=== PATIENT | female | born 1960 | race Caucasian/White ===

== ENCOUNTER 2017-08-08 15:14 | Emergency (ER) | payer OTHER, SELFPAY ==
--- NOTE | 2017-08-08 16:21 | RAD ---
PORTABLE CHEST ONE VIEW: 08/08/17 at 3:40 p.m. HISTORY: Syncope. FINDINGS: Comparison is made with the exam of 02/10/17. The heart size is enlarged. There is mild elevation of the right hemidiaphragm. No confluent areas o f consolidation, pneumothorax, alcira pulmonary edema or pleural effusions are seen. IMPRESSION: No acute process. POS: [facility]
[2017-08-08 16:24] LABS: #Eosinphils 0.4 thou/uL (0.0-0.7); #Lymphocytes 2.8 thou/uL (1.20-3.40); #Monocytes 0.7 thou/uL (0.11-0.59); #Neutrophils 3.2 thou/uL (1.40-6.50); %Basophils 0.5 % (0.0-1.0); %Eosinophils 5.1 % (0.0-10.0); %Lymphocytes 40.2 % (21.0-51.0); %Monocytes 9.3 % (0.0-10.0); Hematocrit 38.5 % (36.0-47.0); Mean Platelet Volume 9.3 fL (7.4-10.4); Red Blood Cell (RBC) Count 4.32 mill/uL (4.20-5.40)
[2017-08-08 16:32] LABS: PTT 30.9 SEC (22.9-36.1); Prothrombin Time 12.9 SEC (12.0-14.7)
[2017-08-08 16:42] LABS: Bilirubin Negative (Negative); Blood, Urine Negative (Negative); Glucose, Urine (Dipstick) Negative (Negative); Ketone, Urine Negative (Negative); Nitrite Negative (Negative); Protein, Urine (Dipstick) Negative (Neg-Trace); Urobilinogen 0.2 mg/dL (0.2-1.0)
[2017-08-08 16:43] LABS: Squamous Epithelial 0-3 HPF (0-3)
[2017-08-08 16:46] LABS: ALT (SGPT) 15 U/L (8-55); AST (SGOT) 14 U/L (5-34); Alkaline Phosphatase 90 U/L (40-150); Anion Gap 17 mmol/L (10-20); BUN (Urea Nitrogen) 34 mg/dL (9.8-20.1); Bilirubin, Total 0.3 mg/dL (0.2-1.2); CK (CPK) 86 U/L (29-168); Calc. Creatinine Clearance 0 mL/min (70-130); Calcium 9.7 mg/dL (7.8-10.44); Carbon Dioxide 25 mmol/L (22-29); Chloride 103 mmol/L (98-107); Estimated GFR-MDRD 52; Globulin 3.7 g/dL (2.4-3.5); Protein, Total 7.8 g/dL (6.0-8.3)
[2017-08-08 16:50] LABS: Troponin I 0.011 ng/mL (< 0.028)
[2017-08-08] MEDS ORDERED: Ondansetron HCl/PF 4 MG/2 ML Vial ONE (16:51)
[2017-08-08 16:53] LABS: Bacteria/HPF Rare-Few HPF (None Seen)
[2017-08-08 16:54] LABS: Hyaline Casts/LPF 7-10 HYALINE CAST LPF (0-3 Hyaline); RBC/HPF 0-3 HPF (0-3)
--- NOTE | 2017-08-08 17:08 | CT ---
EXAM: NONCONTRAST HEAD CT 08/08/17 COMPARISON: 09/27/16 HISTORY: Syncope. TECHNIQUE: Noncontrast head CT is performed from skull base to skull vertex. FINDINGS: Limited evaluation due to motion degradation. No parenchymal hemorrhage. No extra-axial hematoma. No midline shift. Basilar cisterns are patent. Brain volume appears to be age appropriate. No evidence of hydrocephalus. Cortical weathers-white matter differentiation is preserved. Sulci are patent and sym metric. Calvarium is intact. Adequate aeration of the sinuses and mastoid air cells. Cavernous carotid ather osclerosis is noted. IMPRESSION: No acute intracranial process. POS: [facility]
--- NOTE | 2017-08-08 17:39 | RAD ---
LEFT KNEE FOUR VIEWS: 08/08/17 HISTORY: Injury, left knee pain. FINDINGS/IMPRESSION: Degenerative changes are present. No acute fracture or dislocation is identified. POS: [facility]
--- NOTE | 2017-08-08 17:42 | RAD ---
RIGHT KNEE FOUR VIEWS: 08/08/17 HISTORY: Injury, right knee pain. FINDINGS/IMPRESSION: Degenerative changes are present. No evidence of fracture or dislocation is identified. POS: [facility]
--- NOTE | 2017-08-08 17:42 | RAD ---
SACRUM AND COCCYX THREE VIEWS: 08/08/17 HISTORY: Injury. Pain in the lower spine. FINDINGS/IMPRESSION: No acute fracture or dislocation seen. POS: [facility]
[2017-08-08] MEDS ORDERED: HYDROcodone/Acetaminophen 5/325 mg Tablet ONE (18:41)
[2017-08-08] MEDS ORDERED: Meclizine HCl 25 MG TAB ONE ×2 (18:41→18:42)
== END 2017-08-08 19:54 | disposition home or self-care (01) ==
LOC: ERS 15:14
DX: M25.562 Pain in left knee (principal); M25.561 Pain in right knee; R42 Dizziness and giddiness; M53.3 Sacrococcygeal disorders, not elsewhere classified; E11.65 Type 2 diabetes mellitus with hyperglycemia; E78.5 Hyperlipidemia, unspecified; F32.9 Major depressive disorder, single episode, unspecified; F41.9 Anxiety disorder, unspecified; I10 Essential (primary) hypertension; Z86.73 Personal history of transient ischemic attack (TIA), and cerebral infarction without residual deficits; Z87.891 Personal history of nicotine dependence; Z79.84 Long term (current) use of oral hypoglycemic drugs; Z79.899 Other long term (current) drug therapy; W17.89XA Other fall from one level to another, initial encounter
CPT/HCPCS: 70450; 71010; 72220; 80053; 81003; 81015; 82550; 82553; 84146; 84484; 85025; 85610; 85730; 87086; 93005; 94760; 96361; 96374; 96375; J2270; J2405

== ENCOUNTER 2018-01-09 22:29 | Inpatient (IN) | payer SELFPAY ==
[2018-01-09 23:43] LABS: Bilirubin Negative (Negative); Blood, Urine Negative (Negative); Clarity CLEAR (Clear); Glucose, Urine (Dipstick) Negative (Negative); Leukocyte Negative (Negative); Nitrite Negative (Negative); Protein, Urine (Dipstick) Negative (Neg-Trace); Specific Gravity, Urine 1.021 (1.002-1.036); Urobilinogen 0.2 mg/dL (0.2-1.0)
[2018-01-09 23:48] LABS: #Basophils 0.1 thou/uL (0.0-0.2); #Eosinphils 0.3 thou/uL (0.0-0.7); #Lymphocytes 2.8 thou/uL (1.20-3.40); #Monocytes 0.7 thou/uL (0.11-0.59); #Neutrophils 6.1 thou/uL (1.40-6.50); %Basophils 0.7 % (0.0-1.0); %Eosinophils 2.8 % (0.0-10.0); %Lymphocytes 27.8 % (21.0-51.0); %Monocytes 7.2 % (0.0-10.0); %Neutrophils 61.5 % (42.0-75.0); Hemoglobin 12.4 g/dL (12.0-16.0); Mean Corpuscular HGB CONC 31.9 g/dL (32.0-36.0); Mean Corpuscular Hemoglobin 28.3 pg (27.0-31.0); Mean Corpuscular Volume 88.7 fl (81.0-99.0); Mean Platelet Volume 9.6 fL (7.4-10.4); Platelet Count 212 thou/uL (130-400); RBC Distribution Width 14.3 % (11.5-14.5); Red Blood Cell (RBC) Count 4.37 mill/uL (4.20-5.40); White Blood Cell (WBC) Count 9.9 thou/uL (4.8-10.8)
[2018-01-10 00:09] LABS: ALT (SGPT) 9 U/L (8-55); AST (SGOT) 14 U/L (5-34); Albumin 4.2 g/dL (3.5-5.0); Alkaline Phosphatase 72 U/L (40-150); Anion Gap 15 mmol/L (10-20); BUN (Urea Nitrogen) 19 mg/dL (9.8-20.1); Bilirubin, Total 0.6 mg/dL (0.2-1.2); Calc. Creatinine Clearance 0 mL/min (70-130); Calcium 9.9 mg/dL (7.8-10.44); Carbon Dioxide 26 mmol/L (22-29); Chloride 102 mmol/L (98-107); Estimated GFR-MDRD 54; Globulin 3.4 g/dL (2.4-3.5); Glucose 93 mg/dL (70-105); Lipase 16 U/L (8-78); Potassium 4.2 mmol/L (3.5-5.1); Protein, Total 7.6 g/dL (6.0-8.3); Sodium 139 mmol/L (136-145)
[2018-01-10] MEDS ORDERED: Nitroglycerin 2% Ointment 1 INCH/1 GM Packet ONE (00:22)
[2018-01-10 01:06] LABS: CKMB 1.2 ng/mL (0-6.6); Troponin I 0.012 ng/mL (< 0.028)
[2018-01-10] MEDS ORDERED: Piperacillin/Tazobactam 4.5 GM in Sodium Chloride 0.9% 100 ML IVPB SCH ×2 (03:30→12:00)
[2018-01-10] MEDS ORDERED: Labetalol HCl 100 MG/20 ML VIAL ONE (03:40)
[2018-01-10] MEDS ORDERED: Morphine 4 MG/ML VIAL ONE (05:05)
[2018-01-10 06:38] LABS: Troponin I 0.017 ng/mL (< 0.028)
[2018-01-10] MEDS ORDERED: Sodium Chloride 0.9% 1,000 ML IV SCH ×2 (06:46→08:15)
[2018-01-10] MEDS ORDERED: Acetaminophen 325 MG TAB PO PRN ×2 (06:46→08:03)
[2018-01-10] MEDS ORDERED: Ondansetron ODT 4 MG TAB SL PRN (06:46)
[2018-01-10] MEDS ORDERED: Ondansetron HCl/PF 4 MG/2 ML Vial IVP PRN ×2 (06:46→08:03)
[2018-01-10] MEDS ORDERED: Bisacodyl 10 MG SUPP PR PRN (08:03)
[2018-01-10] MEDS ORDERED: HYDROcodone/Acetaminophen 10/325 mg Tablet PO PRN (08:03)
[2018-01-10] MEDS ORDERED: Zolpidem Tartrate 5 MG TAB PO PRN (08:03)
[2018-01-10] MEDS ORDERED: Ondansetron ODT 4 MG TAB PO PRN (08:03)
[2018-01-10] MEDS ORDERED: Milk Of Magnesia 30 ML UDCUP PO PRN (08:03)
[2018-01-10] MEDS ORDERED: Mag-Al 1200 mg/1200 mg/30 ML UDCUP PO PRN (08:03)
[2018-01-10] MEDS ORDERED: Senokot 8.6 MG TAB PO PRN (08:03)
[2018-01-10] MEDS ORDERED: Loperamide HCl 2 MG CAP PO PRN (08:03)
[2018-01-10] MEDS ORDERED: HumaLOG 300 UNITS/3 ML VIAL SC PRN ×2 (08:05)
[2018-01-10] MEDS ORDERED: Artificial Tears 18 DROP/0.9 ML EA EYE PRN (08:05)
[2018-01-10] MEDS ORDERED: Dextrose 5% in Water 1,000 ML IV PRN (08:05)
[2018-01-10] MEDS ORDERED: Eucerin (Mineral Oil/Petrolatum,White) 30 gm Jar TOP PRN (08:05)
[2018-01-10] MEDS ORDERED: Loratadine 10 MG TAB PO PRN (08:05)
[2018-01-10] MEDS ORDERED: Chloraseptic Spray 180 ml Bottle PO PRN (08:05)
[2018-01-10] MEDS ORDERED: Labetalol HCl 100 MG/20 ML VIAL SLOW IVP PRN (08:05)
[2018-01-10] MEDS ORDERED: Dextrose 50% Abboject 50 ML SYRINGE SLOW IVP PRN (08:05)
[2018-01-10] MEDS ORDERED: Diabetic Tussin 200 MG/10 ML UDCUP PO PRN (08:05)
[2018-01-10] MEDS ORDERED: Sodium Chloride 0.65% Nasal 44 ML BOT EA NARE PRN (08:05)
[2018-01-10] MEDS ORDERED: VANCOMYCIN IVPB PRN (08:46)
[2018-01-10] MEDS ORDERED: Famotidine/PF 20 mg/2ml Vial SLOW IVP SCH (09:00)
[2018-01-10 09:01] VITALS: BMI 49.8
--- NOTE | 2018-01-10 09:14 | CON ---
DATE OF CONSULTATION: 01/10/2018 PRIMARY CARE PHYSICIAN: Dayday Kingston M.D. PRIMARY ATTENDING: Dr. Stephen Padilla. REASON FOR CONSULTATION: Medical comanagement and preoperative clearance. HISTORY OF PRESENT ILLNESS: A 57-year-old female who has multiple medical problems including diabete s mellitus type 2, hypertension, dyslipidemia, and morbid obesity who presented to emergency room yes terday with a complaint of upper abdominal pain as well as bloating for last 2 weeks. The patient re ports that she has epigastric and left-sided upper abdominal pain which gets worse after eating littl e amount of food. The patient feels that her stomach gets bloated and she cannot eat more. She feel s nausea, but no vomiting. She denies any diarrhea. She was also having lower abdominal discomfort. This is going on for last 2 weeks on and off symptoms. Patient also gained weight over the last co uple of weeks. Patient reports that on 12/31/2017, she had regular visit with primary care physician and patient's v itals checked. At that time she was found with sinus tachycardia. That is why EKG was done in the [facility] physician's office which was only showing tachycardia and subsequently PCP ordered routin e blood tests, CBC and BMP, which was pretty much unremarkable, but only found with hypothyroidism an d that is why low dose of Synthroid was started. Since then, patient has continuous symptoms. The p atient was complaining of only shortness of breath and little bit palpitation on exertion, but she de nies any real chest pain. She denies any fever or chills. She denies any UTI symptoms. She denies any constipation or diarrhea. Initially, she had constipation about a week ago, but her primary care physician prescribed MiraLax and since then she does not have any constipation problem. She denies any headaches. She denies any orthopnea, PND or leg swelling. She denies any focal motor or sensory symptoms. She denies any dizziness. In the emergency room, patient had routine blood test showed CBC unremarkable. BMP and LFT unremarka ble. Her cardiac enzyme had been unremarkable. TSH was normal and BNP was slightly elevated. Her u rinalysis was also normal. In the emergency room, they did a CT of the abdomen and pelvis which show ed findings suspicious for acute cholecystitis. Abdominal ultrasound showed thickened gallbladder wa ll about an 8 mm dilated common bile duct, one stone and 9.5 cm abscess in the deep subcutaneous tiss ue in the right lower quadrant with an anterior abdominal wall cellulitis. When I spoke with patient about this, she reports that she has chronic fluid collection in her lower abdomen that was found with a CT of the abdomen and pelvis in the past as well, but patient reports a t that time, physician told her that was not bothering her and that is why there was no intervention done in the past. ALLERGIES: IBUPROFEN and NAPROXEN. CURRENT HOME MEDICATIONS: The patient does not have any medication with her and that is why we are n ot able to verify her home medication, but based on the [place], patient was on following medication , but we need to verify aspirin 81 mg daily, atenolol 25 mg daily, Flexeril 10 mg daily, Glucotrol 5 mg b.i.d., Fischer 1 tablet q.6 hourly p.r.n., lisinopril 10 mg at bedtime, lovastatin 20 mg p.o. at be dtime, metformin 1000 mg p.o. b.i.d., Seroquel 100 mg p.o. at bedtime, Ambien 10 mg p.o. at bedtime. PAST MEDICAL HISTORY: Diabetes mellitus type 2 on oral hypoglycemics, hypertension, dyslipidemia, mo rbid obesity, chronic normocytic anemia, and fatty liver. PAST PSYCHIATRIC HISTORY: Anxiety, depression, and insomnia. PAST SURGICAL HISTORY: Appendicectomy, hernia repair, tonsillectomy, tubal ligation. SOCIAL HISTORY: The patient lives at home with family. No history of tobacco or illicit drug abuse. She drinks alcohol socially. FAMILY HISTORY: Positive for diabetes, hypertension, and coronary artery disease among several famil y members. REVIEW OF SYSTEMS: The following complete review of systems was negative, unless otherwise mentioned in the HPI or below: Constitutional: Weight loss or gain, ability to conduct usual activities. Skin: Rash, itching. Eyes: Double vision, pain. ENT/Mouth: Nose bleeding, neck stiffness, pain, tenderness. Cardiovascular: Palpitations, dyspnea on exertion, orthopnea. Respiratory: Shortness of breath, wheezing, cough, hemoptysis, fever or night sweats. Gastrointestinal: Poor appetite, abdominal pain, heartburn, nausea, vomiting, constipation, or diarr hea. Genitourinary: Urgency, frequency, dysuria, nocturia. Musculoskeletal: Pain, swelling. Neurologic/Psychiatric: Anxiety, depression. Allergy/Immunologic: Skin rash, bleeding tendency. Please see my HPI for pertinent positive and negative. All other review of systems reviewed and nega tive except as mentioned in the HPI. EMERGENCY ROOM COURSE: The patient is given morphine 4 mg, vancomycin 1 gram, Zosyn 4.5 gram, IV flu id 1 liter, labetalol 10 mg IV push, 2 liter IV fluid, and nitropatch. PHYSICAL EXAMINATION: VITAL SIGNS: On arrival to the emergency room, blood pressure 164/86, pulse 153, respiratory rate 18 , temperature 98.4, saturation 99% on room air, weight 104.7 kilograms. GENERAL: Patient is currently alert, oriented, hypertensive, tachycardic. No obvious acute distress . HEAD: Normocephalic, atraumatic. EYES: Pupils round, reactive to light. Extraocular muscle intact. ENT: Oropharynx within normal limits. Moist mucous membranes. No oral lesions, no pharyngeal eryth ritchie, no exudate. NECK: Supple, no JVD, no thyromegaly, no carotid bruit, no jugular venous distention. LUNGS: Clear to auscultation without any rhonchi or rales, air entry reduced at base. CARDIAC: S1, S2 regular, tachycardia, no murmur, no gallop, no rub. ABDOMEN: Patient does have epigastric tenderness on palpation as well as positive Yu sign and le ft upper quadrant discomfort as well as right lower quadrant discomfort. Bowel sounds present. No p eritoneal sign, no guarding, no rigidity, no rebound, no suprapubic tenderness. BACK: Examination unremarkable, no CVA tenderness. EXTREMITIES: Upper extremity passive movements of all joints are normal. Lower extremity, trace tj ma noted at ankle. Good distal pulsation. SKIN: No skin rash. HEMATOLOGICAL SYSTEM: No lymphadenopathy. PSYCHIATRIC: Normal affect. NEUROLOGIC: Nonfocal examination. The patient moves all 4 limbs. Plantar bilateral flexor. IMAGING DATA AND SIGNIFICANT LABORATORY DATA: 1. Monitor showing sinus tachycardia. 2. EKG showing sinus tachycardia, right bundle branch block pattern. 3. Repeat EKG showing sinus tachycardia, right bundle branch block pattern. 4. CT of the abdomen and pelvis with IV contrast showing small pericardial effusion, small right ple ural effusion, 9.5 cm abscess in the deep subcutaneous tissue in the right lower quadrant anterior pe lvic wall, distended gallbladder with pericholecystic edema and fluid, small volume ascites, extensiv e low anterior abdominal wall cellulitis. 5. Ultrasound abdomen showing cholelithiasis, distended gallbladder with diffuse gallbladder wall th ickening, positive Yu sign. Common bile duct is mildly prominent at 8 mm in caliber, right pleur al effusion. 6. CBC: WBC 9.9, hemoglobin 12.4, platelet 212. 7. BMP: Sodium 139, potassium 4.2, chloride 102, carbon dioxide 26, anion gap 15, BUN 19, creatinin e 1.04, glucose 93, calcium 9.9. 8. LFT: AST 14, ALT 9, alkaline phosphatase is 72, albumin 4.2, lipase 16, TSH 1.53, CK 40, CK-MB 1 .2, troponin I 0.012 and then 0.017. BNP 245.6. Urinalysis normal. 9. Echocardiography was done recently which showed normal EF. Stress test was done last year in Jan which was normal without any ischemia. ASSESSMENT AND PLAN/IMPRESSION: 1. Right upper quadrant epigastric and left upper quadrant abdominal pain. Patient does have thick gallbladder wall, CBD dilated cholelithiasis. Surprisingly, her LFT is normal. This patient does hebert ve palpable tenderness in epigastric and right upper quadrant region. Clinically, this patient does have acute cholecystitis and radiologically, patient also has acute cholecystitis. Patient has diste nded gallbladder and patient's clinical symptomatology of bloating after food and worse with food als o supports diagnosis. At this point, patient will need cholecystectomy laparoscopic preferable, but given her previous multiple abdominal surgeries, we will defer to surgeon whether laparoscopically is possible or not, but in case if patient goes for surgery, then the patient is medically cleared for surgery as well. 2. Antibiotic management. We will start vancomycin and Zosyn which we will continue while in hospit al and Florastor 250 mg p.o. daily as a probiotic therapy. 3. Pain control. We will continue with morphine 2 mg IV q.4 hourly p.r.n. for pain control and Norc o p.r.n. basis. 4. Symptomatic treatment. We will continue Pepcid 20 mg IV b.i.d. and Zofran on p.r.n. basis. 5. Diabetes type 2. We will hold on oral hypoglycemic agent. We will continue with insulin as per sliding scale per protocol. 6. Fluid and electrolyte management. We will continue NS at 150 mL per hour and we will replace taco ctrolytes accordingly. 7. Preoperative clearance. As mentioned above, patient does not have any angina. Her cardiac enzym es negative. EKG is unremarkable. Current sinus tachycardia is part of inflammatory process. She i s euvolemic and she had negative stress test last year. The patient is medically cleared for surgery . Her thyroid function test is also normal. 8. Sinus tachycardia. We are suspecting from underlying inflammatory process. The patient will nee d p.r.n. basis labetalol, but we will control her pain as well as patient will need underlying surgic al treatment for acute cholecystitis and fluid collection in the right lower quadrant. 9. Abscess in right lower quadrant. As per report, there is a 9.5 cm fluid collection in deep subcu taneous tissue and that is suspected for abscess. We will defer that management to primary team. Hrio leahy may need surgical drainage. 10. Serositis. Patient has small pericardial effusion, small pleural effusion and small ascites. E tiology uncertain, but very rarely Nodaway syndrome with ovarian tumor needs to be kept in mind. 11. Anterior abdominal wall cellulitis. Clinically, does not have any external cellulitis. Patient is already on antibiotic therapy. 12. Hypertension. We will continue atenolol 25 mg p.o. at bedtime. 13. Anxiety and depression. Once we verify her home medication and we will resume her home medicati on while in hospital. 14. Dyslipidemia. After verification of her home medication, we will start statin therapy. 15. Deep venous thrombosis prophylaxis. After surgery, patient will need Lovenox 40 mg subcu daily. 16. Gastrointestinal prophylaxis, Pepcid 20 mg IV b.i.d. 17. Code status: The patient is FULL CODE. Patient's daughter is surrogate decision maker in case the patient does not make decision. Disposition plan based on clinical course. We are expecting patient's stay in hospital more than 2 m idnights. Plan of care discussed with the patient and family member at bedside. Thank you for the consult. We will follow up with you on a daily basis while in hospital.
[2018-01-10] MEDS: Saccharomyces boulardii 250 MG CAP PO SCH (09:25)
[2018-01-10] MEDS: Famotidine 40 MG/4 ML VIAL SLOW IVP SCH ×2 (09:25→21:10)
[2018-01-10] MEDS: Enoxaparin Sodium 40 MG/0.4 ML SYRINGE SC SCH (09:25)
--- NOTE | 2018-01-10 09:25 | RAD ---
PORTABLE CHEST: Date: 01/10/18 PROVIDED CLINICAL HISTORY: Chest pain. FINDINGS: Comparison with 08/08/17. The cardiac silhouette appears enlarged. Vascular calcification involves the aortic arch. Evaluation of the left lung base is limited. No focal consolidation, pleural fluid, or pneumothorax apparent. IMPRESSION: Cardiomegaly without evidence for acute cardiopulmonary process. POS: [facility]
[2018-01-10 09:36] LABS: Troponin I 0.017 ng/mL (< 0.028)
--- NOTE | 2018-01-10 09:52 | CT ---
PRELIMINARY REPORT/[facility]/EMERGENCY AFTER HOURS PROCEDURE: EXAM: CT Abdomen and Pelvis With Intravenous Contrast EXAM DATE/TIME: Exam ordered 01/10/2018 12:54 AM CLINICAL HISTORY: 57 years old, female; Pain; Abdominal pain; Localized; Upper; Prior surgery; Patient HX: Er 12; Upper abd pain x 2 wks with bloating. Surgical history of appendectomy, hernia repair x5, surgical history of tubal ligation. TECHNIQUE: Axial computed tomography images of the abdomen and pelvis with intravenous contrast. Coronal reforma tted images were created and reviewed. CONTRAST: 95 mL of ISOVUE 370 administered intravenously. COMPARISON: No relevant prior studies available. FINDINGS: Lower thorax: Small pericardial effusion. Small right pleural effusion. Mild cardiomegaly. Fatcontain ing hiatal hernia. ABDOMEN: Liver: No pneumatosis or portal/mesenteric venous gas. Gallbladder and bile ducts: Gallbladder is distended. Pericholecystic edema/fluid. Findings are suspi cious for acute cholecystitis. No biliary ductal dilatation. Pancreas: Unremarkable. No mass. No ductal dilation. Spleen: Unremarkable. No splenomegaly. Adrenals: Unremarkable. No mass. Kidneys and ureters: Unremarkable. No solid mass. No hydronephrosis. Stomach and bowel: No bowel wall thickening or intestinal obstruction. Left lower quadrant abdominal wall hernia containing a loop of colon. No resultant obstruction or strangulation. Appendix: Appendix not visualized. No evidence of appendicitis. PELVIS: Bladder: Unremarkable. No mass. Reproductive: Unremarkable as visualized. ABDOMEN and PELVIS: Intraperitoneal space: Small volume ascites in the pelvis. No pneumoperitoneum or abscess. Bones/joints: No acute fracture. No dislocation. Soft tissues: 9.5 cm abscess in the deep subcutaneous tissue of the right lower quadrant/anterior pel anny wall which may actually be intraperitoneal and related to a fat containing anterior abdominal wall hernia. Extensive low anterior abdominal wall cellulitis. Extensive prior anterior abdominal wal l hernia repair. Vasculature: SMV and SMA are patent as far as can be traced. Lymph nodes: Unremarkable. No enlarged lymph nodes. IMPRESSION: 1. Small pericardial effusion. 2. Small right pleural effusion. 3. 9.5 cm abscess in the deep subcutaneous tissue of the right lower quadrant/anterior pelvic wall wh ich may actually be intraperitoneal and related to a fat containing anterior abdominal wall hernia. 4. Distended gallbladder with pericholecystic edema/fluid, suspicious for acute cholecystitis. 5. Small volume ascites in the pelvis. 6. Extensive low anterior abdominal wall cellulitis. Thank you for allowing us to participate in the care of your patient. Dictated and Authenticated by: Kris Jarrell MD 01/10/2018 1:11 AM Central Time ([place] & [place]) FINAL REPORT EMERGENCY AFTER HOURS CT ABDOMEN AND PELVIS: Date: 01/10/18 IMPRESSION: I agree with the preliminary interpretation given by [facility]. There is diffuse fat stranding involving t he anterior abdominal wall suggestive of cellulitis. There is a rim enhancing fluid collection involv ing the anterior abdominal wall inferiorly to the right of midline suspicious for abscess. The gallbl adder appears mildly distended with questioned pericholecystic fluid. If there is concern for acute c holecystitis, consider HIDA scan. POS: [facility]
--- NOTE | 2018-01-10 10:01 | ULT ---
PRELIMINARY REPORT/[facility]/EMERGENCY AFTER HOURS PROCEDURE: EXAM: US Abdomen Limited, Right Upper Quadrant EXAM DATE/TIME: Exam ordered 01/10/2018 1:44 AM CLINICAL HISTORY: 57 years old, female; Pain; Other: Upper abd pain x 3wks TECHNIQUE: Real-time ultrasound of the right upper quadrant with image documentation. COMPARISON: CT Abdomen Pelvis W Con 2018-01-10 00:54 FINDINGS: Liver: No perceptible intrahepatic biliary ductal dilatation. Gallbladder: Gallbladder is distended. Diffuse gallbladder wall thickening. Mild cholelithiasis. No p ericholecystic fluid. Sonographic Yu's sign reported positive. Common bile duct: Common bile duct is mildly prominent at 8 mm in caliber which can be normal or dila elizabeth in a patient this age. Pancreas: Unremarkable as visualized. Right kidney: Unremarkable. No stones. No solid mass. No hydronephrosis. Pleural space: Suggestion of right pleural effusion. IMPRESSION: 1. Cholelithiasis. Distended gallbladder with diffuse gallbladder wall thickening and positive sonogr aphic Yu sign, compatible with acute cholecystitis. 2. Common bile duct is mildly prominent at 8 mm in caliber which can be normal or dilated in a patien t this age. 3. Suggestion of right pleural effusion. Thank you for allowing us to participate in the care of your patient. Dictated and Authenticated by: Kris Jarrell MD 01/10/2018 3:36 AM Central Time ([place] & [place]) FINAL REPORT EMERGENCY AFTER HOURS RIGHT UPPER QUADRANT ULTRASOUND: Date: 01/10/18 IMPRESSION: I agree with the preliminary interpretation given by [facility] that there is evidence for a small gallston e, as well as gallbladder wall thickening. The emergency medical technician does report a positive sonographic Yu' s sign and acute cholecystitis cannot be excluded on the basis of this study. However, the CT examina tion performed earlier same date demonstrated diffuse soft tissue changes suggestive of anasarca, as well as right pleural effusion, and the gallbladder wall thickening could be on the basis of a system ic state. If there is concern for acute cholecystitis, consider further evaluation with HIDA scan. Th e common duct does not appear dilated on comparison CT examination. POS: [facility]
[2018-01-10 10:31] LABS: Bilirubin Negative (Negative); Blood, Urine Negative (Negative); Clarity CLEAR (Clear); Glucose, Urine (Dipstick) Negative (Negative); Leukocyte Negative (Negative); Nitrite Negative (Negative); Protein, Urine (Dipstick) Negative (Neg-Trace); Urobilinogen 0.2 mg/dL (0.2-1.0); pH, Urine 5.5 (5.0-9.0)
[2018-01-10 10:33] LABS: Bacteria/HPF Rare-Few HPF (None Seen); Hyaline Casts/LPF 0-3 HYALINE CAST LPF (0-3 Hyaline); Pathc Cast-AUWi Flag 0.27 (0-2.49); RBC/HPF 0-3 HPF (0-3); Squamous Epithelial 0-3 HPF (0-3); WBC/HPF 0-3 HPF (0-3)
[2018-01-10 10:46] LABS: Specific Gravity, Urine 1.054 (1.002-1.036)
[2018-01-10] MEDS: Lactated Ringer's 1,000 ML IV SCH ×3 (10:57→23:41)
[2018-01-10] MEDS: Piperacillin/Tazobactam 4.5 GM in Sodium Chloride 0.9% 100 ML IVPB SCH ×3 (10:58→21:25)
--- NOTE | 2018-01-10 12:46 | HP ---
HISTORY OF PRESENT ILLNESS: This is a 57-year-old female with acute cholecystitis, admitted from the emergency room. Patient, on CAT scan and ultrasound, noted to have distended gallbladder with peric holecystic edema fluid suspicious for acute cholecystitis. Ultrasound revealed sonographically posit nate Yu's sign with a bile duct 8 mm, upper limits of normal. Her liver function tests are normal . She was noted in the ER to have a heart rate of 140-150. She has been suffering upper abdominal d iscomfort for the past 2 weeks. She is followed by Dr. Kingston. She was hospitalized last year, , for atypical chest pain and cardiac stress test was normal with an ejection fraction of 82%. An e chocardiogram did not reveal any significant abnormalities. The patient has seen Dr. Vazquez in the [facility] and has had normal cardiac catheterizations years past. Patient on CAT scan was reported as having abdominal wall cellulitis, thickening, edema, but she is m orbidly obese, and in fact, has been gaining weight. She reports her hemoglobin A1c was up to 10 or 11, but recently has come down to 7. She has made efforts to lose weight. The patient is reporting on CAT scan as having a fluid collection in the abdominal wall. This is chronic. The patient has hebert d multiple incisional hernia repairs after suffering an incisional hernia from a tubal ligation and u ndergoing 2 operations in [place], [address] Flowers open, and laparoscopic mesh repair by me in the past. She has suffered recurrent incisional hernia. Past CAT scan revealed the fluid collec tion that she has now in the past; in fact, now it is smaller than the past. This is chronic and thi s is not an abscess. ALLERGIES: NAPROXEN, causes hives. She states that she can take Motrin and Aleve and Advil without allergic reactions. SOCIAL HISTORY: Tobacco cessation in the . Alcohol, none. MEDICATIONS: Metformin 1000 b.i.d., Glucotrol 5 mg b.i.d., Ambien 10 mg at bedtime, Seroquel 100 mg at bedtime, Mevacor 20 mg p.m. with meals, lisinopril 10 mg at bedtime, hydrocodone 10/325 p.r.n. jeremias n, Flexeril 10 p.o. at bedtime, atenolol 25 p.o. at bedtime, aspirin 81 mg a day. PAST SURGICAL HISTORY: Appendectomy at age 5. Right lower quadrant incision, bilateral tubal ligati on 26 years of age. She suffered an incisional hernia from her tubal ligation, and in 1994, she unde rwent mesh repair. This recurred and she underwent in 1995 reoperation, open repair. In 1997, Dr. Indu hill repaired this with mesh and then again she underwent mesh repair, open fashion in [address] Flowers. She had had her tubal ligation in 1983. I saw her in 2004. She weighed 231 pounds at that time, 4 feet 11 inches, and she underwent laparoscopic mesh repair using a 6 x 8 inch Composix mesh with tackers, findings of incarcerated small bowel into a large incisional hernia. She underwent ext ensive adhesiolysis. She reports normal colonoscopy 5-6 years ago. She lives in [place] with her [facility]. PAST MEDICAL HISTORY: Morbid obesity, metabolic syndrome, diabetes mellitus, hypertension, hypothyro idism. Echocardiogram done 01/2017 reveals 55%-60% ejection fraction, normal LV function. Left atri um, [id number] dilatation. Normal aortic valve. Mild tricuspid and pulmonic regurgitation. C ardiac stress test, nuclear medicine, 01/2017 was normal. She has [place]. [place] [facility] [place]. Vaz[place]. She has known history of hyperlipidemia and a past history of TIA with normal ca rotid ultrasounds. The patient is a former drug user. She has smoking cessation in 1993. No alcoho l use, no drug use now. FAMILY HISTORY: Coronary artery disease, last year. Patient has not seen Cardiology since her cardiac evaluation last year in the hospital. PHYSICAL EXAMINATION: VITAL SIGNS: 4 feet 10, 238 pounds, 49 BMI, 98.4, 149, 18, 119/56. GENERAL: Patient is alert and oriented and cooperative. She is not in distress. Sclerae nonicteric . SKIN: Nonjaundiced. LUNGS: Clear to auscultation. CARDIAC: Sinus tachycardia. ABDOMEN: Obese, soft. She has a large pannus. There is some resultant edema from her large pannus, but there is no cellulitis. She has a recurrent incisional hernia with a periumbilical incision and incisional hernias in her upper abdomen is soft. She has a dependent pannus down to her mid thighs when supine. She is tender with positive Yu sign in the right upper quadrant. EXTREMITIES: Without edema. LABORATORY DATA: White count 9, hemoglobin 12. Comprehensive metabolic profile unremarkable. Sodiu m 139, BUN 19, creatinine 1.04, TSH 1.5. ASSESSMENT AND PLAN: 1. Acute cholecystitis. We would recommend intravenous antibiotics and plan cholecystectomy tomorro w, laparoscopic. We should be able to work around her incisional hernia to accomplish this. Risk of infection, bleeding, visceral biliary injury, open procedure discussed. She consents. 2. Supraventricular tachycardia, probably secondary to above and related to her cholecystitis. IV f luids, IV antibiotics, IV hydration, and supportive care. 3. Morbid obesity, metabolic syndrome. 4. Diabetes mellitus, type 2. 5. Hypertension. 6. Dyslipidemia. 7. Recurrent incisional hernia. The fluid collection in the right lower quadrant abdominal wall duke cribed by our CAT scan as an abscess is not an abscess. This has been present on past CAT scans, in fact this fluid collection is smaller and related to her past incisional hernia repairs. She has a l arge incisional hernia there with a large opening. There is no evidence of obstruction or changes re lated to this. This incisional hernia could be repaired in the future, but I have talked to her abou t weight reduction. In fact, she would be a good candidate for bariatric weight loss surgery to decr ease her recurrence rate from her recurrent incisional hernia.
[2018-01-10] MEDS ORDERED: ISOVUE-370 76%-LOCM 1 ML ONE (13:59)
[2018-01-10] MEDS ORDERED: Vancomycin HCl 1 GM in Premix Bag 1 BAG IVPB SCH (15:00)
[2018-01-10] MEDS: Zolpidem Tartrate 5 MG TAB PO SCH (21:25)
[2018-01-10] MEDS: Atenolol 25 MG TAB PO SCH (21:25)
[2018-01-10] MEDS: Cyclobenzaprine 10 MG TAB PO SCH (21:25)
[2018-01-10] MEDS: Lisinopril 10 MG TAB PO SCH (21:26)
[2018-01-11 04:47] LABS: #Basophils 0.1 thou/uL (0.0-0.2); #Eosinphils 0.2 thou/uL (0.0-0.7); #Lymphocytes 1.8 thou/uL (1.20-3.40); #Monocytes 0.5 thou/uL (0.11-0.59); #Neutrophils 4.4 thou/uL (1.40-6.50); %Basophils 1.1 % (0.0-1.0); %Lymphocytes 25.4 % (21.0-51.0); %Monocytes 7.6 % (0.0-10.0); Hemoglobin 11.6 g/dL (12.0-16.0); Mean Corpuscular Hemoglobin 28.2 pg (27.0-31.0); Mean Corpuscular Volume 88.2 fl (81.0-99.0); Mean Platelet Volume 9.6 fL (7.4-10.4); Platelet Count 166 thou/uL (130-400); RBC Distribution Width 14.4 % (11.5-14.5); Red Blood Cell (RBC) Count 4.11 mill/uL (4.20-5.40); White Blood Cell (WBC) Count 6.9 thou/uL (4.8-10.8)
[2018-01-11] MEDS: Piperacillin/Tazobactam 4.5 GM in Sodium Chloride 0.9% 100 ML IVPB SCH ×3 (04:50→16:51)
[2018-01-11] MEDS ORDERED: Vancomycin HCl 1 GM in Premix Bag 1 BAG IVPB SCH (05:00)
[2018-01-11 05:06] LABS: ALT (SGPT) 9 U/L (8-55); AST (SGOT) 14 U/L (5-34); Albumin 3.8 g/dL (3.5-5.0); Alkaline Phosphatase 61 U/L (40-150); Anion Gap 12 mmol/L (10-20); BUN (Urea Nitrogen) 14 mg/dL (9.8-20.1); Bilirubin, Total 0.6 mg/dL (0.2-1.2); Calc. Creatinine Clearance 100 mL/min (70-130); Calcium 9.3 mg/dL (7.8-10.44); Carbon Dioxide 25 mmol/L (22-29); Chloride 107 mmol/L (98-107); Estimated GFR-MDRD 54; Globulin 2.8 g/dL (2.4-3.5); Glucose 108 mg/dL (70-105); Potassium 4.3 mmol/L (3.5-5.1); Protein, Total 6.6 g/dL (6.0-8.3); Sodium 140 mmol/L (136-145)
[2018-01-11 05:09] LABS: Hemoglobin A1c 6.9 % (4.0-6.0)
[2018-01-11] MEDS ORDERED: Non-Formulary Item 1 EACH (Lovastatin 20 MG) PO SCH (08:00)
[2018-01-11] MEDS ORDERED: Non-Formulary Item 1 EACH (Metformin Hcl [Metformin Hcl] 1,000 MG) PO SCH (08:00)
[2018-01-11] MEDS ORDERED: Digoxin 0.5 MG/2 ML AMP SLOW IVP SCH (08:45)
[2018-01-11] MEDS ORDERED: Non-Formulary Item 1 EACH (Pioglitazone Hcl [Pioglitazone Hcl] 30 MG) PO SCH (09:00)
[2018-01-11] MEDS ORDERED: Metoprolol Tartrate 5 MG/5 ML VIAL IVP ONE (09:31)
--- NOTE | 2018-01-11 09:32 | PDOC.PN ---
- Subjective Encounter Start Date: 01/11/18 Encounter Start Time: 07:10 -: old records requested/rev pt remained tachycardic, this morning she has nausea, bloating, no fever, no chest pain - Objective Resuscitation Status: Resuscitation Status FULL:Full Resuscitation MAR Reviewed: Yes Vital Signs & Weight: Vital Signs (12 hours) Temp Pulse Resp BP BP Pulse Ox 01/11/18 09:01 150 H 192/82 H 01/11/18 08:52 150 H 01/11/18 07:51 97.6 F 150 H 17 192/82 H 97 01/11/18 07:30 98.6 F 145 H 18 98 01/11/18 04:00 98.6 F 145 H 18 133/94 H 96 Weight Weight 238 lb 9.6 oz Result Diagrams: 01/11/18 04:33 01/11/18 04:33 Additional Labs: Accuchecks 01/10/18 01/10/18 15:59 10:37 POC Glucose 85 91 EKG Reviewed by me: Yes (atrial tachycardia) Phys Exam - Physical Examination Constitutional: NAD HEENT: PERRLA, moist MMs, sclera anicteric Neck: no JVD, supple Respiratory: no wheezing, no rales, no rhonchi Cardiovascular: RRR, no significant murmur, no rub tachycardia Gastrointestinal: soft, no distention, positive bowel sounds RUQ discomfort Musculoskeletal: no edema, pulses present Neurological: non-focal, normal sensation, moves all 4 limbs Psychiatric: normal affect, A&O x 3 Skin: no rash, normal turgor Dx/Plan (1) Acute cholecystitis Code(s): K81.0 - ACUTE CHOLECYSTITIS Status: Acute (2) Sinus tachycardia Code(s): R00.0 - TACHYCARDIA, UNSPECIFIED Status: Acute Comment: likely atrial tachycardia (3) Anxiety and depression Code(s): F41.8 - OTHER SPECIFIED ANXIETY DISORDERS Status: Chronic (4) Diabetes type 2, controlled Code(s): E11.9 - TYPE 2 DIABETES MELLITUS WITHOUT COMPLICATIONS Status: Chronic (5) Dyslipidemia Code(s): E78.5 - HYPERLIPIDEMIA, UNSPECIFIED Status: Chronic (6) HTN (hypertension) Code(s): I10 - ESSENTIAL (PRIMARY) HYPERTENSION Status: Chronic (7) Hypothyroidism Code(s): E03.9 - HYPOTHYROIDISM, UNSPECIFIED Status: Chronic (8) Morbid obesity with BMI of 45.0-49.9, adult Code(s): E66.01 - MORBID (SEVERE) OBESITY DUE TO EXCESS CALORIES; Z68.42 - BODY MASS INDEX (BMI) 45.0-49.9, ADULT Status: Chronic (9) Recurrent incisional hernia Code(s): K43.2 - INCISIONAL HERNIA WITHOUT OBSTRUCTION OR GANGRENE Status: Chronic - Plan cont current plan of care, plan discussed w/ family, continue antibiotics * give digoxin 0.25 mg iv one time * give metoprolol 5 mg iv one time * continue iv vancomycin and zosyn * plan for cholecystectomy * cardiology consult for tachycardia * EKG * discussed with daughter * medication reviewed as below * symptomatic treatment. * continue IVF Review of Systems - Review of Systems Constitutional: negative: fever, chills, sweats, weakness, malaise, other Eyes: negative: Pain, Vision Change, Conjunctivae Inflammation, Eyelid Inflammation, Redness, Other ENT: negative: Ear Pain, Ear Discharge, Nose Pain, Nose Discharge, Nose Congestion, Mouth Pain, Mouth Swelling, Throat Pain, Throat Swelling, Other Respiratory: negative: Cough, Dry, Shortness of Breath, Hemoptysis, SOB with Excertion, Pleuritic Pain, Sputum, Wheezing Cardiovascular: negative: chest pain, palpitations, orthopnea, paroxysmal nocturnal dyspnea, edema, light headedness, other Gastrointestinal: Nausea, Abdominal Pain. negative: Vomiting, Diarrhea, Constipation, Melena, Hematochezia, Other Genitourinary: negative: Dysuria, Frequency, Incontinence, Hematuria, Retention , Other Musculoskeletal: negative: Neck Pain, Shoulder Pain, Arm Pain, Back Pain, Hand Pain, Leg Pain, Foot Pain, Other Skin: negative: Rash, Lesions, Abdiel, Bruising, Other - Medications/Allergies Allergies/Adverse Reactions: Allergies Allergy/AdvReac Type Severity Reaction Status Date / Time naproxen Allergy Verified 02/11/17 00:55 Medications: Current Medications Acetaminophen (Tylenol) 650 mg PO Q4H PRN PRN Reason: Headache/Fever or Pain Last Admin: 01/10/18 11:08 Dose: 650 mg Al Hydroxide/Mg Hydroxide (Maalox) 30 ml PO Q6H PRN PRN Reason: Heartburn or Indigestion Albuterol/Ipratropium (Duoneb) 3 ml NEB [id number] PRN PRN Reason: SOB &/or Wheezing Artificial Tears (Tears Naturale) 0 drop EA EYE PRN PRN PRN Reason: Dry Eyes Aspirin (Aspirin Chewable) 81 mg PO DAILY [facility] Atenolol (Tenormin) 25 mg PO HS [facility] Last Admin: 01/10/18 21:25 Dose: 25 mg Bisacodyl (Dulcolax) 10 mg MD Q24H PRN PRN Reason: Constipation Cyclobenzaprine HCl (Flexeril) 10 mg PO HS [facility] Last Admin: 01/10/18 21:25 Dose: 10 mg Dextrose/Water (Dextrose 50%) 25 gm SLOW IVP PRN PRN PRN Reason: Hypoglycemia Digoxin (Lanoxin) 0.25 mg SLOW IVP NOW [facility] Stop: 01/11/18 10:00 Last Admin: 01/11/18 08:52 Dose: 0.25 mg Enoxaparin Sodium (Lovenox) 40 mg SC 0900 [facility] Last Admin: 01/10/18 09:25 Dose: 40 mg Famotidine (Pepcid) 20 mg SLOW IVP Q12HR [facility] Last Admin: 01/10/18 21:10 Dose: Not Given Glipizide (Glucotrol) 5 mg PO BID-[facility] Glucagon (Glucagon) 1 mg IM PRN PRN PRN Reason: Hypoglycemia Guaifenesin (Robitussin Sf) 200 mg PO Q4H PRN PRN Reason: Cough Dextrose/Water (D5w) 1,000 mls @ 0 mls/hr IV .Q0M PRN; As Directed PRN Reason: Hypoglycemia Piperacillin Sod/Tazobactam (Sod 4.5 gm/ Sodium Chloride) 100 mls @ 200 mls/hr IVPB 0400,1000,1600,2200 [facility] Last Admin: 01/11/18 04:50 Dose: 100 mls Vancomycin HCl 1 gm/ Device 200 mls @ 200 mls/hr IVPB 0500 [facility] Last Admin: 01/11/18 04:51 Dose: 200 mls Lactated Ringer's (Lactated Ringer's) 1,000 mls @ 150 mls/hr IV .Q6H40M [facility] Last Admin: 01/10/18 23:41 Dose: 1,000 mls Insulin Human Lispro (Humalog) 0 units SC .MODERATE SLIDING SC PRN PRN Reason: Moderate Correctional Scale Insulin Human Lispro (Humalog) 0 units SC .BEDTIME SLIDING SC PRN PRN Reason: Bedtime Correctional Scale Labetalol HCl (Normodyne) 20 mg SLOW IVP Q4H PRN PRN Reason: SBP Greater Than 170 Last Admin: 01/11/18 09:01 Dose: 4 ml Levothyroxine Sodium (Synthroid) 50 mcg PO DAILY [facility] Lisinopril (Zestril) 10 mg PO HS [facility] Last Admin: 01/10/18 21:26 Dose: 10 mg Loperamide HCl (Imodium) 2 mg PO PRN PRN PRN Reason: Diarrhea/Loose Stools Loratadine (Claritin) 10 mg PO DAILYPRN PRN PRN Reason: Sinus Symptoms Magnesium Hydroxide (Milk Of Magnesium) 30 ml PO DAILYPRN PRN PRN Reason: Constipation Metformin HCl (Glucophage) 1,000 mg PO BID-[facility] Metoprolol Tartrate (Lopressor) 5 mg IVP ONE ONE Stop: 01/11/18 09:32 Mineral Oil/White Petrolatum (Eucerin Cream) 0 gm TOP BIDPRN PRN PRN Reason: Dry Skin Miscellaneous Medication (Pharmacy To Dose) 1 each IVPB PRN PRN PRN Reason: Pharmacy to dose Ondansetron HCl (Zofran Odt) 4 mg PO Q6H PRN PRN Reason: Nausea/Vomiting Ondansetron HCl (Zofran) 4 mg IVP Q6H PRN PRN Reason: Nausea/Vomiting Phenol (Chloraseptic [place] 180 Ml Bot) 0 ml PO PRN PRN PRN Reason: Sore Throat Pioglitazone HCl (Actos) 30 mg PO DAILY [facility] Quetiapine Fumarate (Seroquel) 100 mg PO HS [facility] Saccharomyces Boulardii (Florastor) 250 mg PO DAILY [facility] Last Admin: 01/10/18 09:25 Dose: Not Given Senna (Senokot) 2 tab PO HSPRN PRN PRN Reason: Constipation Simvastatin (Zocor) 10 mg PO HS [facility] Sodium Chloride (Flush - Normal Saline) 10 ml IVF Q12HR [facility] Last Admin: 01/10/18 21:11 Dose: Not Given Sodium Chloride (Flush - Normal Saline) 10 ml IVF PRN PRN PRN Reason: Saline Flush Sodium Chloride ([place] Nasal [place] 0.65%) 0 ml EA NARE QIDPRN PRN PRN Reason: Nasal Congestion Zolpidem Tartrate (Ambien) 10 mg PO [facility] Last Admin: 01/10/18 21:25 Dose: 10 mg
[2018-01-11] MEDS: metFORMIN 500 MG TAB PO SCH ×2 (12:03→16:52)
[2018-01-11] MEDS: glipiZIDE 5 MG TAB PO SCH ×2 (12:03→16:52)
[2018-01-11] MEDS: Lactated Ringer's 1,000 ML IV SCH ×3 (12:05→22:15)
[2018-01-11] MEDS: Famotidine 40 MG/4 ML VIAL SLOW IVP SCH (12:05)
[2018-01-11] MEDS: Enoxaparin Sodium 40 MG/0.4 ML SYRINGE SC SCH (12:05)
[2018-01-11] MEDS: Pioglitazone HCl 15 MG TAB PO SCH (12:06)
[2018-01-11] MEDS: Saccharomyces boulardii 250 MG CAP PO SCH (12:06)
[2018-01-11] MEDS: Levothyroxine Sodium 50 MCG TAB PO SCH (12:06)
--- NOTE | 2018-01-11 12:53 | CON ---
DATE OF CONSULTATION: 01/11/2018 REASON FOR CONSULTATION: Tachycardia. Ramila Rowe is a 56-year-old patient of Dr. Barney Vazquez who has cholecystitis and also tachycardia. Ms. Rowe was brought to the hospital here on 01/10/2018 with cholecystitis. Ultrasound revealed dist ended gallbladder and pericholecystic edema. Heart rate, however, was 150. She has been having also abdominal pain. ALLERGIES: NAPROXEN. SOCIAL HISTORY: Tobacco cessation in . MEDICATIONS: 1. Metformin. 2. Glucotrol. 3. Ambien. 4. Seroquel. 5. Lisinopril. 6. Hydrocodone. PAST SURGICAL HISTORY: Bilateral tubal ligation at age 26. No previous cardiac history. She was seen and evaluated by Dr. Vazquez in 2017, at that time was found to have a normal cardiac exercise stress test. The patient also had a normal echocardiogram at that point. The patient remains very tachycardic. She has received beta blockers and digoxin with really no snow ge in heart rate which has stayed about 150. MEDICATIONS HERE: She has received digoxin and beta denise. No change. At home she is on atenolol 25 mg daily, lisinopril as well as lovastatin and Actos. SOCIAL HISTORY: Quit smoking many years ago as mentioned. No alcohol or tobacco abuse. FAMILY HISTORY: Negative for heart disease at a young age. PHYSICAL EXAMINATION: GENERAL: This is a pleasant elderly woman. VITAL SIGNS: Heart rate 150. She is 4 feet 10 inches tall, 238 pounds. HEENT: Eyes; sclerae nonicteric. Mouth; mucous branch moist. NECK: Supple, no lymphadenopathy. LUNGS: Clear, no wheezing, rales or rhonchi. CARDIAC: Normal S1, normal S2. There is no murmur, rub or gallop. ABDOMEN: Soft, nontender. EXTREMITIES: No clubbing or cyanosis. There is no edema. She is extremely overweight. Her BMI is 49. LABORATORY AND X-RAY FINDINGS: EKG reveals supraventricular tachycardia, right bundle branch block p attern. The patient is asymptomatic. ASSESSMENT: 1. Cholecystitis. 2. Tachycardia strongly suspect atrial flutter, especially in view of the heart rate stayed at 150 d espite beta blockers and digoxin. PLAN: Transesophageal echo to be done followed by cardioversion. The patient can proceed to surgica l therapy within the next few hours if she is doing well following that. Of note, the patient did hebert ve a cardiac catheterization done in 2006 with no significant coronary disease.
[2018-01-11] MEDS ORDERED: Diprivan 40 ML ONE (13:17)
[2018-01-11] MEDS ORDERED: Midazolam HCl 2 mg/2 ml Vial ONE (14:07)
[2018-01-11] MEDS ORDERED: Bupivacaine HCl 0.5%/Epinephrine 1:200,000/PF 30 ml Vial ONE (15:10)
--- NOTE | 2018-01-11 15:46 | OP ---
DATE OF PROCEDURE: 01/11/2018 DESCRIPTION OF PROCEDURE: Ms. Rowe was brought to the post-cath area. She was sedated by Anesthesia . Transesophageal echo showed no evidence of any thrombus. She was given 70 joules of synchronized direct current energy and converted to sinus rhythm with PACs. She had one brief episode of tachycar chito in the recovery phase and now is in sinus rhythm. ASSESSMENT: Successful cardioversion. INDICATION: Atrial flutter with uncontrolled ventricular response.
[2018-01-11] MEDS ORDERED: Ketorolac Tromethamine 30 MG/ML VIAL ONE (16:55)
[2018-01-11] MEDS ORDERED: Esmolol 100 MG/10 ML VIAL ONE (16:55)
[2018-01-11] MEDS ORDERED: Metoprolol Tartrate 5 MG/5 ML VIAL ONE (16:55)
[2018-01-11] MEDS ORDERED: Lidocaine 1% PF 5 ML VIAL ONE (16:55)
[2018-01-11] MEDS ORDERED: Ondansetron HCl/PF 4 MG/2 ML Vial ONE ×2 (16:55→19:43)
[2018-01-11] MEDS ORDERED: Dexamethasone 20 MG/5 ML VIAL ONE (16:55)
[2018-01-11] MEDS ORDERED: Glycopyrrolate 0.2 MG/ML 5 ML SYRINGE ONE (16:55)
[2018-01-11] MEDS ORDERED: Propofol 200 MG/20 ML VIAL ONE ×2 (16:55→16:56)
[2018-01-11] MEDS ORDERED: Fentanyl 250 MCG/5 ML VIAL ONE ×2 (17:03→19:31)
[2018-01-11] MEDS ORDERED: Ondansetron HCl/PF 4 MG/2 ML Vial IVP PRN (19:17)
[2018-01-11] MEDS ORDERED: Promethazine HCl 25 MG/ML VIAL SLOW IVP PRN (19:17)
[2018-01-11] MEDS ORDERED: Promethazine HCl 25 MG/ML VIAL IM PRN (19:17)
[2018-01-11] MEDS ORDERED: Ibuprofen 600 MG TAB PO PRN (19:24)
[2018-01-11] MEDS ORDERED: traMADol HCl 50 MG TAB PO PRN ×2 (19:24)
[2018-01-11] MEDS ORDERED: Acetaminophen 500 MG TAB PO PRN (19:24)
[2018-01-11] MEDS ORDERED: QUETIAPINE FUMARATE 100 MG PO SCH (21:00)
[2018-01-11] MEDS ORDERED: Simvastatin 5 MG TAB PO SCH (21:00)
[2018-01-11] MEDS: Atenolol 25 MG TAB PO SCH (22:19)
[2018-01-11] MEDS: Lisinopril 10 MG TAB PO SCH (22:19)
[2018-01-11] MEDS: HYDROcodone/Acetaminophen 10/325 mg Tablet PO PRN (22:20)
[2018-01-11] MEDS: Zolpidem Tartrate 5 MG TAB PO SCH (22:21)
[2018-01-11] MEDS: Cyclobenzaprine 10 MG TAB PO SCH (22:22)
--- NOTE | 2018-01-11 22:57 | OP ---
DATE OF PROCEDURE: 01/11/2018 PREOPERATIVE DIAGNOSES: Morbid obesity, multiple incisional hernia repairs with mesh, adhesions from prior surgery, diabetes, cholecystitis, cholelithiasis. POSTOPERATIVE DIAGNOSES: Morbid obesity, multiple incisional hernia repairs with mesh, adhesions fr om prior surgery, diabetes, cholecystitis, cholelithiasis. PROCEDURE PERFORMED: Laparoscopic video cholecystectomy, extensive adhesiolysis (note: Prior to thi s operation, she underwent cardioversion for atrial fibrillation/flutter). SURGEON: Randy Mitchell MD ESTIMATED BLOOD LOSS: 200 mL. BLOOD TRANSFUSED: None. FINDINGS: Fatty liver, adhesions from prior surgery, adhesions adherent to the Composix mesh. DESCRIPTION OF PROCEDURE: The patient was taken to the operating room, where after cardioversion, ab pereira was prepared with ChloraPrep and draped in routine fashion. Because of the previous mesh repai r of incisional hernias, right midclavicular subcostal incision was made. Pneumoperitoneum to 15 mmH g was attempted, but I had to resort to a left lateral subcostal incision made in a 5 port, and pneum operitoneum to 15 mmHg was obtained with the Veress needle, replacing it with a 5 port, and laparosco pe was inserted. There were adhesions from prior surgery. Under laparoscopic visualization, a left lateral mid abdominal incision was made and a 5 port placed. Laparoscopic adhesiolysis was carried o ut with cold scissors, freeing omentum and small bowel from the Composix mesh to enable visualization of the liver and gallbladder. Infraumbilical incision was made and a 5 port placed through the fasc ia and mesh into the abdominal cavity. Right lateral subcostal incision was made and a 5 port placed . Right subxiphoid incision was made and a 11 port placed. Liver was very fatty. Gallbladder was i dentified. Fundus was grasped and reflected cephalad. Infundibulum was dissected free. The gallbla dder was edematous and thickened wall, indicative of cholecystitis. Cystic artery and duct carefully dissected free. Critical view obtained with two-third dissection of cystic plate. Cystic artery an d duct doubly clipped proximally, divided, and gallbladder dissected free from liver bed obtaining go od hemostasis with the cautery and gallbladder and contents were removed. Good hemostasis was ensure d with the cautery. Irrigant and pneumoperitoneum evacuated. All instruments were removed. All ski n incisions were approximated with interrupted subdermal 4-0 Monocryl and DermaGlue applied.
[2018-01-12 04:28] LABS: #Lymphocytes 0.9 thou/uL (1.20-3.40); #Monocytes 0.2 thou/uL (0.11-0.59); #Neutrophils 5.7 thou/uL (1.40-6.50); %Basophils 0.2 % (0.0-1.0); %Lymphocytes 13.2 % (21.0-51.0); %Monocytes 3.3 % (0.0-10.0); %Neutrophils 83.3 % (42.0-75.0); Hemoglobin 9.5 g/dL (12.0-16.0); Mean Corpuscular HGB CONC 31.7 g/dL (32.0-36.0); Mean Corpuscular Hemoglobin 28.7 pg (27.0-31.0); Mean Corpuscular Volume 90.7 fl (81.0-99.0); Mean Platelet Volume 9.8 fL (7.4-10.4); Platelet Count 139 thou/uL (130-400); RBC Distribution Width 14.3 % (11.5-14.5); Red Blood Cell (RBC) Count 3.32 mill/uL (4.20-5.40); White Blood Cell (WBC) Count 6.8 thou/uL (4.8-10.8)
[2018-01-12 04:36] LABS: Vancomycin, Trough 8.6 ug/mL
[2018-01-12 04:39] LABS: ALT (SGPT) 19 U/L (8-55); AST (SGOT) 51 U/L (5-34); Albumin 3.4 g/dL (3.5-5.0); Alkaline Phosphatase 54 U/L (40-150); Anion Gap 15 mmol/L (10-20); BUN (Urea Nitrogen) 15 mg/dL (9.8-20.1); Bilirubin, Total 0.6 mg/dL (0.2-1.2); Calc. Creatinine Clearance 92 mL/min (70-130); Calcium 8.5 mg/dL (7.8-10.44); Carbon Dioxide 21 mmol/L (22-29); Chloride 107 mmol/L (98-107); Estimated GFR-MDRD 49; Globulin 2.5 g/dL (2.4-3.5); Glucose 160 mg/dL (70-105); Potassium 4.2 mmol/L (3.5-5.1); Protein, Total 5.9 g/dL (6.0-8.3); Sodium 139 mmol/L (136-145)
[2018-01-12] MEDS ORDERED: Vancomycin HCl 1.75 GM in Sodium Chloride 0.9% 500 ML IVPB SCH (05:00)
[2018-01-12] MEDS: Lactated Ringer's 1,000 ML IV SCH (05:17)
[2018-01-12 07:58] VITALS: TEMP 97.8
--- NOTE | 2018-01-12 08:59 | PDOC.PN ---
- Subjective Encounter Start Date: 01/12/18 Encounter Start Time: 07:10 Patient seen and examined. No new complaints. No overnight events pt is in sinus rhythem after cardioversion doing well - Objective Resuscitation Status: Resuscitation Status FULL:Full Resuscitation MAR Reviewed: Yes Vital Signs & Weight: Vital Signs (12 hours) Temp Pulse Resp BP BP Pulse Ox 01/12/18 07:57 97.8 F 77 14 136/85 97 01/12/18 03:40 98.4 F 62 16 135/85 90 L 01/11/18 23:42 97.8 F 81 16 116/69 91 L 01/11/18 22:19 102 H 142/82 H 01/11/18 21:12 97.8 F 81 16 138/71 94 L Weight Admit Weight 238 lb 9.6 oz Weight 238 lb 9.6 oz I&O: 01/11/18 01/12/18 01/13/18 06:59 06:59 06:59 Intake Total 1358 Balance 1358 Result Diagrams: 01/12/18 04:09 01/12/18 04:09 Additional Labs: Accuchecks 01/12/18 01/11/18 01/11/18 05:17 21:09 17:28 POC Glucose 158 H 176 H 105 EKG Reviewed by me: Yes (nsr) Phys Exam - Physical Examination Constitutional: NAD HEENT: PERRLA, moist MMs, sclera anicteric Neck: no JVD, supple Respiratory: no wheezing, no rales, no rhonchi Cardiovascular: RRR, no significant murmur, no rub Gastrointestinal: soft, non-tender, no distention, positive bowel sounds Musculoskeletal: no edema, pulses present Neurological: non-focal, normal sensation, moves all 4 limbs Psychiatric: normal affect, A&O x 3 Skin: no rash, normal turgor Dx/Plan (1) Acute cholecystitis Code(s): K81.0 - ACUTE CHOLECYSTITIS Status: Acute (2) Sinus tachycardia Code(s): R00.0 - TACHYCARDIA, UNSPECIFIED Status: Acute Comment: likely atrial tachycardia (3) Anxiety and depression Code(s): F41.8 - OTHER SPECIFIED ANXIETY DISORDERS Status: Chronic (4) Diabetes type 2, controlled Code(s): E11.9 - TYPE 2 DIABETES MELLITUS WITHOUT COMPLICATIONS Status: Chronic (5) Dyslipidemia Code(s): E78.5 - HYPERLIPIDEMIA, UNSPECIFIED Status: Chronic (6) HTN (hypertension) Code(s): I10 - ESSENTIAL (PRIMARY) HYPERTENSION Status: Chronic (7) Hypothyroidism Code(s): E03.9 - HYPOTHYROIDISM, UNSPECIFIED Status: Chronic (8) Morbid obesity with BMI of 45.0-49.9, adult Code(s): E66.01 - MORBID (SEVERE) OBESITY DUE TO EXCESS CALORIES; Z68.42 - BODY MASS INDEX (BMI) 45.0-49.9, ADULT Status: Chronic (9) Recurrent incisional hernia Code(s): K43.2 - INCISIONAL HERNIA WITHOUT OBSTRUCTION OR GANGRENE Status: Chronic - Plan cont current plan of care, plan discussed w/ family * medication reviewed as below * symptomatic treatment * doing well * stable * if cardiology and surgeon ok, medically stable for discharge. Review of Systems - Review of Systems Constitutional: negative: fever, chills, sweats, weakness, malaise, other Eyes: negative: Pain, Vision Change, Conjunctivae Inflammation, Eyelid Inflammation, Redness, Other ENT: negative: Ear Pain, Ear Discharge, Nose Pain, Nose Discharge, Nose Congestion, Mouth Pain, Mouth Swelling, Throat Pain, Throat Swelling, Other Respiratory: negative: Cough, Dry, Shortness of Breath, Hemoptysis, SOB with Excertion, Pleuritic Pain, Sputum, Wheezing Cardiovascular: negative: chest pain, palpitations, orthopnea, paroxysmal nocturnal dyspnea, edema, light headedness, other Gastrointestinal: negative: Nausea, Vomiting, Abdominal Pain, Diarrhea, Constipation, Melena, Hematochezia, Other Genitourinary: negative: Dysuria, Frequency, Incontinence, Hematuria, Retention , Other Musculoskeletal: negative: Neck Pain, Shoulder Pain, Arm Pain, Back Pain, Hand Pain, Leg Pain, Foot Pain, Other Skin: negative: Rash, Lesions, Abdiel, Bruising, Other - Medications/Allergies Allergies/Adverse Reactions: Allergies Allergy/AdvReac Type Severity Reaction Status Date / Time naproxen Allergy Verified 02/11/17 00:55 Medications: Current Medications Acetaminophen (Tylenol) 650 mg PO Q4H PRN PRN Reason: Headache/Fever or Pain Last Admin: 01/10/18 11:08 Dose: 650 mg Acetaminophen (Tylenol) 1,000 mg PO Q6H PRN PRN Reason: Moderate to Severe Pain (6-10) Hydrocodone Bitart/Acetaminophen ([place] 10/325) 1 tab PO Q4H PRN PRN Reason: Pain Last Admin: 01/11/18 22:20 Dose: 1 tab Al Hydroxide/Mg Hydroxide (Maalox) 30 ml PO Q6H PRN PRN Reason: Heartburn or Indigestion Albuterol/Ipratropium (Duoneb) 3 ml NEB P1DP-IA PRN PRN Reason: SOB &/or Wheezing Artificial Tears (Tears Naturale) 0 drop EA EYE PRN PRN PRN Reason: Dry Eyes Aspirin (Aspirin Chewable) 81 mg PO DAILY [facility] Last Admin: 01/11/18 12:05 Dose: Not Given Atenolol (Tenormin) 25 mg PO [facility] Last Admin: 01/11/18 22:19 Dose: 25 mg Cyclobenzaprine HCl (Flexeril) 10 mg PO [facility] Last Admin: 01/11/18 22:22 Dose: 10 mg Dextrose/Water (Dextrose 50%) 25 gm SLOW IVP PRN PRN PRN Reason: Hypoglycemia Enoxaparin Sodium (Lovenox) 40 mg SC 0900 [facility] Last Admin: 01/11/18 12:05 Dose: Not Given Glipizide (Glucotrol) 5 mg PO BID-[facility] Last Admin: 01/11/18 16:52 Dose: Not Given Glucagon (Glucagon) 1 mg IM PRN PRN PRN Reason: Hypoglycemia Guaifenesin (Robitussin Sf) 200 mg PO Q4H PRN PRN Reason: Cough Dextrose/Water (D5w) 1,000 mls @ 0 mls/hr IV .Q0M PRN; As Directed PRN Reason: Hypoglycemia Lactated Ringer's (Lactated Ringer's) 1,000 mls @ 100 mls/hr IV .Q10H [facility] Last Admin: 01/12/18 05:17 Dose: 1,000 mls Vancomycin HCl 1.75 gm/ Sodium (Chloride) 500 mls @ 250 mls/hr IVPB 0500 [facility] Last Admin: 01/12/18 05:17 Dose: 500 mls Ibuprofen (Motrin) 600 mg PO Q6H PRN PRN Reason: Pain Insulin Human Lispro (Humalog) 0 units SC .MODERATE SLIDING SC PRN PRN Reason: Moderate [place] Scale Insulin Human Lispro (Humalog) 0 units SC .BEDTIME SLIDING SC PRN PRN Reason: Bedtime [place] Scale Labetalol HCl (Normodyne) 20 mg SLOW IVP Q4H PRN PRN Reason: SBP Greater Than 170 Last Admin: 01/11/18 09:01 Dose: 4 ml Levothyroxine Sodium (Synthroid) 50 mcg PO DAILY [facility] Last Admin: 01/11/18 12:06 Dose: Not Given Lisinopril (Zestril) 10 mg PO [facility] Last Admin: 01/11/18 22:19 Dose: 10 mg Loperamide HCl (Imodium) 2 mg PO PRN PRN PRN Reason: Diarrhea/Loose Stools Loratadine (Claritin) 10 mg PO DAILYPRN PRN PRN Reason: Sinus Symptoms Magnesium Hydroxide (Milk Of Magnesium) 30 ml PO DAILYPRN PRN PRN Reason: Constipation Metformin HCl (Glucophage) 1,000 mg PO BID-[facility] Last Admin: 01/11/18 16:52 Dose: Not Given Mineral Oil/White Petrolatum (Eucerin Cream) 0 gm TOP BIDPRN PRN PRN Reason: Dry Skin Miscellaneous Medication (Pharmacy To Dose) 1 each IVPB PRN PRN PRN Reason: Pharmacy to dose Ondansetron HCl (Zofran Odt) 4 mg PO Q6H PRN PRN Reason: Nausea/Vomiting Ondansetron HCl (Zofran) 4 mg IVP Q6H PRN PRN Reason: Nausea/Vomiting Phenol (Chloraseptic [place] 180 Ml Bot) 0 ml PO PRN PRN PRN Reason: Sore Throat Pioglitazone HCl (Actos) 30 mg PO DAILY [facility] Last Admin: 01/11/18 12:06 Dose: Not Given Polyethylene Glycol (Miralax) 17 gm PO DAILY [facility] Quetiapine Fumarate (Seroquel) 100 mg PO [facility] Last Admin: 01/11/18 22:21 Dose: 100 mg Saccharomyces Boulardii (Florastor) 250 mg PO DAILY [facility] Last Admin: 01/11/18 12:06 Dose: Not Given Senna (Senokot) 2 tab PO HSPRN PRN PRN Reason: Constipation Simvastatin (Zocor) 10 mg PO [facility] Last Admin: 01/11/18 22:22 Dose: 10 mg Sodium Chloride (Flush - Normal Saline) 10 ml IVF Q12HR [facility] Last Admin: 01/11/18 22:22 Dose: Not Given Sodium Chloride (Flush - Normal Saline) 10 ml IVF PRN PRN PRN Reason: Saline Flush Sodium Chloride ([place] Nasal [place] 0.65%) 0 ml EA NARE QIDPRN PRN PRN Reason: Nasal Congestion Tramadol HCl (Ultram) 50 mg PO Q6H PRN PRN Reason: Mild-Moderate Pain (1-5) Tramadol HCl (Ultram) 100 mg PO Q6H PRN PRN Reason: Moderate to Severe Pain (6-10) Zolpidem Tartrate (Ambien) 10 mg PO HS [facility] Last Admin: 01/11/18 22:21 Dose: 10 mg
[2018-01-12] MEDS ORDERED: Polyethylene Glycol 3350 17 GM Packet PO SCH (09:00)
[2018-01-12] MEDS: metFORMIN 500 MG TAB PO SCH (09:26)
[2018-01-12] MEDS: Levothyroxine Sodium 50 MCG TAB PO SCH (09:26)
[2018-01-12] MEDS: Saccharomyces boulardii 250 MG CAP PO SCH (09:27)
[2018-01-12] MEDS: Pioglitazone HCl 15 MG TAB PO SCH (09:27)
[2018-01-12] MEDS: glipiZIDE 5 MG TAB PO SCH (09:27)
[2018-01-12] MEDS: HYDROcodone/Acetaminophen 10/325 mg Tablet PO PRN (09:27)
[2018-01-12] MEDS: Enoxaparin Sodium 40 MG/0.4 ML SYRINGE SC SCH (09:32)
--- NOTE | 2018-01-12 09:43 | PRG ---
DATE OF SERVICE: 01/12/2018 HISTORY: Ms. Rowe is doing better today. She was able to stay in sinus rhythm intra and postoperat ively and maintaining sinus rhythm now. She had successful removal of her gallbladder for cholecysti tis. PHYSICAL EXAMINATION: VITAL SIGNS: Blood pressure 136/85, pulse 77 and regular. LUNGS: Clear. CARDIAC: Normal S1 and S2. ABDOMEN: Soft, nontender. EXTREMITIES: No edema. ASSESSMENT: 1. Atrial flutter with successful transesophageal echo showing no thrombus and cardioversion. 2. Status post a cholecystectomy, laparoscopic. PLAN: 1. Okay to go home. 2. Maintain beta denise. 3. Stop aspirin. 4. Start apixaban 5 mg twice a day 01/14/2018, will wait a couple days postoperatively, do not wish to fully anticoagulate immediately postoperatively. 5. Recommend the patient pursue atrial flutter ablation as an outpatient, a very high chance this wi ll have recurrence. The patient has previously been seen and evaluated by Dr. Vazquez. I would recomme nd she be referred to Electrophysiology for this.
--- NOTE | 2018-01-12 10:48 | DIS ---
PRIMARY CARE PHYSICIAN: Dr. Dayday Kingston DATE OF ADMISSION: 01/10/2018 DATE OF DISCHARGE: 01/12/2018 DISCHARGE DISPOSITION: Home. PRIMARY DISCHARGE DIAGNOSES: 1. Atrial flutter with rapid ventricular response, status post successful cardioversion. 2. Status post transesophageal echocardiography. No thrombus. 3. Acute cholecystitis. 4. Status post laparoscopic cholecystectomy and adhesiolysis. SECONDARY DISCHARGE DIAGNOSES: Anxiety and depression, diabetes type 2, hypertension, dyslipidemia, hypothyroidism, morbid obesity with BMI of 49, recurrent incisional hernia. PRIMARY PROCEDURE/OPERATION: 1. Transesophageal echocardiography. 2. Cardioversion. 3. Laparoscopic cholecystectomy and adhesiolysis. TEST RESULTS PENDING ON DISCHARGE: Pathology report from gallbladder. RADIOLOGICAL INVESTIGATION: Abdominal ultrasound, chest x-ray, abdomen and pelvis CT scans, all cons istent with acute cholecystitis. There was radiology report of lower quadrant abscess deep in the nova bcutaneous tissue that was not a new finding. It is related with her chronic pelvic fluid and after hernia repair which did not appear to be infected as per Dr. Mitchell's recommendation. SIGNIFICANT LABORATORIES: WBC 6.8, hemoglobin 9.5, platelets 139. Sodium 139, creatinine 1.13, calc ium 8.5, AST 51. Hemoglobin A1c 6.9, albumin 3.4, lipase 16. Urinalysis normal. DISCHARGE MEDICATIONS: Eliquis 5 mg p.o. b.i.d., start on 01/14/2018. Atenolol 25 mg p.o. daily, [place] exeril 10 mg p.o. at bedtime, Glucotrol 5 mg p.o. b.i.d., [place] 1 tablet q.4h. p.r.n., Synthroid 50 m cg p.o. daily, lovastatin 20 mg p.o. daily, lisinopril 10 mg p.o. daily, Metformin 1000 mg p.o. b.i.d ., Actos 30 mg p.o. daily, Seroquel 100 mg p.o. at bedtime, Ambien 10 mg p.o. at bedtime. CONTRAINDICATIONS: None. CODE STATUS: FULL CODE. INPATIENT CONSULTANTS: Dr. Lay was consulted for atrial flutter. Dr. Mitchell was primary while in hospital and [employer] was consulted for medical comanagement. TEST RESULTS PENDING ON DISCHARGE: None. ALLERGIES: NAPROXEN. DISCHARGE PLAN: Post hospital the patient will follow up with Dr. Mitchell and Dr. Lay as instructe d. The patient is also advised to make appointment with primary care physician. HOSPITAL COURSE: This is a 57-year-old female who had regular followup visit with primary care physi laura. At that time she was found with tachycardia. She had routine blood test done which was unrema rkable. The patient was having recurrent abdominal bloating after food and she was having upper abdo vignesh pain and that is why she came to emergency room. In the emergency room, CT of the abdomen and pelvis showed findings suggestive of acute cholecystitis, though her LFT was completely normal and th ere was also a radiology report of abscess in the right lower quadrant deep in the subcutaneous tissu e. This patient was admitted under Dr. Mitchell and Dr. Mitchell consulted [employer]. I saw this patie nt. Please see my consult note for further detail. For acute cholecystitis we started on vancomycin and Zosyn. Dr. Mitchell was consulted. Dr. Mitchell was planning to do laparoscopic cholecystectomy wh ich was initially planned, but as this patient's atrial flutter and tachycardia did not improve with medication, that is why we consulted Cardiology and Dr. Lay saw this patient. The patient underwe nt transesophageal echocardiography and then successful cardioversion was performed. Dr. Lay carl mmended Eliquis therapy on 01/14/2018. Aspirin is discontinued. The patient will continue atenolol. The rest of medication will be continued as per previous. At this point, the patient is completely asymptomatic. She is ambulatory, tolerating p.o. well. Her heart rate is normal sinus rhythm. This patient will need outpatient followup with Cardiology for e lectrophysiologic referral. The patient is advised to follow up with Dr. Mitchell as instructed and [place] [facility] physician as instructed. The patient is seen and examined at bedside today. Plan of care and discharge plan discussed with dafne avila patient's daughter at bedside.
[2018-01-12 12:45] VITALS: BP 113/62
--- NOTE | 2018-01-12 13:10 | PRG ---
DATE OF SERVICE: 01/12/2018 SUBJECTIVE: Ramila Rowe is one day postop laparoscopic cholecystectomy difficulty because of previous incisional hernias repairs (5 in number) and composite mesh. She underwent laparoscopic adhesiolysi s. She is tolerating her diet. She is having postoperative pain and no apparent problems. PHYSICAL EXAMINATION: VITAL SIGNS: 97.8 degrees temperature, heart rate 83, respiratory rate 16, blood pressure 123/65. LUNGS: Clear to auscultation. CARDIAC: Regular rate and rhythm without murmur or gallop. ABDOMEN: Soft, nontender. Surgical trocar sites look good. No evidence of infection, no evidence o f wound problems. EXTREMITIES: Unremarkable. LABORATORY DATA: This morning, white count is 6.8, hemoglobin 9.5. Comprehensive metabolic profile was normal. Liver function tests are normal. ASSESSMENT AND PLAN: Doing well. Diet and activity as tolerated. Follow up in my office in 2-3 wee ks. Resume Eliquis in 2-3 days per medical. Diet: Resume diet and activity without restrictions. She can shower and bathe anytime. She will follow up with Dr. Barney Vazquez regarding her atrial fibrill ation. Also, patient has [place] at home and will take that for pain if needed.
--- NOTE | 2018-01-12 22:04 | ECHO ---
DATE OF SERVICE: 01/11/2018. PREPROCEDURE DIAGNOSIS: Atrial fibrillation, rapid ventricular response. PROCEDURES PERFORMED: Transesophageal echo. SUMMARY: Transesophageal echo was done to evaluate for blood clot in the setting of needing cardioversion for atrial fibrillation. She was sedated by the anesthesiology department. Please see notes for details . After adequate sedation was achieved, the transesophageal probe was inserted into the mouth and in to the esophagus and multiplanar views were obtained. Left ventricle appears to be normal size LV function seems to be reduced; however, this may be falsel y lower secondary to her being in rapid atrial fibrillation. Left atrium is moderately to severely dilated with spontaneous echo contrast. Left atrial appendage is very small with no evidence of mass or thrombus. Right atrium is moderately to severely dilated. No mass or thrombus. Right ventricle is normal size with normal systolic function. The aortic valve is structurally hallie l. Three cusps, no stenosis or regurgitation. Mitral valve is structurally normal. There is mild MR, no stenosis. Tricuspid valve is structurally normal. There is moderate TR. No effusions. CONCLUSIONS:. 1. Reduced LV systolic function. Correlate with a transthoracic echo. 2. Moderate to severe biatrial enlargement. 3. Left atrial appendage is small with spontaneous echo contrast, but no evidence of mass or thrombu s. 4. Mild MR, moderate TR.
== END 2018-01-12 14:39 | disposition home or self-care (01) | DRG 418 ==
LOC: ERS 22:29 → 2SE 01-10 06:34
PROVIDERS: ADMIT Specialist; ATTEND Specialist
PROC: 0FT44ZZ Resection of Gallbladder, Percutaneous Endoscopic Approach (ICD-10-PCS; principal; 2018-01-11)
PROC: 0DNU4ZZ Release Omentum, Percutaneous Endoscopic Approach (ICD-10-PCS; 2018-01-11)
PROC: 0DN84ZZ Release Small Intestine, Percutaneous Endoscopic Approach (ICD-10-PCS; 2018-01-11)
PROC: 5A2204Z Restoration of Cardiac Rhythm, Single (ICD-10-PCS; 2018-01-11)
PROC: B24BZZ4 Ultrasonography of Heart with Aorta, Transesophageal (ICD-10-PCS; 2018-01-11)
DX: K81.0 Acute cholecystitis (principal); I47.1 Supraventricular tachycardia; J90 Pleural effusion, not elsewhere classified; I31.3 Pericardial effusion (noninflammatory); E66.01 Morbid (severe) obesity due to excess calories; I48.91 Unspecified atrial fibrillation; R18.8 Other ascites; I48.92 Unspecified atrial flutter; L03.311 Cellulitis of abdominal wall; Z68.42 Body mass index [BMI] 45.0-49.9, adult; K81.1 Chronic cholecystitis; E11.9 Type 2 diabetes mellitus without complications; I10 Essential (primary) hypertension; E78.5 Hyperlipidemia, unspecified; K43.2 Incisional hernia without obstruction or gangrene; K66.0 Peritoneal adhesions (postprocedural) (postinfection); F41.9 Anxiety disorder, unspecified; F32.9 Major depressive disorder, single episode, unspecified; E03.9 Hypothyroidism, unspecified; Z79.84 Long term (current) use of oral hypoglycemic drugs; Z87.891 Personal history of nicotine dependence
CPT/HCPCS: 36415; 36416; 71045; 74177; 76705; 80053; 80202; 81001; 81003; 82550; 82553; 83036; 83690; 83880; 84443; 84484; 85025; 88304; 92960; 93005; 93010; 93312; 96361; 96365; 96367; 96375; A4216; G8978-GP-CK; G8979-GP-CI; J0670; J1100; J1160; J1650; J1885; J2001; J2250; J2270; J2405; J2543; J2704; J3010; J3370; J7050

== ENCOUNTER 2018-02-10 13:37 | Inpatient (IN) | payer SELFPAY ==
[2018-02-10 14:20] LABS: #Basophils 0.1 thou/uL (0.0-0.2); #Eosinphils 0.7 thou/uL (0.0-0.7); #Lymphocytes 2.1 thou/uL (1.20-3.40); #Monocytes 0.6 thou/uL (0.11-0.59); #Neutrophils 5.3 thou/uL (1.40-6.50); %Basophils 1.1 % (0.0-1.0); %Eosinophils 7.6 % (0.0-10.0); %Lymphocytes 23.7 % (21.0-51.0); %Monocytes 6.8 % (0.0-10.0); %Neutrophils 60.8 % (42.0-75.0); Hemoglobin 11.4 g/dL (12.0-16.0); Mean Corpuscular HGB CONC 30.7 g/dL (32.0-36.0); Mean Corpuscular Hemoglobin 26.6 pg (27.0-31.0); Mean Corpuscular Volume 86.8 fl (81.0-99.0); Mean Platelet Volume 9.7 fL (7.4-10.4); Platelet Count 271 thou/uL (130-400); RBC Distribution Width 16.6 % (11.5-14.5); Red Blood Cell (RBC) Count 4.28 mill/uL (4.20-5.40); White Blood Cell (WBC) Count 8.8 thou/uL (4.8-10.8)
--- NOTE | 2018-02-10 14:25 | RAD ---
SINGLE VIEW CHEST: Date: 02/10/18 COMPARISON: 01/10/18. HISTORY: Atrial fibrillation with rapid ventricular response and chest pain. FINDINGS: Single view of the chest shows an enlarged but stable cardiomediastinal silhouette with atherosclerot ic calcifications in the aorta. There is no evidence of consolidation, mass, or pleural effusion. Deg enerative changes are seen in the spine. IMPRESSION: Cardiomegaly without evidence of acute cardiopulmonary disease. POS: [facility]
[2018-02-10] MEDS ORDERED: Diltiazem 125 MG/25 ML ONE (14:27)
[2018-02-10 14:39] LABS: ALT (SGPT) Less than 7 U/L (8-55); AST (SGOT) 15 U/L (5-34); Alkaline Phosphatase 80 U/L (40-150); Anion Gap 20 mmol/L (10-20); BUN (Urea Nitrogen) 8 mg/dL (9.8-20.1); Bilirubin, Total 0.9 mg/dL (0.2-1.2); CK (CPK) 39 U/L (29-168); Calc. Creatinine Clearance 0 mL/min (70-130); Calcium 9.3 mg/dL (7.8-10.44); Carbon Dioxide 21 mmol/L (22-29); Chloride 105 mmol/L (98-107); Estimated GFR-MDRD 68; Globulin 3.6 g/dL (2.4-3.5); Glucose 88 mg/dL (70-105); Potassium 3.4 mmol/L (3.5-5.1); Protein, Total 7.6 g/dL (6.0-8.3); Sodium 143 mmol/L (136-145)
[2018-02-10 14:45] LABS: CKMB 1.6 ng/mL (0-6.6); Troponin I 0.059 ng/mL (< 0.028)
[2018-02-10] MEDS ORDERED: Morphine 4 MG/ML VIAL ONE (16:06)
[2018-02-10] MEDS ORDERED: Ondansetron HCl/PF 4 MG/2 ML Vial IVP PRN ×2 (17:38→18:22)
[2018-02-10] MEDS ORDERED: Sodium Chloride 0.9% 1,000 ML IV SCH (17:38)
[2018-02-10] MEDS ORDERED: HYDROcodone/Acetaminophen 5/325 mg Tablet PO PRN ×2 (17:38)
[2018-02-10] MEDS ORDERED: Acetaminophen 325 MG TAB PO PRN ×2 (17:38→18:22)
[2018-02-10] MEDS ORDERED: Ondansetron ODT 4 MG TAB SL PRN (17:38)
[2018-02-10 17:43] LABS: Troponin I 0.065 ng/mL (< 0.028)
[2018-02-10] MEDS ORDERED: Diltiazem HCl 125 MG, Admixture Fee 1 EACH in Sodium Chloride 0.9% 100 ML IVPB SCH (17:45)
[2018-02-10] MEDS ORDERED: Diltiazem 125 MG in Sodium Chloride 0.9% 100 ML IVPB SCH (18:00)
[2018-02-10] MEDS ORDERED: Metoprolol Tartrate 5 MG/5 ML VIAL IVP SCH (18:00)
[2018-02-10 18:01] VITALS: BMI 44.1
[2018-02-10] MEDS ORDERED: Dextrose 5% in Water 1,000 ML IV PRN (18:21)
[2018-02-10] MEDS ORDERED: Dextrose 50% Abboject 50 ML SYRINGE SLOW IVP PRN (18:21)
[2018-02-10] MEDS ORDERED: Nitroglycerin 0.4 MG TAB (25 Tab Bottle) PO PRN (18:21)
[2018-02-10] MEDS ORDERED: Insulin Regular 300 UNITS/3 ML VIAL SC PRN ×2 (18:21)
[2018-02-10] MEDS ORDERED: Calcium Carbonate 500 MG ChewTAB PO PRN (18:22)
[2018-02-10] MEDS ORDERED: Ondansetron ODT 4 MG TAB PO PRN (18:22)
[2018-02-10] MEDS ORDERED: Milk Of Magnesia 30 ML UDCUP PO PRN (18:22)
[2018-02-10] MEDS ORDERED: Cyclobenzaprine 10 MG TAB PO PRN (18:25)
[2018-02-10] MEDS ORDERED: Labetalol HCl 100 MG/20 ML VIAL SLOW IVP PRN (18:26)
[2018-02-10] MEDS ORDERED: cloNIDine 0.1 MG TAB PO PRN (18:27)
[2018-02-10] MEDS ORDERED: Potassium Chloride 20 MEQ TAB PO SCH (18:45)
--- NOTE | 2018-02-10 18:47 | HP ---
DATE OF ADMISSION: 02/10/2018 PRIMARY CARE PHYSICIAN: Dr. Kingston. PRIMARY [place] ASSESSMENT SPECIALIST: Dr. Vazquez. CHIEF COMPLAINT: Palpitations. HISTORY OF PRESENT ILLNESS: Patient is a 57-year-old female with recent cardioversion for atrial flu tter, presented to the emergency room with above complaints. The patient was admitted at this facility 1 month ago. She underwent cardioversion for atrial flutte r as well as laparoscopic cholecystectomy for acute cholecystitis. She was started on Eliquis. Post-discharge, patient felt at baseline. Last night, the patient started developing palpitations. This morning, she started having chest discomfort that was radiating to her back. She continued to h ave palpitations. She felt lightheaded, dizzy, and generally weak. The chest discomfort was moderat e in intensity, substernal, without any radiation. No aggravating or relieving factor reported. In the emergency room, initial vital signs showed temperature 98.5, respirations 10, pulse rate of 15 3 with a blood pressure of 167/102, O2 saturation 96% on 2 liters nasal cannula. Her EKG showed atri al fibrillation with rapid ventricular response. She received a total of 25 mg Cardizem with 4 mg of morphine in the emergency room. PAST MEDICAL HISTORY: 1. Diabetes mellitus type 2. 2. Recent hospitalization for atrial flutter with rapid ventricular response, status post cardiovers ion. 3. Recent acute cholecystitis, status post laparoscopic cholecystectomy. 4. Diabetes mellitus type 2. 5. Anxiety and depression. 6. Hypertension 7. Dyslipidemia. 8. Hypothyroidism. 9. Morbid obesity with a BMI 44.2. 10. Chronic anemia. 11. Insomnia. 12. History of TIA. PAST SURGICAL HISTORY: 1. Appendectomy. 2. Hernia repair. 3. Tonsillectomy. 4. Tubal ligation. ALLERGIES: Patient is allergic to IBUPROFEN. CURRENT HOME MEDICATIONS: The patient is unable to recall all of her home medications. She is able to name some of them that include Eliquis 5 mg twice a day, atenolol 25 mg at bedtime, levothyroxine 50 mcg daily, lisinopril that was recently increased by Dr. Vazquez to 20 mg b.i.d., metformin, and glip izide. SOCIAL HISTORY: Patient currently lives at home with her family. She makes her own decision with th e help of her family. No tobacco, alcohol or drug use. FAMILY HISTORY: Positive for diabetes, hypertension, and coronary artery disease. REVIEW OF SYSTEMS: The following complete review of systems was negative, unless otherwise mentioned in the HPI or below: Constitutional: Weight loss or gain, ability to conduct usual activities. Sk in: Rash, itching. Eyes: Double vision, pain. ENT/Mouth: Nose bleeding, neck stiffness, pain, te nderness. Cardiovascular: Palpitations, dyspnea on exertion, orthopnea. Respiratory: Shortness of breath, wheezing, cough, hemoptysis, fever or night sweats. Gastrointestinal: Poor appetite, abdom inal pain, heartburn, nausea, vomiting, constipation, or diarrhea. Genitourinary: Urgency, frequenc y, dysuria, nocturia. Musculoskeletal: Pain, swelling. Neurologic/Psychiatric: Anxiety, depressio n. Allergy/Immunologic: Skin rash, bleeding tendency. PHYSICAL EXAMINATION: VITAL SIGNS: As discussed above. GENERAL: A 57-year-old female, anxious appearing. HEENT: Head is atraumatic, normocephalic. Sclerae are anicteric. Moist mucous membranes. No oral lesion. NECK: Supple, no JVD appreciated. No carotid bruit. LUNGS: Clear to auscultation bilaterally. No wheezing, rales or rhonchi. HEART: S1, S2 present. Irregularly irregular. No murmur, rubs, or gallops appreciated. No heaves or pulsation. ABDOMEN: Soft, nontender, bowel sounds present. EXTREMITIES: No edema or calf tenderness. NEUROLOGIC: Grossly nonfocal, moves all four extremities. PSYCHIATRY: Alert, awake, oriented x3. SKIN: Warm and dry. LYMPH NODES: No palpable lymph nodes in the neck. PERIPHERAL VASCULAR: Radial pulses palpable bilaterally. MUSCULOSKELETAL: No joint swelling or tenderness. SKIN: Warm and dry. LYMPH NODES: No palpable lymph nodes in the neck. LABORATORY FINDINGS: CBC showed WBC 8.4 with hemoglobin 11.4, hematocrit 37.2, platelets of 271. Ch emistries showed sodium 143, potassium 3.4, chloride 105, bicarbonate 21, BUN of 8, creatinine 0.85, troponin 0.059 with normal CK-MB. EKG by my review as discussed above. Chest x-ray by my review was negative for infiltrate. It showed cardiomegaly. IMPRESSION: 1. Atrial fibrillation with rapid ventricular response. 2. Recent hospitalization for atrial flutter with rapid ventricular response, status post cardiovers ion. 3. Recent acute cholecystitis, status post laparoscopic cholecystectomy. 4. Diabetes mellitus type 2. 5. Hypertension. 6. Hyperlipidemia. 7. Morbid obesity with a BMI 44.2. 8. Anxiety and depression. 9. Elevated troponins, probably secondary to demand ischemia. 10. Hypokalemia. 11. Chronic kidney disease stage 2. PLAN: The patient will be monitored on the telemetry unit. She is currently on Cardizem drip at 5. Her heart rate is still in 140s to 150s. We will increase the Cardizem drip to 10 mg per hour. We will also give a 5 mg IV metoprolol push. We will replace potassium. If heart rate is persistently elevated, we will consider digoxin once potassium is replaced. Cardiology will be consulted. We lexi quintana keep the patient n.p.o. past midnight for possible intervention by Cardiology. Serial troponins wi ll be done. Plan of care was discussed with the patient and the family at the bedside. They stated understanding .
[2018-02-10] MEDS ORDERED: Nitroglycerin 2% Ointment 1 INCH/1 GM Packet ONE (20:06)
[2018-02-10] MEDS: Metoprolol Tartrate 5 MG/5 ML VIAL IVP PRN ×3 (20:07→20:47)
[2018-02-10] MEDS ORDERED: Digoxin 0.5 MG/2 ML AMP ONE (20:29)
[2018-02-10 20:31] LABS: Troponin I 0.069 ng/mL (< 0.028)
[2018-02-10] MEDS ORDERED: Digoxin 0.5 MG/2 ML AMP SLOW IVP SCH (20:45)
[2018-02-10] MEDS ORDERED: Atenolol 25 MG TAB PO SCH (21:00)
[2018-02-10] MEDS ORDERED: Sotalol HCl 80 MG TAB PO SCH (21:30)
[2018-02-10] MEDS: Apixaban 5 MG TAB PO SCH (21:42)
[2018-02-10] MEDS: Simvastatin 5 MG TAB PO SCH (22:22)
[2018-02-10] MEDS: Magnesium Chloride 64 MG TAB PO SCH (22:22)
[2018-02-10] MEDS: Diltiazem 125 MG in Sodium Chloride 0.9% 100 ML IVPB SCH (23:08)
--- NOTE | 2018-02-11 02:51 | CON ---
DATE OF CONSULTATION: 02/10/2018 INDICATION FOR CONSULTATION: A 57-year-old female with recurrent atrial fibrillation. HISTORY OF PRESENT ILLNESS: This very unfortunate 57-year-old female was recently seen in the hospit me and underwent cholecystectomy and had atrial flutter at that time and required cardioversion. She has been doing quite well on medical management, but then last night, started noticing around midnig ht that she was awoken from sleep with a rapid heart rate. She then presented to the emergency room later today and was found to be in atrial fibrillation with rapid ventricular response. She is on th e floor now and the nurses are having difficulty just in controlling the rate. She is on IV diltiaze m. She had been on Eliquis also recently after being found to be in the atrial fibrillation. Her ot her medicines included atenolol 25 mg, as well as lisinopril, levothyroxine, and also Eliquis. She h ad been doing quite well until this episode of the atrial fibrillation. She also complained of some chest tightness and had some nonspecific EKG changes with the tachycardia with heart rates up to 160s and 170s at the time that I am seeing. PAST MEDICAL HISTORY: Significant for the cholecystectomy, tubal ligation, tonsillectomy, hernia rep air, appendectomy, and atrial fibrillation or atrial flutter. ALLERGIES: She is allergic to IBUPROFEN. MEDICATIONS PRIOR TO ADMISSION: Eliquis 5 mg b.i.d., levothyroxine 50 mcg daily, atenolol 25 mg q.p. m., lisinopril 20 mg b.i.d., metformin, and glipizide. SOCIAL HISTORY: She lives at home with her family. She has no alcohol or tobacco abuse. FAMILY HISTORY: Positive for hypertension, coronary artery disease, as well as diabetes. REVIEW OF SYSTEMS: A 12-point review of systems is unremarkable except what was noted in the history of present illness. She did complain of palpitations, rapid heart rate, and some chest heaviness du ring the bouts with more rapid rates. PHYSICAL EXAMINATION: GENERAL: Reveals a middle-aged female who is significantly obese. VITAL SIGNS: Heart rates in the 160s and decreased down to 120s and 130s after being given IV diltia zem, IV Lopressor, and also IV digoxin. She remains on a Cardizem drip at 15 mg per hour. Physical examination otherwise shows the blood pressure to be 183/84, early was up to 200 systolically, respi ratory rate 18 to 20, O2 saturation 97%. She is afebrile. HEENT: Shows the head to be normocephalic and atraumatic. NECK: Carotid pulses are present. I did not hear any bruits. CHEST: Clear to auscultation. I did not hear any rales, rhonchi, or wheezing. CARDIOVASCULAR: Reveals an irregular rhythm, tachycardic. I did not hear any gross murmurs. ABDOMEN: Shows obesity. She has well-healed surgical incisions after her laparoscopic cholecystecto my. EXTREMITIES: No clubbing, cyanosis, or edema. Pedal pulses are somewhat decreased, but are present. NEUROLOGIC: The patient appears to be fully intact. SKIN: Warm and dry. LABORATORY DATA: Hemoglobin 11.4, WBC of 8.8, her platelet count is 271,000. Sodium is 143, potassi um 3.4. Troponin I was indeterminate with peak of 0.069, most likely associated with the tachycardia . IMPRESSION: 1. Recurrent atrial fibrillation with rapid ventricular response. She has not been responsive yet t o IV diltiazem, IV Lopressor, and IV digoxin. We will continue to increase the dose of diltiazem as possible. We will also start her on sotalol given 80 mg tonight and see whether or not she might con vert to sinus rhythm. If she remains tachycardic, she may need to undergo cardioversion by electrica l cardioversion. We will also ask Electrophysiology to see the patient in consultation to see if the y have any further advice. She may be a candidate to undergo an ablation due to the rapid heart rate associated with atrial fibrillation and difficulty in controlling the rate. 2. History of hypertension, which is uncontrollable at this time. Hopefully, once the heart rate be comes better controlled and with the other medications, this will begin to be decreased. She also hebert s been given half an inch of nitroglycerin paste to help with the blood pressure, and if necessary, c an always increase the dose. We will be more than happy to continue to follow the patient with you. We will watch her very carefully. 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
[2018-02-11] MEDS: Digoxin 0.5 MG/2 ML AMP SLOW IVP SCH ×2 (05:33→09:21)
[2018-02-11] MEDS: HYDROcodone/Acetaminophen 10/325 mg Tablet PO PRN ×3 (05:48→20:16)
[2018-02-11] MEDS: Diltiazem 125 MG in Sodium Chloride 0.9% 100 ML IVPB SCH (07:45)
[2018-02-11 07:54] LABS: Albumin 3.5 g/dL (3.5-5.0); Anion Gap 12 mmol/L (10-20); BUN (Urea Nitrogen) 7 mg/dL (9.8-20.1); BUN/Creatinine Ratio 9.33; Calc. Creatinine Clearance 122 mL/min (70-130); Calcium 8.9 mg/dL (7.8-10.44); Carbon Dioxide 30 mmol/L (22-29); Chloride 105 mmol/L (98-107); Estimated GFR-MDRD 79; Glucose 112 mg/dL (70-105); Magnesium 1.5 mg/dL (1.6-2.6); Phosphorus 3.2 mg/dL (2.3-4.7); Potassium 3.6 mmol/L (3.5-5.1); Sodium 143 mmol/L (136-145)
[2018-02-11] MEDS: Sotalol HCl 80 MG TAB PO SCH ×2 (07:54→21:48)
[2018-02-11] MEDS: Potassium Chloride 20 MEQ TAB PO SCH (07:54)
[2018-02-11 07:55] LABS: #Basophils 0.1 thou/uL (0.0-0.2); #Monocytes 0.7 thou/uL (0.11-0.59); %Basophils 0.7 % (0.0-1.0); %Eosinophils 13.1 % (0.0-10.0); %Lymphocytes 25.5 % (21.0-51.0); %Monocytes 9.3 % (0.0-10.0); %Neutrophils 51.5 % (42.0-75.0); Hemoglobin 10.1 g/dL (12.0-16.0); Mean Corpuscular HGB CONC 31.3 g/dL (32.0-36.0); Mean Corpuscular Hemoglobin 27.2 pg (27.0-31.0); Mean Platelet Volume 9.9 fL (7.4-10.4); Platelet Count 249 thou/uL (130-400); RBC Distribution Width 16.5 % (11.5-14.5); Red Blood Cell (RBC) Count 3.72 mill/uL (4.20-5.40); White Blood Cell (WBC) Count 7.8 thou/uL (4.8-10.8)
[2018-02-11] MEDS: Magnesium Chloride 64 MG TAB PO SCH ×2 (07:55→21:49)
[2018-02-11] MEDS: Apixaban 5 MG TAB PO SCH ×2 (07:55→21:48)
[2018-02-11] MEDS ORDERED: Loperamide HCl 2 MG CAP PO PRN (09:06)
[2018-02-11] MEDS ORDERED: Potassium Chloride 40 MEQ in Premix Bag 1 BAG IVPB SCH (09:15)
[2018-02-11] MEDS ORDERED: Magnesium Sulfate 2 GM in Sodium Chloride 0.9% 100 ML IVPB SCH (09:15)
--- NOTE | 2018-02-11 09:24 | PDOC.CTH ---
Cardiology Progress Note - Subjective Pt. seen and eval. She has been in atrial fibrillation all night with HR in the 140-160's. She denies SOB or chest pain at this time.We have tried multiple medications to slow the HR but have been unsuccessful. - Objective Vital Signs Temp Pulse Resp BP BP Pulse Ox 02/11/18 07:50 98.6 F 134 H 18 127/63 95 02/11/18 06:36 97 02/11/18 05:33 112 H 02/11/18 03:45 98.5 F 126 H 20 160/92 H 98 02/11/18 00:00 97.9 F 124 H 19 125/65 95 02/10/18 22:56 131 H 165/77 H 02/10/18 21:43 138 H 183/84 H 02/10/18 21:39 138 H Weight 211 lb 8 oz 02/10/18 02/11/18 02/12/18 06:59 06:59 06:59 Intake Total 664.8 Output Total 1000 Balance -335.2 - Physical Examination General/Neuro: alert & oriented x3 Neck: no JVD present Lungs: CTA Heart: other: (irreg/irreg. tachycardia.) Abdomen: soft - Labs Result Diagrams: 02/11/18 05:23 02/11/18 05:23 Troponin/CKMB CK-MB (CK-2) 1.6 ng/mL (0-6.6) 02/10/18 14:11 Troponin I 0.069 ng/mL (< 0.028) H 02/10/18 20:00 - Assessment/Plan 1. Atrial fibrillation with RVR. Nonresponsive to medical treatment. Plan for electrical cardioversion. I have discussed the procedure and risks with the pt. Plan for EP consult. for possible ablation of the atrial fib. or AVJ ablation and pacemaker. 2. DM II- controlled on present meds. 3. HTN 4.Obesity 5. Hypotyroidism. 6. Depression/anxiety. 7. Abn. CIE's : due to afib and RVR likely. Review of Systems - Review of Systems EENTM: reports: no symptoms reported Respiratory: reports: no symptoms reported Cardiac (ROS): reports: irregular heart rate ABD/GI: reports: no symptoms reported : reports: no symptoms reported Musculoskeletal: reports: no symptoms reported Neurological: reports: no symptoms reported
[2018-02-11] MEDS ORDERED: Potassium Chloride 20 MEQ TAB PO SCH (09:30)
[2018-02-11] MEDS ORDERED: Magnesium 2 GM/NS 0.9% 50 ML 2 GM in Premix Bag 1 BAG IVPB SCH (09:30)
[2018-02-11] MEDS ORDERED: Magnesium 2 GM/NS 0.9% 100 ML 2 GM in Premix Bag 1 BAG IVPB SCH (09:45)
[2018-02-11] MEDS ORDERED: PROPOFOL 20 ML ONE (10:01)
[2018-02-11] MEDS ORDERED: EPINEPHrine 1 MG/10 ML Abboject SYRINGE ONE (10:13)
[2018-02-11] MEDS ORDERED: Atropine Sulfate 1 mg/10 ml Syringe ONE (10:13)
--- NOTE | 2018-02-11 12:53 | RAD ---
KUB: COMPARISON: None. HISTORY: Abdominal pain. FINDINGS: Anterior views of the abdomen show a nonspecific, nonobstructed bowel gas pattern. Multiple laparosc opic zac are seen from prior ventricle hernia repair. Cholecystectomy clips are seen. Degenerat nate changes are seen in the spine. IMPRESSION: Nonobstructive bowel gas pattern. POS: [facility]
--- NOTE | 2018-02-11 13:48 | ULT ---
COMPLETE ABDOMINAL ULTRASOUND: Date: 02/11/18 HISTORY: Abdominal pain. Patient had a cholecystectomy on 01/11/18. TECHNIQUE: Multiplanar Robbins scale and color Doppler images were obtained in a complete abdominal ultrasound. FINDINGS: The liver is normal in echogenicity without focal lesions or intrahepatic ductal dilatation. The gall bladder has been removed. There is a small fluid collection in the gallbladder fossa. This measures a pproximately 4.4 cm in greatest dimension. The aorta and inferior vena cava are normal in caliber. The visualized portions of the pancreas are u nremarkable. The spleen is normal in echogenicity without focal lesions and measures 13.7 cm in lengt h. Both kidneys are normal in echogenicity without hydronephrosis or calculi and measure 11.2 and 11.4 c m in length on the right and left, respectively. IMPRESSION: 1. Status post cholecystectomy and a small fluid collection in the gallbladder fossa. 2. Mildly enlarged spleen. POS: [facility]
[2018-02-11] MEDS ORDERED: Zolpidem Tartrate 5 MG TAB PO PRN (15:01)
--- NOTE | 2018-02-11 15:05 | PDOC.PN ---
- Subjective Encounter Start Date: 02/11/18 Encounter Start Time: 14:30 Patient seen and examined. No new complaints. Overnight events noted. s/p CV. No CP. Had diarrhea with epig pain earlier. Abd pain improving. - Objective Resuscitation Status: Resuscitation Status FULL:Full Resuscitation MAR Reviewed: Yes Vital Signs & Weight: Vital Signs (12 hours) Temp Pulse Resp BP Pulse Ox 02/11/18 12:00 98.4 F 40 L 16 98 02/11/18 07:50 98.6 F 134 H 18 127/63 95 02/11/18 06:36 97 02/11/18 05:33 112 H 02/11/18 03:45 98.5 F 126 H 20 160/92 H 98 Weight Weight 211 lb 8 oz Most Recent Monitor Data Heart Rate from ECG 56 NIBP 157/55 NIBP BP-Mean 116 Respiration from ECG 19 SpO2 95 I&O: 02/10/18 02/11/18 02/12/18 06:59 06:59 06:59 Intake Total 664.8 200 Output Total 1000 400 Balance -335.2 -200 Result Diagrams: 02/11/18 05:23 02/11/18 05:23 Additional Labs: Accuchecks 02/11/18 02/11/18 02/10/18 12:33 06:26 20:49 POC Glucose 111 H 109 109 Radiology Reviewed by me: Yes (KUB - neg, RUQ USG - neg) EKG Reviewed by me: Yes (Tele - SR) Phys Exam - Physical Examination Constitutional: NAD Neck: no JVD Respiratory: no wheezing, no rales, no rhonchi, clear to auscultation bilateral Cardiovascular: RRR, no rub no heaves/pulsation Gastrointestinal: soft, non-tender, no distention, positive bowel sounds Musculoskeletal: no edema Neurological: non-focal, moves all 4 limbs Psychiatric: normal affect, A&O x 3 Dx/Plan - Plan DVT proph w/SCDs IMPRESSION: 1. Atrial fibrillation with rapid ventricular response. s/p CV (Rate control unsuccessful) 2. Recent hospitalization for atrial flutter with rapid ventricular response, status post cardioversion. 3. Abd pain/ Diarrhea with recent acute cholecystitis, status post laparoscopic cholecystectomy. 4. Diabetes mellitus type 2. on sliding scale 5. Hypertension. 6. Hyperlipidemia. 7. Morbid obesity with a BMI 44.2. 8. Anxiety and depression. 9. Elevated troponins, probably secondary to demand ischemia. 10. Hypokalemia/Hypomagnesemia 11. Chronic kidney disease stage 2. PLAN: * Cardio input appreciated * On Sotalol * Cont Eliquis * AM labs * Replace Potassium/Magnessium * CCU monitoring due to bradycardia post CV * Cont current meds as below * Await EP input Laboratory Tests 02/11/18 05:23 Magnesium 1.5 L Review of Systems - Review of Systems Respiratory: negative: Cough, Dry, Shortness of Breath, Hemoptysis, SOB with Excertion, Pleuritic Pain, Sputum, Wheezing Cardiovascular: negative: chest pain, palpitations, orthopnea, paroxysmal nocturnal dyspnea, edema, light headedness, other - Medications/Allergies Allergies/Adverse Reactions: Allergies Allergy/AdvReac Type Severity Reaction Status Date / Time naproxen Allergy Verified 02/11/17 00:55 Medications: Current Medications Acetaminophen (Tylenol) 650 mg PO Q4H PRN PRN Reason: Headache/Fever or Pain Hydrocodone Bitart/Acetaminophen ([place] 10/325) 1 tab PO Q4H PRN PRN Reason: Moderate Pain (4-6) Last Admin: 02/11/18 12:21 Dose: 1 tab Apixaban (Eliquis) 5 mg PO BID ESMER Last Admin: 02/11/18 07:55 Dose: 5 mg Calcium Carbonate (Tums) 1,000 mg PO Q4H PRN PRN Reason: Heartburn or Indigestion Clonidine (Catapres) 0.1 mg PO Q4H PRN PRN Reason: Systolic BP > 180 Last Admin: 02/10/18 19:05 Dose: 0.1 mg Cyclobenzaprine HCl (Flexeril) 10 mg PO HS PRN PRN Reason: Muscle Spasm Dextrose/Water (Dextrose 50%) 25 gm SLOW IVP PRN PRN PRN Reason: Hypoglycemia Glucagon (Glucagon) 1 mg IM PRN PRN PRN Reason: Hypoglycemia Dextrose/Water (D5w) 1,000 mls @ 0 mls/hr IV .Q0M PRN; As Directed PRN Reason: Hypoglycemia Insulin Human Regular (Humulin R) 0 units SC .MILD SLIDING SCALE PRN PRN Reason: Mild Correctional Scale Insulin Human Regular (Humulin R) 0 units SC .BEDTIME SLIDING SC PRN PRN Reason: Bedtime Correctional Scale Labetalol HCl (Normodyne) 10 mg SLOW IVP Q4H PRN PRN Reason: Systolic BP > 180 Loperamide HCl (Imodium) 2 mg PO PRN PRN PRN Reason: Diarrhea/Loose Stools Magnesium Chloride (Slow-Mag) 64 mg PO BID COUNT INCLUDES THE [facility] Last Admin: 02/11/18 07:55 Dose: 64 mg Magnesium Hydroxide (Milk Of Magnesium) 30 ml PO DAILYPRN PRN PRN Reason: Constipation Metoprolol Tartrate (Lopressor) 5 mg IVP Q6H PRN PRN Reason: HR >130 sustained Last Admin: 02/10/18 20:47 Dose: 5 mg Nitroglycerin (Nitrostat) 0.4 mg PO Q5MIN PRN PRN Reason: Chest Pain Last Admin: 02/10/18 19:53 Dose: 0.4 mg Ondansetron HCl (Zofran Odt) 4 mg PO Q6H PRN PRN Reason: Nausea/Vomiting Ondansetron HCl (Zofran) 4 mg IVP Q6H PRN PRN Reason: Nausea/Vomiting Potassium Chloride (K-Dur) 20 meq PO QAM-WM COUNT INCLUDES THE [facility] Last Admin: 02/11/18 07:54 Dose: 20 meq Quetiapine Fumarate (Seroquel) 100 mg PO [facility] Last Admin: 02/10/18 21:42 Dose: 100 mg Simvastatin (Zocor) 10 mg PO [facility] Last Admin: 02/10/18 22:22 Dose: 10 mg Sodium Chloride (Flush - Normal Saline) 10 ml IVF Q12HR COUNT INCLUDES THE [facility] Sodium Chloride (Flush - Normal Saline) 10 ml IVF PRN PRN PRN Reason: Saline Flush Sotalol HCl (Betapace) 80 mg PO BID COUNT INCLUDES THE [facility] Last Admin: 02/11/18 07:54 Dose: 80 mg Zolpidem Tartrate (Ambien) 5 mg PO HSPRN PRN PRN Reason: Insomnia
--- NOTE | 2018-02-11 15:44 | OP ---
DATE OF PROCEDURE: 02/11/2018 INDICATION FOR PROCEDURE: A 57-year-old female with atrial fibrillation with rapid ventricular response, unresponsive to medica tions. She was advised to undergo electrical cardioversion since her heart rate is mainly in the 140 -150 throughout the night. For almost 12 hours, she remains rapid heart rate. [facility] where she underwent short acting propofol. Using one attempt at 260 joules she was conv erted from atrial fibrillation to a slow junctional escape rhythm. Heart rates in the 40s. We were able to transthoracically pacer, but this did not improve the heart rate this and she now actually re mained stable with a junctional rhythm In the 40s. The diltiazem and beta blockers have been held. A lso, we will hold the digoxin. I will see if she remains stable, she will be another dose of the sot alol later this evening in order to help maintain sinus rhythm. She obviously does have significant conduction abnormalities and may eventually need to undergo pacemaker insertion, but at this time she tolerated the procedure well without difficulty or complications except for the junctional escape rh elena is in the procedure and she has remained heart rates in the 40s. We will place her in the [facility] for further close evaluation in case she does need to have external pacing. We were a ble to capture with the external pacemaker, but this was then discontinued since the patient has rem ained stable with a heart rate in the 40s. We will continue to ask for electrophysiological consulta tion.
[2018-02-11] MEDS ORDERED: Amlodipine 5 MG TAB PO SCH (16:15)
[2018-02-11] MEDS ORDERED: Atropine Sulfate 0.4 mg/1 ml Vial ONE (16:34)
[2018-02-11] MEDS ORDERED: PROPOFOL 200 MG/20 ML VIAL ONE (16:34)
[2018-02-11] MEDS: Simvastatin 5 MG TAB PO SCH (21:48)
[2018-02-12 05:33] LABS: #Lymphocytes 1.9 thou/uL (1.20-3.40); #Monocytes 0.6 thou/uL (0.11-0.59); #Neutrophils 4.4 thou/uL (1.40-6.50); %Basophils 0.4 % (0.0-1.0); %Eosinophils 12.9 % (0.0-10.0); %Lymphocytes 24.1 % (21.0-51.0); %Monocytes 7.2 % (0.0-10.0); %Neutrophils 55.3 % (42.0-75.0); Hemoglobin 9.6 g/dL (12.0-16.0); Mean Corpuscular HGB CONC 30.7 g/dL (32.0-36.0); Mean Corpuscular Hemoglobin 26.2 pg (27.0-31.0); Mean Corpuscular Volume 85.3 fl (81.0-99.0); Mean Platelet Volume 9.4 fL (7.4-10.4); Platelet Count 219 thou/uL (130-400); RBC Distribution Width 16.6 % (11.5-14.5); Red Blood Cell (RBC) Count 3.65 mill/uL (4.20-5.40)
[2018-02-12 05:56] LABS: ALT (SGPT) Less than 7 U/L (8-55); AST (SGOT) 10 U/L (5-34); Albumin 3.3 g/dL (3.5-5.0); Alkaline Phosphatase 65 U/L (40-150); Anion Gap 14 mmol/L (10-20); BUN (Urea Nitrogen) 11 mg/dL (9.8-20.1); Bilirubin, Total 0.8 mg/dL (0.2-1.2); Calc. Creatinine Clearance 113 mL/min (70-130); Calcium 8.9 mg/dL (7.8-10.44); Carbon Dioxide 25 mmol/L (22-29); Chloride 105 mmol/L (98-107); Estimated GFR-MDRD 72; Globulin 2.8 g/dL (2.4-3.5); Glucose 87 mg/dL (70-105); Magnesium 1.9 mg/dL (1.6-2.6); Potassium 3.8 mmol/L (3.5-5.1); Protein, Total 6.1 g/dL (6.0-8.3); Sodium 140 mmol/L (136-145)
--- NOTE | 2018-02-12 07:11 | EKG ---
Test Reason : Blood Pressure : / mmHG Vent. Rate : 148 BPM Atrial Rate : 277 BPM P-R Int : 000 ms QRS Dur : 110 ms QT Int : 354 ms P-R-T Axes : 000 026 244 degrees QTc Int : 555 ms Atrial fibrillation with rapid ventricular response Incomplete right bundle branch block Marked ST abnormality, possible inferolateral subendocardial injury Abnormal ECG When compared with ECG of 10-FEB-2018 16:12, (Unconfirmed) ST less depressed in Anterior leads Confirmed by ALEIDA GRIER ([id number]) on 02/12/2018 7:11:23 AM Referred By: Confirmed By:ALEIDA GRIER
[2018-02-12] MEDS: HYDROcodone/Acetaminophen 10/325 mg Tablet PO PRN ×3 (07:16→23:28)
--- NOTE | 2018-02-12 07:55 | CON ---
ELECTROPHYSIOLOGY CONSULTATION NOTE DATE OF CONSULTATION: 02/10/2018 REFERRING PHYSICIAN: Mamie Vazquez M.D. I am seeing Ms. 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 Her problems are: 1. History of recurrent atrial arrhythmias. A. Hospitalization in 12/2017 with laparoscopic cholecystectomy, she admitted with acute cholecystitis and occurrence of atrial flutter with rapid rates, requiring cardioversion. B. Readmission with new onset atrial fibrillation with rapid ventricular rates as well. 2. Right bundle-branch block. 3. CHADS-VASc score of 5 due to her gender and A. History of transient ischemic attack. B. Type 2 diabetes. C. Hypertension. 4. Morbid obesity. 5. History of chronic anemia. 6. History of anxiety and depression. ALLERGIES: NAPROXEN. MEDICATIONS AT HOME: Included Seroquel, Glucotrol, Flexeril, atenolol, metformin, Ambien, Mevacor, Pipestem, Zestril, pioglitazone, levothyroxine and apixaban. SUBJECTIVE: Ms. Rowe is here with recurrent palpitations. She developed these day before the admission. She also had some chest tightness sensation into the back. She felt lightheaded and dizzy at times and weak. She did not pass out. Her chest discomfort is substernal without any radiation, it has resolved. Dr. Vazquez has evaluated her and she underwent a cardioversion. Post- cardioversion, she developed bradycardia, but now her rhythm is back to normal range. The rest of the review of systems otherwise unremarkable with no acute gastrointestinal, musculoskeletal, ear, nose, throat, neuropsychiatric symptoms noted. She denies any stroke-like symptoms. PAST MEDICAL HISTORY: As above. She has been admitted in December with acute cholecystitis and underwent cholecystectomy. She underwent a cardioversion at that time by Dr. Vazquez. She has been on Eliquis ever since. PAST SURGICAL HISTORY: Significant for tubal ligation, cholecystectomy recently , tonsillectomy, hernia repair and appendectomy. OBJECTIVE DATA: VITAL SIGNS: Blood pressure currently 157/55, heart rate 60, respirations 12. The patient is afebrile. GENERAL: An alert and oriented woman BMI. NECK: Supple. Jugular veins not distended. CHEST: Coarse without crackles. HEART: No murmur or gallop. ABDOMEN: Benign. Bowel sounds positive. EXTREMITIES: Lower extremities without edema, clubbing or cyanosis. DATABASE: EKGs reviewed initially revealing atrial fibrillation with rapid rate , , incomplete right bundle branch alternating with complete right bundle- branch block. The review of the EKGs reveals more regular 2:1 flutter appearance. LABORATORY DATA: White blood cell count 7.8, hemoglobin 10.1 and platelet count is 229. Sodium 143, potassium 3.6, BUN is 9.3 and creatinine is 0.75. Troponin I is 0.069, 0.065 and 0.059. ASSESSMENT AND PLAN: Ms. Rowe is a 57-year-old woman with a history of hypertension, diabetes, chronic kidney disease with normal creatinine, who had recurrent atrial arrhythmias, atrial flutter in the past, but now it appears to be more atrial fibrillation, has intermittent right bundle-branch block as well. She had a reduced left ventricular ejection fraction in the last transesophageal echocardiography in December, but a followup echo in 02/10, her left ventricular ejection fraction normalized. She has been cardioverted and developed bradycardia, but now that is improving. I discussed the treatment options with her. Since this lady has been having recurrent atrial arrhythmias, whenever she is in atrial rhythm, her heart rates are rather fast and she is very symptomatic. She developed bradycardia post- cardioversion likely due to the excessive amount of AV sheridan blocking agents she received. We discussed the different treatment options, which could include antiarrhythmic agents, sotalol versus Multaq is a consideration once her heart rates start to improve. Also, we discussed option for ablation procedure. We will consider this as an outpatient. In the meantime, she needs to continue Eliquis or alternative anticoagulation. We will follow with you. For now, we will hold off pacing therapy unless bradycardia persists. [place]
[2018-02-12] MEDS: Amlodipine 5 MG TAB PO SCH (08:15)
[2018-02-12] MEDS: Potassium Chloride 20 MEQ TAB PO SCH (08:15)
[2018-02-12] MEDS: Apixaban 5 MG TAB PO SCH ×2 (08:16→20:47)
[2018-02-12] MEDS: Sotalol HCl 80 MG TAB PO SCH ×2 (09:10→20:48)
[2018-02-12] MEDS: Magnesium Chloride 64 MG TAB PO SCH ×2 (09:10→20:49)
--- NOTE | 2018-02-12 12:14 | PDOC.CTH ---
<Tammy Barillas - Last Filed: 02/12/18 12:14> Cardiology Progress Note - Subjective The pt seen and examined. No overnight events. No cardiac complaints. - Objective Vital Signs Temp Pulse Resp BP BP Pulse Ox 02/12/18 11:41 97.6 F 66 17 175/71 H 100 02/12/18 09:15 61 16 170/49 H 2 L 02/12/18 09:10 64 02/12/18 08:15 67 02/12/18 07:55 98.5 F 72 14 02/12/18 07:11 98.5 F 72 14 170/53 H 98 02/12/18 04:00 98.2 F 61 16 133/53 L 98 Weight 213 lb 1.6 oz 02/11/18 02/12/18 02/13/18 06:59 06:59 06:59 Intake Total 664.8 750 Output Total 1000 550 Balance -335.2 200 - Physical Examination General/Neuro: alert & oriented x3 Neck: no JVD present Lungs: CTA Heart: RRR Abdomen: soft Extremities: other: (No edema) - Telemetry Telemetry Rhythm: SR 60s - Labs Result Diagrams: 02/12/18 04:22 02/12/18 04:22 Troponin/CKMB CK-MB (CK-2) 1.6 ng/mL (0-6.6) 02/10/18 14:11 Troponin I 0.069 ng/mL (< 0.028) H 02/10/18 20:00 - Assessment/Plan 1. Atrial fibrillation with RVR. Nonresponsive to medical treatment - s/p Cardioversion on 02/11/18. Remains in SR with HR 60s. On Sotalol 80mg BID, Eliquis 5mg BID. 2. DM II- controlled on present meds. 3. HTN - Resume Lisinopril 20mg BID; cont. to monitor 4. hyperlipidemia - will resume 5. Hypotyroidism - Resume her Levothyroxine 50mcg daily; 6. Depression/anxiety - stable. 7. Obese 8. Hx of C diff MAR reviewed Review of Systems - Review of Systems Constitutional: reports: no symptoms reported EENTM: reports: no symptoms reported Respiratory: reports: no symptoms reported Cardiac (ROS): reports: no symptoms reported ABD/GI: reports: no symptoms reported : reports: no symptoms reported <Kris Vazquez - Last Filed: 02/12/18 16:47> Cardiology Progress Note - Objective Vital Signs Temp Pulse Resp BP BP Pulse Ox 02/12/18 11:41 97.6 F 66 17 175/71 H 100 02/12/18 09:15 61 16 170/49 H 2 L 02/12/18 09:10 64 02/12/18 08:15 67 02/12/18 07:55 98.5 F 72 14 02/12/18 07:11 98.5 F 72 14 170/53 H 98 Weight 213 lb 1.6 oz 02/11/18 02/12/18 02/13/18 06:59 06:59 06:59 Intake Total 664.8 750 Output Total 1000 550 Balance -335.2 200 - Labs Result Diagrams: 02/12/18 04:22 02/12/18 04:22 Troponin/CKMB CK-MB (CK-2) 1.6 ng/mL (0-6.6) 02/10/18 14:11 Troponin I 0.069 ng/mL (< 0.028) H 02/10/18 20:00 - Assessment/Plan Pt. seen and eval. by me. I agree with the A/P by the GIS DATABASE ADMINISTRATOR. She is maintaining NSR. Continue Sotolol. Home when the CDiff is under control.
[2018-02-12] MEDS: Vancomycin HCl 25 MG/ML Oral PO SCH ×3 (12:18→23:38)
[2018-02-12] MEDS ORDERED: Lisinopril 20 MG TAB PO SCH ×2 (12:30)
--- NOTE | 2018-02-12 15:08 | PDOC.CTH ---
<GeneabelardoaustinAngelina - Last Filed: 02/12/18 15:05> Cardiology Progress Note - Subjective EP progress note: Patient seen and evaluated. Doing well overnight. No new cardiac concerns. Tolerating sotalol well. - Objective Vital Signs Temp Pulse Resp BP BP Pulse Ox 02/12/18 11:41 97.6 F 66 17 175/71 H 100 02/12/18 09:15 61 16 170/49 H 2 L 02/12/18 09:10 64 02/12/18 08:15 67 02/12/18 07:55 98.5 F 72 14 02/12/18 07:11 98.5 F 72 14 170/53 H 98 02/12/18 04:00 98.2 F 61 16 133/53 L 98 Weight 213 lb 1.6 oz 02/11/18 02/12/18 02/13/18 06:59 06:59 06:59 Intake Total 664.8 750 Output Total 1000 550 Balance -335.2 200 - Physical Examination General/Neuro: alert & oriented x3, NAD Neck: carotid US brisk, no JVD present Lungs: CTA, unlabored respirations Heart: RRR Abdomen: NT/ND, soft - Telemetry Telemetry Rhythm: NSR with brief PAT runs - Labs Result Diagrams: 02/12/18 04:22 02/12/18 04:22 Troponin/CKMB CK-MB (CK-2) 1.6 ng/mL (0-6.6) 02/10/18 14:11 Troponin I 0.069 ng/mL (< 0.028) H 02/10/18 20:00 - Assessment/Plan 1. Recurrent atrial arrhythmia with RVR and post DCCV bradycardia with large amount of AV sheridan blocking agents on board. No rates stable. No indication for pacemaker. Now NSR on Sotalol 80mg BID. Continue medical management, will arrange for 2 week monitor upon discharge and will see back in clinic in 4-6 weeks to discuss PVAI as outpatient. 2. Elevated CHADS-VASC on Eliquis tolerating well, continue 5mg BID. Ok for discharge by EP. Request follow up in 4-6 weeks <Hebert Da Silva - Last Filed: 02/15/18 08:45> Cardiology Progress Note - Objective Weight 211 lb 6.773 oz 0402/15/18 02/16/18 06:59 06:59 06:59 Intake Total 720 Balance 720 - Labs Result Diagrams: 02/13/18 06:32 02/13/18 06:32 Troponin/CKMB CK-MB (CK-2) 1.6 ng/mL (0-6.6) 02/10/18 14:11 Troponin I 0.069 ng/mL (< 0.028) H 02/10/18 20:00 Attending Addendum - Attending Addendum Date/Time: 02/15/18 [id number] I personally evaluated the patient and discussed the management with MS Sepulveda. I agree with the History, Examination, Assessment and Plan documented above with any addition or exceptions noted below. 1. Recurrent atrial arrhythmia/ afib with RVR and post DCCV bradycardia with large amount of AV sheridan blocking agents on board. No rates stable. No indication for pacemaker. Now NSR on Sotalol 80mg BID. Continue medical management, will arrange for 2 week monitor upon discharge and will see back in clinic in 4-6 weeks to discuss PVAI as outpatient. 2. Elevated CHADS-VASC on Eliquis tolerating well, continue 5mg BID. Ok for discharge by EP. Request follow up in 4-6 weeks
--- NOTE | 2018-02-12 20:28 | PDOC.PN ---
- Subjective Encounter Start Date: 02/12/18 Encounter Start Time: 09:00 Patient seen and examined. No new complaints. No overnight events. Cdiff +, on isolation. - Objective Resuscitation Status: Resuscitation Status FULL:Full Resuscitation MAR Reviewed: Yes Vital Signs & Weight: Vital Signs (12 hours) Temp Pulse Resp BP BP Pulse Ox 02/12/18 17:38 97.8 F 73 18 200/76 H 92 L 02/12/18 11:41 97.6 F 66 17 175/71 H 100 02/12/18 09:15 61 16 170/49 H 2 L 02/12/18 09:10 64 Weight Weight 213 lb 1.6 oz Most Recent Monitor Data Heart Rate from ECG 63 NIBP 191/74 NIBP BP-Mean 121 Respiration from ECG 21 SpO2 97 I&O: 02/11/18 02/12/18 02/13/18 06:59 06:59 06:59 Intake Total 664.8 750 480 Output Total 1000 550 Balance -335.2 200 480 Result Diagrams: 02/13/18 06:32 02/13/18 06:32 Additional Labs: Accuchecks 02/12/18 02/12/18 02/12/18 17:02 10:17 07:14 POC Glucose 131 H 136 H 101 02/11/18 23:04 POC Glucose 117 H EKG Reviewed by me: Yes (Tele SR) Phys Exam - Physical Examination Constitutional: NAD Respiratory: no wheezing, no rhonchi Cardiovascular: RRR, no rub Gastrointestinal: soft, non-tender, positive bowel sounds Musculoskeletal: no edema Dx/Plan - Plan DVT proph w/SCDs IMPRESSION: 1. C diff colitis 2. Atrial fibrillation with rapid ventricular response. s/p CV (Rate control unsuccessful) 3. Recent hospitalization for atrial flutter with rapid ventricular response, status post cardioversion. 4. Diabetes mellitus type 2. on sliding scale 5. Hypertension. 6. Hyperlipidemia. 7. Morbid obesity with a BMI 44.2. 8. Anxiety and depression. 9. Elevated troponins, probably secondary to demand ischemia. 10. Hypokalemia/Hypomagnesemia 11. Chronic kidney disease stage 2. PLAN: * Start PO Vanc for Cdiff * Cardio/EP following * On Sotalol * Cont Eliquis * AM labs * Transfer to Tele * Cont current meds as below Review of Systems - Review of Systems Respiratory: negative: Cough, Dry, Shortness of Breath, Hemoptysis, SOB with Excertion, Pleuritic Pain, Sputum, Wheezing Cardiovascular: negative: chest pain, palpitations, orthopnea, paroxysmal nocturnal dyspnea, edema, light headedness, other - Medications/Allergies Allergies/Adverse Reactions: Allergies Allergy/AdvReac Type Severity Reaction Status Date / Time naproxen Allergy Verified 02/11/17 00:55 Medications: Current Medications Acetaminophen (Tylenol) 650 mg PO Q4H PRN PRN Reason: Headache/Fever or Pain Hydrocodone Bitart/Acetaminophen ([place] 10/325) 1 tab PO Q4H PRN PRN Reason: Moderate Pain (4-6) Last Admin: 02/12/18 14:34 Dose: 1 tab Amlodipine Besylate (Norvasc) 5 mg PO DAILY [facility] Last Admin: 02/12/18 08:15 Dose: 5 mg Apixaban (Eliquis) 5 mg PO BID [facility] Last Admin: 02/12/18 08:16 Dose: 5 mg Calcium Carbonate (Tums) 1,000 mg PO Q4H PRN PRN Reason: Heartburn or Indigestion Clonidine (Catapres) 0.1 mg PO Q4H PRN PRN Reason: Systolic BP > 180 Last Admin: 02/10/18 19:05 Dose: 0.1 mg Cyclobenzaprine HCl (Flexeril) 10 mg PO HS PRN PRN Reason: Muscle Spasm Dextrose/Water (Dextrose 50%) 25 gm SLOW IVP PRN PRN PRN Reason: Hypoglycemia Glucagon (Glucagon) 1 mg IM PRN PRN PRN Reason: Hypoglycemia Dextrose/Water (D5w) 1,000 mls @ 0 mls/hr IV .Q0M PRN; As Directed PRN Reason: Hypoglycemia Insulin Human Regular (Humulin R) 0 units SC .MILD SLIDING SCALE PRN PRN Reason: Mild Correctional Scale Insulin Human Regular (Humulin R) 0 units SC .BEDTIME SLIDING SC PRN PRN Reason: Bedtime Correctional Scale Labetalol HCl (Normodyne) 10 mg SLOW IVP Q4H PRN PRN Reason: Systolic BP > 180 Last Admin: 02/12/18 17:43 Dose: 10 mg Levothyroxine Sodium (Synthroid) 50 mcg PO 0600 [facility] Lisinopril (Zestril) 20 mg PO BID [facility] Magnesium Chloride (Slow-Mag) 64 mg PO BID [facility] Last Admin: 02/12/18 09:10 Dose: 64 mg Magnesium Hydroxide (Milk Of Magnesium) 30 ml PO DAILYPRN PRN PRN Reason: Constipation Metoprolol Tartrate (Lopressor) 5 mg IVP Q6H PRN PRN Reason: HR >130 sustained Last Admin: 02/10/18 20:47 Dose: 5 mg Nitroglycerin (Nitrostat) 0.4 mg PO Q5MIN PRN PRN Reason: Chest Pain Last Admin: 02/10/18 19:53 Dose: 0.4 mg Ondansetron HCl (Zofran Odt) 4 mg PO Q6H PRN PRN Reason: Nausea/Vomiting Ondansetron HCl (Zofran) 4 mg IVP Q6H PRN PRN Reason: Nausea/Vomiting Potassium Chloride (K-Dur) 20 meq PO QAM-WM [facility] Last Admin: 02/12/18 08:15 Dose: 20 meq Quetiapine Fumarate (Seroquel) 100 mg PO HS [facility] Last Admin: 02/11/18 21:48 Dose: 100 mg Simvastatin (Zocor) 10 mg PO HS [facility] Last Admin: 02/11/18 21:48 Dose: 10 mg Sodium Chloride (Flush - Normal Saline) 10 ml IVF Q12HR [facility] Last Admin: 02/12/18 08:16 Dose: 10 ml Sodium Chloride (Flush - Normal Saline) 10 ml IVF PRN PRN PRN Reason: Saline Flush Sotalol HCl (Betapace) 80 mg PO BID [facility] Last Admin: 02/12/18 09:10 Dose: 80 mg Vancomycin HCl (First Vancomycin) 250 mg PO Q6HR [facility] Last Admin: 02/12/18 17:39 Dose: 10 ml Zolpidem Tartrate (Ambien) 5 mg PO HSPRN PRN PRN Reason: Insomnia
[2018-02-12] MEDS: Simvastatin 5 MG TAB PO SCH (20:47)
[2018-02-12] MEDS: Lisinopril 20 MG TAB PO SCH (20:48)
[2018-02-13] MEDS: Levothyroxine Sodium 50 MCG TAB PO SCH (05:33)
[2018-02-13] MEDS: Vancomycin HCl 25 MG/ML Oral PO SCH ×4 (05:33→23:16)
[2018-02-13 06:59] LABS: Albumin 3.5 g/dL (3.5-5.0); Anion Gap 15 mmol/L (10-20); BUN (Urea Nitrogen) 11 mg/dL (9.8-20.1); BUN/Creatinine Ratio 12.79; Calc. Creatinine Clearance 109 mL/min (70-130); Calcium 9.1 mg/dL (7.8-10.44); Carbon Dioxide 24 mmol/L (22-29); Chloride 107 mmol/L (98-107); Estimated GFR-MDRD 68; Glucose 127 mg/dL (70-105); Magnesium 1.7 mg/dL (1.6-2.6); Phosphorus 3.1 mg/dL (2.3-4.7); Sodium 142 mmol/L (136-145)
[2018-02-13 08:19] LABS: #Eosinphils 1.1 thou/uL (0.0-0.7); #Lymphocytes 2.1 thou/uL (1.20-3.40); #Monocytes 0.6 thou/uL (0.11-0.59); #Neutrophils 4.9 thou/uL (1.40-6.50); %Basophils 0.2 % (0.0-1.0); %Eosinophils 12.6 % (0.0-10.0); %Lymphocytes 23.9 % (21.0-51.0); %Monocytes 6.9 % (0.0-10.0); %Neutrophils 56.5 % (42.0-75.0); Hemoglobin 10.6 g/dL (12.0-16.0); Mean Corpuscular HGB CONC 29.6 g/dL (32.0-36.0); Mean Corpuscular Hemoglobin 25.9 pg (27.0-31.0); Mean Corpuscular Volume 87.6 fl (81.0-99.0); Platelet Count 188 thou/uL (130-400); RBC Distribution Width 16.9 % (11.5-14.5); Red Blood Cell (RBC) Count 4.09 mill/uL (4.20-5.40); White Blood Cell (WBC) Count 8.8 thou/uL (4.8-10.8)
[2018-02-13 08:20] LABS: Hypochromia SLIGHT = 6-15 cells (100X) (0-5/hpf); MDiff Complete? YES; Polychromasia SLIGHT = 2-3 cells (100X) (0-2/hpf)
[2018-02-13] MEDS: Potassium Chloride 20 MEQ TAB PO SCH (08:23)
[2018-02-13] MEDS: Apixaban 5 MG TAB PO SCH ×2 (08:23→20:23)
[2018-02-13] MEDS: Lisinopril 20 MG TAB PO SCH ×2 (08:23→20:24)
[2018-02-13] MEDS: Amlodipine 5 MG TAB PO SCH (08:23)
[2018-02-13] MEDS: Magnesium Chloride 64 MG TAB PO SCH ×2 (08:24→20:22)
[2018-02-13] MEDS: Sotalol HCl 80 MG TAB PO SCH ×2 (08:24→20:23)
[2018-02-13] MEDS: HYDROcodone/Acetaminophen 10/325 mg Tablet PO PRN ×3 (10:29→20:23)
--- NOTE | 2018-02-13 15:33 | PDOC.CTH ---
Cardiology Progress Note - Subjective She remains in sinus rhythm. No new issues. - Objective Vital Signs Temp Pulse Resp BP BP BP BP 02/13/18 13:11 98.3 F 68 16 142/66 H 02/13/18 08:24 81 02/13/18 08:23 81 192/79 H 02/13/18 08:18 98.4 F 81 18 192/79 H 02/13/18 04:21 98.1 F 85 18 162/72 H Pulse Ox 02/13/18 13:11 96 02/13/18 08:24 02/13/18 08:23 02/13/18 08:18 95 02/13/18 04:21 92 L Weight 216 lb 0.848 oz 02/12/18 02/13/18 02/14/18 06:59 06:59 06:59 Intake Total 750 720 Output Total 550 Balance 200 720 - Labs Result Diagrams: 02/13/18 06:32 02/13/18 06:32 Troponin/CKMB CK-MB (CK-2) 1.6 ng/mL (0-6.6) 02/10/18 14:11 Troponin I 0.069 ng/mL (< 0.028) H 02/10/18 20:00 - Assessment/Plan 1. Atrial fibrillation with RVR. back in sinus rhytm. 2. DM II 3. HTN 4. Obesity 5. Hypotyroidism. 6. Depression/anxiety. 7. NSTEMI, demand ischemic from C-Diff most likely.
--- NOTE | 2018-02-13 19:04 | PDOC.PN ---
- Subjective Encounter Start Date: 02/13/18 Encounter Start Time: 10:00 Patient seen and examined. No new complaints. No overnight events - Objective Resuscitation Status: Resuscitation Status FULL:Full Resuscitation MAR Reviewed: Yes Vital Signs & Weight: Vital Signs (12 hours) Temp Pulse Resp BP BP BP Pulse Ox 02/13/18 15:32 98.1 F 61 16 146/64 H 95 02/13/18 13:11 98.3 F 68 16 142/66 H 96 02/13/18 08:24 81 02/13/18 08:23 81 192/79 H 02/13/18 08:18 98.4 F 81 18 192/79 H 95 Weight Weight 216 lb 0.848 oz Most Recent Monitor Data Heart Rate from ECG 63 NIBP 191/74 NIBP BP-Mean 121 Respiration from ECG 21 SpO2 97 I&O: 02/12/18 02/13/18 02/14/18 06:59 06:59 06:59 Intake Total 750 720 Output Total 550 Balance 200 720 Result Diagrams: 02/13/18 06:32 02/13/18 06:32 Additional Labs: Accuchecks 02/13/18 02/13/18 02/13/18 16:29 10:47 05:53 POC Glucose 177 H 160 H 134 H 02/12/18 20:40 POC Glucose 133 H EKG Reviewed by me: Yes (Tele SR) Phys Exam - Physical Examination Constitutional: NAD Respiratory: no wheezing, no rhonchi Cardiovascular: RRR, no rub Gastrointestinal: soft, non-tender, positive bowel sounds Musculoskeletal: no edema Neurological: moves all 4 limbs Dx/Plan - Plan IMPRESSION: 1. C diff colitis - on PO Vancomycin 2. Atrial fibrillation with rapid ventricular response. s/p CV (Rate control was unsuccessful) - on Sotalol/Anticoag 3. Recent hospitalization for atrial flutter with rapid ventricular response, status post cardioversion. 4. Diabetes mellitus type 2. on sliding scale 5. Hypertension. 6. Hyperlipidemia. 7. Morbid obesity with a BMI 44.2. 8. Anxiety and depression. 9. Elevated troponins, probably secondary to demand ischemia. 10. Hypokalemia/Hypomagnesemia 11. Chronic kidney disease stage 2. PLAN: * Cont PO Vanc for Cdiff * Cardio/EP following * On Sotalol/Eliquis * Cont current meds as below * DC when ok with Cardiology Review of Systems - Review of Systems Respiratory: negative: Cough, Dry, Shortness of Breath, Hemoptysis, SOB with Excertion, Pleuritic Pain, Sputum, Wheezing Cardiovascular: negative: chest pain, palpitations, orthopnea, paroxysmal nocturnal dyspnea, edema, light headedness, other - Medications/Allergies Allergies/Adverse Reactions: Allergies Allergy/AdvReac Type Severity Reaction Status Date / Time naproxen Allergy Verified 02/11/17 00:55 Medications: Current Medications Acetaminophen (Tylenol) 650 mg PO Q4H PRN PRN Reason: Headache/Fever or Pain Hydrocodone Bitart/Acetaminophen ([place] 10/325) 1 tab PO Q4H PRN PRN Reason: Moderate Pain (4-6) Last Admin: 02/13/18 15:34 Dose: 1 tab Amlodipine Besylate (Norvasc) 5 mg PO DAILY [facility] Last Admin: 02/13/18 08:23 Dose: 5 mg Apixaban (Eliquis) 5 mg PO BID [facility] Last Admin: 02/13/18 08:23 Dose: 5 mg Calcium Carbonate (Tums) 1,000 mg PO Q4H PRN PRN Reason: Heartburn or Indigestion Clonidine (Catapres) 0.1 mg PO Q4H PRN PRN Reason: Systolic BP > 180 Last Admin: 02/10/18 19:05 Dose: 0.1 mg Cyclobenzaprine HCl (Flexeril) 10 mg PO HS PRN PRN Reason: Muscle Spasm Dextrose/Water (Dextrose 50%) 25 gm SLOW IVP PRN PRN PRN Reason: Hypoglycemia Glucagon (Glucagon) 1 mg IM PRN PRN PRN Reason: Hypoglycemia Dextrose/Water (D5w) 1,000 mls @ 0 mls/hr IV .Q0M PRN; As Directed PRN Reason: Hypoglycemia Insulin Human Regular (Humulin R) 0 units SC .MILD SLIDING SCALE PRN PRN Reason: Mild Correctional Scale Insulin Human Regular (Humulin R) 0 units SC .BEDTIME SLIDING SC PRN PRN Reason: Bedtime Correctional Scale Labetalol HCl (Normodyne) 10 mg SLOW IVP Q4H PRN PRN Reason: Systolic BP > 180 Last Admin: 02/12/18 17:43 Dose: 10 mg Levothyroxine Sodium (Synthroid) 50 mcg PO 0600 [facility] Last Admin: 02/13/18 05:33 Dose: 50 mcg Lisinopril (Zestril) 20 mg PO BID [facility] Last Admin: 02/13/18 08:23 Dose: 20 mg Magnesium Chloride (Slow-Mag) 64 mg PO BID [facility] Last Admin: 02/13/18 08:24 Dose: 64 mg Magnesium Hydroxide (Milk Of Magnesium) 30 ml PO DAILYPRN PRN PRN Reason: Constipation Metoprolol Tartrate (Lopressor) 5 mg IVP Q6H PRN PRN Reason: HR >130 sustained Last Admin: 02/10/18 20:47 Dose: 5 mg Nitroglycerin (Nitrostat) 0.4 mg PO Q5MIN PRN PRN Reason: Chest Pain Last Admin: 02/10/18 19:53 Dose: 0.4 mg Ondansetron HCl (Zofran Odt) 4 mg PO Q6H PRN PRN Reason: Nausea/Vomiting Ondansetron HCl (Zofran) 4 mg IVP Q6H PRN PRN Reason: Nausea/Vomiting Potassium Chloride (K-Dur) 20 meq PO QAM-WM [facility] Last Admin: 02/13/18 08:23 Dose: 20 meq Quetiapine Fumarate (Seroquel) 100 mg PO HS [facility] Last Admin: 02/12/18 20:49 Dose: 100 mg Simvastatin (Zocor) 10 mg PO HS [facility] Last Admin: 02/12/18 20:47 Dose: 10 mg Sodium Chloride (Flush - Normal Saline) 10 ml IVF Q12HR [facility] Last Admin: 02/13/18 08:22 Dose: 10 ml Sodium Chloride (Flush - Normal Saline) 10 ml IVF PRN PRN PRN Reason: Saline Flush Sotalol HCl (Betapace) 80 mg PO BID [facility] Last Admin: 02/13/18 08:24 Dose: 80 mg Vancomycin HCl (First Vancomycin) 250 mg PO Q6HR [facility] Last Admin: 02/13/18 18:50 Dose: 10 ml Zolpidem Tartrate (Ambien) 5 mg PO HSPRN PRN PRN Reason: Insomnia
[2018-02-13] MEDS: Simvastatin 5 MG TAB PO SCH (20:22)
[2018-02-14] MEDS: Vancomycin HCl 25 MG/ML Oral PO SCH ×2 (05:20→11:53)
[2018-02-14] MEDS: Levothyroxine Sodium 50 MCG TAB PO SCH (05:20)
[2018-02-14] MEDS: Lisinopril 20 MG TAB PO SCH (08:46)
[2018-02-14] MEDS: Apixaban 5 MG TAB PO SCH (08:46)
[2018-02-14] MEDS: Sotalol HCl 80 MG TAB PO SCH (08:46)
[2018-02-14] MEDS: Potassium Chloride 20 MEQ TAB PO SCH (08:47)
[2018-02-14] MEDS: HYDROcodone/Acetaminophen 10/325 mg Tablet PO PRN (08:47)
[2018-02-14] MEDS: Amlodipine 5 MG TAB PO SCH (08:48)
[2018-02-14] MEDS: Magnesium Chloride 64 MG TAB PO SCH (08:49)
[2018-02-14] MEDS ORDERED: Amlodipine 5 MG TAB PO SCH (11:00)
[2018-02-14 11:30] VITALS: BP 145/67; TEMP 97.9
--- NOTE | 2018-02-14 13:38 | DIS ---
DATE OF DISCHARGE: 02/14/2018 DISCHARGE DISPOSITION: Home. FOLLOWUP: Follow up with primary care physician, Dr. Kingston in 1 week. Follow up with Dr. Vazquez, [facility]di[facility], after a week. ALLERGIES: The patient is allergic to NAPROXEN. DISCHARGE MEDICATIONS: 1. Amlodipine 5 mg daily. 2. Flagyl 500 mg three times daily for the next 10 days. 3. Sotalol 80 mg b.i.d. MEDICATION DISCONTINUED AT THIS ADMISSION: Atenolol 25 mg at bedtime. All other home medications were resumed. The patient was seen and examined on the day of discharge. Denies any new complaints. No chest pain , shortness of breath or palpitations. BRIEF HOSPITAL COURSE: The patient is a 57-year-old female with recent cardioversion for atrial flut ter, presented to the emergency room with palpitations. Her workup was consistent with atrial fibril lation with rapid ventricular response. Please refer to the history and physical dated 02/10/2018 fo r further details. The patient was admitted to the hospital with the above diagnosis and was started on Cardizem drip wi th intermittent doses of IV metoprolol. She eventually required cardioversion next morning due to di fficult to control heart rate despite increasing the dose of Cardizem, addition of digoxin and sotalo l. Post cardioversion, she was monitored in the Intensive Care Unit due to risk of severe bradycardi a from all the above medications. She was later transferred to the telemetry unit. Due to diarrhea, a stool for C. diff was checked which turned out to be positive for antigen and toxin. She was plac ed on oral vancomycin. Due to financial issues, the patient will be discharged home on Flagyl. The patient has been cleared by Cardiology for discharge. She will continue anticoagulation with Eliquis . FINAL DIAGNOSES: 1. Atrial fibrillation with rapid ventricular response. Please note, the patient failed rate contro lled and required cardioversion. 2. Clostridium difficile colitis, started on vancomycin. 3. Recent hospitalization for atrial flutter with rapid ventricular response, requiring cardioversio n. 4. Diabetes mellitus type 2. 5. Hypertension. 6. Hyperlipidemia. 7. Morbid obesity with a BMI of 44.2. 8. Anxiety and depression. 9. Elevated troponins, probably secondary to demand ischemia. 10. Hypokalemia. 11. Hypomagnesemia, replaced. 12. Chronic kidney disease stage 2. Plan of care was discussed with the patient and the family at the bedside in detail. They stated und erstanding.
== END 2018-02-14 12:55 | disposition home or self-care (01) | DRG 309 ==
LOC: ERS 13:37 → 2NO 16:51 → CCU 02-11 10:54 → IMCU/EMU 02-11 18:48 → 2NO 02-12 13:23
PROVIDERS: ADMIT Internal Medicine; ATTEND Internal Medicine
PROC: 5A2204Z Restoration of Cardiac Rhythm, Single (ICD-10-PCS; principal; 2018-02-11)
DX: I48.0 Paroxysmal atrial fibrillation (principal); A04.72 Enterocolitis due to Clostridium difficile, not specified as recurrent; E11.22 Type 2 diabetes mellitus with diabetic chronic kidney disease; I24.8 Other forms of acute ischemic heart disease; E66.01 Morbid (severe) obesity due to excess calories; E83.42 Hypomagnesemia; Z68.41 Body mass index [BMI] 40.0-44.9, adult; Z88.8 Allergy status to other drugs, medicaments and biological substances; I48.92 Unspecified atrial flutter; I12.9 Hypertensive chronic kidney disease with stage 1 through stage 4 chronic kidney disease, or unspecified chronic kidney disease; N18.2 Chronic kidney disease, stage 2 (mild); E78.5 Hyperlipidemia, unspecified; F41.8 Other specified anxiety disorders; E87.6 Hypokalemia; Z79.01 Long term (current) use of anticoagulants; G47.00 Insomnia, unspecified; E03.9 Hypothyroidism, unspecified; Z90.49 Acquired absence of other specified parts of digestive tract; Z86.73 Personal history of transient ischemic attack (TIA), and cerebral infarction without residual deficits; D64.89 Other specified anemias; I45.10 Unspecified right bundle-branch block; Z79.84 Long term (current) use of oral hypoglycemic drugs; R00.1 Bradycardia, unspecified; Z98.51 Tubal ligation status; Z88.6 Allergy status to analgesic agent
CPT/HCPCS: 36415; 36416; 71045; 74018; 76700; 80053; 80069; 82550; 82553; 83630; 83690; 83735; 84484; 85025; 87045; 87046; 87081; 87324; 87449; 87899; 92960; 93005; 93010; 94760; 96365; 96366; 96375; 96376; A4216; J0171; J0461; J1160; J1815; J2270; J2704; J3475; J7050

== ENCOUNTER 2018-03-22 17:55 | Observation (INO) | payer SELFPAY ==
[2018-03-22 21:08] LABS: #Basophils 0.1 thou/uL (0.0-0.2); #Eosinphils 0.4 thou/uL (0.0-0.7); #Lymphocytes 3.4 thou/uL (1.20-3.40); #Monocytes 0.6 thou/uL (0.11-0.59); #Neutrophils 4.8 thou/uL (1.40-6.50); %Basophils 1.1 % (0.0-1.0); %Eosinophils 4.1 % (0.0-10.0); %Lymphocytes 36.6 % (21.0-51.0); %Monocytes 6.4 % (0.0-10.0); %Neutrophils 51.9 % (42.0-75.0); Hemoglobin 12.9 g/dL (12.0-16.0); Mean Corpuscular HGB CONC 32.8 g/dL (32.0-36.0); Mean Corpuscular Hemoglobin 27.6 pg (27.0-31.0); Mean Corpuscular Volume 84.2 fl (81.0-99.0); Mean Platelet Volume 9.9 fL (7.4-10.4); Platelet Count 202 thou/uL (130-400); RBC Distribution Width 16.5 % (11.5-14.5); Red Blood Cell (RBC) Count 4.65 mill/uL (4.20-5.40); White Blood Cell (WBC) Count 9.3 thou/uL (4.8-10.8)
[2018-03-22 21:24] LABS: BHCG - Serum Negative (NEGATIVE); Pregs Control Background? CLEAR/WHITE (CLR/WHITE); Pregs Control Bar Appear? YES (CONTROL BAR)
--- NOTE | 2018-03-22 21:30 | RAD ---
PORTABLE CHEST: Date: 03/22/18 PROVIDED CLINICAL HISTORY: Fall. FINDINGS: Comparison with 02/10/18. Cardiac silhouette and mediastinal silhouette are unchanged in appearance. No focal consolidation, pl eural fluid, or pneumothorax apparent. IMPRESSION: Cardiomegaly without evidence for an acute cardiopulmonary process. POS: [facility]
[2018-03-22 21:34] LABS: ALT (SGPT) 8 U/L (8-55); AST (SGOT) 12 U/L (5-34); Albumin 4.1 g/dL (3.5-5.0); Alkaline Phosphatase 67 U/L (40-150); Anion Gap 14 mmol/L (10-20); BUN (Urea Nitrogen) 16 mg/dL (9.8-20.1); Bilirubin, Total 0.4 mg/dL (0.2-1.2); Calc. Creatinine Clearance 0 mL/min (70-130); Calcium 9.7 mg/dL (7.8-10.44); Carbon Dioxide 22 mmol/L (22-29); Chloride 107 mmol/L (98-107); Estimated GFR-MDRD 72; Globulin 3.3 g/dL (2.4-3.5); Glucose 90 mg/dL (70-105); Potassium 4.4 mmol/L (3.5-5.1); Protein, Total 7.4 g/dL (6.0-8.3); Sodium 139 mmol/L (136-145)
--- NOTE | 2018-03-22 21:37 | CT ---
CT CERVICAL SPINE: Date: 03/22/18 PROVIDED CLINICAL HISTORY: Pain status post fall. FINDINGS: There is no evidence for fracture or traumatic subluxation. Cervical degenerative changes are seen. N o prevertebral soft tissue swelling apparent. Visualized lung apices appear clear. IMPRESSION: No evidence for fracture or traumatic subluxation. POS: [facility]
--- NOTE | 2018-03-22 21:39 | CT ---
NONCONTRAST CT HEAD: Date: 03/22/18 CT HEAD, 10/21/14: HISTORY: Head pain and hip pain after a fall. COMPARISON: 08/08/17. FINDINGS: There is no evidence of a hemorrhage, acute infarction, mass effect, or midline shift. Punctate focus of decreased attenuation seen in the left lentiform nucleus, likely related to a very tiny lacunar i nfarction of indeterminate age. Ventricular system is normal in size, shape, and position. There is n o evidence of a calvarial fracture. Paranasal sinuses and mastoid air cells are clear. There has been no interval change from the prior exam. IMPRESSION: 1. No acute intracranial abnormalities demonstrated. 2. Punctate lacunar infarction left lentiform nucleus of indeterminate age. POS: [facility]
[2018-03-22 21:50] LABS: CKMB 0.6 ng/mL (0-6.6); Troponin I Less than 0.010 ng/mL (< 0.028)
[2018-03-22] MEDS ORDERED: HYDROcodone/Acetaminophen 5/325 mg Tablet ONE (22:41)
--- NOTE | 2018-03-22 23:04 | RAD ---
THORACIC SPINE RADIOGRAPHS 3 VIEWS: Date: 03/22/18 PROVIDED CLINICAL HISTORY: Back pain status post injury. FINDINGS: Thoracic alignment appears normal. Vertebral body heights appear preserved. Pedicles appear intact. M ultilevel thoracic degenerative changes are seen. IMPRESSION: No evidence for an acute osseous abnormality. POS: [facility]
[2018-03-22 23:52] LABS: Bilirubin Negative (Negative); Blood, Urine Small (Negative); Clarity CLEAR (Clear); Glucose, Urine (Dipstick) Negative (Negative); Leukocyte Small (Negative); Nitrite Positive (Negative); Protein, Urine (Dipstick) Negative (Neg-Trace); Specific Gravity, Urine 1.014 (1.002-1.036); Urobilinogen 0.2 mg/dL (0.2-1.0)
[2018-03-22] MEDS ORDERED: Ondansetron ODT 4 MG TAB SL PRN (23:53)
[2018-03-22] MEDS ORDERED: Acetaminophen 325 MG TAB PO PRN (23:53)
[2018-03-22] MEDS ORDERED: Ondansetron HCl/PF 4 MG/2 ML Vial IVP PRN (23:53)
[2018-03-22 23:55] LABS: Bacteria/HPF 1+ HPF (None Seen); Hyaline Casts/LPF 0-3 HYALINE CAST LPF (0-3 Hyaline); Pathc Cast-AUWi Flag 0.14 (0-2.49); RBC/HPF 0-3 HPF (0-3); Squamous Epithelial 0-3 HPF (0-3)
[2018-03-23 00:44] VITALS: BMI 38.5
[2018-03-23] MEDS ORDERED: Dextrose 50% Abboject 50 ML SYRINGE SLOW IVP PRN (01:23)
[2018-03-23] MEDS ORDERED: HumaLOG 300 UNITS/3 ML VIAL SC PRN ×2 (01:23)
[2018-03-23] MEDS ORDERED: Guaifenesin DM 100-10/5 ML UDCUP PO PRN (01:23)
[2018-03-23] MEDS ORDERED: Acetaminophen 325 MG TAB PO PRN (01:23)
[2018-03-23] MEDS ORDERED: Dextrose 5% in Water 1,000 ML IV PRN (01:23)
[2018-03-23] MEDS: HYDROcodone/Acetaminophen 10/325 mg Tablet PO PRN ×5 (03:26→18:44)
[2018-03-23] MEDS: Levothyroxine Sodium 50 MCG TAB PO SCH (05:15)
[2018-03-23] MEDS: Ciprofloxacin 500 MG TAB PO SCH ×2 (05:16→21:39)
[2018-03-23 05:39] LABS: Red Blood Cell (RBC) Count 4.31 mill/uL (4.20-5.40); White Blood Cell (WBC) Count 8.1 thou/uL (4.8-10.8)
[2018-03-23 05:40] LABS: #Eosinphils 0.4 thou/uL (0.0-0.7); #Lymphocytes 2.8 thou/uL (1.20-3.40); #Monocytes 0.5 thou/uL (0.11-0.59); #Neutrophils 4.4 thou/uL (1.40-6.50); %Basophils 0.6 % (0.0-1.0); %Eosinophils 4.5 % (0.0-10.0); %Lymphocytes 35.1 % (21.0-51.0); %Monocytes 5.7 % (0.0-10.0); %Neutrophils 54.1 % (42.0-75.0); Hemoglobin 11.7 g/dL (12.0-16.0); Mean Corpuscular HGB CONC 32.5 g/dL (32.0-36.0); Mean Corpuscular Hemoglobin 27.2 pg (27.0-31.0); Mean Corpuscular Volume 83.9 fl (81.0-99.0); Platelet Count 180 thou/uL (130-400); RBC Distribution Width 16.3 % (11.5-14.5)
[2018-03-23 05:54] LABS: Anion Gap 10 mmol/L (10-20); BUN (Urea Nitrogen) 16 mg/dL (9.8-20.1); Calc. Creatinine Clearance 96 mL/min (70-130); Calcium 9.2 mg/dL (7.8-10.44); Carbon Dioxide 25 mmol/L (22-29); Cardiac Risk 3.4 (Less than 4.5); Chloride 108 mmol/L (98-107); Cholesterol 137 mg/dl (< 200 Desired); Estimated GFR-MDRD 70; Glucose 141 mg/dL (70-105); HDL Cholesterol 40 mg/dL (>60 Neg Risk); LDL Cholesterol, Calculated 64 mg/dL; Potassium 3.9 mmol/L (3.5-5.1); Sodium 139 mmol/L (136-145); Triglycerides 167 mg/dL (Less than 150)
--- NOTE | 2018-03-23 05:57 | HP ---
REASON FOR ADMISSION: TIA, UTI, dizziness. HISTORY OF PRESENT ILLNESS: The patient gives history of being in the kitchen and felt dizzy. She fell backwards and hit her head. After she got up, she could not really ambulate or sit. She was drifting off per daughter who witnessed this. She was also confused, dazed and had slurred speech. She was also jerking or twitching to touch for nearly 20 minutes after the fall off and on. This was not like any seizure per daughter. No complaints of chest pain, palpitation, PND or orthopnea. No complaints of any specific weakness at present. In the room here, her 2 daughters say me that she is back to her normal self. Patient normally walks with a walker due to hip and knee arthritis. She uses walker only when she goes out. PAST MEDICAL/SURGICAL HISTORY: Prior history of TIA, diabetes mellitus type 2, AFib, hypertension, dyslipidemia, diabetes mellitus type 2, chronic back pain, osteoarthritis, cholecystectomy, appendectomy, abdominal hernia repair x5, tonsillectomy, tubal ligation. CURRENT MEDICATIONS: The patient is on lovastatin 20 mg p.o. daily, [place] p.r.n. for pain, lisinopril 20 mg twice daily, Norvasc 5 mg daily, sotalol 80 mg twice daily, Seroquel 100 mg p.o. at bedtime, glipizide 5 mg twice daily, Flexeril 10 mg at bedtime, metformin 1 g twice daily, Ambien 10 mg p.o. at bedtime, Eliquis 5 mg twice daily, Synthroid 50 mcg p.o. daily, Actos 30 mg daily. ALLERGIES: NAPROSYN and IBUPROFEN, which causes nausea on low doses and high doses cause itching and hives. PERSONAL HISTORY: Quit smoking in 1993, prior to which was smoking 2 packs a day for nearly 14 years. Does not abuse alcohol or drugs. FAMILY HISTORY: Mother at the age of 48 years. She has had history of CT and stroke. Father at the age of 67 years. She has had history of COPD. CODE STATUS: FULL. Power of estate attorney is her daughter, her name is Mark. REVIEW OF SYSTEMS: The following complete review of systems was negative, unless otherwise mentioned in the HPI or below: Constitutional: Weight loss or gain, ability to conduct usual activities. Skin: Rash, itching. Eyes: Double vision, pain. ENT/Mouth: Nose bleeding, neck stiffness, pain, tenderness. Cardiovascular: Palpitations, dyspnea on exertion, orthopnea. Respiratory: Shortness of breath, wheezing, cough, hemoptysis, fever or night sweats. Gastrointestinal: Poor appetite, abdominal pain, heartburn, nausea, vomiting, constipation, or diarrhea. Genitourinary: Urgency, frequency, dysuria, nocturia. Musculoskeletal: Pain, swelling. Neurologic/Psychiatric: Anxiety, depression. Allergy/Immunologic: Skin rash, bleeding tendency. Respiratory: Shortness of in the following complete review of systems. PHYSICAL EXAMINATION: GENERAL: The patient is a 57-year-old female who is currently not in any acute distress. VITAL SIGNS: Blood pressure 134/70, pulse 84 per minute, respiratory rate 20 per minute, temperature 97.7 degrees Fahrenheit, saturating 96% on room air. NECK: Supple, no elevated JVD. HEENT: Extraocular muscles are intact. Pupils reacting to light. Oral cavity , mucous membranes are moist. No exudates or congestion. CARDIOVASCULAR: S1, S2 heard. Regular rhythm. RESPIRATORY: Air entry 1+ bilaterally. No rales or rhonchi. ABDOMEN: Soft, bowel sounds heard. No tenderness, rigidity or guarding. EXTREMITIES: No peripheral edema or calf tenderness. VASCULAR SYSTEM: Peripheral pulses 1+ bilateral, no ischemic ulcerations or gangrene. CENTRAL NERVOUS SYSTEM: Cranial nerves are grossly intact. Patient is alert, awake, oriented x3. Motor system, strength is 5/5 in all four extremities. Patient is right handed. Reflexes are 2+ bilateral. Babinski is downgoing. Cerebellar signs are grossly intact. Gait was not tested. PSYCHIATRIC: The patient's mood is euthymic. No hallucinations or delusions. LABORATORY AND X-RAY FINDINGS: White count of 9, H&H 12 and 39, platelet count is 202, 51% neutrophils. Electrolytes are stable. BUN 16, creatinine 0.8, glucose 90. Liver enzymes within normal limits. First set of cardiac enzymes are negative. Albumin is 4.1. UA shows signs of UTI. Thoracic spine 3-view x- ray done shows no acute osseous abnormality. CT cervical spine done shows no fracture or traumatic subluxation. CT brain shows no acute intracranial abnormalities. There is punctate lacunar infarct seen in the left lentiform nucleus of indeterminate age. Chest x-ray done shows cardiomegaly with no acute infiltrate. CLINICAL IMPRESSION AND PLAN: The patient will be under observation on the stroke unit for possible transient ischemic attack with dizziness, urinary tract infection. The patient also does mention that she has had recent history of Clostridium difficile and has completed taking Flagyl the full course, but still has been having mucoid stools nearly 3-4 on a daily basis. She has not had a chance to see her primary care physician due to insurance issues. We will continue her Eliquis, aspirin, Norvasc, Synthroid, lisinopril, lovastatin, Seroquel, sotalol and Ambien as before. MRI without contrast will be obtained to see for any definitive cerebrovascular accident. She has had lacunar infarct seen in the left lentiform nucleus. Stool for C. diff and culture will be obtained. If MRI did not reveal any acute infarct and she is able to ambulate well with physical therapy, the patient may be discharged home. Please note I have seen and examined the patient on 03/22/2018. CAMRON
[2018-03-23] MEDS ORDERED: Lovastatin 20 MG TAB PO SCH (08:00)
[2018-03-23] MEDS: Lisinopril 20 MG TAB PO SCH ×2 (09:27→21:38)
[2018-03-23] MEDS: Famotidine 20 MG TAB PO SCH ×2 (09:27→21:39)
[2018-03-23] MEDS: Apixaban 5 MG TAB PO SCH ×2 (09:28→21:38)
[2018-03-23] MEDS: Amlodipine 5 MG TAB PO SCH (09:28)
[2018-03-23] MEDS: Aspirin 81 mg Enteric Coated Tablet PO SCH ×2 (09:29→09:34)
[2018-03-23] MEDS: Sotalol HCl 80 MG TAB PO SCH ×2 (09:29→21:37)
--- NOTE | 2018-03-23 13:11 | MRI ---
BRAIN MRI WITHOUT CONTRAST: DATE: 03/23/18. COMPARISON: 01/09/15. HISTORY: Head pain and hip pain after a fall. TECHNIQUE: Multiplanar, multisequence MRI imaging of the brain obtained without contrast. FINDINGS: Regional bone marrow signal intensity appears normal on the sagittal T1 weighted imaging. Imaged paranasal sinuses/mastoid air cells appear grossly unremarkable. Arterial flow voids at axial level of the skull base appear grossly unremarkable on the T2 weighted i maging. There is no midline shift, mass effect, or ventricular enlargement. The axial gradient echo imaging demonstrates no evidence for intracranial hemorrhage. No evidence fo r acute infarction on the diffusion weighted imaging. IMPRESSION: Unremarkable noncontrast-enhanced brain MRI. POS: [facility]
--- NOTE | 2018-03-23 14:44 | PDOC.PN ---
- Subjective Encounter Start Date: 03/23/18 Encounter Start Time: 14:42 Pt seen for followup re: clostridium difficile colitis. Reports diarrhea. Denies chest pain, shortness of breath, fevers or chills. - Objective Resuscitation Status: Resuscitation Status FULL:Full Resuscitation MAR Reviewed: Yes Vital Signs & Weight: Vital Signs (12 hours) Temp Pulse Pulse Pulse Resp BP BP 03/23/18 09:29 82 03/23/18 09:28 82 03/23/18 08:55 83 83 140/72 152/72 H 03/23/18 08:00 98 F 82 16 03/23/18 07:49 98 F 82 16 03/23/18 07:29 80 88 130/61 158/70 H 03/23/18 04:00 98.5 F 89 18 BP Pulse Ox 03/23/18 09:29 03/23/18 09:28 03/23/18 08:55 03/23/18 08:00 03/23/18 07:49 130/61 98 03/23/18 07:29 03/23/18 04:00 141/61 H 95 Weight Admit Weight 184 lb 1.6 oz Weight 184 lb 1.6 oz Result Diagrams: 03/23/18 04:58 03/23/18 04:58 Additional Labs: Accuchecks 03/23/18 03/23/18 03/23/18 11:14 05:20 01:45 POC Glucose 138 H 134 H 96 EKG Reviewed by me: Yes (Tele: NSR) Phys Exam - Physical Examination Obese HEENT: moist MMs, sclera anicteric, oral pharynx no lesions, 2+ tonsils Neck: no nodes, no JVD, supple, full ROM Respiratory: no wheezing, no rales, no rhonchi, clear to auscultation bilateral Cardiovascular: RRR, no rub S1, S2 Gastrointestinal: soft, non-tender, no distention, positive bowel sounds Neurological: moves all 4 limbs Psychiatric: normal affect, A&O x 3 Dx/Plan (1) Clostridium difficile colitis Status: Acute Comment: recurrent C. diff infection, start enteral vancomycin (2) Diabetes type 2, controlled Code(s): E11.9 - TYPE 2 DIABETES MELLITUS WITHOUT COMPLICATIONS Status: Chronic Comment: continue accuchecks, insulin sliding scale (3) Dyslipidemia Code(s): E78.5 - HYPERLIPIDEMIA, UNSPECIFIED Status: Chronic Comment: continue statin (4) HTN (hypertension) Code(s): I10 - ESSENTIAL (PRIMARY) HYPERTENSION Status: Chronic Comment: Monitor vital signs, titrate antihypertensives as needed (5) Hypothyroidism Code(s): E03.9 - HYPOTHYROIDISM, UNSPECIFIED Status: Chronic Comment: stable , continue levothyroxine (6) Anxiety and depression Code(s): F41.8 - OTHER SPECIFIED ANXIETY DISORDERS Status: Chronic Comment: stable (7) Acute encephalopathy Code(s): G93.40 - ENCEPHALOPATHY, UNSPECIFIED Status: Resolved Comment: MRI brain unremarkable - Plan * . Review of Systems - Review of Systems Constitutional: negative: fever, chills, sweats, weakness, malaise Respiratory: negative: Cough, Shortness of Breath, SOB with Excertion, Pleuritic Pain, Wheezing Cardiovascular: negative: chest pain, palpitations, orthopnea, paroxysmal nocturnal dyspnea, edema, light headedness Gastrointestinal: Diarrhea. negative: Nausea, Vomiting, Abdominal Pain, Constipation, Melena, Hematochezia Neurological: negative: Weakness, Numbness, Incoordination, Change in Speech, Confusion, Seizures - Medications/Allergies Allergies/Adverse Reactions: Allergies Allergy/AdvReac Type Severity Reaction Status Date / Time naproxen Allergy Verified 02/11/17 00:55 Medications: Current Medications Acetaminophen (Tylenol) 650 mg PO Q4H PRN PRN Reason: Headache/Fever or Pain Hydrocodone Bitart/Acetaminophen ([place] 10/325) 1 tab PO Q4H PRN PRN Reason: Pain Last Admin: 03/23/18 14:32 Dose: 1 tab Amlodipine Besylate (Norvasc) 5 mg PO DAILY [facility] Last Admin: 03/23/18 09:28 Dose: 5 mg Apixaban (Eliquis) 5 mg PO BID [facility] Last Admin: 03/23/18 09:28 Dose: 5 mg Aspirin (Ecotrin) 81 mg PO DAILY [facility] Last Admin: 03/23/18 09:34 Dose: Not Given Ciprofloxacin (Cipro) 500 mg PO 0600,1999 [facility] Last Admin: 03/23/18 05:16 Dose: 500 mg Cyclobenzaprine HCl (Flexeril) 10 mg PO HS [facility] Dextrose/Water (Dextrose 50%) 25 gm SLOW IVP PRN PRN PRN Reason: Hypoglycemia Famotidine (Pepcid) 20 mg PO BID [facility] Last Admin: 03/23/18 09:27 Dose: 20 mg Glucagon (Glucagon) 1 mg IM PRN PRN PRN Reason: Hypoglycemia Guaifenesin/Dextromethorphan (Robitussin Dm) 15 ml PO Q4H PRN PRN Reason: Cough Dextrose/Water (D5w) 1,000 mls @ 0 mls/hr IV .Q0M PRN; As Directed PRN Reason: Hypoglycemia Insulin Human Lispro (Humalog) 0 units SC .MODERATE SLIDING SC PRN PRN Reason: Moderate Correctional Scale Insulin Human Lispro (Humalog) 0 units SC .BEDTIME SLIDING SC PRN PRN Reason: Bedtime Correctional Scale Levothyroxine Sodium (Synthroid) 50 mcg PO 0600 [facility] Last Admin: 03/23/18 05:15 Dose: 50 mcg Lisinopril (Zestril) 20 mg PO BID [facility] Last Admin: 03/23/18 09:27 Dose: 20 mg Lovastatin (Mevacor) 20 mg PO HS [facility] Quetiapine Fumarate (Seroquel) 100 mg PO HS [facility] Sotalol HCl (Betapace) 80 mg PO BID [facility] Last Admin: 03/23/18 09:29 Dose: 80 mg Vancomycin HCl (First Vancomycin) 125 mg PO Q6H [facility] Zolpidem Tartrate (Ambien) 10 mg PO HS [facility]
[2018-03-23] MEDS: Vancomycin HCl 25 MG/ML Oral PO SCH ×2 (16:12→21:40)
--- NOTE | 2018-03-23 19:14 | CON ---
DATE OF CONSULTATION: 03/23/2018 CONSULTING PHYSICIAN: Hospitalist Service. IMPRESSION: Acute dizziness and mild confusional state, following a fall with a head injury. Her MR I of the brain is negative for any significant neurologic process. She may have had a mild concussio n from the fall. Given her recent history of intermittent atrial fibrillation, cardiac arrhythmia ma y have precipitated the fall. PLAN: Follow up with Dr. Vazquez. HISTORY OF PRESENT ILLNESS: Ms. Rowe is a 57-year-old white female who has had a recent history of a trial fibrillation. She has gone through cardioversion 2 times earlier this year. She was standing in the kitchen getting something out of the refrigerator when she suddenly felt herself falling after hitting the floor and her head striking the floor. She did not lose awareness. She did feel a bit disoriented, but did not complain of any significant headache. She continued to feel a bit confused for several minutes following the event. She was brought in via ambulance and admitted. She reports her symptoms seemed to clear up sometime during the night. She has no complaints of any focal neuro logic symptoms today. She had an MRI of the brain done and nothing remarkable was found. EKG shows sinus rhythm. She is otherwise feeling well. PAST MEDICAL HISTORY: Atrial fibrillation. FAMILY HISTORY: Noncontributory. ALLERGIES: IBUPROFEN, NAPROXEN. SOCIAL HISTORY: Unremarkable. MEDICATION LIST: Reviewed. REVIEW OF SYSTEMS: Otherwise, negative. PHYSICAL EXAMINATION: VITAL SIGNS: Pulse 75, respirations 16. She is afebrile. HEENT: Pupils equal and reactive. Conjunctivae are clear. Oropharynx clear. NEUROLOGIC: She is alert and appropriate. Her speech is fluent and clear. Cranial nerves are intac t. Her exam is otherwise nonfocal. She is walking independently. MRI images were reviewed. SUMMARY: This is a middle-aged woman who had a dizzy spell causing her to fall and strike her head. She had some prolonged feeling of confusion, which may have been related to the head injury. She se ems to be back to her baseline. I do not see any acute neurologic process otherwise.
[2018-03-23] MEDS: Lovastatin 20 MG TAB PO SCH (21:37)
[2018-03-23] MEDS: Cyclobenzaprine 10 MG TAB PO SCH (21:38)
[2018-03-23] MEDS: Zolpidem Tartrate 5 MG TAB PO SCH (21:40)
[2018-03-24] MEDS: Vancomycin HCl 25 MG/ML Oral PO SCH ×4 (03:42→21:46)
[2018-03-24] MEDS: Levothyroxine Sodium 50 MCG TAB PO SCH (06:03)
[2018-03-24] MEDS: Ciprofloxacin 500 MG TAB PO SCH ×2 (06:03→21:48)
[2018-03-24] MEDS: HYDROcodone/Acetaminophen 10/325 mg Tablet PO PRN ×3 (06:06→22:21)
[2018-03-24] MEDS: Sotalol HCl 80 MG TAB PO SCH ×2 (09:36→21:49)
[2018-03-24] MEDS: Famotidine 20 MG TAB PO SCH ×2 (09:36→21:48)
[2018-03-24] MEDS: Apixaban 5 MG TAB PO SCH ×2 (09:36→21:48)
[2018-03-24] MEDS: Aspirin 81 mg Enteric Coated Tablet PO SCH (09:37)
[2018-03-24] MEDS: Lisinopril 20 MG TAB PO SCH (09:39)
[2018-03-24] MEDS: Amlodipine 5 MG TAB PO SCH (09:39)
[2018-03-24] MEDS ORDERED: Lisinopril 5 MG TAB PO SCH (11:45)
--- NOTE | 2018-03-24 12:57 | PDOC.PN ---
- Subjective Encounter Start Date: 03/24/18 Encounter Start Time: 07:20 Pt seen for followup re: UTI. Denies chest pain or shortness of breath. Diarrhea is better. No nausea or vomiting. - Objective Resuscitation Status: Resuscitation Status FULL:Full Resuscitation MAR Reviewed: Yes Vital Signs & Weight: Vital Signs (12 hours) Temp Pulse Resp BP BP Pulse Ox 03/24/18 12:43 98/47 L 03/24/18 12:00 97.3 F L 51 L 16 98/47 L 98 03/24/18 09:39 104/53 L 03/24/18 09:36 64 03/24/18 08:10 97.3 F L 64 16 104/53 L 03/24/18 04:00 97.7 F 61 18 91/42 L 95 Weight Admit Weight 184 lb 1.6 oz Weight 184 lb I&O: 03/23/18 03/24/18 03/25/18 06:59 06:59 06:59 Intake Total 240 Balance 240 Result Diagrams: 03/23/18 04:58 03/23/18 04:58 Additional Labs: Accuchecks 03/24/18 03/24/18 03/23/18 11:52 05:22 22:01 POC Glucose 168 H 148 H 110 03/23/18 17:33 POC Glucose 144 H EKG Reviewed by me: Yes (Tele: NSR) Phys Exam - Physical Examination Obese HEENT: moist MMs, sclera anicteric, oral pharynx no lesions, 2+ tonsils Neck: no nodes, no JVD, supple, full ROM Respiratory: no wheezing, no rales, no rhonchi, clear to auscultation bilateral Cardiovascular: RRR, no rub S1, S2 Gastrointestinal: soft, non-tender, no distention, positive bowel sounds Musculoskeletal: no edema Neurological: moves all 4 limbs Psychiatric: normal affect, A&O x 3 Dx/Plan (1) UTI (urinary tract infection) Status: Acute Comment: with E. coli, present on admission. Await sensitivities. (2) Clostridium difficile colitis Status: Acute Comment: recurrent C. diff infection, pt needs oral vancomycin taper on discharge (3) Diabetes type 2, controlled Code(s): E11.9 - TYPE 2 DIABETES MELLITUS WITHOUT COMPLICATIONS Status: Chronic Comment: on accuchecks, insulin sliding scale (4) Dyslipidemia Code(s): E78.5 - HYPERLIPIDEMIA, UNSPECIFIED Status: Chronic Comment: on statin (5) HTN (hypertension) Code(s): I10 - ESSENTIAL (PRIMARY) HYPERTENSION Status: Chronic Comment: Blood pressures low. Discontinue amlodipine, decrease lisinopril dose. (6) Hypothyroidism Code(s): E03.9 - HYPOTHYROIDISM, UNSPECIFIED Status: Chronic Comment: stable (7) Anxiety and depression Code(s): F41.8 - OTHER SPECIFIED ANXIETY DISORDERS Status: Chronic Comment: stable (8) Acute encephalopathy Code(s): G93.40 - ENCEPHALOPATHY, UNSPECIFIED Status: Resolved - Plan * . Review of Systems - Review of Systems Constitutional: negative: fever, chills, sweats, weakness, malaise Respiratory: negative: Cough, Shortness of Breath, SOB with Excertion, Pleuritic Pain, Wheezing Cardiovascular: negative: chest pain, palpitations, orthopnea, paroxysmal nocturnal dyspnea, edema, light headedness Gastrointestinal: Diarrhea. negative: Nausea, Vomiting, Abdominal Pain, Constipation, Melena, Hematochezia Genitourinary: negative: Dysuria, Frequency, Incontinence, Hematuria, Retention - Medications/Allergies Allergies/Adverse Reactions: Allergies Allergy/AdvReac Type Severity Reaction Status Date / Time naproxen Allergy Verified 02/11/17 00:55 Medications: Current Medications Acetaminophen (Tylenol) 650 mg PO Q4H PRN PRN Reason: Headache/Fever or Pain Hydrocodone Bitart/Acetaminophen ([place] 10/325) 1 tab PO Q4H PRN PRN Reason: Pain Last Admin: 03/24/18 06:06 Dose: 1 tab Amlodipine Besylate (Norvasc) 5 mg PO DAILY [facility] Last Admin: 03/24/18 09:39 Dose: Not Given Apixaban (Eliquis) 5 mg PO BID [facility] Last Admin: 03/24/18 09:36 Dose: 5 mg Aspirin (Ecotrin) 81 mg PO DAILY [facility] Last Admin: 03/24/18 09:37 Dose: Not Given Ciprofloxacin (Cipro) 500 mg PO 0600,1999 [facility] Last Admin: 03/24/18 06:03 Dose: 500 mg Cyclobenzaprine HCl (Flexeril) 10 mg PO HS [facility] Last Admin: 03/23/18 21:38 Dose: 10 mg Dextrose/Water (Dextrose 50%) 25 gm SLOW IVP PRN PRN PRN Reason: Hypoglycemia Famotidine (Pepcid) 20 mg PO BID [facility] Last Admin: 03/24/18 09:36 Dose: 20 mg Glucagon (Glucagon) 1 mg IM PRN PRN PRN Reason: Hypoglycemia Guaifenesin/Dextromethorphan (Robitussin Dm) 15 ml PO Q4H PRN PRN Reason: Cough Dextrose/Water (D5w) 1,000 mls @ 0 mls/hr IV .Q0M PRN; As Directed PRN Reason: Hypoglycemia Insulin Human Lispro (Humalog) 0 units SC .MODERATE SLIDING SC PRN PRN Reason: Moderate Correctional Scale Insulin Human Lispro (Humalog) 0 units SC .BEDTIME SLIDING SC PRN PRN Reason: Bedtime Correctional Scale Levothyroxine Sodium (Synthroid) 50 mcg PO 0600 [facility] Last Admin: 03/24/18 06:03 Dose: 50 mcg Lisinopril (Zestril) 5 mg PO BID [facility] Lisinopril (Zestril) 5 mg PO 1145 [facility] Stop: 03/24/18 13:00 Last Admin: 03/24/18 12:43 Dose: Not Given Lovastatin (Mevacor) 20 mg PO [facility] Last Admin: 03/23/18 21:37 Dose: 20 mg Quetiapine Fumarate (Seroquel) 100 mg PO [facility] Last Admin: 03/23/18 21:38 Dose: 100 mg Sotalol HCl (Betapace) 80 mg PO BID [facility] Last Admin: 03/24/18 09:36 Dose: 80 mg Vancomycin HCl (First Vancomycin) 125 mg PO 0300,0900,1500,2100 [facility] Last Admin: 03/24/18 09:38 Dose: 125 mg Zolpidem Tartrate (Ambien) 10 mg PO [facility] Last Admin: 03/23/18 21:40 Dose: 10 mg
[2018-03-24] MEDS: Lovastatin 20 MG TAB PO SCH (21:47)
[2018-03-24] MEDS: Cyclobenzaprine 10 MG TAB PO SCH (21:48)
[2018-03-24] MEDS: Zolpidem Tartrate 5 MG TAB PO SCH (21:49)
[2018-03-24] MEDS: Lisinopril 5 MG TAB PO SCH (21:50)
[2018-03-25] MEDS: Vancomycin HCl 25 MG/ML Oral PO SCH ×2 (03:35→08:54)
[2018-03-25] MEDS: Levothyroxine Sodium 50 MCG TAB PO SCH (05:41)
[2018-03-25] MEDS: Ciprofloxacin 500 MG TAB PO SCH (05:41)
[2018-03-25 07:54] VITALS: TEMP 98.2
[2018-03-25] MEDS: Sotalol HCl 80 MG TAB PO SCH (08:23)
[2018-03-25] MEDS: Aspirin 81 mg Enteric Coated Tablet PO SCH (08:23)
[2018-03-25] MEDS: Apixaban 5 MG TAB PO SCH (08:23)
[2018-03-25] MEDS: Famotidine 20 MG TAB PO SCH (08:23)
[2018-03-25] MEDS: Lisinopril 5 MG TAB PO SCH (08:23)
[2018-03-25] MEDS: HYDROcodone/Acetaminophen 10/325 mg Tablet PO PRN (08:32)
[2018-03-25] MEDS ORDERED: Sulfameth/Trimethoprim DS 800-160mg TAB PO SCH ×2 (10:45→21:00)
--- NOTE | 2018-03-25 11:14 | PDOC.EVN ---
Event Note - Event Note Event Note: Ms. 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 During her previous episode she was treated with oral vancomycin and metronidazole. For first recurrence, recommended treatment is oral vancomycin administered in a pulse- tapered fashion, or oral rifaximin. Patient to be discharged home on oral vancomycin.
--- NOTE | 2018-03-25 11:36 | DIS ---
DATE OF ADMISSION: 03/22/2018 DATE OF DISCHARGE: 03/25/2018 PRIMARY CARE PROVIDER: Dayday Kingston M.D. DISCHARGE DIAGNOSES: 1. Urinary tract infection. 2. Clostridium difficile diarrhea. 3. Dizziness. CONDITION OF PATIENT ON THE DAY OF DISCHARGE: Stable. I assessed Ms. Rowe on the day of discharge. She denies any chest pain or shortness of breath. Vital signs are stable. S1 and S2 are heard, reg ular. Lungs are clear to auscultation bilaterally. DISCHARGE MEDICATIONS: In addition to the preadmission home medications as dictated on history and p hysical note by Dr. Ambriz on 03/23/2018, she is being discharged home on Bactrim-DS 1 tablet 2 times a day for 3 days as well as oral vancomycin taper. HOSPITAL COURSE: Ms. Rowe is a pleasant 57-year-old lady who was admitted to [facility] on 03/22/2018, following an episode of dizziness which led her to fall and hit her head. Please refer to history and physical note by Dr. Ambriz for further details. She improved clini chantel. She was seen by Neurology Service. Noncontrast enhanced brain MRI was unremarkable. She also had diarrhea. Clostridium difficile test was antigen positive for toxin. Toxigenic Clostri dium difficile was detected by PCR. Because this is her first recurrence, she has been started on va ncomycin taper. During her previous hospitalization, she received vancomycin and metronidazole. Urine cultures grew Escherichia coli that was of intermediate sensitivity to nitrofurantoin, but sens itive to other antibiotics. She is being discharged home on . Ms. Rowe had episodes of low blood pressure during this hospitalization. Therefore, her lisinopril d ose was decreased to 5 mg 2 times a day. Amlodipine was discontinued. She is advised to follow up w ith her primary care provider and her chief of pediatric urology for further management. Many thanks for allowing me to participate in your patient's care. Please feel free to contact me wi th any questions or concerns. DISCHARGE DESTINATION: Home.
[2018-03-25 11:53] VITALS: BP 108/54
--- NOTE | 2018-03-27 22:15 | EKG ---
Test Reason : Blood Pressure : / mmHG Vent. Rate : 077 BPM Atrial Rate : 077 BPM P-R Int : 146 ms QRS Dur : 108 ms QT Int : 426 ms P-R-T Axes : 030 028 -21 degrees QTc Int : 482 ms Normal sinus rhythm Incomplete right bundle branch block T wave abnormality, consider inferior ischemia Prolonged QT Abnormal ECG Confirmed by VIKTOR LAL D.O. ([id number]), business editor LEVI IBANEZ ([id number]) on 03/27/2018 10:14:24 PM Referred By: Confirmed By:VIKTOR LAL D.O.
== END 2018-03-25 11:54 | disposition home or self-care (01) ==
LOC: ERS 17:55 → 2SE 23:53
PROVIDERS: ADMIT Internal Medicine; ATTEND Internal Medicine
DX: R42 Dizziness and giddiness (principal); A04.71 Enterocolitis due to Clostridium difficile, recurrent; N39.0 Urinary tract infection, site not specified; B96.20 Unspecified Escherichia coli [E. coli] as the cause of diseases classified elsewhere; E11.9 Type 2 diabetes mellitus without complications; I48.91 Unspecified atrial fibrillation; I10 Essential (primary) hypertension; G89.29 Other chronic pain; M54.9 Dorsalgia, unspecified; M19.90 Unspecified osteoarthritis, unspecified site; E78.5 Hyperlipidemia, unspecified; E03.9 Hypothyroidism, unspecified; F41.8 Other specified anxiety disorders; G93.40 Encephalopathy, unspecified; Z86.73 Personal history of transient ischemic attack (TIA), and cerebral infarction without residual deficits; Z87.891 Personal history of nicotine dependence; Z79.84 Long term (current) use of oral hypoglycemic drugs; Z79.01 Long term (current) use of anticoagulants; Z79.899 Other long term (current) drug therapy; Z88.6 Allergy status to analgesic agent; W17.89XA Other fall from one level to another, initial encounter
CPT/HCPCS: 36415; 36416; 70450; 70551; 71045; 72070; 72125; 80048; 80053; 80061; 81003; 81015; 82553; 84484; 84703; 85025; 87045; 87046; 87077; 87081; 87086; 87186; 87324; 87449; 87493; 87899; 93005; G0378; G8978-GP-CJ; G8979-GP-CJ; G8980-GP-CJ; G8987-GO-CJ; G8988-GO-CJ; G8989-GO-CJ; G8996-GN-CH; G8997-GN-CH

== ENCOUNTER 2018-04-07 12:06 | Emergency (ER) | payer OTHER, SELFPAY ==
--- NOTE | 2018-04-07 13:30 | CT ---
BRAIN CT WITHOUT IV CONTRAST: Date: 04/07/18 HISTORY: 57-year-old female with history of trauma, fall. Patient is on Eliquis. COMPARISON: 03/22/18. FINDINGS: No focal mass or midline shift. No intra or extra-axial hemorrhage. Sinuses and mastoids are clear. IMPRESSION: No acute intracranial process. No mass or bleed. POS: [facility]
== END 2018-04-07 13:52 | disposition home or self-care (01) ==
LOC: ERS 12:06
DX: S00.83XA Contusion of other part of head, initial encounter (principal); I48.91 Unspecified atrial fibrillation; E11.9 Type 2 diabetes mellitus without complications; M19.90 Unspecified osteoarthritis, unspecified site; E78.5 Hyperlipidemia, unspecified; F41.9 Anxiety disorder, unspecified; F32.9 Major depressive disorder, single episode, unspecified; Z87.891 Personal history of nicotine dependence; Z86.73 Personal history of transient ischemic attack (TIA), and cerebral infarction without residual deficits; Z79.891 Long term (current) use of opiate analgesic; Z79.899 Other long term (current) drug therapy; W19.XXXA Unspecified fall, initial encounter
CPT/HCPCS: 70450; 93005

== ENCOUNTER 2018-06-18 07:49 | Outpatient (CLI) | payer OTHER ==
[2018-06-18] MEDS ORDERED: Iopamidol 370 76% 100 ML VIAL ONE (08:24)
--- NOTE | 2018-06-18 10:02 | CT ---
CT ANGIOGRAM OF NECK: Date: 06/18/18 COMPARISON: None. HISTORY: Recurrent syncope, frequent falls, dizziness, lip numbness, and left-sided weakness. History of trans ient ischemic attack. TECHNIQUE: Serial axial CT imaging at 1.25 mm intervals from lung apices through skull base with IV contrast usi ng a CT angiogram protocol. Coronal and sagittal 3D reformatted imaging obtained. FINDINGS: The imaged lung apices appear unremarkable. The retroantral fat and parapharyngeal fat is clear bilaterally. Submandibular and parotid glands are unremarkable bilaterally. Tonsillar pillars, epiglottis, and preepiglottic fat, hyoid bone, thyroid cartilage, cricoid cartilag e, thyroid gland, and level of glottis appear grossly unremarkable. A soft tissue structure is noted to the right of the trachea at the thoracic inlet posterior and medi al to the left common carotid artery measuring 1.0 cm short axis dimension. This may represent a para thyroid lesion or a mildly enlarged lymph node. Otherwise, no lymphadenopathy appreciated within the neck. There is a bovine arch noted. There is mild atherosclerotic calcification at the origin of the left s ubclavian artery without associated stenosis. There is atherosclerotic calcification at the origin of the right subclavian artery without stenosis. Origin of bilateral common carotid arteries is unremar kable. The origin of bilateral vertebral arteries is unremarkable. Bilateral vertebral arteries are normal i n course and caliber. There is no hemodynamically significantly stenosis on the basis of NASCET criteria involving the comm on carotid artery on either side. There is a medialized retropharyngeal location of the distal CCA, as well as the proximal ICA bilater ally. Mild atherosclerotic plaque is noted at the origin of the internal carotid artery bilaterally. On the basis of NASCET criteria, there is stenosis at the proximal right internal carotid artery, bes t seen on coronal image 52, which is in the 20% range, mild. No hemodynamically significant stenosis on the basis of NASCET criteria is seen involving the internal common carotid artery on either side. There is atherosclerotic calcification involving the cavernous carotid arteries. There is a mild degr ee of stenosis involving the left ICA at the proximal portion of the cavernous segment. Review of osseous structures demonstrates degenerative change at the atlantoaxial interspace, as well as at the C5-6 and C6-7 levels. IMPRESSION: No hemodynamically significant stenosis on the basis of NASCET criteria involving the carotid or vert ebral system. Additional incidental findings as described above. POS: [facility]
== END 2018-06-18 07:50 | disposition home or self-care (01) ==
LOC: CT 07:49
PROVIDERS: ATTEND Psychiatry & Neurology Neurology
DX: R55 Syncope and collapse (principal); R29.6 Repeated falls
CPT/HCPCS: 70498; 82565; 95822

== ENCOUNTER 2018-07-11 18:00 | Emergency (ER) | payer OTHER ==
--- NOTE | 2018-07-11 18:46 | RAD ---
LEFT SHOULDER THREE VIEWS: History: Left shoulder injury. FINDINGS: Acromioclavicular and glenohumeral alignment are maintained. Mild osteophytosis. No acute fracture, d islocation, or aggressive osseous erosions. IMPRESSION: No acute osseous abnormalities are demonstrated. POS: [facility]
== END 2018-07-11 19:17 | disposition home or self-care (01) ==
LOC: ERS 18:00
DX: M25.512 Pain in left shoulder (principal); I48.91 Unspecified atrial fibrillation; E11.9 Type 2 diabetes mellitus without complications; I10 Essential (primary) hypertension; E78.5 Hyperlipidemia, unspecified; F17.210 Nicotine dependence, cigarettes, uncomplicated; Z79.84 Long term (current) use of oral hypoglycemic drugs; Z79.899 Other long term (current) drug therapy; Z86.73 Personal history of transient ischemic attack (TIA), and cerebral infarction without residual deficits; W18.30XA Fall on same level, unspecified, initial encounter

== ENCOUNTER 2018-07-20 18:17 | Inpatient (IN) | payer OTHER ==
[2018-07-20 19:37] LABS: #Eosinphils 0.5 thou/uL (0.0-0.7); #Lymphocytes 1.7 thou/uL (1.20-3.40); #Monocytes 0.6 thou/uL (0.11-0.59); #Neutrophils 4.3 thou/uL (1.40-6.50); %Basophils 0.7 % (0.0-1.0); %Eosinophils 6.3 % (0.0-10.0); %Lymphocytes 24.2 % (21.0-51.0); %Monocytes 8.6 % (0.0-10.0); %Neutrophils 60.2 % (42.0-75.0); Hemoglobin 10.2 g/dL (12.0-16.0); Mean Corpuscular HGB CONC 31.3 g/dL (32.0-36.0); Mean Corpuscular Hemoglobin 29.7 pg (27.0-31.0); Mean Corpuscular Volume 95.1 fL (78.0-98.0); Mean Platelet Volume 8.9 fL (7.4-10.4); Platelet Count 244 thou/uL (130-400); RBC Distribution Width 13.3 % (11.5-14.5); Red Blood Cell (RBC) Count 3.43 mill/uL (4.20-5.40); White Blood Cell (WBC) Count 7.2 thou/uL (4.8-10.8)
[2018-07-20 19:48] LABS: ALT (SGPT) 9 U/L (8-55); AST (SGOT) 10 U/L (5-34); Albumin 4.2 g/dL (3.5-5.0); Alkaline Phosphatase 63 U/L (40-150); Anion Gap 15 mmol/L (10-20); BUN (Urea Nitrogen) 42 mg/dL (9.8-20.1); Bilirubin, Total 0.3 mg/dL (0.2-1.2); Calc. Creatinine Clearance 0 mL/min (70-130); Calcium 9.5 mg/dL (7.8-10.44); Carbon Dioxide 19 mmol/L (22-29); Chloride 112 mmol/L (98-107); Estimated GFR-MDRD 28; Globulin 3.4 g/dL (2.4-3.5); Potassium 5.6 mmol/L (3.5-5.1); Protein, Total 7.6 g/dL (6.0-8.3); Sodium 140 mmol/L (136-145); Troponin I Less than 0.010 ng/mL (< 0.028)
[2018-07-20 19:50] LABS: Glucose 47 mg/dL (70-105)
[2018-07-20] MEDS ORDERED: Dextrose 50% Abboject 50 ML SYRINGE ONE (19:52)
[2018-07-20] MEDS ORDERED: Albuterol Sulfate 2.5 mg/3 ml Neb ONE (20:21)
[2018-07-20 20:24] LABS: Bilirubin Negative (Negative); Blood, Urine Negative (Negative); Clarity CLOUDY (Clear); Glucose, Urine (Dipstick) 100 mg/dL (Negative); Leukocyte Moderate (Negative); Nitrite Negative (Negative); Protein, Urine (Dipstick) Trace mg/dL (Neg-Trace); Specific Gravity, Urine 1.019 (1.002-1.036); Urobilinogen 0.2 mg/dL (0.2-1.0)
[2018-07-20 20:26] LABS: Bacteria/HPF None Seen HPF (None Seen); Hyaline Casts/LPF 7-10 HYALINE CAST LPF (0-3 Hyaline); Pathc Cast-AUWi Flag 1.16 (0-2.49); RBC/HPF 0-3 HPF (0-3); Squamous Epithelial 0-3 HPF (0-3); WBC/HPF 21-50 HPF (0-3)
[2018-07-20] MEDS ORDERED: Calcium Chloride 1 GM/10 ML Abboject SYRINGE ONE (20:28)
--- NOTE | 2018-07-20 20:40 | RAD ---
AP VIEW CHEST: 07/20/18 HISTORY: Nausea, weakness, diarrhea for two days. AP view chest is obtained. Comparison made to previous exam from 03/22/18. AP view chest demonstrates mild cardiomegaly. Ectasia and calcifications of the aorta is seen. The daya ngs demonstrate no significant evidence of parenchymal abnormalities. Moderate degree of pulmonary va scular congestion is seen. IMPRESSION: Cardiomegaly and pulmonary vascular congestion. No evidence of acute intrathoracic abnormality seen. POS: [facility]
[2018-07-20] MEDS ORDERED: HYDROcodone/Acetaminophen 10/325 mg Tablet ONE (21:43)
[2018-07-20] MEDS ORDERED: Dextrose 50% Abboject 50 ML SYRINGE SLOW IVP PRN (22:20)
[2018-07-20] MEDS: Dextrose 5 %-0.45 % NaCl 1,000 ML IV SCH (22:32)
[2018-07-20 23:42] VITALS: BMI 42.3
[2018-07-21] MEDS: Dextrose 5 %-0.45 % NaCl 1,000 ML IV SCH (08:25)
[2018-07-21] MEDS: Sodium Chloride 0.9% 1,000 ML IV SCH (10:14)
--- NOTE | 2018-07-21 11:17 | CON ---
DATE OF CONSULTATION: 07/21/2018 SERVICE: Renal Medicine. HISTORY OF PRESENT ILLNESS: Ms. Rowe is a 58-year-old white female who was admitted for generalized weakness. During the initial evaluation, she was found to be severely hypoglycemic. We are now joaquín francis consulted for her acute kidney injury - finding of elevated creatinine. Please note that the patie nt has been having some nausea and vomiting at home. REVIEW OF SYSTEMS: Positive for ? fever, positive for myalgia and nausea and vomiting. No chest jeremias n or shortness of breath. Positive for diarrhea. No syncopal episode, no productive cough. Appetit e decreased, energy level is decreased. Occasional joint pains. No new skin rash, no headache, no d iplopia, no sore throat. Positive for cough. No syncopal episode. PAST MEDICAL HISTORY: Includes type 2 diabetes mellitus, chronic atrial fibrillation, hypertension, hyperlipidemia, hypothyroidism, status post TIA. PAST SURGICAL HISTORY: 1. Status post laparoscopic cholecystectomy. 2. Status post appendectomy. 3. Status post abdominal hernia repair x5. 4. Status post tonsillectomy. 5. Status post bilateral tubal ligation. 6. Status post ablation therapy ?. SOCIAL HISTORY: The patient is , lives in [place], 2 children. Smoked for 30 years, 1 pack a day. Alcohol none. 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 Education, high school graduate . No IV drug abuse. ALLERGIES: NSAID. IMMUNIZATIONS: Not up to date. HOSPITALIZATIONS: Please see past medical history. TRAUMA: None. FAMILY HISTORY: No family history of ESRD. HOME MEDICATIONS: Included Flexeril 10 mg tab once a day, levothyroxine 25 mcg daily, lisinopril 5 m g 2 times a day, lovastatin 20 mg tablet once a day, metformin 1000 mg b.i.d., quetiapine 100 mg once a day, zolpidem 5 mg at bedtime, sotalol 80 mg b.i.d., glipizide 10 mg b.i.d., pioglitazone 50 mg on ce a day, tizanidine 2 mg b.i.d. PHYSICAL EXAMINATION: VITAL SIGNS: Blood pressure is 104/51, heart rate 60, respiratory rate 18, temperature 98.5, pulse o x 96%. GENERAL: Noted to be awake, alert, supine, comfortable, not in overt distress. SKIN: Adequate turgor. HEENT: Has pinkish conjunctivae, anicteric sclerae. NECK: No neck mass, no carotid bruits, no JVD. CHEST: No deformities. LUNGS: Clear breath sounds. HEART: Normal sinus rhythm. No murmur, no gallops or rubs. ABDOMEN: Globular, soft, nontender, no masses. EXTREMITIES: No edema. No deformities. NEUROLOGIC: Awake, oriented to 3 spheres. Moving all extremities. No tremors, no asterixis. LABORATORY DATA: Of 07/20/2018, urinalysis shows protein of 100, RBC 0-3, WBC 21-50. On 07/20/2018, sodium 140, potassium 5.6, chloride 102, carbon dioxide 19, BUN 42, creatinine 1.86, calcium 9.5. L FTs normal. White count 7.2, hemoglobin 10.2. Further review of her serum creatinine shows the following, 03/23/2018, creatinine 0.83. ASSESSMENT AND PLAN: Acute kidney injury - consider hemodynamically mediated renal dysfunction. For the moment, we will continue to hold off her lisinopril. I feel that this may be contributing to th e renal dysfunction. In addition, I think the patient may be volume depleted from her decreased p.o. intake and from her diarrhea. Continue current IV hydration with this patient for the moment. We w ill continue normal saline at 100 mL per hour. Do a renal ultrasound. No indication for any dialyti c intervention. Overall, agree with current management.
[2018-07-21] MEDS ORDERED: Melatonin 3 MG TAB PO PRN (13:11)
[2018-07-21] MEDS: HYDROcodone/Acetaminophen 10/325 mg Tablet PO PRN ×2 (15:06→20:57)
--- NOTE | 2018-07-21 15:44 | ULT ---
BILATERAL RENAL ULTRASOUND: Date: 07/21/18 HISTORY: Renal failure. FINDINGS: Real-time imaging of the right and left kidneys performed. Exam somewhat limited due to body habitus. The right kidney measures 10.4 cm in length and the left kidney measures 9.2 cm in size. Slightly lob ulated contour to the lower pole of the right kidney, but no discrete abnormality. Bladder region is unremarkable. IMPRESSION: Unremarkable renal ultrasound. POS: [facility]
[2018-07-21] MEDS: Zolpidem Tartrate 5 MG TAB PO SCH (20:56)
[2018-07-21] MEDS: Lisinopril 5 MG TAB PO SCH (20:56)
[2018-07-21] MEDS: Sotalol HCl 80 MG TAB PO SCH (20:56)
[2018-07-21] MEDS: Cyclobenzaprine 10 MG TAB PO SCH (20:57)
[2018-07-21] MEDS ORDERED: tiZANidine HCl 4 MG TAB PO SCH (21:00)
--- NOTE | 2018-07-22 00:10 | HP ---
DATE OF ADMISSION: 07/20/2018 HISTORY OF PRESENT ILLNESS: Ms. Rowe is a 58-year-old female with past medical history of diabetes mellitus, hypertension, hyperlipidemia, hypothyroidism, came because of not feeling well, we akness and feeling dizzy and her blood sugar was dropping to 60s and 30s. She states she has been ea ting well, but took all of the medications also. Did have nausea, vomiting, and vomited once. She f elt feverish and had some muscle spasms as well, but the patient has been having black diarrhea with loose stools for 2 days and cough for days, but no fever. Because of her weakness and dizziness, not feeling well. The patient came to the emergency room where she was found to be hypoglycemic with bl ood sugar of 47. The patient received dextrose D50, after her blood sugar improved to 100, was also found to have hyperkalemia with acute kidney injury, received calcium chloride. The patient is intub ated, did not have any EKG changes. The patient also received a dose of Kayexalate. The patient is admitted for further evaluation and management. PAST MEDICAL HISTORY: 1. Diabetes. 2. Insulin. 3. Hypertension. 4. Hyperlipidemia. 5. Hypothyroidism. 6. Chronic pain. 7. Recent admission in March for the dizziness and the UTI. PAST SURGICAL HISTORY: 1. Status post cholecystectomy and status appendectomy. 2. Status post abdominal hernia repair. 3. Status post tonsillectomy and tubal ligation. CURRENT MEDICATIONS: Patient is on aspirin 81 mg daily, Flexeril 10 mg at bedtime, glipizide 5 mg b. i.d., [place] p.r.n., levothyroxine 50 mcg, lisinopril 5 mg b.i.d., lovastatin 20 mg daily, metformin 1 000 b.i.d., Actos 30 mg daily, Seroquel 100 mg at bedtime, sotalol 80 mg b.i.d., Ambien 10 mg at bedt chetan p.r.n. ALLERGIES: NAPROSYN and IBUPROFEN cause nausea. FAMILY HISTORY: Nothing of interest. SOCIAL HISTORY: Patient lives with family. Quit smoking in 1993. Used to smoke 2 packs a day for 1 4 years. History of alcohol intake. REVIEW OF SYSTEMS: Cardiovascular: No chest pain or shortness of breath. There is no fever or coug h. GASTROINTESTINAL: Has nausea and vomiting. No abdominal pain. Genitourinary: No dysuria or he maturia. Central Nervous System: Has headache and dizziness. PHYSICAL EXAMINATION: GENERAL: The patient is alert, awake, oriented x3. VITAL SIGNS: Temperature 98, pulse 60, respiration 20, blood pressure 100/60. HEENT: Head is normocephalic, atraumatic. Pupils equal and reactive to light. Pharynx is pale and dry. Hard and soft palate, no lesions seen. SKIN: Skin turgor decreased. NECK: Supple. No JVD. LUNGS: Bilateral air entry No rales or rhonchi. CARDIAC: S1, S2 regular. ABDOMEN: Soft, no distention, no tenderness. Normal bowel sounds. EXTREMITIES: No edema. NEUROLOGIC: The patient is alert, oriented x3. Motor system power 4/5 in all extremities. Deep ten don reflexes 2+ bilaterally. Plantar downgoing. Sensory intact. LABORATORY AND X-RAY FINDINGS: CBC shows WBC 7.8, hemoglobin 10, hematocrit 32, platelets 244. [place] bolic panel: Sodium 140, potassium 4.6, chloride 105, CO2 19, BUN 40, creatinine 1.8, glucose 147. Urinalysis negative. CHEST X-RAY: Cardiomegaly, no evidence of acute intrathoracic abnormalities seen. EKG shows normal sinus rhythm, no acute ST-T wave changes seen. ASSESSMENT: 1. Severe hypoglycemia, symptomatic. 2. Acute kidney injury. 3. Hyperkalemia. 4. Hypertension. 5. Hyperlipidemia. 6. Hypothyroidism. PLAN: 1. Vital signs q.4 hours. 2. Activity: As tolerated. 3. Allergies: NAPROSYN, NAPROXEN. 4. Current Diet: ADA. 5. IV fluid normal saline 100 mL per hour. 6. Continue home medication except glipizide, metformin, and Actos. 7. Accu-Cheks q.2h. 8. BMP.
[2018-07-22] MEDS: Sodium Chloride 0.9% 1,000 ML IV SCH ×3 (00:37→23:56)
--- NOTE | 2018-07-22 05:15 | CON ---
DATE OF CONSULTATION: 07/21/2018 REFERRING PHYSICIAN: Dr. Wayne Allison. REASON FOR CONSULTATION: Syncopal spells. Follow up on EEG. HISTORY OF PRESENT ILLNESS: Ms. Rowe is a pleasant 58-year-old female who has been consult ed for recurrent syncopal spells and follow up on her EEG results. She had presented with generalize d weakness. She was found to have hyperglycemia, for which she is being treated. She was also noted to have acute kidney injury with elevated creatinine level for which she is being treated. She actu ally came in the clinic recently for recurrent syncopal spells. At that time had obtained sleep depr ived EEG and I am being asked to evaluate this patient and provide recommendations from neurological perspective as well as EEG report. PAST MEDICAL HISTORY, PAST SURGICAL HISTORY, SOCIAL HISTORY, FAMILY HISTORY, CURRENT MEDICATIONS, ALL ERGIES: Reviewed. They are as dictated in the consultation done by Dr. Wayne Allison. REVIEW OF SYSTEMS: As mentioned above in the HPI, otherwise negative. PHYSICAL EXAMINATION: VITAL SIGNS: Blood pressure of 130/61, pulse of 64, temperature of 97.8, respirations of 16, O2 sats of 98% on room air. GENERAL: Well-developed, well-nourished female in no apparent distress. RESPIRATORY: Clear to auscultation bilaterally. CARDIOVASCULAR: Regular rate and rhythm. NEUROLOGIC: Mental status: Patient is awake, alert, and oriented x3. Speech and language: Fluent speech. Cranial nerves: Pupils are 3 mm and reactive. Visual raya are intact. Extraocular muscl e movements are intact. No nystagmus noted. Face is symmetric. Tongue and uvula are midline. Robb r exam showed normal tone and bulk with 5/5 strength in both upper and lower extremities. Sensory: Sensation is intact and symmetric. Deep tendon reflexes 1+ reflexes in both upper and lower extremit ies. Babinski: Plantar responses flexion bilaterally. LABORATORY DATA: Reviewed, which included CBC, urinalysis, which is significant for hemoglobin 10.2, hematocrit 32.7. Urinalysis showing more 21-50 WBC with moderate leukocyte esterase. I have review ed her EEG that was done recently. This was a sleep deprived EEG, it is a normal EEG. IMPRESSION: 1. Generalized weakness. 2. Hypoglycemia. 3. Acute kidney injury with urinary tract infection. ASSESSMENT AND PLAN: Ms. Rowe is a pleasant 58-year-old female, who presented with general ized weakness. This is secondary to underlying hypoglycemia and acute kidney injury with urinary tra ct infection. I have reviewed her EEG that was done recently which was normal. Her spells of passin g out are likely cardiogenic in origin. I have advised her that she needs to follow up with Dr. Vazquez her recurrent passing out spells. Thank you for your consultation.
[2018-07-22 05:24] LABS: Anion Gap 13 mmol/L (10-20); BUN (Urea Nitrogen) 25 mg/dL (9.8-20.1); Calc. Creatinine Clearance 77 mL/min (70-130); Calcium 9.5 mg/dL (7.8-10.44); Carbon Dioxide 20 mmol/L (22-29); Chloride 112 mmol/L (98-107); Estimated GFR-MDRD 49; Glucose 99 mg/dL (70-105); Sodium 140 mmol/L (136-145)
[2018-07-22 05:43] LABS: Free T4 (Free Thyroxine) 1.07 ng/dL (0.70-1.48); Thyroid Stimulating Hormone 0.6609 uIU/mL (0.35-4.94)
[2018-07-22] MEDS: Levothyroxine Sodium 50 MCG TAB PO SCH (06:05)
[2018-07-22] MEDS: HYDROcodone/Acetaminophen 10/325 mg Tablet PO PRN ×3 (06:06→20:32)
--- NOTE | 2018-07-22 09:31 | PRG ---
DATE OF SERVICE: 07/22/2018 RENAL MEDICINE SUBJECTIVE: Ms. Rowe is a 58-year-old white female who was seen for her acute kidney injury. We fel t that this was a hemodynamically mediated renal dysfunction. She was empirically given volume reple tion. In addition, she was at that time noted to be taking lisinopril. Our plan is to continue to h old off the lisinopril. Renal function has already improved. She was also seen by Neurology for fol lowup of her syncopal episodes. Her EEG was recently done and it was reported as to be within normal . She does not have any neurological problem. No new complaints today. She is feeling better. PHYSICAL EXAMINATION: VITAL SIGNS: Blood pressure is 139/62, heart rate 68, respiratory rate 16, temperature 98.2, pulse o x 94% on room air. GENERAL: Awake, alert, comfortable, not in distress SKIN: Adequate turgor. HEENT: She has slightly pale conjunctivae, anicteric sclerae. NECK: No neck mass, no carotid bruits, no JVD. CHEST: No deformities. LUNGS: Clear breath sounds. HEART: Normal sinus rhythm. No murmurs, no gallops, no rubs. ABDOMEN: Globular, soft, nontender, no masses. EXTREMITIES: No edema, no deformities. LABORATORY DATA: Urinalysis showed specific gravity 1.019, protein is trace, WBC 21-50, RBCs 0-3. IMAGING DATA: Renal ultrasound of 07/21/2018 was unremarkable. ASSESSMENT AND PLAN: 1. Acute kidney injury - consider hemodynamically mediated renal dysfunction. This is most likely s econdary to volume depletion. My bias is to hold off her lisinopril. I will be discontinuing this. 2. 'Hypertension, good control. 3. Status post syncopal episode - EEG was reported as normal. She will follow up with Dr. Vazquez. Pl ease note I have also discontinued the lisinopril. Overall, agree with current management. recheck base met and CBC in a.m.
[2018-07-22] MEDS: Aspirin 81 mg Enteric Coated Tablet PO SCH (09:35)
[2018-07-22] MEDS: Sotalol HCl 80 MG TAB PO SCH ×2 (09:39→20:32)
[2018-07-22] MEDS: Simvastatin 5 MG TAB PO SCH (09:39)
[2018-07-22] MEDS: Lisinopril 5 MG TAB PO SCH (11:24)
[2018-07-22 13:51] LABS: Hemoglobin A1c 4.3 % (4.0-6.0)
[2018-07-22] MEDS: Cyclobenzaprine 10 MG TAB PO SCH (20:32)
[2018-07-22] MEDS: Zolpidem Tartrate 5 MG TAB PO SCH (20:32)
[2018-07-23] MEDS: Levothyroxine Sodium 50 MCG TAB PO SCH (05:18)
[2018-07-23 06:10] LABS: Anion Gap 14 mmol/L (10-20); BUN (Urea Nitrogen) 19 mg/dL (9.8-20.1); Calc. Creatinine Clearance 86 mL/min (70-130); Calcium 9.4 mg/dL (7.8-10.44); Carbon Dioxide 19 mmol/L (22-29); Chloride 113 mmol/L (98-107); Estimated GFR-MDRD 55; Glucose 103 mg/dL (70-105); Potassium 4.6 mmol/L (3.5-5.1); Sodium 141 mmol/L (136-145)
[2018-07-23 06:14] LABS: #Eosinphils 0.2 thou/uL (0.0-0.7); #Lymphocytes 1.8 thou/uL (1.20-3.40); #Monocytes 0.4 thou/uL (0.11-0.59); #Neutrophils 1.9 thou/uL (1.40-6.50); %Eosinophils 5.2 % (0.0-10.0); %Lymphocytes 41.4 % (21.0-51.0); %Monocytes 9.1 % (0.0-10.0); %Neutrophils 43.2 % (42.0-75.0); Hemoglobin 8.9 g/dL (12.0-16.0); Mean Corpuscular HGB CONC 31.7 g/dL (32.0-36.0); Mean Corpuscular Hemoglobin 30.3 pg (27.0-31.0); Mean Corpuscular Volume 95.4 fL (78.0-98.0); Platelet Count 187 thou/uL (130-400); RBC Distribution Width 13.1 % (11.5-14.5); Red Blood Cell (RBC) Count 2.96 mill/uL (4.20-5.40); White Blood Cell (WBC) Count 4.3 thou/uL (4.8-10.8)
[2018-07-23 08:19] VITALS: TEMP 98.2
[2018-07-23] MEDS: Sotalol HCl 80 MG TAB PO SCH (09:20)
[2018-07-23] MEDS: Simvastatin 5 MG TAB PO SCH (09:21)
[2018-07-23] MEDS: Aspirin 81 mg Enteric Coated Tablet PO SCH (09:21)
[2018-07-23] MEDS: Sodium Chloride 0.9% 1,000 ML IV SCH (10:26)
[2018-07-23 12:05] VITALS: BP 135/63
[2018-07-23] MEDS: HYDROcodone/Acetaminophen 10/325 mg Tablet PO PRN (14:36)
--- NOTE | 2018-07-24 17:56 | EKG ---
Test Reason : Blood Pressure : / mmHG Vent. Rate : 067 BPM Atrial Rate : 067 BPM P-R Int : 148 ms QRS Dur : 106 ms QT Int : 426 ms P-R-T Axes : 068 022 -29 degrees QTc Int : 450 ms Normal sinus rhythm Low voltage QRS Incomplete right bundle branch block Nonspecific ST and T wave abnormality Abnormal ECG Confirmed by ALEJANDRO MARINELLI DO ([id number]), script editor LISY FORTE ([id number]) on 07/24/2018 5:56:10 PM Referred By: Confirmed By:ALEJANDRO MARINELLI DO
== END 2018-07-23 16:05 | disposition home or self-care (01) | DRG 683 ==
LOC: ERS 18:17 → 2NO 20:26
PROVIDERS: ADMIT Internal Medicine; ATTEND Internal Medicine
DX: N17.9 Acute kidney failure, unspecified (principal); E87.1 Hypo-osmolality and hyponatremia; N39.0 Urinary tract infection, site not specified; R53.1 Weakness; I48.2 Chronic atrial fibrillation; I10 Essential (primary) hypertension; E78.5 Hyperlipidemia, unspecified; E03.9 Hypothyroidism, unspecified; Z86.73 Personal history of transient ischemic attack (TIA), and cerebral infarction without residual deficits; Z87.891 Personal history of nicotine dependence; Z88.6 Allergy status to analgesic agent; Z79.899 Other long term (current) drug therapy; Z79.84 Long term (current) use of oral hypoglycemic drugs; E11.649 Type 2 diabetes mellitus with hypoglycemia without coma; E87.5 Hyperkalemia; G89.29 Other chronic pain; Z79.891 Long term (current) use of opiate analgesic; Z88.8 Allergy status to other drugs, medicaments and biological substances; R55 Syncope and collapse
CPT/HCPCS: 36415; 36416; 71045; 76770; 80048; 80053; 81003; 81015; 82553; 83036; 84439; 84443; 84484; 85025; 93005; 94640; 96365; 96375; A4216; J7611

== ENCOUNTER 2018-08-07 14:48 | Inpatient (IN) | payer OTHER ==
[~2018-08-07 14:48] MED LIST: ISOVUE-370 76%-LOCM 1 ML ONE
[2018-08-07] MEDS ORDERED: Lorazepam 2 MG/ML VIAL ONE ×3 (15:29→17:16)
[2018-08-07 15:33] LABS: #Eosinphils 0.2 thou/uL (0.0-0.7); #Lymphocytes 1.6 thou/uL (1.20-3.40); #Monocytes 0.5 thou/uL (0.11-0.59); %Basophils 0.4 % (0.0-1.0); %Eosinophils 2.9 % (0.0-10.0); %Monocytes 6.5 % (0.0-10.0); %Neutrophils 68.3 % (42.0-75.0); Hemoglobin 10.3 g/dL (12.0-16.0); Mean Corpuscular HGB CONC 32.3 g/dL (32.0-36.0); Mean Corpuscular Hemoglobin 29.5 pg (27.0-31.0); Mean Corpuscular Volume 91.5 fL (78.0-98.0); Mean Platelet Volume 9.3 fL (7.4-10.4); Platelet Count 210 thou/uL (130-400); RBC Distribution Width 13.7 % (11.5-14.5); Red Blood Cell (RBC) Count 3.49 mill/uL (4.20-5.40); White Blood Cell (WBC) Count 7.3 thou/uL (4.8-10.8)
--- NOTE | 2018-08-07 15:35 | RAD ---
CHEST 1 VIEW: HISTORY: Dyspnea. COMPARISON: 07/10/18. FINDINGS: Cardiac silhouette is magnified and enlarged. Pulmonary vasculature are unremarkable. Mediastinum i s midline with aortic calcification. No lobar consolidation or evidence of pneumothorax. Cardiac mo nitor leads overlie the chest. IMPRESSION: 1. Cardiomegaly. 2. Atherosclerosis. POS: [facility]
[2018-08-07 15:56] LABS: ALT (SGPT) 7 U/L (8-55); AST (SGOT) 11 U/L (5-34); Albumin 4.4 g/dL (3.5-5.0); Alkaline Phosphatase 63 U/L (40-150); Anion Gap 16 mmol/L (10-20); BUN (Urea Nitrogen) 19 mg/dL (9.8-20.1); Bilirubin, Total 0.9 mg/dL (0.2-1.2); CK (CPK) 36 U/L (29-168); Calc. Creatinine Clearance 0 mL/min (70-130); Calcium 9.8 mg/dL (7.8-10.44); Carbon Dioxide 21 mmol/L (22-29); Chloride 107 mmol/L (98-107); Estimated GFR-MDRD 58; Glucose 118 mg/dL (70-105); Potassium 4.2 mmol/L (3.5-5.1); Protein, Total 7.4 g/dL (6.0-8.3); Sodium 140 mmol/L (136-145)
[2018-08-07 16:02] LABS: CKMB 0.8 ng/mL (0-6.6); Troponin I Less than 0.010 ng/mL (< 0.028)
--- NOTE | 2018-08-07 19:32 | CT ---
CT ANGIOGRAM CHEST 08/07/18 COMPARISON: None. HISTORY: Hypertension, tachypnea, dyspnea, abnormal D-dimer, assess for pulmonary embolism. TECHNIQUE: Serial axial CT imaging at 2.5 mm intervals from thoracic inlet through upper abdomen with IV contras t using a CT angiogram protocol. Coronal and oblique sagittal 3D reformatted imaging obtained. FINDINGS: The heart appears enlarged. No axillary, mediastinal, or hilar lymphadenopathy noted. Reflux of contr ast media seen within the intrahepatic IVC and the hepatic veins suggesting suboptimal cardiac output . Small right pleural effusion present. No discrete pulmonary arterial filling defect seen to suggest the presence of acute pulmonary embolis m. Within both lower lobes, right greater than left, there is mild increased linear interstitial density . In addition, there are subtle hazy areas of ground glass opacity within the posterior right upper l obe as well as the posterior/lateral right lower lobe. No acute osseous abnormality is seen. IMPRESSION: 1. No evidence for pulmonary embolism. 2. Enlarged heart with reflux of contrast media into the IVC and hepatic vein suggesting poor ca rdiac output. Small right pleural effusion and ground glass opacity within the right lung with bibasi lar mild interstitial prominence suggests pulmonary edema. Inflammatory/infectious pneumonitis cannot be fully excluded. POS: [facility]
[2018-08-07] MEDS ORDERED: Furosemide 40 MG/4 ML VIAL ONE (20:00)
[2018-08-07] MEDS ORDERED: Nitroglycerin 2% Ointment 1 INCH/1 GM Packet ONE (20:00)
[2018-08-07 20:25] LABS: Troponin I 0.027 ng/mL (< 0.028)
[2018-08-07] MEDS ORDERED: hydrALAZINE 20 MG/ML VIAL ONE (21:09)
[2018-08-07] MEDS ORDERED: HYDROcodone/Acetaminophen 5/325 mg Tablet ONE (21:09)
[2018-08-07 21:53] LABS: Troponin I 0.054 ng/mL (< 0.028)
[2018-08-07] MEDS ORDERED: HYDROcodone/Acetaminophen 5/325 mg Tablet PO PRN ×2 (22:25)
[2018-08-07 23:16] VITALS: BMI 40.6
[2018-08-08] MEDS ORDERED: Melatonin 3 MG TAB PO PRN (00:25)
[2018-08-08] MEDS ORDERED: hydrALAZINE 20 MG/ML VIAL SLOW IVP PRN (00:44)
[2018-08-08] MEDS: Zolpidem Tartrate 5 MG TAB PO PRN ×2 (01:09→20:43)
[2018-08-08] MEDS: tiZANidine HCl 4 MG TAB PO PRN ×3 (01:09→20:43)
[2018-08-08] MEDS: Levothyroxine Sodium 50 MCG TAB PO SCH (05:30)
[2018-08-08] MEDS: hydrALAZINE 25 MG TAB PO SCH ×2 (07:51→20:41)
[2018-08-08] MEDS: Lovastatin 20 MG TAB PO SCH (07:53)
[2018-08-08] MEDS ORDERED: metFORMIN 500 MG TAB PO SCH (08:00)
[2018-08-08] MEDS ORDERED: Pioglitazone HCl 15 MG TAB PO SCH (09:00)
[2018-08-08] MEDS ORDERED: Lisinopril 5 MG TAB PO SCH (09:00)
[2018-08-08] MEDS ORDERED: Sotalol HCl 80 MG TAB PO SCH (09:00)
[2018-08-08] MEDS ORDERED: Furosemide 20 MG/2 ML VIAL SLOW IVP SCH (10:30)
[2018-08-08] MEDS ORDERED: Dextrose 50% Abboject 50 ML SYRINGE IVP PRN (11:39)
[2018-08-08] MEDS ORDERED: Insulin Regular 300 UNITS/3 ML VIAL SC PRN (11:39)
[2018-08-08] MEDS ORDERED: Dextrose 5% in Water 1,000 ML IV PRN (11:39)
[2018-08-08] MEDS: HYDROcodone/Acetaminophen 10/325 mg Tablet PO PRN (16:42)
[2018-08-08] MEDS ORDERED: Lisinopril 10 MG TAB PO SCH (18:15)
[2018-08-08] MEDS: hydrALAZINE 20 MG/ML VIAL SLOW IVP PRN (18:24)
[2018-08-09 05:41] LABS: #Basophils 0.1 thou/uL (0.0-0.2); #Eosinphils 0.3 thou/uL (0.0-0.7); #Lymphocytes 2.3 thou/uL (1.20-3.40); #Monocytes 0.7 thou/uL (0.11-0.59); #Neutrophils 3.3 thou/uL (1.40-6.50); %Basophils 1.2 % (0.0-1.0); %Eosinophils 3.8 % (0.0-10.0); %Lymphocytes 34.3 % (21.0-51.0); %Monocytes 10.4 % (0.0-10.0); %Neutrophils 50.3 % (42.0-75.0); Hemoglobin 10.2 g/dL (12.0-16.0); Mean Corpuscular HGB CONC 31.9 g/dL (32.0-36.0); Mean Corpuscular Hemoglobin 29.7 pg (27.0-31.0); Mean Corpuscular Volume 93.1 fL (78.0-98.0); Mean Platelet Volume 9.1 fL (7.4-10.4); Platelet Count 198 thou/uL (130-400); RBC Distribution Width 13.9 % (11.5-14.5); Red Blood Cell (RBC) Count 3.44 mill/uL (4.20-5.40); White Blood Cell (WBC) Count 6.6 thou/uL (4.8-10.8)
[2018-08-09] MEDS: Levothyroxine Sodium 50 MCG TAB PO SCH (05:52)
[2018-08-09 05:55] LABS: Anion Gap 15 mmol/L (10-20); BUN (Urea Nitrogen) 22 mg/dL (9.8-20.1); Calc. Creatinine Clearance 74 mL/min (70-130); Calcium 9.2 mg/dL (7.8-10.44); Carbon Dioxide 25 mmol/L (22-29); Chloride 104 mmol/L (98-107); Estimated GFR-MDRD 49; Glucose 103 mg/dL (70-105); Potassium 3.4 mmol/L (3.5-5.1); Sodium 141 mmol/L (136-145)
[2018-08-09] MEDS: Lisinopril 10 MG TAB PO SCH ×2 (08:03→21:02)
[2018-08-09] MEDS: Lovastatin 20 MG TAB PO SCH (08:03)
[2018-08-09] MEDS: hydrALAZINE 25 MG TAB PO SCH ×2 (08:04→21:02)
--- NOTE | 2018-08-09 08:21 | HP ---
DATE OF ADMISSION: 08/08/2018 REASON FOR ADMISSION AND CHIEF COMPLAINT: Shortness of breath. HISTORY OF PRESENT ILLNESS: Ms. Rowe is a 58-year-old female with past medical history of hypertension, hyperlipidemia, hypothyroidism, chronic pain, who came because of shortness of breath a nd elevated blood pressure. The patient states her blood pressure has been elevated over the last fe w days. She was seen in the office. She was started on new medication, hydralazine, but she did not start the medication until the day before. Blood pressure seems to be going up more after that. Sh e states blood pressure was around 214/102, feeling short of breath and dizzy, so the patient decided to come to the hospital. In the ER, the patient was found to be in acute CHF, new onset with marked ly elevated blood pressure. The patient had blood pressure of 206/81 in the ER. The patient receive d hydralazine IV as well as Lasix 40 IV push and put on nitro paste, and admitted for further evaluat ion and management. The patient's shortness of breath is improved since she got Lasix. PAST MEDICAL HISTORY: 1. Hypertension. 2. Hypothyroidism. 3. Hyperlipidemia. 4. Chronic pain. 5. History of dizziness. 6. History of acute kidney injury. PAST SURGICAL HISTORY: 1. Status post cholecystectomy. 2. Status post appendectomy. 3. Status post abdominal hernia repair. 4. Status post tonsillectomy 5. Status post tubal ligation. CURRENT MEDICATIONS: The patient is on lisinopril 5 mg b.i.d., hydralazine 25 mg b.i.d., aspirin 81 mg daily, [place] 10/325 q.i.d. p.r.n., levothyroxine 50 mcg daily, lovastatin 20 mg daily, melatonin 9 mg at bedtime, metformin 1000 mg b.i.d., Actos 15 mg daily, Seroquel 100 mg at bedtime, sotalol 80 m g b.i.d., tizanidine 4 mg at bedtime, Ambien 10 mg at bedtime p.r.n. ALLERGIES: NAPROSYN and IBUPROFEN cause nausea. FAMILY HISTORY: Nothing of interest. SOCIAL HISTORY: The patient lives with family. Quit smoking in 1993. No history of alcohol intake. REVIEW OF SYSTEMS: Cardiovascular: Has shortness of breath and chest pain. Respiratory: No fever or cough. Gastrointestinal: No nausea or vomiting. No abdominal pain. Genitourinary: No dysuria or hematuria. PHYSICAL EXAMINATION: GENERAL: The patient is alert, awake, oriented x3. VITAL SIGNS: Temperature 98, pulse 70, respirations 20, and blood pressure 192/88. HEENT: Head is normocephalic, atraumatic. Pupils are equal and reactive to light. Nasopharynx is p roxanna and dry. Hard and soft palate, no lesions seen. SKIN: Skin turgor decreased. NECK: Supple. No JVD. LUNGS: Breath sounds diminished, present, basilar rales present. CARDIAC: S1, S2 regular. ABDOMEN: Soft, no distention, no tenderness. Normal bowel sounds. RECTAL: Deferred. CENTRAL NERVOUS SYSTEM: No focal deficit.. LABORATORY AND X-RAY FINDINGS: CBC shows WBC 7.3, hemoglobin 10, hematocrit 31, platelets 210. [place] bolic panel: Sodium 140, potassium 4.2, chloride 107, CO2 of 21, urea nitrogen 19, creatinine 0.9, g lucose 118, CK-MB 0.8, troponin I less than 0.010. BNP was 852, D-dimer 1.5. Chest x-ray shows poss ible CHF. CT angio chest done revealed no pulmonary edema. EKG showed normal sinus rhythm, no acute ST-T wave changes seen. ASSESSMENT: 1. Congestive heart failure, acute, new onset, possibly diastolic dysfunction. 2. Hypertension, uncontrolled. 3. Diabetes mellitus. 4. Hyperlipidemia. 5. Hypothyroidism. 6. Chronic pain. PLAN: 1. Vital signs q.4 hours. 2. Activity as tolerated. 3. Allergies: NAPROSYN and IBUPROFEN. 4. Diet: ADA and cardiac 5. Troponin I q.8 hours x2. 6. Lasix 20 mg IVP daily. 7. Continue her home medications. 8. Accu-Chek a.c. and bedtime. 9. Sliding scale mild with regular insulin. 10. Cardiology consult. 11. Echocardiogram.
[2018-08-09] MEDS: HYDROcodone/Acetaminophen 10/325 mg Tablet PO PRN (08:27)
[2018-08-09] MEDS ORDERED: Regadenoson 0.4 MG/5 ML SYRINGE ONE (09:36)
[2018-08-09] MEDS: Furosemide 20 MG/2 ML VIAL SLOW IVP SCH (11:53)
--- NOTE | 2018-08-09 13:45 | NM ---
NUCLEAR MEDICINE MYOCARDIAL PERFUSION EVALUATION: CLINICAL HISTORY: Chest pain, CHF. Reference made to a 02/12/17 exam. RADIOPHARMACEUTICAL: 29.9 mCi technetium-99m sestamibi IV. FINDINGS: Stress imaging after administration of radiotracer reveals no evidence of perfusion defect of the lat eral left ventricular stallings. Gated imaging reveals appropriate wall motion and contractility with a c alculated LVEF of 80%. IMPRESSION: 1. No evidence of perfusion defect of the left ventricular stallings by stress imaging to indicate signi ficant region of ischemia or scar. 2. Normal LVEF, calculated at 80%. POS: [facility]
[2018-08-09] MEDS: hydrALAZINE 20 MG/ML VIAL SLOW IVP PRN (16:10)
--- NOTE | 2018-08-09 16:15 | CON ---
DATE OF CONSULTATION: 08/09/2018 HISTORY OF PRESENT ILLNESS: The patient is an unfortunate 58-year-old woman with a history of atrial fibrillation who presented with increasing dyspnea. The patient has a previous history of atrial fibrillation. She has undergone previous electrical cardioversion. She has been maintained on Betapace. The patient was seen in 2017, underwent a Cardiolite stress test that revealed no evidence of ischemia. The patient also has a history of a TIA. The patient reports that she noticed having difficulty with her blood pressure. She was started recently on hydralazine. She became markedly dyspneic and noted that her systolic blood pressure was extremely elevated. The patient reported also having difficulty breathing with midsternal chest discomfort. The patient came to the emergency room and was noted to have a markedly elevated blood pressure. The patient denies having any present chest discomfort. PAST MEDICAL HISTORY: 1. Hypertension. 2. Diabetes mellitus. 3. Atrial fibrillation. 4. Transient ischemic attack. 5. Seizure disorder. PAST SURGICAL HISTORY: Tonsillectomy, appendectomy, cholecystectomy and tubal ligation. SOCIAL HISTORY: Nonsmoker. FAMILY HISTORY: No strong family history of heart disease. ALLERGIES: No known drug allergies. MEDICATIONS: Hydralazine 25 b.i.d., lovastatin 20 daily, Synthroid 50 mcg daily , aspirin 81 daily, melatonin 10 daily, lisinopril 5 b.i.d., Actos 15 daily, Betapace 80 b.i.d., metformin 1000 b.i.d. REVIEW OF SYSTEMS: Ten-point system otherwise unremarkable. No history of easy bruising or bleeding or bright red blood per rectum. PHYSICAL EXAMINATION: GENERAL: Obese woman, in no acute distress. VITAL SIGNS: Blood pressure 117/52. NECK: No jugular venous distention. LUNGS: Clear to auscultation. HEART: Regular rate and rhythm. Normal S1, S2. No murmurs. ABDOMEN: Distended. EXTREMITIES: Showed trace edema. SKIN: Warm. NEUROLOGIC: Nonfocal. VASCULAR: Radial pulses are 2+. LABORATORY RESULTS: Sodium was 140, potassium 4.2, chloride 107, bicarbonate 21 , BUN 19, creatinine 0.98, troponin was 0.054. BNP was 852. White blood cell count 7.3, hemoglobin 10.3, hematocrit 31.9, platelets are 210,000. Her EKG revealed atrial fibrillation with a slow ventricular response. IMPRESSION: 1. Hypertensive crisis. 2. History of atrial fibrillation/flutter. 3. Congestive heart failure, probably secondary to diastolic dysfunction. 4. Diabetes mellitus. 5. Hypertension. 6. Obesity. This patient presented with mild congestive heart failure. She has been diuresed with IV Lasix. From a cardiac standpoint, we will check the patient's echocardiogram. The patient cannot be anticoagulated secondary to her seizure disorder. The patient should be considered for Watchman device. Would discontinue the patient's Betapace with her prolonged pauses. We will plan on repeating the patient's stress test during this hospitalization to make sure there is no evidence of significant ischemia. We will follow this patient with you through her hospitalization. CAMRON
[2018-08-09] MEDS ORDERED: cloNIDine 0.1 MG TAB PO PRN (17:46)
--- NOTE | 2018-08-09 17:57 | PDOC.CTH ---
<Tammy Barillas - Last Filed: 08/09/18 17:55> Cardiology Progress Note - Subjective The pt seen and examined. No overnight events. No cardiac complaints. She feels pressure to her head with elevated BP. Instructed to call for assist when she gets up with Clonidin. - Objective Vital Signs Temp Pulse Resp BP BP BP Pulse Ox 08/09/18 17:37 75 207/97 H 08/09/18 16:10 96 195/74 H 08/09/18 15:39 195/74 H 08/09/18 15:34 98.1 F 96 16 96 08/09/18 11:50 98.1 F 87 16 171/85 H 96 08/09/18 09:36 188/78 H 08/09/18 08:04 68 187/78 H 08/09/18 08:03 187/78 H 08/09/18 07:31 97.9 F 68 16 187/78 H 96 Weight 190 lb 14.4 oz 08/08/18 08/09/18 08/10/18 06:59 06:59 06:59 Intake Total 150 1209 Output Total 1200 2520 Balance -1050 -1311 - Physical Examination General/Neuro: alert & oriented x3 Neck: no JVD present Lungs: CTA Heart: RRR Abdomen: soft Extremities: other: (No edema) - Telemetry Telemetry Rhythm: SR PACs - Labs Result Diagrams: 08/09/18 05:14 08/09/18 05:14 Troponin/CKMB CK-MB (CK-2) 0.8 ng/mL (0-6.6) 08/07/18 15:23 Troponin I 0.054 ng/mL (< 0.028) H 08/07/18 21:20 - Assessment/Plan 1. HTN urgency - Start Norvasc 5mg qd and Clonidin 0.1mg PO q8hrs PRN; cont. to monitor 2. hx of Afib with s/p DCCV - remains in SR with PACs; Not on BBlocker or any anti-arrhythmia med; on ASA 81mg qd only at this moment due to hx of frequent falls. May start bblocker or anti-arrhythmia med 3. DM type 2 - managed by PCP 4. Seizure - stable; 5. Hyperlipidemia - on Statin 6. Hypothyroidism - managed by PCP 7. Hx of TIA - stable MAR reviewed * Echo on 08/08/18 showed EF 55-60%, mildly Rt side enlargement, mild-mod MR, mod-severe TR, and severely elevated PAP * Stress test on 08/09/18 showed normal <Kris Vazquez - Last Filed: 08/09/18 18:59> Cardiology Progress Note - Objective Vital Signs Temp Pulse Resp BP BP BP Pulse Ox 08/09/18 18:27 207/97 H 08/09/18 17:37 75 207/97 H 08/09/18 16:10 96 195/74 H 08/09/18 15:39 195/74 H 08/09/18 15:34 98.1 F 96 16 96 08/09/18 11:50 98.1 F 87 16 171/85 H 96 08/09/18 09:36 188/78 H 08/09/18 08:04 68 187/78 H 08/09/18 08:03 187/78 H 08/09/18 07:31 97.9 F 68 16 187/78 H 96 Weight 190 lb 14.4 oz 08/08/18 08/09/18 08/10/18 06:59 06:59 06:59 Intake Total 150 1209 960 Output Total 1200 2520 1700 Balance -1050 -1311 -740 - Labs Result Diagrams: 08/09/18 05:14 08/09/18 05:14 Troponin/CKMB CK-MB (CK-2) 0.8 ng/mL (0-6.6) 08/07/18 15:23 Troponin I 0.054 ng/mL (< 0.028) H 08/07/18 21:20 - Assessment/Plan Pt. seen and eval. by me. i agree with the A/P by the FOOD PREPARATION WORKER. there was a mention of pauses on the consult from yesterday but i do not see any documentation of this. The Sotolol was d/c'd but to avoid atrial arrhythmias i will restart this medication but at a lower dose and see if this controls the arrhythmias.If not, she may eventually need an ablation.
[2018-08-09] MEDS ORDERED: Potassium Chloride 20 MEQ TAB PO SCH (18:30)
[2018-08-09] MEDS ORDERED: Amlodipine 5 MG TAB PO SCH (21:00)
[2018-08-09] MEDS: Sotalol HCl 80 MG TAB PO SCH (21:03)
[2018-08-09] MEDS: tiZANidine HCl 4 MG TAB PO PRN (21:07)
[2018-08-09] MEDS: Zolpidem Tartrate 5 MG TAB PO PRN (21:07)
[2018-08-10] MEDS: Levothyroxine Sodium 50 MCG TAB PO SCH (05:32)
[2018-08-10 06:13] LABS: Anion Gap 14 mmol/L (10-20); BUN (Urea Nitrogen) 21 mg/dL (9.8-20.1); Calc. Creatinine Clearance 65 mL/min (70-130); Calcium 9.2 mg/dL (7.8-10.44); Carbon Dioxide 28 mmol/L (22-29); Chloride 104 mmol/L (98-107); Estimated GFR-MDRD 43; Glucose 118 mg/dL (70-105); Potassium 3.6 mmol/L (3.5-5.1); Sodium 142 mmol/L (136-145)
[2018-08-10] MEDS ORDERED: Potassium Chloride 20 MEQ TAB PO SCH (09:00)
[2018-08-10] MEDS: Lovastatin 20 MG TAB PO SCH (09:45)
[2018-08-10] MEDS: hydrALAZINE 25 MG TAB PO SCH ×2 (09:45→20:11)
[2018-08-10] MEDS: Sotalol HCl 80 MG TAB PO SCH ×2 (09:46→20:12)
[2018-08-10] MEDS: Lisinopril 10 MG TAB PO SCH ×2 (09:47→20:11)
[2018-08-10] MEDS: Furosemide 20 MG/2 ML VIAL SLOW IVP SCH (09:48)
--- NOTE | 2018-08-10 14:26 | PDOC.CTH ---
<Tammy Barillas - Last Filed: 08/10/18 14:32> Cardiology Progress Note - Subjective The pt seen and examined. No overnight events. No cardiac complaints. She had 1 episode of fluttering for a few sec last night. Tele record showed SR with PACs. - Objective Vital Signs Temp Pulse Resp BP BP BP Pulse Ox 08/10/18 12:04 98.5 F 61 17 117/52 L 95 08/10/18 09:47 170/85 H 08/10/18 09:46 63 08/10/18 09:45 63 08/10/18 09:35 97.7 F 63 17 147/65 H 95 08/10/18 04:00 98.3 F 69 20 128/61 94 L Weight 190 lb 14.4 oz 08/09/18 08/10/18 08/11/18 06:59 06:59 06:59 Intake Total 1209 960 Output Total 2520 1700 Balance -1311 -740 - Physical Examination General/Neuro: alert & oriented x3 Neck: no JVD present Lungs: CTA Heart: RRR Abdomen: soft Extremities: other: (No edema) - Telemetry Telemetry Rhythm: SR PACs - Labs Result Diagrams: 08/09/18 05:14 08/10/18 05:32 Troponin/CKMB CK-MB (CK-2) 0.8 ng/mL (0-6.6) 08/07/18 15:23 Troponin I 0.054 ng/mL (< 0.028) H 08/07/18 21:20 - Assessment/Plan 1. HTN urgency - Increase Hydralazine 25mg TID; cont. to monitor 2. Hx of Afib with s/p DCCV - remains in SR with PACs; on Saolol 40mg BID and ASA 81mg qd only at this moment due to hx of frequent falls. 3. DM type 2 - managed by PCP 4. Seizure - stable; 5. Hyperlipidemia - on Statin 6. Hypothyroidism - managed by PCP 7. Hx of TIA - stable 8. Hx of multiple falls - Per the pt, Her neurologist told the pt that she needs heart monitor. MAR reviewed * Echo on 08/08/18 showed EF 55-60%, mildly Rt side enlargement, mild-mod MR, mod-severe TR, and severely elevated PAP * Stress test on 08/09/18 showed normal <Vazquez,G Bareny - Last Filed: 08/11/18 17:18> Cardiology Progress Note - Objective Vital Signs Temp Pulse Resp BP BP Pulse Ox 08/11/18 15:48 97.8 F 68 16 147/69 H 98 08/11/18 11:45 97.8 F 57 L 18 136/59 L 93 L 08/11/18 08:15 95 08/11/18 08:02 97.9 F 62 18 115/54 L 95 Weight 191 lb 08/10/18 08/11/18 08/12/18 06:59 06:59 06:59 Intake Total 960 1980 Output Total 1700 3350 Balance -740 -1370 - Labs Result Diagrams: 08/09/18 05:14 08/10/18 05:32 Troponin/CKMB CK-MB (CK-2) 0.8 ng/mL (0-6.6) 08/07/18 15:23 Troponin I 0.054 ng/mL (< 0.028) H 08/07/18 21:20 - Assessment/Plan Pt. seen and eval. by me.I agree with the A/P by the THRESHING OPERATOR. No syncopal or pre- syncopal episodes noted here in the hosp.No significant arrythmias. I do not feel that she meets the criteria for an implantable loop recorded. We could try an event monitor for a month.
[2018-08-10] MEDS ORDERED: hydrALAZINE 25 MG TAB PO SCH (15:00)
[2018-08-10] MEDS: HYDROcodone/Acetaminophen 10/325 mg Tablet PO PRN (15:55)
[2018-08-10] MEDS: tiZANidine HCl 4 MG TAB PO PRN (20:10)
[2018-08-10] MEDS: Zolpidem Tartrate 5 MG TAB PO PRN (20:11)
[2018-08-11] MEDS: HYDROcodone/Acetaminophen 10/325 mg Tablet PO PRN ×2 (04:18→15:54)
[2018-08-11] MEDS: Levothyroxine Sodium 50 MCG TAB PO SCH (06:13)
[2018-08-11] MEDS: Lovastatin 20 MG TAB PO SCH (08:50)
[2018-08-11] MEDS: hydrALAZINE 25 MG TAB PO SCH ×3 (08:51→18:54)
[2018-08-11] MEDS: Lisinopril 10 MG TAB PO SCH (08:52)
[2018-08-11] MEDS: Sotalol HCl 80 MG TAB PO SCH (08:52)
[2018-08-11] MEDS ORDERED: Potassium Chloride 10 MEQ TAB PO SCH (09:00)
[2018-08-11] MEDS ORDERED: Furosemide 20 MG TAB PO SCH (09:00)
--- NOTE | 2018-08-11 10:36 | PDOC.CTH ---
<Tammy Barillas - Last Filed: 08/11/18 10:32> Cardiology Progress Note - Subjective The pt seen and examined. No overnight events. No cardiac complaints. She does to have any dizziness spell since 07/2018. - Objective Vital Signs Temp Pulse Resp BP BP Pulse Ox 08/11/18 08:02 97.9 F 62 18 115/54 L 95 08/11/18 04:00 98.3 F 68 18 141/67 H 93 L 08/11/18 00:00 98.0 F 61 18 105/56 L 95 Weight 191 lb 08/10/18 08/11/18 08/12/18 06:59 06:59 06:59 Intake Total 960 1980 Output Total 1700 3350 Balance -740 -1370 - Physical Examination General/Neuro: alert & oriented x3 Neck: no JVD present Lungs: CTA Heart: RRR Abdomen: soft Extremities: other: (No edema) - Telemetry Telemetry Rhythm: SR 70s - Labs Result Diagrams: 08/09/18 05:14 08/10/18 05:32 Troponin/CKMB CK-MB (CK-2) 0.8 ng/mL (0-6.6) 08/07/18 15:23 Troponin I 0.054 ng/mL (< 0.028) H 08/07/18 21:20 - Assessment/Plan 1. HTN urgency - stable with current medication; cont. to monitor 2. Hx of Afib with s/p DCCV - remains in SR with PACs; on Saolol 40mg BID and ASA 81mg qd only at this moment due to hx of frequent falls. [id number]-[id number] score of 5 (Female, HTN, DM, hx of TIA) 3. DM type 2 - managed by PCP 4. Seizure - stable; 5. Hyperlipidemia - on Statin 6. Hypothyroidism - managed by PCP 7. Hx of TIA - stable 8. Hx of multiple falls - Per the pt, Her neurologist told the pt that she needs heart monitor. MAR reviewed * Echo on 08/08/18 showed EF 55-60%, mildly Rt side enlargement, mild-mod MR, mod-severe TR, and severely elevated PAP * Stress test on 08/09/18 showed normal * From Cardiac standpoint, the pt is stable to d/c home with EVR for 30 days ( EVR will be sent to her address.) F/u with Dr Vazquez within 1-2 wks. Review of Systems - Review of Systems Constitutional: reports: no symptoms reported EENTM: reports: no symptoms reported Respiratory: reports: no symptoms reported Cardiac (ROS): reports: no symptoms reported ABD/GI: reports: no symptoms reported : reports: no symptoms reported Musculoskeletal: reports: no symptoms reported <Kris Vazquez - Last Filed: 08/11/18 17:21> Cardiology Progress Note - Objective Vital Signs Temp Pulse Resp BP BP Pulse Ox 08/11/18 15:48 97.8 F 68 16 147/69 H 98 08/11/18 11:45 97.8 F 57 L 18 136/59 L 93 L 08/11/18 08:15 95 08/11/18 08:02 97.9 F 62 18 115/54 L 95 Weight 191 lb 08/10/18 08/11/18 08/12/18 06:59 06:59 06:59 Intake Total 960 1980 Output Total 1700 3350 Balance -740 -1370 - Labs Result Diagrams: 08/09/18 05:14 08/10/18 05:32 Troponin/CKMB CK-MB (CK-2) 0.8 ng/mL (0-6.6) 08/07/18 15:23 Troponin I 0.054 ng/mL (< 0.028) H 08/07/18 21:20 - Assessment/Plan Pt. seen and eval. by me. I agree with the A/P by the ROUTE CDL DRIVER. Chest clear. RRR. No edema. No arrythmias. Agree pt. can be d/c'd to home with an event monitor. i will follow her in the office. I will sign off.
[2018-08-11 18:49] VITALS: TEMP 98.4
[2018-08-11 19:39] VITALS: BP 166/64
== END 2018-08-11 19:39 | disposition home or self-care (01) | DRG 292 ==
LOC: ERS 14:48 → 2NO 22:27
PROVIDERS: ADMIT Internal Medicine; ATTEND Internal Medicine
DX: I11.0 Hypertensive heart disease with heart failure (principal); I48.92 Unspecified atrial flutter; I16.0 Hypertensive urgency; I50.33 Acute on chronic diastolic (congestive) heart failure; I48.91 Unspecified atrial fibrillation; E11.9 Type 2 diabetes mellitus without complications; G40.909 Epilepsy, unspecified, not intractable, without status epilepticus; E78.5 Hyperlipidemia, unspecified; E03.9 Hypothyroidism, unspecified; Z86.73 Personal history of transient ischemic attack (TIA), and cerebral infarction without residual deficits; Z91.81 History of falling; I08.1 Rheumatic disorders of both mitral and tricuspid valves; M54.9 Dorsalgia, unspecified; G89.29 Other chronic pain; M19.90 Unspecified osteoarthritis, unspecified site; F41.9 Anxiety disorder, unspecified; F32.9 Major depressive disorder, single episode, unspecified; Z87.891 Personal history of nicotine dependence; E66.9 Obesity, unspecified; E87.6 Hypokalemia; Z68.39 Body mass index [BMI] 39.0-39.9, adult
CPT/HCPCS: 36415; 36416; 71045; 71275; 78452; 80048; 80053; 82553; 83880; 84484; 85025; 85379; 93005; 93017; 93306; 93798; 96374; 96375; A4216; A9500; J0360; J1940; J2060; J2785

== ENCOUNTER 2018-08-25 13:30 | Inpatient (IN) | payer OTHER ==
[2018-08-25 14:36] LABS: #Basophils 0.1 thou/uL (0.0-0.2); #Eosinphils 0.4 thou/uL (0.0-0.7); #Lymphocytes 2.3 thou/uL (1.20-3.40); #Monocytes 0.6 thou/uL (0.11-0.59); #Neutrophils 5.8 thou/uL (1.40-6.50); %Basophils 0.8 % (0.0-1.0); %Eosinophils 4.3 % (0.0-10.0); %Lymphocytes 25.2 % (21.0-51.0); %Monocytes 6.3 % (0.0-10.0); %Neutrophils 63.3 % (42.0-75.0); Mean Corpuscular HGB CONC 31.9 g/dL (32.0-36.0); Mean Corpuscular Hemoglobin 28.5 pg (27.0-31.0); Mean Corpuscular Volume 89.2 fL (78.0-98.0); Mean Platelet Volume 10.7 fL (7.4-10.4); Platelet Count 192 thou/uL (130-400); RBC Distribution Width 13.2 % (11.5-14.5); Red Blood Cell (RBC) Count 4.57 mill/uL (4.20-5.40); White Blood Cell (WBC) Count 9.1 thou/uL (4.8-10.8)
--- NOTE | 2018-08-25 14:40 | RAD ---
UPRIGHT PORTABLE CHEST ONE VIEW: History: 58-year-old female with history of chest pain. Comparison: 08-07-18 FINDINGS: Monitor leads overlie the chest. Heart size is upper range of normal. No confluent pneumonia, overt e que, or pleural effusion. IMPRESSION: No significant acute intrathoracic disease. Stable from prior study. POS: CAROL
[2018-08-25 14:50] LABS: ALT (SGPT) 10 U/L (8-55); AST (SGOT) 15 U/L (5-34); Albumin 4.7 g/dL (3.5-5.0); Alkaline Phosphatase 61 U/L (40-150); Anion Gap 20 mmol/L (10-20); BUN (Urea Nitrogen) 91 mg/dL (9.8-20.1); Bilirubin, Total 0.3 mg/dL (0.2-1.2); Calc. Creatinine Clearance 0 mL/min (70-130); Calcium 10.5 mg/dL (7.8-10.44); Carbon Dioxide 19 mmol/L (22-29); Chloride 107 mmol/L (98-107); Estimated GFR-MDRD 9; Globulin 3.4 g/dL (2.4-3.5); Glucose 130 mg/dL (70-105); Protein, Total 8.1 g/dL (6.0-8.3); Sodium 138 mmol/L (136-145)
[2018-08-25 14:56] LABS: CKMB 0.9 ng/mL (0-6.6); Troponin I Less than 0.010 ng/mL (< 0.028)
[2018-08-25 15:34] LABS: Potassium 7.7 mmol/L (3.5-5.1)
[2018-08-25] MEDS ORDERED: Dextrose 50% Abboject 50 ML SYRINGE ONE (15:38)
[2018-08-25] MEDS ORDERED: Calcium Chloride 1 GM/10 ML Abboject SYRINGE ONE (15:38)
[2018-08-25] MEDS ORDERED: Insulin Regular 300 UNITS/3 ML VIAL ONE (15:38)
[2018-08-25] MEDS ORDERED: Sodium Bicarb 50 MEQ/50 ML Abboject 8.4% SYRINGE ONE (15:38)
[2018-08-25 15:41] LABS: Bilirubin Negative (Negative); Blood, Urine Negative (Negative); Clarity CLEAR (Clear); Glucose, Urine (Dipstick) Negative (Negative); Leukocyte Small (Negative); Nitrite Negative (Negative); Protein, Urine (Dipstick) Negative (Neg-Trace); Specific Gravity, Urine 1.015 (1.002-1.036); Urobilinogen 0.2 mg/dL (0.2-1.0)
[2018-08-25 15:43] LABS: Bacteria/HPF None Seen HPF (None Seen); Hyaline Casts/LPF 7-10 HYALINE CAST LPF (0-3 Hyaline); Pathc Cast-AUWi Flag 2.03 (0-2.49); Squamous Epithelial 0-3 HPF (0-3)
[2018-08-25 16:31] LABS: Potassium 6.4 mmol/L (3.5-5.1)
--- NOTE | 2018-08-25 17:39 | CT ---
ABDOMEN AND PELVIC CT SCAN WITHOUT IV CONTRAST 08/25/18 HISTORY: 58-year-old female with history of chest and abdominal pain. The lung bases are clear. There is evidence for cardiomegaly with some mitral valve annulus calcifica tion. Status post cholecystectomy. Liver, pancreas, spleen, and adrenal glands are unremarkable. No renal calculus or evidence for acute obstruction. Postoperative changes are noted involving the an terior abdominal wall with a fairly large stable subcutaneous fluid collection in the inferior abdomi nal wall measuring 4 x 8 cm but showing no significant change from 01/10/18 study. In addition, there is a large left anterior abdominal wall hernia containing mesenteric fat and transverse colon. No ibeth dence for large or small bowel obstruction. No abnormal fluid collection within the abdomen or pelvis . Uterus and adnexal regions are unremarkable. IMPRESSION: No significant acute process on the abdomen or pelvis. Stable right lower quadrant anterior subcutane ous fluid collection and large left lower abdominal wall hernia containing fat and transverse colon. No renal calculus or obstruction. No significant new process. POS: SAL
[2018-08-25 17:58] LABS: Anion Gap 17 mmol/L (10-20); BUN (Urea Nitrogen) 86 mg/dL (9.8-20.1); Calc. Creatinine Clearance 0 mL/min (70-130); Calcium 11.5 mg/dL (7.8-10.44); Carbon Dioxide 20 mmol/L (22-29); Chloride 108 mmol/L (98-107); Estimated GFR-MDRD 10; Glucose 112 mg/dL (70-105); Potassium 6.2 mmol/L (3.5-5.1); Sodium 139 mmol/L (136-145)
[2018-08-25] MEDS ORDERED: Dextrose 5% in Water 1,000 ML IV PRN (19:38)
[2018-08-25] MEDS ORDERED: Dextrose 50% Abboject 50 ML SYRINGE IVP PRN (19:38)
[2018-08-25] MEDS ORDERED: Insulin Regular 300 UNITS/3 ML VIAL SC PRN (19:38)
[2018-08-25] MEDS: Sodium Chloride 0.9% 1,000 ML IV SCH (20:13)
--- NOTE | 2018-08-25 20:20 | ULT ---
RENAL SONOGRAM 08/25/18 HISTORY: Renal failure. FINDINGS: The kidneys demonstrate a normal sonographic appearance bilaterally without evidence of a renal mass, renal calculus or hydronephrosis. There is no renal cortical thinning present. The right kidney measures 8.9 cm x 4.4 cm with the left kidney measuring 10.2 cm x 4.2 cm. The urinar y bladder is partially seen and has a normal sonographic appearance. Renal sonogram is unchanged when compared to study on 07/21/18. IMPRESSION: Normal appearing bilateral kidneys without evidence of hydronephrosis. POS: CAROL
[2018-08-25] MEDS ORDERED: Sotalol HCl 80 MG TAB PO SCH (21:15)
[2018-08-25] MEDS ORDERED: hydrALAZINE 25 MG TAB PO SCH (21:30)
[2018-08-25] MEDS ORDERED: Simvastatin 5 MG TAB PO SCH (21:30)
[2018-08-26] MEDS: HYDROcodone/Acetaminophen 10/325 mg Tablet PO PRN ×4 (01:46→21:46)
[2018-08-26] MEDS: Levothyroxine Sodium 50 MCG TAB PO SCH (05:41)
[2018-08-26] MEDS: Sodium Chloride 0.9% 1,000 ML IV SCH ×2 (05:41→16:31)
[2018-08-26 07:33] LABS: Anion Gap 14 mmol/L (10-20); BUN (Urea Nitrogen) 70 mg/dL (9.8-20.1); Calc. Creatinine Clearance 24 mL/min (70-130); Calcium 10.3 mg/dL (7.8-10.44); Carbon Dioxide 20 mmol/L (22-29); Chloride 114 mmol/L (98-107); Estimated GFR-MDRD 15; Glucose 119 mg/dL (70-105); Potassium 5.2 mmol/L (3.5-5.1); Sodium 143 mmol/L (136-145)
--- NOTE | 2018-08-26 07:43 | PRG ---
DATE OF SERVICE: 08/26/2018 SUBJECTIVE: Ms. Roew is a 58-year-old white female seen by the Renal Service for hyperkalemia and ac elieser kidney injury. We felt that she was volume depleted at that time. IV volume repletion has been done. In addition, she was hyperkalemic and a repeat potassium showed a value of 6.2 from a peak va lue of 7.7. She is complaining of diarrhea at the present time. Please note she came in with a hist ory of diarrhea. We will check stools for fecal leukocytes. If needed check for C. diff colitis. N o chest pain or shortness of breath. PHYSICAL EXAMINATION: VITAL SIGNS: Blood pressure is 141/58, heart rate 58, respiratory rate 16, temperature 97.7, pulse o x 93%. GENERAL: Awake, alert, sitting, not in distress. SKIN: Adequate turgor. HEENT: She has pinkish conjunctivae, anicteric sclerae. NECK: No neck mass, no carotid bruits, no JVD. CHEST: No deformities. LUNGS: Clear breath sounds. HEART: Normal sinus rhythm. No murmur, no gallops, no rubs. ABDOMEN: Globular, soft, nontender, no masses. EXTREMITIES: No edema, no deformities. MEDICATIONS: 08/26/2018 - Reviewed. LABORATORY: 08/25/2018 - Sodium 139, potassium 6.2, chloride 108, carbon dioxide 20, BUN 86, creatin ine 4.63, glucose 112, calcium 11.5, GFR 10 mL per minute. 08/26/2018 - Base met pending. ASSESSMENT AND PLAN: 1. Acute kidney injury - hemodynamically mediated renal dysfunction secondary to diuretics and use o f NORTH inhibitors/ARB. Continue to hold those medications. Continue IV hydration, normal saline at 1 00 mL per hour. 2. Hyperkalemia, much improved. We will recheck base met again this morning. 3. Continue to hold any NORTH inhibitors. No indication for any dialytic intervention. 4. Diarrhea. Check stools for fecal leukocytes. p.r.nGali Humphreys. I agree with current management. We will recheck base met in a.m.
[2018-08-26] MEDS: Sotalol HCl 80 MG TAB PO SCH ×2 (09:11→21:46)
[2018-08-26] MEDS: Aspirin 81 mg Enteric Coated Tablet PO SCH (09:11)
[2018-08-26] MEDS: hydrALAZINE 25 MG TAB PO SCH ×3 (09:12→21:45)
[2018-08-26] MEDS: Diphenoxylate HCl/Atropine Tablet PO PRN ×3 (09:12→22:19)
--- NOTE | 2018-08-26 10:44 | HP ---
REASON FOR ADMISSION/CHIEF COMPLAINT: Weakness, nausea, diarrhea and abdominal pain. HISTORY OF PRESENT ILLNESS: Ms. Rowe is a 58-year-old female with past medical history of diabetes mellitus, recently diagnosed with CHF, hypertension, and has been having these symptoms for the last 4-5 days. She has some abdominal pain, some nausea and diarrhea, watery stool. No fever. She had not been eating well for the last 4-5 days, not taking enough fluids as well. She has like a cramping pain in the abdomen. She says she has nausea, but no vomiting, so she is feeling weak and dizzy as well as having diarrhea. The patient came to the hospital. She also had some chest pain, b ut it was sharp in nature, like more of a burning and the chest pain resolved on its own. In the ER, the patient was evaluated and found to have acute kidney injury with hyperkalemia. The patient rece ived calcium chloride IV as well as sodium bicarbonate and dextrose 50% and insulin. She was started on IV fluids. She was given IV fluid bolus of normal saline 400 mL and continued on IV fluids at 12 5 mL per hour. She also received a dose of Kayexalate and being admitted for further evaluation and management. PAST MEDICAL HISTORY: 1. Diabetes mellitus. 2. Hypertension. 3. Hyperlipidemia. 4. Chronic pain. 5. History of acute kidney injury. 6. Recently diagnosed congestive heart failure due to diastolic dysfunction. PAST SURGICAL HISTORY: 1. Status post cholecystectomy. 2. Appendectomy. 3. Status post abdominal hernia repair. 4. Status post tonsillectomy. 5. Tubal ligation. CURRENT MEDICATIONS: Patient is on aspirin 81 mg daily, [place] 10/325 q.i.d. p.r.n., Lasix 20 mg helen y, levothyroxine 50 mcg daily, lisinopril 10 mg b.i.d., melatonin 10 mg daily, lovastatin 20 mg at be dtime, KCl 10 mEq daily, Seroquel 100 mg at bedtime, Ambien 10 mg at bedtime, sotalol 40 mg b.i.d., t izanidine 4 mg at bedtime, metformin 1000 b.i.d., hydralazine 50 t.i.d. ALLERGIES: NAPROSYN and IBUPROFEN causes nausea. FAMILY HISTORY: Nothing of interest. SOCIAL HISTORY: She lives with family. No history of smoking currently. REVIEW OF SYSTEMS: CARDIOVASCULAR: No shortness of breath, had a burning pain. RESPIRATORY: No fever or cough. GASTROINTESTINAL: Has nausea and diarrhea. No vomiting. CENTRAL NERVOUS SYSTEM: Feels dizzy and weak. PHYSICAL EXAMINATION: GENERAL: The patient is alert, awake, oriented x3. VITAL SIGNS: Temperature 98, pulse 60, respiration 20, blood pressure 160/60. HEENT: Head is normocephalic, atraumatic. Pupils equal and reactive to light. Nasopharynx pale and dry. Hard and soft palate, no lesions. SKIN: Skin turgor decreased. NECK: Supple. No JVD. LUNGS: Breath sounds diminished bilaterally. Percussion not dull bilaterally. No rales, no rhonchi . CARDIAC: S1, S2 regular. ABDOMEN: Soft, diffusely tender. No guarding, normoactive bowel sounds. RECTAL: Deferred. DOOR TO DOOR FUNDRAISING COLLECTOR: No focal neurologic deficit. EXTREMITIES: No edema. LABORATORY AND X-RAY FINDINGS: CBC with WBC 9, hemoglobin 13, hematocrit 40, platelets 192. Metabol ic panel: Sodium 138, potassium 7.7, chloride 107, CO2 of 19, BUN 90, creatinine 4.96, glucose 130. CK-MB 0.9, troponin I less than 0.08. Urinalysis negative. CT scan of the abdomen, no acute process. Renal ultrasound; normal appearing kidneys without any hyd ronephrosis. EKG shows sinus bradycardia with heart rate of 52, no acute ST-T wave changes seen. ASSESSMENT: 1. Severe hyperkalemia. 2. Acute kidney injury. 3. Severe diarrhea. 4. Severe dehydration. 5. Hypertension, uncontrolled. 6. Diabetes mellitus. 7. Diastolic dysfunction. 8. Chronic pain. PLAN: 1. Vital signs q.4 hours. 2. Activity: As tolerated. 3. Allergies: Naprosyn. 4. IV fluids normal saline at 100 mL per hour. 5. Continue home medication. Will discontinue lisinopril and discontinue Lasix and KCl for now. 6. Intake and output. 7. Nephrology consult. 8. Repeat base met in the morning. 9. Kayexalate. 10. Stool studies.
[2018-08-26] MEDS ORDERED: Ondansetron PF 4 MG/2 ML Vial IVP PRN (11:52)
[2018-08-26] MEDS ORDERED: Nortriptyline HCl 25 MG CAP ONE (21:00)
[2018-08-26] MEDS: Simvastatin 5 MG TAB PO SCH (21:45)
[2018-08-26] MEDS: Melatonin 3 MG TAB PO PRN (22:04)
[2018-08-27] MEDS: Sodium Chloride 0.9% 1,000 ML IV SCH ×2 (02:34→12:53)
[2018-08-27] MEDS: Levothyroxine Sodium 50 MCG TAB PO SCH (06:01)
[2018-08-27 07:17] LABS: Anion Gap 12 mmol/L (10-20); BUN (Urea Nitrogen) 39 mg/dL (9.8-20.1); Calc. Creatinine Clearance 46 mL/min (70-130); Calcium 9.2 mg/dL (7.8-10.44); Carbon Dioxide 19 mmol/L (22-29); Chloride 115 mmol/L (98-107); Estimated GFR-MDRD 33; Glucose 85 mg/dL (70-105); Potassium 4.4 mmol/L (3.5-5.1); Sodium 142 mmol/L (136-145)
[2018-08-27] MEDS: hydrALAZINE 25 MG TAB PO SCH ×3 (08:52→21:56)
[2018-08-27] MEDS: Aspirin 81 mg Enteric Coated Tablet PO SCH (08:56)
[2018-08-27] MEDS: Sotalol HCl 80 MG TAB PO SCH ×2 (08:56→21:56)
--- NOTE | 2018-08-27 09:50 | PRG ---
DATE OF SERVICE: 08/27/2018 SUBJECTIVE: Ms. Rowe is a 58-year-old white female who was seen for acute kidney injury, hyperkalemi a. Hyperkalemia has now resolved with adjustment of the medication. In addition, renal function muc h better with IV volume repletion. She is still complaining of some abdominal discomfort. The patient denies any chest pain, shortness of breath. OBJECTIVE: VITAL SIGNS: Blood pressure is 162/58, heart rate 61, respiratory rate 17, temperature 97.6, pulse o x 98%. GENERAL: Awake, alert, comfortable, not in distress. SKIN: Adequate turgor. HEENT: Pinkish conjunctivae. Anicteric sclerae. NECK: No neck mass. No carotid bruits. No JVD. MEDICATIONS: 08/27/2018 - Reviewed. LABORATORY DATA: 08/27/2018 - Sodium 142, potassium 4.4, chloride 105, carbon dioxide 19, BUN 39, c reatinine 1.58, GFR 33 mL per minute, calcium 9.2, glucose 85. ASSESSMENT AND PLAN: 1. Chronic renal failure secondary to a hemodynamically mediated renal dysfunction. Much improved w ith IV hydration. Continue IV fluid until the patient's p.o. is much improved. 2. Acute gastroenteritis - clinically slowly improving. Continue supportive care. There is no indication of any dialytic intervention with this patient.
[2018-08-27] MEDS: HYDROcodone/Acetaminophen 10/325 mg Tablet PO PRN (12:52)
[2018-08-27 14:29] VITALS: BMI 35.5
[2018-08-27] MEDS: Simvastatin 5 MG TAB PO SCH (21:56)
[2018-08-27] MEDS: Melatonin 3 MG TAB PO PRN (21:56)
[2018-08-27] MEDS: tiZANidine HCl 4 MG TAB PO PRN (21:57)
[2018-08-28 05:43] LABS: #Basophils 0.1 thou/uL (0.0-0.2); #Eosinphils 0.3 thou/uL (0.0-0.7); #Lymphocytes 2.6 thou/uL (1.20-3.40); #Monocytes 0.5 thou/uL (0.11-0.59); #Neutrophils 3.4 thou/uL (1.40-6.50); %Basophils 1.2 % (0.0-1.0); %Eosinophils 4.2 % (0.0-10.0); %Lymphocytes 38.3 % (21.0-51.0); %Monocytes 6.5 % (0.0-10.0); %Neutrophils 49.8 % (42.0-75.0); Mean Corpuscular HGB CONC 32.5 g/dL (32.0-36.0); Mean Corpuscular Hemoglobin 29.2 pg (27.0-31.0); Mean Corpuscular Volume 89.9 fL (78.0-98.0); Mean Platelet Volume 10.3 fL (7.4-10.4); Platelet Count 172 thou/uL (130-400); Red Blood Cell (RBC) Count 3.78 mill/uL (4.20-5.40); White Blood Cell (WBC) Count 6.9 thou/uL (4.8-10.8)
[2018-08-28 06:04] LABS: Anion Gap 11 mmol/L (10-20); BUN (Urea Nitrogen) 25 mg/dL (9.8-20.1); Calc. Creatinine Clearance 58 mL/min (70-130); Calcium 9.2 mg/dL (7.8-10.44); Carbon Dioxide 21 mmol/L (22-29); Chloride 114 mmol/L (98-107); Estimated GFR-MDRD 43; Glucose 96 mg/dL (70-105); Sodium 142 mmol/L (136-145)
[2018-08-28] MEDS: Levothyroxine Sodium 50 MCG TAB PO SCH (06:04)
--- NOTE | 2018-08-28 08:18 | PRG ---
DATE OF SERVICE: 08/28/2018 RENAL MEDICINE SUBJECTIVE: Ms. Rowe is a 58-year-old white female who was seen for her acute kidney injury and hype rkalemia. Kidney injury and hyperkalemia has much improved with volume repletion and adjustment of h er meds. No new complaints today. Diarrhea is also improved. She had C. diff checked and it was po sitive for antigen and PCR testing. The patient denies any chest pain or shortness of breath. OBJECTIVE: VITAL SIGNS: Blood pressure is 196/78, heart rate 64, respiratory rate 17, temperature 97.8, pulse o x 97%. GENERAL: Awake, alert, comfortable, not in distress. SKIN: Adequate turgor. HEENT: She has pinkish conjunctivae, anicteric sclerae. NECK: No neck mass, no carotid bruits, no JVD. CHEST: No deformities. LUNGS: Clear breath sounds, no wheezing, no crackles. HEART: Normal sinus rhythm. No murmurs, no gallops, no rubs. ABDOMEN: Globular, soft, nontender. No masses. EXTREMITIES: No edema, no deformities. MEDICATIONS: Medications of 08/28/2018 was reviewed. LABORATORY DATA: Laboratories of 08/28/2018; white count 6.9, hemoglobin 11, sodium 142, potassium 4 , chloride 114, carbon dioxide 21, BUN 25, creatinine 1.26, glucose 96, calcium 9.2. ASSESSMENT AND PLAN: 1. Labile hypertension. Consider increasing her hydralazine to 100 mg p.o. t.i.d. 2. Acute kidney injury, hemodynamically mediated renal dysfunction much improved. 3. Hyperkalemia, improved with adjustment of her medications. 4. Recheck base met and CBC in a.m.
[2018-08-28] MEDS: Aspirin 81 mg Enteric Coated Tablet PO SCH (08:34)
[2018-08-28] MEDS: Sotalol HCl 80 MG TAB PO SCH ×2 (08:34→20:46)
[2018-08-28] MEDS: HYDROcodone/Acetaminophen 10/325 mg Tablet PO PRN (08:35)
[2018-08-28] MEDS ORDERED: hydrALAZINE 25 MG TAB PO SCH (09:00)
[2018-08-28] MEDS: hydrALAZINE 25 MG TAB PO SCH ×2 (15:49→20:46)
[2018-08-28] MEDS: Simvastatin 5 MG TAB PO SCH (20:46)
[2018-08-28] MEDS: Melatonin 3 MG TAB PO PRN (20:47)
[2018-08-28] MEDS: tiZANidine HCl 4 MG TAB PO PRN (20:47)
[2018-08-29 04:52] LABS: #Basophils 0.1 thou/uL (0.0-0.2); #Eosinphils 0.3 thou/uL (0.0-0.7); #Lymphocytes 2.2 thou/uL (1.20-3.40); #Monocytes 0.4 thou/uL (0.11-0.59); #Neutrophils 2.9 thou/uL (1.40-6.50); %Eosinophils 5.1 % (0.0-10.0); %Lymphocytes 37.9 % (21.0-51.0); %Monocytes 7.5 % (0.0-10.0); %Neutrophils 48.6 % (42.0-75.0); Hemoglobin 10.7 g/dL (12.0-16.0); Mean Corpuscular HGB CONC 32.1 g/dL (32.0-36.0); Mean Corpuscular Volume 90.2 fL (78.0-98.0); Mean Platelet Volume 10.8 fL (7.4-10.4); Platelet Count 154 thou/uL (130-400); Red Blood Cell (RBC) Count 3.68 mill/uL (4.20-5.40); White Blood Cell (WBC) Count 5.9 thou/uL (4.8-10.8)
[2018-08-29 05:07] LABS: Anion Gap 11 mmol/L (10-20); BUN (Urea Nitrogen) 17 mg/dL (9.8-20.1); Calc. Creatinine Clearance 69 mL/min (70-130); Calcium 9.1 mg/dL (7.8-10.44); Carbon Dioxide 23 mmol/L (22-29); Chloride 112 mmol/L (98-107); Estimated GFR-MDRD 50; Glucose 95 mg/dL (70-105); Potassium 3.7 mmol/L (3.5-5.1); Sodium 142 mmol/L (136-145)
[2018-08-29] MEDS: Levothyroxine Sodium 50 MCG TAB PO SCH (06:06)
[2018-08-29] MEDS: Sotalol HCl 80 MG TAB PO SCH ×2 (08:06→21:38)
[2018-08-29] MEDS: HYDROcodone/Acetaminophen 10/325 mg Tablet PO PRN ×3 (08:06→21:38)
[2018-08-29] MEDS: hydrALAZINE 25 MG TAB PO SCH ×3 (08:06→21:37)
[2018-08-29] MEDS: Aspirin 81 mg Enteric Coated Tablet PO SCH (08:07)
--- NOTE | 2018-08-29 11:08 | PRG ---
DATE OF SERVICE: 08/29/2018 SERVICE: Renal Medicine. SUBJECTIVE: Ms. Rowe is a 58-year-old white female, seen for her hyperkalemia and volume depletion w ith acute renal failure. Much improved with volume depletion. She was also found to have C. diffici le colitis. No new complaints. Diarrhea is improving. No complaints of chest pain or shortness of breath. OBJECTIVE: VITAL SIGNS: Blood pressure is 154/67, heart rate 56, respiratory rate 18, temperature 97.5, pulse o x 93%. GENERAL EXAM: Noted to be awake, alert, comfortable, not in distress SKIN: Adequate turgor. HEENT: Pinkish conjunctivae, anicteric sclerae. NECK: No neck mass, no carotid bruits, no JVD. CHEST: No deformities. LUNGS: Clear breath sounds, no wheezing, no crackles. HEART: Normal sinus rhythm. No murmur, no gallops, no rubs. ABDOMEN: Globular, soft, nontender, no masses. EXTREMITIES: No edema, no deformities. Medications of 08/28/2018 were reviewed. LABORATORY DATA: Laboratories of 08/29/2018, white count 5.9, hemoglobin 10.7. Sodium 142, potassiu m 3.7, chloride 112, carbon dioxide 23, BUN 17, creatinine 1.11, glucose 95, calcium 9.1. 08/26/2018 , C. difficile assay antigen positive and detected by PCR. ASSESSMENT AND PLAN: 1. Acute kidney injury/hyperkalemia, much improved with volume repletion. Medication has been adjus elizabeth. She is off lisinopril. Continue current management. 2. Clostridium difficile colitis. Flagyl 500 mg p.o. t.i.d. has been started with this patient.
[2018-08-29] MEDS: metroNIDAZOLE 500 MG TAB PO SCH ×2 (16:00→21:37)
[2018-08-29] MEDS: tiZANidine HCl 4 MG TAB PO PRN (21:38)
[2018-08-29] MEDS: Simvastatin 5 MG TAB PO SCH (21:38)
[2018-08-29] MEDS: Melatonin 3 MG TAB PO PRN (21:38)
[2018-08-30] MEDS: HYDROcodone/Acetaminophen 10/325 mg Tablet PO PRN ×3 (03:35→15:32)
[2018-08-30] MEDS: Levothyroxine Sodium 50 MCG TAB PO SCH (03:36)
[2018-08-30 06:23] LABS: Anion Gap 13 mmol/L (10-20); BUN (Urea Nitrogen) 19 mg/dL (9.8-20.1); Calc. Creatinine Clearance 60 mL/min (70-130); Calcium 8.8 mg/dL (7.8-10.44); Carbon Dioxide 21 mmol/L (22-29); Chloride 112 mmol/L (98-107); Estimated GFR-MDRD 43; Glucose 116 mg/dL (70-105); Potassium 3.7 mmol/L (3.5-5.1); Sodium 142 mmol/L (136-145)
[2018-08-30 07:05] LABS: #Eosinphils 0.3 thou/uL (0.0-0.7); #Lymphocytes 2.1 thou/uL (1.20-3.40); #Monocytes 0.5 thou/uL (0.11-0.59); #Neutrophils 3.5 thou/uL (1.40-6.50); %Basophils 0.5 % (0.0-1.0); %Eosinophils 4.5 % (0.0-10.0); %Lymphocytes 32.6 % (21.0-51.0); %Monocytes 7.6 % (0.0-10.0); %Neutrophils 54.9 % (42.0-75.0); Hemoglobin 10.4 g/dL (12.0-16.0); Mean Corpuscular HGB CONC 32.8 g/dL (32.0-36.0); Mean Corpuscular Volume 88.5 fL (78.0-98.0); Mean Platelet Volume 11.4 fL (7.4-10.4); Platelet Count 112 thou/uL (130-400); RBC Distribution Width 13.2 % (11.5-14.5); Red Blood Cell (RBC) Count 3.58 mill/uL (4.20-5.40); White Blood Cell (WBC) Count 6.5 thou/uL (4.8-10.8)
[2018-08-30] MEDS: Aspirin 81 mg Enteric Coated Tablet PO SCH (09:27)
[2018-08-30] MEDS: hydrALAZINE 25 MG TAB PO SCH ×2 (09:27→15:32)
[2018-08-30] MEDS: Sotalol HCl 80 MG TAB PO SCH (09:28)
[2018-08-30] MEDS: metroNIDAZOLE 500 MG TAB PO SCH ×2 (09:28→15:32)
[2018-08-30 16:07] VITALS: BP 152/70; TEMP 98.6
[2018-08-30] MEDS ORDERED: Sotalol HCl 80 MG TAB PO SCH (21:00)
--- NOTE | 2018-09-01 01:26 | DIS ---
DATE OF ADMISSION: 08/25/2018 DATE OF DISCHARGE: 08/30/2018 ADMITTING DIAGNOSES: 1. Severe hyperkalemia, acute kidney injury. 2. Severe diarrhea. 3. Severe dehydration. 4. Hypertension, uncontrolled. 5. Diabetes mellitus. 6. Diastolic dysfunction. 7. Chronic pain. FINAL DIAGNOSES: 1. Acute kidney injury, improved. 2. Severe dehydration, corrected. 3. Hyperkalemia, corrected. 4. Clostridium difficile colitis with diarrhea, improved. 5. Hypertension, uncontrolled, improved. 6. Diabetes mellitus. 7. Diastolic dysfunction. 8. Chronic pain. BRIEF SUMMARY OF HOSPITAL COURSE: Ms. Rowe is a 58-year-old female admitted because of diarrhea, weakness. The patient was found to have severe acute kidney injury with hyperkalemia and dehydration. The patient had diarrhea prior to admission. Her renal function showed a creatinine of 4.96. The patient was started on IV fluids and consultation with Nephrology, patient was seen by Dr. Allison. he felt renal function could be hemodynamically mediated and they asked to discontinue lisinopril and hold Lasix. Continue on fluids, her creatinine improved from 4.96-1.1 and her BUN came down from 91-19. The patient's diarrhea also resolved. Stool sent for C. diff and came out positive. She was started on Flagyl. Does not have any diarrhea anymore. She is tolerating diet very well. Her blood pressure was initially uncontrolled. Her medication hydralazine dose was increased after which her blood pressure has much improved. The patient is able to ambulate without any problem. In view of improvement, patient is being discharged home. At the time of discharge , she was stable. Her vital signs were stable. Lungs were clear. Heart sounds regular. Abdomen is soft. DISCHARGE MEDICATIONS: Include Seroquel 100 mg at bedtime, metformin is discontinued, Ambien 10 mg at bedtime p.r.n., lovastatin 20 mg daily, [place] 10/ 325 q.i.d. p.r.n., levothyroxine 50 mcg daily, aspirin 81 mg daily, tizanidine 4 mg at bedtime p.r.n., her lisinopril is discontinued and potassium chloride also has discontinued, hydralazine 75 mg t.i.d., melatonin 9 mg at bedtime p.r.n., sotalol 40 mg b.i.d., and Lasix 20 mg every other day and metronidazole 500 mg t.i.d. for 10 days. DISCHARGE INSTRUCTIONS: The patient will continue with ADA diet and come for followup in 2 weeks. [facility]
== END 2018-08-30 19:29 | disposition home or self-care (01) | DRG 683 ==
LOC: ERS 13:30 → ERHOLD 16:25 → 2NO 18:04
PROVIDERS: ADMIT Internal Medicine; ATTEND Internal Medicine
DX: N17.9 Acute kidney failure, unspecified (principal); I50.32 Chronic diastolic (congestive) heart failure; A04.72 Enterocolitis due to Clostridium difficile, not specified as recurrent; E86.0 Dehydration; E11.9 Type 2 diabetes mellitus without complications; I11.0 Hypertensive heart disease with heart failure; E87.5 Hyperkalemia; E78.5 Hyperlipidemia, unspecified; G89.29 Other chronic pain; Z79.82 Long term (current) use of aspirin; Z79.84 Long term (current) use of oral hypoglycemic drugs
CPT/HCPCS: 36415; 36416; 71045; 74176; 76770; 80048; 80053; 81003; 81015; 82553; 83630; 84484; 85025; 87045; 87046; 87324; 87449; 87493; 87899; 93005; 96365; 96366; 96375; J1815; J2405

== ENCOUNTER 2018-11-10 08:20 | Outpatient (CLI) | payer OTHER ==
--- NOTE | 2018-11-10 11:37 | CT ---
CT ANGIOGRAM NECK: 11/10/2018 HISTORY: Carotid stenosis. Abnormal carotid Doppler ultrasound. COMPARISON: 06/18/2018 TECHNIQUE: CT imaging obtained at 1.25 mm intervals, from the lung apices through the skull base, with IV contra st, using a CT angiogram protocol. Coronal and sagittal 3D reformatted imaging obtained. FINDINGS: The imaged lung apices demonstrate no acute findings. The imaged paranasal sinuses/mastoid air cells appear grossly unremarkable. The retroantral fat and the parapharyngeal fat appear clear bilaterally. The parotid and submandibular glands appear unremarkable. The region of the thyroid gland, the cricoid cartilage, the thyroid cartilage, the hyoid bone, the ep iglottis, the preepiglottic fat, and the tonsillar pillars appear grossly unremarkable. There is a mildly enlarged pretracheal node, measuring 1 cm in short-axis dimension. Coronary arteri al calcification is noted. Nonspecific, mildly enlarged, right paratracheal node noted on axial image 85, measuring approximatel y 1.1 cm, slightly more prominent than on the prior examination, at which time it measured approximat kevin 1 cm. Bilateral vertebral arteries are patent. A bovine arch is noted. There is no stenosis at the origin of either subclavian artery, the common c arotid artery, or at the level of the innominate artery origin. On the basis of NASCET criteria, the re is no hemodynamically significant stenosis involving the common carotid artery on either side. There is a medialized retropharyngeal course involving the internal carotid artery, proximally, bilat erally. On the basis of calcified and noncalcified plaque, there is a focal area of stenosis involving the pr oximal aspect of the right internal carotid artery, approximately 1 cm from its origin. On the basis of NASCET criteria, this stenosis measures in the 35%-50% range. On the basis of NASCET criteria, t here is no hemodynamically significant stenosis involving the internal carotid artery on either side. There is atherosclerotic calcification of the common carotid arteries bilaterally, left greater than right, incompletely assessed. There is probable significant stenosis involving the internal carotid artery on the left, at the junction of the petrous segment and the cavernous segment. Review of the osseous structures demonstrates cervical spine degenerative change, most significant at the atlantoaxial interspace, in the C5-C6/C6-C7 levels. No worrisome lytic or blastic bone lesion. IMPRESSION: 1. Nonspecific mild lymphadenopathy in the mediastinum. CT examination of the chest advised for ful l assessment. 2. Atherosclerotic disease, as detailed above. Focal area of stenosis involving the proximal right internal carotid artery, estimated in the 35%-40% range. POS: [facility]
[2018-11-10] MEDS ORDERED: Iopamidol 370 76% 100 ML VIAL ONE (13:13)
== END 2018-11-10 08:21 | disposition home or self-care (01) ==
LOC: CT 08:20
PROVIDERS: ATTEND Internal Medicine Cardiovascular Disease
DX: I65.23 Occlusion and stenosis of bilateral carotid arteries (principal); R59.0 Localized enlarged lymph nodes
CPT/HCPCS: 70498; 82565

== ENCOUNTER 2018-12-30 06:39 | Day surgery (SDC) | payer OTHER ==
[2018-12-29 15:06] VITALS: BMI 35.3
--- NOTE | 2018-12-30 11:05 | OP ---
DATE OF PROCEDURE: 12/30/2018 PREPROCEDURE DIAGNOSIS: Screening colonoscopy, previous colonoscopy over 10 years ago. POSTPROCEDURE DIAGNOSES: 1. Abdominal wall hernia with colon involved related to previous hernia repairs and mass surgery. No obstruction. 2. Otherwise, normal colonoscopy. RECOMMENDATIONS: Consider repeat colonoscopy for screening purposes in 10 years depending on the patient's overall health at that time. ANESTHESIA: TIVA. PROCEDURE IN DETAIL: The patient was informed of the risks, benefits, and possible complications of endoscopy including perforation, reaction to medication and aspiration, and informed consent was obtained. The patient was brought to the endoscopy suite, where she was sedated in gradual fashion. Once she was comfortable, a rectal exam was performed, which was normal. The endoscope was advanced through the anal canal through the colon. Gentle pressure was used over the hernia site to advance the scope in the abdominal cavity. Once we got to the sigmoid colon, the exam was much easier. The remainder of the colon was normal with no hernia loops. The scope was then slowly removed once the ileocecal valve and appendiceal orifice were visualized and photographed. The prep was very good. No polyps, masses, or lesions were seen. Retroflexed views in the rectum were normal. The scope was removed. The patient tolerated the procedure well. There were no complications. Job ID: [id number]
[2018-12-30] MEDS ORDERED: cloNIDine 0.1 MG TAB ONE (11:08)
[2018-12-30] MEDS ORDERED: ePHEDrine 50 MG/ML VIAL ONE (14:23)
[2018-12-30] MEDS ORDERED: PROPOFOL 200 MG/20 ML VIAL ONE (14:23)
== END 2018-12-30 11:40 | disposition home or self-care (01) ==
LOC: SDC 06:39
PROVIDERS: ATTEND Internal Medicine Gastroenterology
PROC: 0DJD8ZZ Inspection of Lower Intestinal Tract, Via Natural or Artificial Opening Endoscopic (ICD-10-PCS; principal; 2018-12-30)
DX: Z12.11 Encounter for screening for malignant neoplasm of colon (principal); T88.8XXA Other specified complications of surgical and medical care, not elsewhere classified, initial encounter; K43.9 Ventral hernia without obstruction or gangrene; E07.9 Disorder of thyroid, unspecified; E11.9 Type 2 diabetes mellitus without complications; I48.91 Unspecified atrial fibrillation; I11.0 Hypertensive heart disease with heart failure; I50.9 Heart failure, unspecified; Z87.891 Personal history of nicotine dependence; Z79.82 Long term (current) use of aspirin; Z79.84 Long term (current) use of oral hypoglycemic drugs; Z79.899 Other long term (current) drug therapy; Z88.6 Allergy status to analgesic agent; Z88.8 Allergy status to other drugs, medicaments and biological substances; Z98.890 Other specified postprocedural states
CPT/HCPCS: J2704; J3490

== ENCOUNTER 2019-01-05 13:56 | Outpatient (CLI) | payer OTHER ==
--- NOTE | 2019-01-06 08:59 | MMO ---
Bilateral Mammogram Screening Bilateral W CAD. CLINICAL HISTORY: Patient is 58 years old and is seen for screening. The patient has no family history of breast cancer. The patient has no personal history of cancer. . VIEWS: The views performed were: bilateral craniocaudal and bilateral mediolateral oblique. This study has been interpreted with the assistance of computer-aided detection. MAMMOGRAM FINDINGS: There are scattered fibroglandular densities. Benign calcifications are noted bilaterally. There are no suspicious masses, calcifications or areas of architectural distortion. IMPRESSION: FINDINGS IN BOTH BREASTS ARE BENIGN. A ROUTINE FOLLOW-UP MAMMOGRAM IN 1 YEAR IS RECOMMENDED. ACR BI-RADS Category 2 - Benign finding MAMMOGRAPHY NOTE: 1. A negative mammogram report should not delay a biopsy if a dominant of clinically suspicious mass is present. 2. Approximately 10% to 15% of breast cancers are not detected by mammography. 3. Adenosis and dense breasts may obscure an underlying neoplasm.
== END 2019-01-05 13:57 | disposition home or self-care (01) ==
LOC: BICMAMMO 13:56
PROVIDERS: ATTEND Internal Medicine
DX: Z12.31 Encounter for screening mammogram for malignant neoplasm of breast (principal)
CPT/HCPCS: 77067

== ENCOUNTER 2019-04-02 13:39 | Inpatient (IN) | payer OTHER, SELFPAY ==
[2019-04-02 14:06] LABS: #Basophils 0.1 thou/uL (0.0-0.2); #Eosinphils 0.3 thou/uL (0.0-0.7); #Monocytes 0.6 thou/uL (0.11-0.59); #Neutrophils 5.4 thou/uL (1.40-6.50); %Basophils 0.7 % (0.0-1.0); %Eosinophils 3.1 % (0.0-10.0); %Lymphocytes 24.4 % (21.0-51.0); %Monocytes 7.5 % (0.0-10.0); %Neutrophils 64.3 % (42.0-75.0); Hemoglobin 13.8 g/dL (12.0-16.0); Mean Corpuscular HGB CONC 33.2 g/dL (32.0-36.0); Mean Corpuscular Hemoglobin 29.1 pg (27.0-31.0); Mean Corpuscular Volume 87.7 fL (78.0-98.0); Mean Platelet Volume 8.7 fL (7.4-10.4); Platelet Count 205 thou/uL (130-400); RBC Distribution Width 13.4 % (11.5-14.5); Red Blood Cell (RBC) Count 4.73 mill/uL (4.20-5.40); White Blood Cell (WBC) Count 8.4 thou/uL (4.8-10.8)
--- NOTE | 2019-04-02 14:24 | RAD ---
Exam: Chest one view HISTORY:Chest pain Comparison: 08/25/2018 FINDINGS: Cardiac silhouette:Upper normal heart size. Atherosclerosis of the aorta. Pulmonary vessels: Normal Costophrenic angles: Clear LUNGS: No masses or consolidation. Pulmonary devon: There is fullness in both pulmonary devon which may be due to technique. Consider repe at PA chest radiograph. Pneumothorax: None Osseous abnormalities: None IMPRESSION: 1. Fullness in the left and right hilum which may be due to technique. Consider repeat PA and lateral chest radiograph.
[2019-04-02 14:25] LABS: ALT (SGPT) 9 U/L (8-55); AST (SGOT) 13 U/L (5-34); Albumin 4.9 g/dL (3.5-5.0); Alkaline Phosphatase 86 U/L (40-150); Anion Gap 17 mmol/L (10-20); BUN (Urea Nitrogen) 17 mg/dL (9.8-20.1); Bilirubin, Total 0.7 mg/dL (0.2-1.2); Calc. Creatinine Clearance 0 mL/min (70-130); Calcium 10.7 mg/dL (7.8-10.44); Carbon Dioxide 27 mmol/L (22-29); Chloride 100 mmol/L (98-107); Estimated GFR-MDRD 40; Globulin 3.5 g/dL (2.4-3.5); Glucose 79 mg/dL (70-105); Potassium 3.5 mmol/L (3.5-5.1); Protein, Total 8.4 g/dL (6.0-8.3); Sodium 140 mmol/L (136-145)
[2019-04-02 14:32] LABS: Bilirubin Negative (Negative); Blood, Urine Negative (Negative); Clarity CLOUDY (Clear); Glucose, Urine (Dipstick) Negative (Negative); Leukocyte Small (Negative); Nitrite Negative (Negative); Protein, Urine (Dipstick) Negative (Neg-Trace); Specific Gravity, Urine 1.012 (1.002-1.036); Urobilinogen 0.2 mg/dL (0.2-1.0)
[2019-04-02 14:33] LABS: Bacteria/HPF None Seen HPF (None Seen); Hyaline Casts/LPF 4-6 HYALINE CAST LPF (0-3 Hyaline); Pathc Cast-AUWi Flag 1.08 (0-2.49); Squamous Epithelial 0-3 HPF (0-3)
[2019-04-02] MEDS ORDERED: Morphine 4 MG/ML VIAL ONE (14:54)
[2019-04-02] MEDS ORDERED: Ondansetron PF 4 MG/2 ML Vial ONE (14:54)
[2019-04-02 14:57] LABS: CKMB 0.9 ng/mL (0-6.6)
[2019-04-02] MEDS ORDERED: diphenhydrAMINE 25 MG CAP ONE (16:25)
[2019-04-02] MEDS ORDERED: Clopidogrel Bisulfate 75 MG TAB ONE (16:50)
[2019-04-02] MEDS ORDERED: Nitroglycerin 2% Ointment 1 INCH/1 GM Packet ONE (16:50)
[2019-04-02 17:38] LABS: Troponin I 0.019 ng/mL (< 0.028)
[2019-04-02] MEDS ORDERED: Ondansetron ODT 4 MG TAB SL PRN (18:38)
[2019-04-02] MEDS ORDERED: Ondansetron PF 4 MG/2 ML Vial IVP PRN (18:38)
[2019-04-02] MEDS ORDERED: Sodium Chloride 0.9% 1,000 ML IV SCH (18:38)
[2019-04-02] MEDS ORDERED: hydrALAZINE 20 MG/ML VIAL SLOW IVP PRN (18:41)
[2019-04-02 20:21] LABS: Troponin I 0.029 ng/mL (< 0.028)
[2019-04-02] MEDS: Sotalol HCl 80 MG TAB PO SCH (21:54)
[2019-04-02] MEDS: hydrALAZINE 25 MG TAB PO SCH (21:55)
[2019-04-02] MEDS: Zolpidem Tartrate 5 MG TAB PO PRN (21:55)
[2019-04-02] MEDS: tiZANidine HCl 4 MG TAB PO SCH (21:55)
[2019-04-02] MEDS: Simvastatin 5 MG TAB PO SCH (21:55)
[2019-04-02] MEDS: HYDROcodone/Acetaminophen 10/325 mg Tablet PO PRN (21:58)
[2019-04-02 22:40] VITALS: BMI 37.0
[2019-04-03] MEDS: Levothyroxine Sodium 50 MCG TAB PO SCH (06:17)
[2019-04-03] MEDS: glipiZIDE 5 MG TAB PO SCH (07:30)
[2019-04-03] MEDS ORDERED: ADENOSINE 60 MG/20 ML VIAL ONE (10:30)
--- NOTE | 2019-04-03 11:57 | NM ---
MYOCARDIAL PERFUSION EVALUATION: CLINICAL HISTORY: Chest pain, history of hypertension and dyslipidemia. Diabetes mellitus. RADIOPHARMACEUTICAL: 27 mCi technetium 99m sestamibi IV at stress; 10.3 mCi technetium 99m sestamibi IV at rest. FINDINGS: There is mild diminished activity, relatively fixed, involving the anterior distal wall/apex which ma y relate to physiologic thinning, as there is wall motion in this region. Otherwise no significant reversibility to indicate ischemia. Gated imaging does reveal wall motion and contractility, with LVE F calculated at 79%. IMPRESSION: Probably normal myocardial perfusion evaluation. 1. Findings favoring physiologic apical thinning. 2. Normal left ventricular systolic function. Transcribed Date/Time: 04/03/2019 12:02 PM
[2019-04-03] MEDS: Sotalol HCl 80 MG TAB PO SCH ×2 (12:00→20:58)
[2019-04-03] MEDS: Aspirin 325 MG TAB PO SCH (12:00)
[2019-04-03] MEDS: hydrALAZINE 25 MG TAB PO SCH ×3 (12:01→20:59)
[2019-04-03] MEDS ORDERED: NIFEdipine XL 30 MG TAB PO SCH (15:30)
[2019-04-03] MEDS: HYDROcodone/Acetaminophen 10/325 mg Tablet PO PRN (20:56)
[2019-04-03] MEDS: Simvastatin 5 MG TAB PO SCH (20:58)
[2019-04-03] MEDS: Zolpidem Tartrate 5 MG TAB PO PRN (20:58)
[2019-04-03] MEDS: tiZANidine HCl 4 MG TAB PO SCH (20:58)
[2019-04-04] MEDS: Levothyroxine Sodium 50 MCG TAB PO SCH (06:00)
--- NOTE | 2019-04-04 08:24 | RAD ---
CHEST 1 VIEW: INDICATION: History of CHF. COMPARISON: Prior exam dated 04/02/2019. FINDINGS: There is stable cardiomegaly. There is mild pulmonary vascular congestion. No confluent airspace op acity, pleural effusion, or pneumothorax is evident. IMPRESSION: Cardiomegaly with mild pulmonary vascular congestion. POS: [facility]
[2019-04-04] MEDS: Aspirin 325 MG TAB PO SCH (08:33)
[2019-04-04] MEDS: hydrALAZINE 25 MG TAB PO SCH ×2 (08:33→15:57)
[2019-04-04] MEDS: glipiZIDE 5 MG TAB PO SCH (08:36)
[2019-04-04] MEDS: Sotalol HCl 80 MG TAB PO SCH (08:37)
[2019-04-04] MEDS ORDERED: NIFEdipine XL 30 MG TAB PO SCH (09:00)
--- NOTE | 2019-04-04 09:23 | HP ---
CHIEF COMPLAINT: Chest pain, back pain, shortness of breath, and abdominal pain. HISTORY OF PRESENT ILLNESS: Ms. Rowe is a 58-year-old female with past medical history of hypertension; diabetes; back pain, chronic; came because of not feeling well for the last few days. She has back pain, some nausea, vomiting, developed chest pain for 2 days, nonradiating, associated with some shortness of breath and nausea. This pain does not radiate. Because of the heaviness in the chest, she decided to come to the hospital. The patient was seen by Dr. Allison recently and her blood pressure was elevated. He ordered nifedipine, but she did not start the medication yet. In the ER, the patient was evaluated, found to have elevated blood pressure and chest pressure.The patient was given nitroglycerin, morphine, and Zofran. She was admitted for further evaluation and management. PAST MEDICAL HISTORY: 1. Diabetes mellitus. 2. Hypertension. 3. Hyperlipidemia. 4. Chronic back pain. 5. History of diastolic dysfunction with heart failure. PAST SURGICAL HISTORY: 1. Status post cholecystectomy. 2. Status post appendectomy. 3. Status post abdominal hernia repair. 4. Status post tonsillectomy. 5. Status post tubal ligation. CURRENT MEDICATIONS: The patient is on; 1. Aspirin 81 mg daily. 2. Lovastatin 20 mg daily. 3. Levothyroxine 50 mcg daily. 4. [place] p.r.n. 5. Sotalol 80 mg b.i.d. 6. Seroquel 100 mg at bedtime. 7. Ambien 10 mg at bedtime p.r.n. 8. Hydralazine 100 mg t.i.d. 9. Glipizide 5 mg daily. 10. Tizanidine 8 mg at bedtime. ALLERGIES: NAPROSYN AND IBUPROFEN. FAMILY HISTORY: . REVIEW OF SYSTEMS: Unremarkable except for chest pain and back pain. PHYSICAL EXAMINATION: GENERAL: The patient is alert, awake, and oriented x3. VITAL SIGNS: Temperature 98, pulse 80, respirations 20, and blood pressure initially 180/90. HEENT: Head is normocephalic and atraumatic. Pupils are equal and reactive. Nasopharynx is pale and dry. Hard and soft palate, no lesions. SKIN: Turgor decreased. NECK: Supple. No JVD. LUNGS: Breath sounds diminished bilaterally. Percussion dull bilaterally. No rales. No rhonchi. HEART: S1 and S2. Regular. ABDOMEN: Soft. No distention. No tenderness. Normal bowel sounds present. RECTAL: Deferred. CENTRAL NERVOUS SYSTEM: Nonfocal. LABORATORY AND DIAGNOSTIC DATA: CBC: WBC 8, hemoglobin 13, hematocrit 41, platelets 205. Metabolic panel: Sodium 140, potassium 3.5, chloride 100, Urinalysis negative. Chest x-ray reported as fullness in the left and right hilum. Suggested a repeat x-ray. EKG showed normal sinus rhythm with some T-wave inversions in leads II, III, aVF. ASSESSMENT: 1. Chest tightness and pressure, rule out myocardial infarction. 2. Hypertension, uncontrolled. 3. Diabetes mellitus. 4. Hyperlipidemia. 5. Hypothyroidism. 6. History of diastolic dysfunction. 7. Chronic back pain. PLAN: 1. Vital signs q.4 hours. 2. Activity as tolerated. 3. Allergies, ibuprofen and naproxen. 4. Hep-Lock. 5. Diet; ADA, cardiac. 6. Troponin-I q.6 hours x2. 7. We will obtain adenosine stress test. 8. We will continue her home medications. Job ID: [id number] [facility]
[2019-04-04 12:01] VITALS: BP 143/67; TEMP 98.7
--- NOTE | 2019-04-04 17:35 | EKG ---
Test Reason : Blood Pressure : / mmHG Vent. Rate : 062 BPM Atrial Rate : 062 BPM P-R Int : 154 ms QRS Dur : 124 ms QT Int : 466 ms P-R-T Axes : 079 037 265 degrees QTc Int : 472 ms Normal sinus rhythm Right bundle branch block T wave abnormality, consider inferolateral ischemia Abnormal ECG When compared with ECG of 02-APR-2019 14:15, (Unconfirmed) T wave inversion now evident in Lateral leads Confirmed by CHRISTIANNE CHAPMAN, DR. Mcclure ([id number]) on 04/04/2019 5:35:12 PM Referred By: MI Confirmed By:DR. Ren FAUST MD
== END 2019-04-04 17:51 | disposition home or self-care (01) | DRG 313 ==
LOC: ERS 13:39 → 2NO 18:37
PROVIDERS: ADMIT Internal Medicine; ATTEND Internal Medicine
DX: R07.9 Chest pain, unspecified (principal); I50.32 Chronic diastolic (congestive) heart failure; I11.0 Hypertensive heart disease with heart failure; E11.9 Type 2 diabetes mellitus without complications; E78.5 Hyperlipidemia, unspecified; E03.9 Hypothyroidism, unspecified; M54.9 Dorsalgia, unspecified; G89.29 Other chronic pain; I48.91 Unspecified atrial fibrillation
CPT/HCPCS: 36415; 36416; 71045; 78452; 80053; 81003; 81015; 82553; 83880; 84484; 85025; 85379; 93005; 93010; 93017; 96374; 96375; A9500; J0153; J2270; J2405; Q0163

== ENCOUNTER 2019-04-26 12:34 | Inpatient (IN) | payer SELFPAY ==
[2019-04-26 13:13] LABS: #Basophils 0.1 thou/uL (0.0-0.2); #Eosinphils 0.3 thou/uL (0.0-0.7); #Lymphocytes 1.6 thou/uL (1.20-3.40); #Monocytes 0.7 thou/uL (0.11-0.59); #Neutrophils 8.5 thou/uL (1.40-6.50); %Basophils 0.6 % (0.0-1.0); %Eosinophils 2.5 % (0.0-10.0); %Lymphocytes 14.2 % (21.0-51.0); %Monocytes 6.2 % (0.0-10.0); %Neutrophils 76.5 % (42.0-75.0); Hemoglobin 10.8 g/dL (12.0-16.0); Mean Corpuscular Hemoglobin 29.4 pg (27.0-31.0); Mean Corpuscular Volume 89.1 fL (78.0-98.0); Mean Platelet Volume 9.8 fL (7.4-10.4); Platelet Count 144 thou/uL (130-400); RBC Distribution Width 14.1 % (11.5-14.5); Red Blood Cell (RBC) Count 3.66 mill/uL (4.20-5.40); White Blood Cell (WBC) Count 11.1 thou/uL (4.8-10.8)
[2019-04-26 13:39] LABS: ALT (SGPT) 8 U/L (8-55); AST (SGOT) 11 U/L (5-34); Albumin 3.7 g/dL (3.5-5.0); Alkaline Phosphatase 78 U/L (40-150); Anion Gap 14 mmol/L (10-20); BUN (Urea Nitrogen) 69 mg/dL (9.8-20.1); Bilirubin, Total 0.6 mg/dL (0.2-1.2); Calc. Creatinine Clearance 0 mL/min (70-130); Calcium 9.3 mg/dL (7.8-10.44); Carbon Dioxide 23 mmol/L (22-29); Chloride 106 mmol/L (98-107); Estimated GFR-MDRD 21; Globulin 3.1 g/dL (2.4-3.5); Glucose 89 mg/dL (70-105); Lipase 17 U/L (8-78); Potassium 4.5 mmol/L (3.5-5.1); Protein, Total 6.8 g/dL (6.0-8.3); Sodium 138 mmol/L (136-145)
[2019-04-26 13:42] LABS: Bilirubin Small (Negative); Blood, Urine Negative (Negative); Clarity Clear (Clear); Glucose, Urine (Dipstick) Negative (Negative); Leukocyte Negative (Negative); Nitrite Negative (Negative); Protein, Urine (Dipstick) 100 mg/dL (Neg-Trace); Urobilinogen 0.2 mg/dL (0.2-1.0)
[2019-04-26 13:57] LABS: Bacteria/HPF None Seen HPF (None Seen); Hyaline Casts/LPF NONE SEEN LPF (0-3 Hyaline); RBC/HPF None Seen HPF (0-3); Squamous Epithelial 0-3 HPF (0-3); WBC/HPF None Seen HPF (0-3)
--- NOTE | 2019-04-26 14:42 | CT ---
CT ABDOMEN AND PELVIS WITHOUT CONTRAST: Date: 04/26/19 HISTORY: Abdominal pain. COMPARISON: 08/25/18. DISCLAIMER: Absence of oral and IV contrast reduces the sensitivity of exam, particularly for evalua tion of solid organs and bowel. FINDINGS: The lung bases are unremarkable. The patient is post cholecystectomy and abdominal wall repair. No ca lculi seen in the kidneys, ureters, or the urinary bladder. No hydroureteronephrosis seen on either s jemal. Uterus is present. There are vascular calcifications without evidence of aneurysmal dilatation o f the abdominal aorta. There are degenerative changes in the spine. The 8.0 x 4.0 cm subcutaneous fluid collection in the inferior aspect of the right anterior abdomen i s again seen. There is a descending colon containing left-sided lower anterior abdominal wall hernia. The sigmoid colon distal to the efferent loop of this hernia demonstrates pericolonic inflammatory c hanges. The small bowel loops are not abnormally dilated. IMPRESSION: 1. Sigmoid colitis. 2. Left lower anterior abdominal wall hernia with loop of colon. The possibility of early/developing strangulation cannot be excluded. Surgical consultation is recommended. POS: [facility]
[2019-04-26] MEDS ORDERED: Sodium Chloride 0.9% 100 ML ONE (15:32)
[2019-04-26] MEDS ORDERED: Piperacillin/Tazobactam 4.5 GM VIAL ONE (15:32)
[2019-04-26 16:42] LABS: PTT 39.1 SEC (22.9-36.1); Prothrombin Time 13.3 SEC (12.0-14.7)
[2019-04-26] MEDS ORDERED: Ondansetron ODT 4 MG TAB PO PRN (16:45)
[2019-04-26] MEDS ORDERED: hydrALAZINE 20 MG/ML VIAL SLOW IVP PRN (16:45)
[2019-04-26] MEDS ORDERED: Lorazepam 2 MG/ML VIAL SLOW IVP PRN (16:45)
[2019-04-26] MEDS ORDERED: Dextrose 50% Abboject 50 ML SYRINGE SLOW IVP PRN (16:45)
[2019-04-26] MEDS ORDERED: Morphine 4 MG/ML VIAL SLOW IVP PRN (16:45)
[2019-04-26] MEDS ORDERED: Dextrose 5% in Water 1,000 ML IV PRN (16:45)
[2019-04-26] MEDS ORDERED: Acetaminophen 1,000 MG in Premix Bag 1 BAG IVPB PRN (16:49)
--- NOTE | 2019-04-26 18:30 | HP ---
HISTORY OF PRESENT ILLNESS: This is a 58-year-old female, morbidly obese, has intentionally lost weight over the years. I saw her last year in December, performed a laparoscopic cholecystectomy for cholecystitis. At that time, she was noted to have a periumbilical hernia that we worked around. She underwent adhesiolysis, taking down adhesions from the Composix mesh previously placed. The patient has had multiple hernia repairs with recurrence. Dr. Watters saw her on December 30, 2018, for a colonoscopy and was able to negotiate the hernia, and viewed her entire colon. He saw her for iron-deficiency anemia and followup colonoscopy. He recommended colonoscopy in [address] Watters to accomplish the colonoscopy, gentle pressure was placed over the hernia to reduce it and viewing the entire colon, she had a good prep. The patient states she has had some lower abdominal pain, discomfort. She underwent a repeat CAT scan of the abdomen and pelvis today, revealing again the hernia defect, which has been present since 2016 without change, but she has sigmoid colitis. Plan is to admit her for intravenous antibiotics. We would not plan to address her recurrent incisional hernia at this time. ALLERGIES: AMLODIPINE, IBUPROFEN, NSAIDS. SOCIAL HISTORY: Tobacco, none. Alcohol, none. MEDICATIONS: At home; 1. Tizanidine 8 mg at bedtime. 2. Hydralazine 100 mg t.i.d. 3. Glipizide 5 mg daily. 4. Ambien 10 mg at bedtime. 5. Sotalol (Betapace) 40 mg b.i.d., recently decreased by Dr. Cisneros due to bradycardia. 6. Seroquel 100 mg at bedtime. 7. Nifedipine 30 mg daily. 8. Lovastatin 20 mg in a.m. 9. Levothyroxine 50 mcg daily. 10. Hydrocodone p.r.n. pain. PAST MEDICAL HISTORY: Chronic kidney disease, followed by Dr. Allison; chronic incisional hernia that is partially reducible; morbid obesity; metabolic syndrome; diabetes mellitus, noninsulin dependent; hypertension; hypothyroidism, treated medically. Echocardiogram, normal ejection fraction. Previous cardioversions for atrial fibrillation. Cardiac stress test in 01/2017, normal, followed by Dr. Vazquez. History of former drug use. Smoking cessation in the . Alcohol, none. PAST SURGICAL HISTORY: Appendectomy at age 5, right lower quadrant incision. Bilateral tubal ligation at 26 years of age, suffered an incisional hernia from her tubal ligation in 1994, she underwent mesh repair, this recurred in 1995, open repair in 1997 by. Kristie who repaired this recurrent hernia with mesh. She had had 3 hernia repairs prior to that. She underwent mesh repair in an open fashion in [address] Flowers. She had a tubal ligation in 1983. I saw her in 2004, she weighed 231 pounds at that time, 4 foot and 11 inches. She underwent laparoscopic mesh repair using a 6 x 8 inch Composix mesh with tackers. Findings of incarcerated small bowel to a large incisional hernia noted. She underwent extensive adhesiolysis. The patient had a laparoscopic cholecystectomy last year that I had negotiated around this hernia. Cardiac stress test on 04/03/2019, normal LV function at 79%. No ischemia noted. Echocardiogram on 08/08/2018, 55% to 60% ejection fraction, moderately dilated left atrium, normal LV function, moderate to severe bicuspid regurgitation, severely elevated pulmonary artery pressures. There has been no evidence of ischemia. PHYSICAL EXAMINATION: HEAD, EARS, EYES, NOSE, AND THROAT: Unremarkable. GENERAL: She is in no distress. LUNGS: Clear to auscultation. CARDIAC: Regular rate and rhythm without murmur or gallop. ABDOMEN: Soft, obese. She has a reducible incisional hernia. She has a dependent pannus. She has some inflammatory changes in her lower pannus, especially in the right lower quadrant. She states it has been stable for 10 years. She has mild tenderness in her left lower abdomen but no rebound. EXTREMITIES: Unremarkable. LABORATORY DATA: White count 11, hemoglobin 10.8. Sodium 138, BUN 69, creatinine 2.32, GFR 21. ASSESSMENT AND PLAN: CAT scan suggests colitis. It does not suggest any complication from her incisional hernia. I do not think we need to address this incisional hernia surgically. We would plan to admit her, hydrate her, give her intravenous antibiotics, keep her on liquids and observe her. I will ask Dr. Allison to see her since he follows her for her chronic kidney disease. She had a colonoscopy earlier this year by Dr. Watters. She does report a mild amount of rectal bleeding, but her hemoglobin is stable. This is probably due to hemorrhoids or some other etiology. Job ID: [id number]
[2019-04-26 21:33] VITALS: BMI 37.8
[2019-04-26] MEDS: Sodium Chloride 0.9% 1,000 ML IV SCH ×2 (21:41→21:43)
[2019-04-26] MEDS: tiZANidine HCl 4 MG TAB PO SCH (21:41)
[2019-04-26] MEDS: Sotalol HCl 80 MG TAB PO SCH (21:41)
[2019-04-26] MEDS: Enoxaparin Sodium 30 MG/0.3 ML SYRINGE SC SCH (21:42)
[2019-04-26] MEDS: Piperacillin/Tazobactam 3.375 GM in Sodium Chloride 0.9% 100 ML IVPB SCH (21:43)
[2019-04-26] MEDS: Zolpidem Tartrate 5 MG TAB PO PRN (22:04)
[2019-04-26] MEDS: Morphine 2 MG/ML SYRINGE SLOW IVP PRN (22:05)
[2019-04-27] MEDS: Sodium Chloride 0.9% 1,000 ML IV SCH ×3 (05:33→19:51)
[2019-04-27] MEDS: Piperacillin/Tazobactam 3.375 GM in Sodium Chloride 0.9% 100 ML IVPB SCH ×4 (05:33→20:51)
[2019-04-27] MEDS: Levothyroxine Sodium 50 MCG TAB PO SCH (05:34)
[2019-04-27] MEDS: Morphine 2 MG/ML SYRINGE SLOW IVP PRN (05:40)
[2019-04-27 06:03] LABS: Anion Gap 13 mmol/L (10-20); BUN (Urea Nitrogen) 62 mg/dL (9.8-20.1); Calc. Creatinine Clearance 37 mL/min (70-130); Calcium 8.6 mg/dL (7.8-10.44); Carbon Dioxide 21 mmol/L (22-29); Chloride 109 mmol/L (98-107); Estimated GFR-MDRD 24; Glucose 70 mg/dL (70-105); Potassium 4.4 mmol/L (3.5-5.1); Sodium 139 mmol/L (136-145)
[2019-04-27 06:29] LABS: #Eosinphils 0.2 thou/uL (0.0-0.7); #Lymphocytes 1.6 thou/uL (1.20-3.40); #Monocytes 0.6 thou/uL (0.11-0.59); %Basophils 0.3 % (0.0-1.0); %Eosinophils 3.5 % (0.0-10.0); %Lymphocytes 24.8 % (21.0-51.0); %Monocytes 9.2 % (0.0-10.0); %Neutrophils 62.2 % (42.0-75.0); Hemoglobin 9.6 g/dL (12.0-16.0); Mean Corpuscular HGB CONC 33.2 g/dL (32.0-36.0); Mean Corpuscular Hemoglobin 29.6 pg (27.0-31.0); Mean Corpuscular Volume 89.2 fL (78.0-98.0); Mean Platelet Volume 10.3 fL (7.4-10.4); Platelet Count 109 thou/uL (130-400); Platelet Morphology Comment Appears Decreased; RBC Distribution Width 13.7 % (11.5-14.5); Red Blood Cell (RBC) Count 3.24 mill/uL (4.20-5.40); White Blood Cell (WBC) Count 6.3 thou/uL (4.8-10.8)
[2019-04-27] MEDS: NIFEdipine XL 30 MG TAB PO SCH (09:30)
[2019-04-27] MEDS: Sotalol HCl 80 MG TAB PO SCH ×2 (09:31→19:52)
[2019-04-27] MEDS: Pantoprazole 40 MG VIAL IVP SCH (09:31)
--- NOTE | 2019-04-27 10:01 | CON ---
DATE OF CONSULTATION: SERVICE: Renal Medicine. HISTORY OF PRESENT ILLNESS: Ms. Rowe is a 58-year-old white female, who was admitted for abdominal pain. She was found to have sigmoid diverticulitis. Surgery has evaluated the patient. There is no indication for any operative procedure. She is being treated with IV antibiotics. We are being consulted for acute kidney injury on top of her chronic renal failure. We feel that this patient may have hemodynamically-mediated renal dysfunction. Empiric volume repletion is being given. This is a slight improvement with the creatinine this morning. No new complaints today. Please notice if her abdominal pain is decreased. REVIEW OF SYSTEMS: No chest pain. No shortness of breath. Positive for abdominal pain. No nausea. No vomiting. Decreased appetite. Decreased energy level. No diarrhea. No fever or chills. No headache. Occasional joint pains. No new skin rash. No diplopia. No sore throat. No gross hematuria. No dysuria. No urinary frequency. MEDICATIONS: Currently, the patient is on; 1. Lovenox 30 mg subcu daily. 2. DuoNeb q.4 p.r.n. 3. Lorazepam 2 mg IV p.r.n. 4. Normal saline 150 mL/hours. 5. Zosyn currently at 3.375 g IV q.8. 6. Sotalol 40 mg p.o. b.i.d. 7. Zanaflex 8 mg at bedtime. 8. Ambien 10 mg at bedtime p.r.n. PAST MEDICAL HISTORY: Status post acute kidney injury, labile hypertension, status post CHF, chronic AFib, hypothyroidism, status post TIA, hyperlipidemia, and type 2 diabetes mellitus. PAST SURGICAL HISTORY: Status post bilateral tubal ligation, status post upper GI endoscopy, status post colonoscopy, status post laparoscopic cholecystectomy, status post abdominal hernia repair x5, status post tonsillectomy, status post cardiac ablation, and status post bilateral tubal ligation. SOCIAL HISTORY: The patient is . Lives in [place]. Two children. Smoked for 30 years, 1 pack a day. Alcohol, none. 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 Education, high school. No IV drug abuse. Active lifestyle. ALLERGIES: NSAIDS. TRAUMA: None. IMMUNIZATIONS: Up-to-date. HOSPITALIZATIONS: Please see past medical history. FAMILY HISTORY: No family history of ESRD. PHYSICAL EXAMINATION: VITAL SIGNS: Blood pressure is 152/73, heart rate 73, respiratory rate 20, temperature 98, and pulse ox 93%. GENERAL: Awake, alert, comfortable, not in distress. SKIN: Adequate turgor. HEENT: The patient has slightly pale conjunctivae. Anicteric sclerae. NECK: No neck mass. No carotid bruits. No JVD. CHEST: No deformities. LUNGS: Clear breath sounds. No wheezing. No crackles. HEART: Normal sinus rhythm. No murmurs. No gallops. No rubs. ABDOMEN: Globular, soft, and nontender. No masses. EXTREMITIES: No edema. No deformities. LABORATORY DATA: Laboratories of April 27, 2019; white count 6.2, hemoglobin 9.6. Sodium 139, potassium 4.4, chloride 109, carbon dioxide 21, BUN 62, creatinine 2.09, glucose 70, GFR 24 mL/minute, and calcium 8.6. On April 26, 2019; BUN 69, creatinine 2.32. On April 02, 2019; BUN 17, creatinine 1.35. IMAGING DATA: CT scan of the abdomen and pelvis - April 26, 2019, shows sigmoid colitis, lower anterior abdominal wall hernia with loop of colon. ASSESSMENT AND PLAN: 1. Acute diverticulitis - on empiric IV antibiotics. Continue supportive care. 2. Acute kidney injury on top of her chronic renal failure. I do anticipate improvement of the renal function with the current IV hydration. There is already a slight improvement in the creatinine. Continue normal saline. There is no indication for any dialytic intervention with this patient. We will check another CBC and basic metabolic panel in a.m. Job ID: [id number]
--- NOTE | 2019-04-27 11:45 | PRG ---
DATE OF SERVICE: SUBJECTIVE: Ms. Rowe is doing well today. She is feeling somewhat better. She is having minimal pain. She has not had any nausea or vomiting. The pain in her lower abdomen has improved. OBJECTIVE: VITAL SIGNS: Temperature 98 degrees, pulse 73, and blood pressure 152/73. LUNGS: Clear to auscultation. CARDIAC: Regular rate and rhythm without murmur or gallop. ABDOMEN: Soft. An incisional hernia is noted. Minimal tenderness. Good bowel sounds. LABORATORY DATA: This morning, her white count is 6 and hemoglobin 9.6. Her BUN is 62 and creatinine 2.09, slightly improved from yesterday. Dr. Allison has seen her for acute kidney injury. He agrees with current management including volume repletion and noted as stated above improvement in her renal function. ASSESSMENT/PLAN: 1. Diverticulitis. Continue intravenous antibiotics 2.25 g Zosyn IV q.6 hours. Adjust it for renal status. 2. Chronic kidney disease with acute kidney injury. Continue hydration. 3. Obesity. 4. Chronic iron-deficiency anemia. She has had numerous endoscopic evaluations for this without any remarkable findings, in fact had a colonoscopy earlier this year, that was normal. They were able to traverse the colon in the incisional hernia with gentle pressure over the area to visualize the cecum. There is no indication at this point for GI consultation. Continue iron therapy and treatment for RICK. 5. Incisional hernia. This is chronic. She has had multiple operations and multiple recurrences, and at this point, I would not intervene unless this was an emergency. She has tried to lose weight, has accomplished this somewhat, but significant weight loss will improve her results if hernia repair is every undertaken again. This could be done with the robot in the future if indicated. Job ID: [id number]
[2019-04-27] MEDS: tiZANidine HCl 4 MG TAB PO SCH (19:52)
[2019-04-27] MEDS: Enoxaparin Sodium 30 MG/0.3 ML SYRINGE SC SCH (19:52)
[2019-04-27] MEDS: Zolpidem Tartrate 5 MG TAB PO PRN (20:54)
[2019-04-28] MEDS: Sodium Chloride 0.9% 1,000 ML IV SCH ×4 (04:39→20:21)
[2019-04-28] MEDS: Levothyroxine Sodium 50 MCG TAB PO SCH (04:39)
[2019-04-28] MEDS: Piperacillin/Tazobactam 3.375 GM in Sodium Chloride 0.9% 100 ML IVPB SCH ×4 (04:39→20:22)
[2019-04-28 06:04] LABS: Anion Gap 12 mmol/L (10-20); BUN (Urea Nitrogen) 43 mg/dL (9.8-20.1); Calc. Creatinine Clearance 46 mL/min (70-130); Calcium 8.4 mg/dL (7.8-10.44); Carbon Dioxide 20 mmol/L (22-29); Chloride 114 mmol/L (98-107); Estimated GFR-MDRD 31; Glucose 83 mg/dL (70-105); Potassium 4.2 mmol/L (3.5-5.1); Sodium 142 mmol/L (136-145)
--- NOTE | 2019-04-28 09:21 | PRG ---
DATE OF SERVICE: 04/28/2019 SUBJECTIVE: Ms. Rowe is a 58-year-old white female, who was admitted for abdominal pain. She was found to have acute diverticulitis. IV antibiotics has been started. We were consulted for her acute kidney injury on top of her chronic renal failure. The patient denies any new complaints today. She denies any chest pain or shortness of breath. OBJECTIVE: VITAL SIGNS: Blood pressure 142/77, heart rate 70, respiratory rate 16, temperature 98.2, and pulse ox 95%. GENERAL: Noted to be awake, alert, supine, comfortable, not in overt distress. Obese. SKIN: Adequate turgor. HEENT: Pinkish conjunctivae. Anicteric sclerae. NECK: No neck mass. No carotid bruits. No JVD. CHEST: No deformities. LUNGS: Clear breath sounds. HEART: Normal sinus rhythm. No murmur. No gallops. No rubs. ABDOMEN: Globular, soft, and nontender. No masses. EXTREMITIES: No edema. No deformities. MEDICATIONS: Medications of April 28, 2019, was reviewed. LABORATORY DATA: Laboratories of April 28, 2019, shows sodium 142, potassium 4.2, chloride 104, carbon dioxide 20, BUN 43, creatinine 1.69, GFR 31 mL/minute, and calcium 8.4. ASSESSMENT AND PLAN: 1. Acute diverticulitis - currently on IV antibiotics. Antibiotics were adjusted for renal dosing by Dr. Mitchell. 2. Acute kidney injury on top of her chronic renal failure - superimposed prerenal azotemia. Agree with current management. Continue normal saline at 150 mL per hour. We will recheck another basic metabolic in a.m. Overall agree with current management. Job ID: [id number]
[2019-04-28] MEDS: NIFEdipine XL 30 MG TAB PO SCH (09:36)
[2019-04-28] MEDS: Sotalol HCl 80 MG TAB PO SCH ×2 (09:36→20:22)
[2019-04-28] MEDS: Pantoprazole 40 MG VIAL IVP SCH (09:37)
[2019-04-28] MEDS: Ondansetron PF 4 MG/2 ML Vial IVP PRN (11:37)
[2019-04-28] MEDS: HumaLOG 300 UNITS/3 ML VIAL SC PRN (12:54)
--- NOTE | 2019-04-28 13:49 | PRG ---
DATE OF SERVICE: 04/28/2019 SUBJECTIVE: Ramila Rowe is having some nausea. She takes liquids. She has passed flatus and had a small bowel movement. OBJECTIVE: VITAL SIGNS: Temperature 97.8 degrees, pulse 68, blood pressure 158/78. LUNGS: Clear to auscultation. CARDIAC: Regular rate and rhythm. No murmur or gallop. ABDOMEN: Soft, obese, incarcerated hernia that is partially reducible. Mild tenderness in left abdomen without peritoneal signs. ASSESSMENT AND PLAN: Chronic incisional hernia that is partially reducible. Dr. Watters, Gastroenterology was able to reduce this with manual pressure this year to complete a complete colonoscopy. She has had more than 6 operations for this incisional hernia with her BMI of 37, 4 feet 10 inches, 180-pound status. She is at risk for recurrent hernia for further operations. We are trying to avoid repeat operation. We will review her CAT scan with the radiologist with her occasional nausea. We will review her CAT scan with the radiologist. Repeat abdominal x-rays three view abdomen today. Continue Zosyn for suspected diverticulitis. Job ID: [id number]
--- NOTE | 2019-04-28 14:12 | RAD ---
Exam: Single view of the chest and 2 views of the abdomen HISTORY: Abdominal pain COMPARISON: CT abdomen/pelvis 04/26/2019 and 08/25/2018 FINDINGS: 2 views of the abdomen and a single view the chest shows a nonspecific, nonobstructive cesilia l gas pattern. Air is seen to the level of the rectum. No free air or air-fluid levels are seen and upright examination. Multiple surgical clips overlie the abdomen. The cardiomediastinal silhouette is enlarged in size. Atherosclerotic calcifications are seen in the aorta. There is no evidence of consolidation, mass, or pleural effusion. IMPRESSION: Nonobstructive bowel gas pattern
[2019-04-28] MEDS: Morphine 2 MG/ML SYRINGE SLOW IVP PRN (15:38)
[2019-04-28] MEDS: Enoxaparin Sodium 30 MG/0.3 ML SYRINGE SC SCH (20:22)
[2019-04-28] MEDS: tiZANidine HCl 4 MG TAB PO SCH (20:23)
[2019-04-28] MEDS: Zolpidem Tartrate 5 MG TAB PO PRN (22:06)
[2019-04-29] MEDS: Levothyroxine Sodium 50 MCG TAB PO SCH (04:58)
[2019-04-29] MEDS: Piperacillin/Tazobactam 3.375 GM in Sodium Chloride 0.9% 100 ML IVPB SCH ×2 (04:58→10:00)
[2019-04-29] MEDS: Sodium Chloride 0.9% 1,000 ML IV SCH ×3 (04:59→19:16)
[2019-04-29 05:35] LABS: #Eosinphils 0.3 thou/uL (0.0-0.7); #Lymphocytes 1.5 thou/uL (1.20-3.40); #Monocytes 0.5 thou/uL (0.11-0.59); #Neutrophils 3.1 thou/uL (1.40-6.50); %Basophils 0.3 % (0.0-1.0); %Eosinophils 4.7 % (0.0-10.0); %Lymphocytes 27.4 % (21.0-51.0); %Monocytes 9.7 % (0.0-10.0); Mean Corpuscular HGB CONC 32.5 g/dL (32.0-36.0); Mean Corpuscular Hemoglobin 29.4 pg (27.0-31.0); Mean Corpuscular Volume 90.5 fL (78.0-98.0); Mean Platelet Volume 10.1 fL (7.4-10.4); Platelet Count 98 thou/uL (130-400); Red Blood Cell (RBC) Count 3.06 mill/uL (4.20-5.40); White Blood Cell (WBC) Count 5.4 thou/uL (4.8-10.8)
[2019-04-29 05:48] LABS: Anion Gap 12 mmol/L (10-20); BUN (Urea Nitrogen) 28 mg/dL (9.8-20.1); Calc. Creatinine Clearance 54 mL/min (70-130); Calcium 8.6 mg/dL (7.8-10.44); Carbon Dioxide 20 mmol/L (22-29); Chloride 116 mmol/L (98-107); Estimated GFR-MDRD 37; Glucose 72 mg/dL (70-105); Sodium 144 mmol/L (136-145)
--- NOTE | 2019-04-29 08:10 | CON ---
DATE OF CONSULTATION: 04/27/2019 ADMITTING PHYSICIAN: Randy Mitchell MD. CONSULTING PHYSICIAN: Salvatore Cisneros MD. REASON FOR CONSULTATION: To manage medical problem. HISTORY OF PRESENT ILLNESS: Ms. Ramila Rowe is a 58-year-old female with past medical history of diabetes, hypertension, and chronic kidney disease, who came because of abdominal pain and initially thought it was coming from the hernia, but the CT scan showed sigmoid colitis. The patient has diabetes and hypertension. The patient states that she has been taking her medications regularly No chest pain or shortness of breath. No nausea or vomiting. No headache. The patient's diet is only clear liquids. PAST MEDICAL HISTORY: 1. Hypertension. 2. Diabetes mellitus. 3. Morbid obesity. 4. Chronic abdominal pain. 5. Incisional hernia . 6. Chronic anemia. 7. Chronic kidney disease stage 3. 8. History of diastolic dysfunction with heart failure. PAST SURGICAL HISTORY: Status post appendectomy, status post cholecystectomy, status post abdominal hernia repair, status post tonsillectomy, status post tubal ligation. CURRENT MEDICATIONS: Duonebs q.i.d., lorazepam 2 mg IVP q6.h. p.r.n., Procardia XL 30 mg daily, levothyroxine 50 mcg daily, hydralazine 100 mg t.i.d., Seroquel 100 mg at bedtime, Ambien 10 mg at bedtime, lovastatin 20 mg daily, [place] p.r.n., . ALLERGIES: IBUPROFEN AND NSAIDS. FAMILY HISTORY: Nothing contributory. SOCIAL HISTORY: She does not smoke. No drugs, no alcohol. REVIEW OF SYSTEMS: unremarkable except abdominal pain SKIN: Turgor decreased. NECK: Supple. No JVD. LUNGS: Bilateral air entry present. No rales. No rhonchi. HEART: S1 and S2, regular. ABDOMEN: Soft. It is diffusely tender mainly in the lower abdomen. No guarding noted. Three bowel sounds present. RECTAL: Deferred. CENTRAL NERVOUS SYSTEM: No focal deficit. LABORATORY DATA: CBC shows WBC 6.3 improved, hemoglobin 9.6, hematocrit 28.9. Metabolic panel; sodium 139, potassium 4.4, chloride 109, carbon dioxide 21, BUN 62, creatinine 2.09, glucose 70. ASSESSMENT: 1. Sigmoid colitis. 2. Abdominal pressure secondary to #1. 3. Hypertension. 4. Diabetes mellitus. 5. Chronic kidney disease stage 3. 6. Chronic back pain. 7. Anemia. PLAN: 1. Continue her current medications. She may need oral hydralazine. 2. Accu-Cheks before meals at bedtime. 3. Sliding scale mild with regular insulin. Thank you very much for the consult, we will follow. Job ID: [id number] [place]
[2019-04-29] MEDS: Sotalol HCl 80 MG TAB PO SCH ×2 (09:58→20:23)
[2019-04-29] MEDS: NIFEdipine XL 30 MG TAB PO SCH (09:59)
[2019-04-29] MEDS: Ondansetron PF 4 MG/2 ML Vial IVP PRN (10:00)
[2019-04-29] MEDS: Morphine 2 MG/ML SYRINGE SLOW IVP PRN (10:00)
[2019-04-29] MEDS: Pantoprazole 40 MG VIAL IVP SCH (10:00)
[2019-04-29] MEDS ORDERED: GoLYTELY 4,000 ml Bottle PO SCH (11:54)
--- NOTE | 2019-04-29 13:22 | CON ---
DATE OF CONSULTATION: 04/29/2019 CHIEF COMPLAINT: Abdominal pain. HISTORY OF PRESENT ILLNESS: Ms. Rowe is a 58-year-old woman, who was doing fine until a week ago. She had normal bowel movements last , a week ago. On Thursday, she developed some aching, left-sided abdominal pain, and nausea. She did not feel well and stayed in bed the next day, but then she started having intermittent red bloody liquidy stools over small volume. Thursday, she had worsening severity of the left lower quadrant to left upper quadrant abdominal pain. The small volume bloody diarrhea went on several times per day on Thursday and Thursday and ultimately she came on to the emergency room for further care. She had a CT scan performed in the emergency room that showed thickening of the sigmoid colon with inflammatory change suggestive of colitis. She has chronic left lower anterior abdominal wall hernia containing descending colon. The efferent loop of the hernia reportedly showed the inflammatory change. She has had no vomiting, but has had some nausea. She was feeling better two days ago and she started trying increase her diet yesterday, but then the pain again markedly worsened and today, she continues to have the abdominal pain and she required pain medicine for that. She has had multiple surgeries for this abdominal wall hernia with recurrence. She had a colonoscopy by Dr. Watters a couple of months ago, which was normal. Her weight has been stable. She has had no fever. On initial presentation to the emergency room, her white count was elevated at 11.1 and this returned back to a 5.4. She is anemic with a hemoglobin of 9.0. PAST MEDICAL HISTORY: Hypertension, diabetes mellitus, morbid obesity, chronic kidney disease, and diastolic heart dysfunction. PAST SURGICAL HISTORY: Appendectomy, cholecystectomy, multiple ventral abdominal wall hernia repairs, tubal ligation, tonsillectomy. FAMILY HISTORY: Negative for GI malignancies. SOCIAL HISTORY: No alcohol, tobacco, or drugs. ALLERGIES: IBUPROFEN. NSAIDS. MEDICATIONS: Enoxaparin 30 mg daily at 9:00 p.m., levothyroxine, nifedipine, pantoprazole, Zosyn, quetiapine, sotalol, tizanidine. REVIEW OF SYSTEMS: Negative x10 systems reviewed except as stated in the history of present illness. PHYSICAL EXAMINATION: VITAL SIGNS: Temperature 98.4, pulse 91, and blood pressure 157/80. GENERAL: She is in no acute distress. She is alert and oriented x3. HEENT: Eyes have no scleral icterus. Oropharynx is clear without lesions. No cervical or supraclavicular lymphadenopathy. LUNGS: Clear to auscultation bilaterally. HEART: Regular rate and rhythm without murmur. ABDOMEN: Soft. She is tender in the left abdomen. She has a hernia in the left lower abdomen just left of the midline. This was not exquisitely tender to palpation while worked on reducing it. EXTREMITIES: No lower extremity edema. NEUROLOGIC: Cranial nerves are grossly intact. LABORATORY DATA: Creatinine was 2.31 on presentation, down to 1.44 today. Bilirubin 0.6, AST 11, ALT 8, alkaline phosphatase 78, albumin 3.7, lipase 17. White blood cell count 5.4, hemoglobin 9.0, and platelets are 98,000. IMPRESSION: 1. Sigmoid inflammatory changes based on CT scan. With her left lower abdominal pain and the small volume red bloody stools, this is most consistent with ischemic colitis. She has not had a significant amount of diarrhea, but stool studies have been requested to rule out infectious process. She has had C diff in the past and again this will need to be ruled out. 2. Abdominal wall hernia. CT scan suggests that descending colon is contained in the hernia with the efferent portion of the colon from the hernia with the inflammatory change. If this is contributing to ischemic changes, then surgical repair could be considered. Obviously, she has had 4 to 6 surgeries on this hernia already and would be high risk for recurrence and this will be a more complicated risk procedure. I will review this CT with Radiology and discuss with Dr. Mitchell again as well. RECOMMENDATIONS: 1. Stool studies. 2. We will plan a flex sig to confirm if she has ischemic colitis. 3. Further treatment will depend on these findings. In the meantime, she should be covered with antibiotics and is currently on Zosyn. Job ID: [id number]
--- NOTE | 2019-04-29 13:28 | PRG ---
DATE OF SERVICE: 04/29/2019 SUBJECTIVE: Ramila Rowe is doing well today. She is still having pain in her left lower abdomen and lower abdomen. She is unable to tolerate liquids, but cannot tolerate anymore diet than that. I have reviewed her CAT scans and looked at her abdominal x-ray she had yesterday. She has sigmoid/left colon colitis that may be ischemic or infectious. She is not having diarrhea. She has had some bloody mucus stools occasionally. She has not smoked since 1993. I have asked Dr. Michele Campbell to see her. The patient had a colonoscopy earlier this year, but with this new occurrence, she may benefit from a flexible sigmoidoscopy to look at her left colon. The patient will continue on clear liquids and advance to full liquids as tolerated and flexible sigmoidoscopy per Dr. Campbell. We will see her next week. Further treatment plan per clinical course. OBJECTIVE: VITAL SIGNS: Temperature 98.4 degrees, pulse rate 91, and blood pressure 157/80. This morning, white count is 5 and hemoglobin is 9. ABDOMEN: Soft, mild tenderness in lower abdomen, left lower incisional hernia with incarcerated colon. ASSESSMENT/PLAN: 1. Chronic incisional hernia for more than 8 years. Multiple CAT scans. Dr. Watters was able to traverse the colon to see the cecum earlier this year with pressure on the incisional hernia. There is no indication for repair of her incisional hernia at this time. The colitis of the left colon is unrelated to this. There is no indication of obstruction based on plain films yesterday. She is passing flatus. 2. Chronic iron deficiency anemia for which she has had multiple upper and lower endoscopies. She is chronically anemic and there is no indication of active bleeding. 3. Ischemic colitis, most likely await flexible sigmoidoscopy per Dr. Campbell. Job ID: [id number]
--- NOTE | 2019-04-29 14:47 | CON ---
DATE OF CONSULTATION: Stool studies came back showing positive Shiga toxin 2 or enterohemorrhagic E. coli. Not convinced that the true positive; however, we will await the culture results at this point before proceeding with flexible sigmoidoscopy. With the positive Shiga toxin 2, then if this is a true enterohemorrhagic E. coli infection producing Shiga toxin 2, then this can be a higher risk for hemolytic uremic syndrome. We will continue IV fluids and discontinue antibiotics at this time. We will await culture as well. Job ID: [id number]
[2019-04-29] MEDS: Enoxaparin Sodium 30 MG/0.3 ML SYRINGE SC SCH (20:23)
[2019-04-29] MEDS: tiZANidine HCl 4 MG TAB PO SCH (20:26)
[2019-04-29] MEDS: Zolpidem Tartrate 5 MG TAB PO PRN (21:12)
[2019-04-30] MEDS: Levothyroxine Sodium 50 MCG TAB PO SCH (06:00)
[2019-04-30] MEDS: Sodium Chloride 0.9% 1,000 ML IV SCH ×3 (06:32→09:21)
[2019-04-30 07:18] LABS: #Eosinphils 0.3 thou/uL (0.0-0.7); #Lymphocytes 1.7 thou/uL (1.20-3.40); #Monocytes 0.6 thou/uL (0.11-0.59); #Neutrophils 4.6 thou/uL (1.40-6.50); %Basophils 0.4 % (0.0-1.0); %Eosinophils 4.1 % (0.0-10.0); %Lymphocytes 23.7 % (21.0-51.0); %Monocytes 7.8 % (0.0-10.0); %Neutrophils 63.9 % (42.0-75.0); Hemoglobin 9.6 g/dL (12.0-16.0); Mean Corpuscular HGB CONC 33.4 g/dL (32.0-36.0); Mean Corpuscular Hemoglobin 30.1 pg (27.0-31.0); Mean Corpuscular Volume 90.3 fL (78.0-98.0); Mean Platelet Volume 9.8 fL (7.4-10.4); Platelet Count 122 thou/uL (130-400); RBC Distribution Width 14.1 % (11.5-14.5); Red Blood Cell (RBC) Count 3.18 mill/uL (4.20-5.40); White Blood Cell (WBC) Count 7.1 thou/uL (4.8-10.8)
[2019-04-30 07:38] LABS: Anion Gap 14 mmol/L (10-20); BUN (Urea Nitrogen) 20 mg/dL (9.8-20.1); Calc. Creatinine Clearance 55 mL/min (70-130); Calcium 9.1 mg/dL (7.8-10.44); Carbon Dioxide 18 mmol/L (22-29); Chloride 115 mmol/L (98-107); Estimated GFR-MDRD 38; Glucose 94 mg/dL (70-105); Potassium 3.9 mmol/L (3.5-5.1); Sodium 143 mmol/L (136-145)
[2019-04-30] MEDS: Sotalol HCl 80 MG TAB PO SCH ×2 (08:09→20:39)
[2019-04-30] MEDS: NIFEdipine XL 30 MG TAB PO SCH (08:09)
[2019-04-30] MEDS: Pantoprazole 40 MG VIAL IVP SCH (08:09)
--- NOTE | 2019-04-30 16:13 | PRG ---
DATE OF SERVICE: 04/30/2019 SUBJECTIVE: Ms. Rowe has pain when she takes in fluids, so she has had very little oral intake. However, her pain has improved overall. She is no longer passing blood with the stools. OBJECTIVE: VITAL SIGNS: Temperature 98.0, pulse 71, blood pressure 134/73. GENERAL: She is in no acute distress. Alert and oriented x3. HEENT: Eyes have no scleral icterus. LUNGS: Clear to auscultation bilaterally. HEART: Regular rate and rhythm without murmur. ABDOMEN: Soft. She has significantly less tenderness in the left lower quadrant and around the hernia site. Her bowel sounds are present. EXTREMITIES: No lower extremity edema. LABORATORY DATA: White blood cell count 7.1, hemoglobin 9.6, platelets 122. INR 1.0. Creatinine 1.4. IMPRESSION: 1. Colitis. The stool sample was positive for shiga toxin. 2. This would indicate a high risk for enterohemorrhagic Escherichia coli with risk for hemolytic uremic syndrome. The culture is pending, however, she was receiving antibiotics and the culture so far shows only rare gram-negative ricky and multiple gram-positive ricky. We will await culture for Escherichia coli. Clinically, I suspect that she has ischemic colitis. It is unclear that this is related to her abdominal wall hernia. The hernia is a chronic issue. Either way clinically, she is improving. Her creatinine is improving. Her white count is normal. She has no further blood with the stool. Her abdominal tenderness is better. Certainly, there are no signs of hemolytic uremic syndrome. RECOMMENDATIONS: 1. Continue to await final stool culture. 2. Antibiotics have been discontinued due to the risk for HUS with shiga toxin. 3. Producing E coli. Again, I am not 100% convinced that this is a true positive test. 4. Primary treatment is IV fluids and time. We will see how she is able to advance her diet over the next 2 or 3 days. Job ID: [id number]
[2019-04-30] MEDS: tiZANidine HCl 4 MG TAB PO SCH (20:40)
[2019-04-30] MEDS: Enoxaparin Sodium 30 MG/0.3 ML SYRINGE SC SCH ×2 (21:13→21:15)
[2019-04-30] MEDS: Zolpidem Tartrate 5 MG TAB PO PRN (22:45)
--- NOTE | 2019-05-01 00:43 | PRG ---
DATE OF SERVICE: 05/01/2019 SUBJECTIVE: The patient is currently on the surgical floor. She is undergoing medical management of colitis. We are following along in consultation for initially what was suspected to be bowel obstruction. The patient has been having bowel movements and passing gas. Her pain is controlled. She has no nausea and is currently tolerating a diet. OBJECTIVE: VITAL SIGNS: Temperature is 98.0, heart rate 71, blood pressure 134/73, respirations 20, oxygen saturation is 92% on room air. GENERAL: The patient is resting comfortably in bed. She is awake, alert, and oriented. HEENT: Unremarkable. LUNGS: Clear to auscultation with good inspiratory and expiratory effort. HEART: Regular rate and rhythm. ABDOMEN: Soft. Slight tenderness to the left lower quadrant. Otherwise, benign exam. Bowel sounds are present. EXTREMITIES: Neurovascularly intact x4. LABORATORY FINDINGS: White blood cell count 7.1, hemoglobin 9.6, hematocrit 28.7, and platelets 122. Sodium 143, potassium 3.9, chloride 115, CO2 of 18, BUN 20, creatinine 1.40, glucose 94. There are no radiographs reviewed this morning. ASSESSMENT: 1. Colitis. 2. Abdominal pain, resolving. PLAN: Plan will be to continue medical management per the Primary Team. We will continue to follow along and shows the patient's bowel function has been completely returned and tolerating a diet. But currently at this time, there does not appear to be any surgical indications. Job ID: [id number]
[2019-05-01] MEDS: Sodium Chloride 0.9% 1,000 ML IV SCH ×4 (05:36→08:01)
[2019-05-01] MEDS: Levothyroxine Sodium 50 MCG TAB PO SCH (06:44)
[2019-05-01] MEDS: Sotalol HCl 80 MG TAB PO SCH ×2 (07:53→20:50)
[2019-05-01] MEDS: NIFEdipine XL 30 MG TAB PO SCH (07:53)
[2019-05-01] MEDS: Pantoprazole 40 MG VIAL IVP SCH (07:57)
[2019-05-01 08:48] LABS: #Eosinphils 0.3 thou/uL (0.0-0.7); #Lymphocytes 1.3 thou/uL (1.20-3.40); #Monocytes 0.5 thou/uL (0.11-0.59); #Neutrophils 5.1 thou/uL (1.40-6.50); %Basophils 0.2 % (0.0-1.0); %Eosinophils 4.2 % (0.0-10.0); %Lymphocytes 18.6 % (21.0-51.0); %Monocytes 6.4 % (0.0-10.0); %Neutrophils 70.6 % (42.0-75.0); Hemoglobin 8.6 g/dL (12.0-16.0); Mean Corpuscular HGB CONC 33.2 g/dL (32.0-36.0); Mean Corpuscular Hemoglobin 29.9 pg (27.0-31.0); Mean Corpuscular Volume 89.9 fL (78.0-98.0); Mean Platelet Volume 9.7 fL (7.4-10.4); Platelet Count 110 thou/uL (130-400); RBC Distribution Width 14.5 % (11.5-14.5); Red Blood Cell (RBC) Count 2.87 mill/uL (4.20-5.40); White Blood Cell (WBC) Count 7.2 thou/uL (4.8-10.8)
[2019-05-01 09:04] LABS: Anion Gap 13 mmol/L (10-20); BUN (Urea Nitrogen) 15 mg/dL (9.8-20.1); Calc. Creatinine Clearance 64 mL/min (70-130); Calcium 8.5 mg/dL (7.8-10.44); Carbon Dioxide 18 mmol/L (22-29); Chloride 114 mmol/L (98-107); Estimated GFR-MDRD 45; Glucose 86 mg/dL (70-105); Potassium 3.6 mmol/L (3.5-5.1); Sodium 141 mmol/L (136-145)
--- NOTE | 2019-05-01 12:45 | PRG ---
DATE OF SERVICE: 05/01/2019 SUBJECTIVE: Ms. Rowe tolerated Jell-O and clear liquids well without abdominal pain last night and this morning. She has had no nausea or vomiting. No ongoing diarrhea today. OBJECTIVE: VITAL SIGNS: Temperature 98.0, pulse 75, blood pressure 162/73. GENERAL: She is in no acute distress. Alert and oriented x3. LUNGS: Clear to auscultation bilaterally. HEART: Regular rate and rhythm without murmur. ABDOMEN: Soft, nontender, nondistended. Bowel sounds are present. EXTREMITIES: No lower extremity edema. LABORATORY DATA: White blood cell count 7.2, hemoglobin 8.6, platelets 110. Creatinine 1.2. IMPRESSION: 1. Infectious colitis with stool sample positive for shiga toxin. Preliminary culture is negative. We are awaiting the final culture to evaluate for enterohemorrhagic Escherichia coli. She is clinically improving and ready to advance her diet today. 2. Clinically still question if she had ischemic colitis. She is symptomatically improved and this does not appear to be obviously secondary to her colon containing hernia. We will continue to monitor for recurrence in the future. If she does have recurrent similar presentation, then it may be helpful to perform a flexible sigmoidoscopy to confirm. Also, we need to continue to consider the possibility this could be related to her hernia. 3. Acute renal failure, improved with IV fluids. RECOMMENDATIONS: 1. Await final stool culture. 2. Advance diet. If she continues to do well, then I would anticipate discharge home tomorrow. Job ID: [id number]
--- NOTE | 2019-05-01 18:44 | PRG ---
DATE OF SERVICE: 05/01/2019 SUBJECTIVE: The patient remains on the surgical floor. We are see her in consultation for suspected bowel obstruction. Appears to continue to be infectious colitis. The patient is undergoing medical management and continues to progress favorably. Overnight, she had no issues. This morning, she has been tolerating a clear liquid diet. Denies nausea or vomiting and there is no reported history of fevers. Her bowel function has returned. OBJECTIVE: VITAL SIGNS: Temperature is 98.0, heart rate 75, blood pressure 162/73, respirations 16, oxygen saturation 92% on room air. GENERAL: The patient is resting comfortably in bed. She is awake, alert, and oriented. HEENT: Unremarkable. LUNGS: Clear to auscultation with good inspiratory and expiratory effort. HEART: Regular rate and rhythm. ABDOMEN: Soft, nontender with active bowel sounds. EXTREMITIES: Neurovascularly intact x4. LABORATORY FINDINGS: White blood cell count 7.2, hemoglobin 8.6, hematocrit 25.9, platelets 110. Sodium 141, potassium 3.6, chloride 114, CO2 18, BUN 15, creatinine 1.21, glucose 86. There are no radiographs reviewed this morning. ASSESSMENT: 1. Colitis. 2. Abdominal pain. PLAN: Plan will be to continue medical management per the Primary Team. There continues to be no signs of surgical indications at this time. The patient was examined this morning with Dr. Garza. Job ID: [id number]
[2019-05-01] MEDS: tiZANidine HCl 4 MG TAB PO SCH (20:52)
[2019-05-01] MEDS: Enoxaparin Sodium 30 MG/0.3 ML SYRINGE SC SCH (20:55)
[2019-05-01] MEDS: Zolpidem Tartrate 5 MG TAB PO PRN (22:41)
[2019-05-02] MEDS: Levothyroxine Sodium 50 MCG TAB PO SCH (06:54)
[2019-05-02] MEDS: Sotalol HCl 80 MG TAB PO SCH (08:17)
[2019-05-02] MEDS: NIFEdipine XL 30 MG TAB PO SCH (08:41)
[2019-05-02] MEDS: Pantoprazole 40 MG VIAL IVP SCH (08:43)
[2019-05-02] MEDS ORDERED: Saccharomyces boulardii 250 MG CAP PO SCH (09:00)
[2019-05-02 12:03] VITALS: BP 164/74; TEMP 98.6
[2019-05-02] MEDS: HumaLOG 300 UNITS/3 ML VIAL SC PRN (12:59)
--- NOTE | 2019-05-02 14:12 | PRG ---
DATE OF SERVICE: 05/02/2019 SUBJECTIVE: Ms. Rowe is eating without pain. She ate a turkey sandwich last night and had some breakfast this morning. OBJECTIVE: VITAL SIGNS: She has been afebrile since admission. Temperature 98.6 today. Pulse 75, blood pressure 164/74. ABDOMEN: Soft and nontender. She has a hernia in left lower quadrant. LABORATORY DATA: No labs today except for glucose of 169. Microbiology, the patient had Shiga toxin positive for Shiga type 2. E coli on admission. Stool culture did not isolate any E coli 0157. ASSESSMENT: 1. Colitis. It is unclear if this was an infectious etiology related to adherent-invasive Escherichia coli or there was a component of ischemia. She has a chronic hernia in the left abdomen with colon stuck in it. At this time, she is much better. 2. Negative stool culture for adherent-invasive Escherichia coli, although she was already on antibiotics that was begun. 3. Stable renal function, improved. Creatinine 1.21 yesterday, down from 2.32 on admission. RECOMMENDATIONS: I would approach this if she had adherent-invasive E coli. She is improving. She does not need antibiotics in fact they are contraindicating, were stopped earlier in the admission by Dr. Campbell. If she has recurrent bouts of pain and bloody diarrhea and signs of colitis in the sigmoid colon, I think that would suggest that the issue more is the hernia and ischemia. At this time, we will follow from a distance. If I can be of any further assistance in her care, please do not hesitate to contact me. Job ID: [id number]
--- NOTE | 2019-05-02 17:23 | DIS ---
DATE OF ADMISSION: 04/26/2019 DATE OF DISCHARGE: 05/02/2019 DISCHARGE DIAGNOSES: Colitis negative for Salmonella, Shigella, Escherichia coli, negative for Campylobacter, positive for Escherichia coli Shiga toxin 2. Note, the patient had a CAT scan of the abdomen and pelvis on admission demonstrating sigmoid colitis. She had incisional hernia, chronic in nature, present on previous CAT scans for the last 8 or 9 years. Report CAT scan suggested possible early strangulation, and thus, I was called from the ER for admission. The patient is morbidly obese, 4 feet 10 inches, 180 pounds, 37 BMI. She has had 6 or 7 operative interventions for incisional hernia repair with recurrence. She performed a laparoscopic incisional hernia repair with mesh many years ago. She had a recurrence. Last year, I performed laparoscopic cholecystectomy working around the incisional hernia to accomplish laparoscopic cholecystectomy. She presented on this occasion with lower abdominal pain, vague. Her white count on admission was 11, by the next day, 11.3, hemoglobin stable. She has a chronic history of iron deficiency anemia and hemoglobin on discharge was 9.6 to 8.6. The patient had mucus bloody stools on occasion. On discharge, she is having some diarrhea. Earlier this year, Dr. Watters performed a colonoscopy and able by compression of her incisional hernia reducing it and enabling visualization of her cecum. There was no evidence of malignancy. I was able on this admission to reduce her incisional hernia, and it promptly recurred. It was felt that her colitis was due to infectious and not strangulation, and operative intervention was not indicated. The patient did not want this. I have consulted Dr. Michele Campbell, Gastroenterology, who agreed and the Zon that she is on discontinued, filling the Escherichia coli would run its course, and there is no treatment necessary. The patient came to tolerate diet and is doing well and is discharged to home to resume her home medications without any additional medication. She will follow up with Gastroenterology. She resumed her home medications, see list, history and physical. Job ID: [id number]
== END 2019-05-02 14:50 | disposition home or self-care (01) | DRG 372 ==
LOC: ERS 12:34 → SURG B 18:47
PROVIDERS: ADMIT Specialist; ATTEND Specialist
DX: A04.4 Other intestinal Escherichia coli infections (principal); K55.9 Vascular disorder of intestine, unspecified; N17.9 Acute kidney failure, unspecified; I50.30 Unspecified diastolic (congestive) heart failure; I13.0 Hypertensive heart and chronic kidney disease with heart failure and stage 1 through stage 4 chronic kidney disease, or unspecified chronic kidney disease; E66.01 Morbid (severe) obesity due to excess calories; D50.9 Iron deficiency anemia, unspecified; E11.22 Type 2 diabetes mellitus with diabetic chronic kidney disease; N18.3 Chronic kidney disease, stage 3 (moderate); G89.29 Other chronic pain; E03.9 Hypothyroidism, unspecified; I48.91 Unspecified atrial fibrillation; K43.2 Incisional hernia without obstruction or gangrene; F41.9 Anxiety disorder, unspecified; F32.9 Major depressive disorder, single episode, unspecified; D63.1 Anemia in chronic kidney disease; E78.5 Hyperlipidemia, unspecified; M19.90 Unspecified osteoarthritis, unspecified site; Z79.01 Long term (current) use of anticoagulants; Z87.891 Personal history of nicotine dependence; Z86.73 Personal history of transient ischemic attack (TIA), and cerebral infarction without residual deficits; Z88.8 Allergy status to other drugs, medicaments and biological substances; Z98.51 Tubal ligation status; Z90.49 Acquired absence of other specified parts of digestive tract; Z68.37 Body mass index [BMI] 37.0-37.9, adult
CPT/HCPCS: 36415; 36416; 74022; 74176; 80048; 80053; 81003; 81015; 82274; 83690; 84484; 85025; 85610; 85730; 86850; 86870; 86900; 86901; 87045; 87046; 87324; 87449; 87899; 93005; 96365; C9113; J1650; J2270; J2405; J2543; J3490

== ENCOUNTER 2019-12-15 16:52 | Observation (INO) | payer OTHER, SELFPAY ==
--- NOTE | 2019-12-15 17:37 | RAD ---
RADIOGRAPH CHEST 2 VIEW: DATE: 12/15/2019 HISTORY: Chest pain FINDINGS: There is cardiomegaly. There is no evidence of airspace density, pulmonary edema, pleural effusion, o r pneumothorax. IMPRESSION: 1) No acute pulmonary findings. 2) cardiomegaly without congestive heart failure.
[2019-12-15 17:53] LABS: #Basophils 0.1 thou/uL (0.0-0.2); #Eosinphils 0.1 thou/uL (0.0-0.7); #Monocytes 0.3 thou/uL (0.11-0.59); #Neutrophils 3.8 thou/uL (1.40-6.50); %Basophils 0.9 % (0.0-1.0); %Eosinophils 2.7 % (0.0-10.0); %Lymphocytes 19.1 % (21.0-51.0); %Monocytes 6.4 % (0.0-10.0); %Neutrophils 70.9 % (42.0-75.0); Hemoglobin 9.1 g/dL (12.0-16.0); Mean Corpuscular HGB CONC 33.1 g/dL (32.0-36.0); Mean Corpuscular Hemoglobin 30.2 pg (27.0-31.0); Mean Corpuscular Volume 91.1 fL (78.0-98.0); Mean Platelet Volume 8.6 fL (7.4-10.4); Platelet Count 205 thou/uL (130-400); RBC Distribution Width 14.1 % (11.5-14.5); Red Blood Cell (RBC) Count 3.01 mill/uL (4.20-5.40); White Blood Cell (WBC) Count 5.4 thou/uL (4.8-10.8)
[2019-12-15] MEDS ORDERED: Aspirin Chewable 81 MG TAB ONE (17:58)
[2019-12-15] MEDS ORDERED: Nitroglycerin 2% Ointment 1 INCH/1 GM Packet ONE (17:58)
[2019-12-15 18:09] LABS: ALT (SGPT) 10 U/L (8-55); AST (SGOT) 17 U/L (5-34); Alkaline Phosphatase 92 U/L (40-110); Anion Gap 15 mmol/L (10-20); BUN (Urea Nitrogen) 39 mg/dL (9.8-20.1); Bilirubin, Total 0.7 mg/dL (0.2-1.2); Calc. Creatinine Clearance 0 mL/min (70-130); Calcium 9.3 mg/dL (7.8-10.44); Carbon Dioxide 21 mmol/L (23-31); Chloride 109 mmol/L (98-107); Estimated GFR-MDRD 26; Globulin 3.5 g/dL (2.4-3.5); Glucose 163 mg/dL (80-115); Potassium 4.6 mmol/L (3.5-5.1); Protein, Total 7.5 g/dL (6.0-8.3); Sodium 140 mmol/L (136-145)
[2019-12-15] MEDS ORDERED: Nitroglycerin 0.4 MG TAB (25 Tab Bottle) PO PRN (19:16)
--- NOTE | 2019-12-15 20:17 | HP ---
PRIMARY CARE PROVIDER: Dr. Cisneros. CHIEF COMPLAINT: Chest pain. HISTORY OF PRESENT ILLNESS: Ms. Rowe is a pleasant 59-year-old lady, who was seen at [facility] on December 15, 2019. Her primary care provider is Dr. Cisneros, she reports that he is moving out of the area, so she was referred to hospitalist as a [place] [facility]. Her cardiovascular surgeon is Dr. Gomez and her county historian is Dr. Vazquez. In the past, she was diagnosed with atrial fibrillation and was on apixaban, but anticoagulation was discontinued after she had seizure-like episodes. She also reports having carotid artery disease. Over the last 4 days, she has had chest pain, left-sided, pressure-like, 6/10 at its worst, worse with activity, improved with rest, and improved after she takes [place] for her back pain. She reports nausea, shortness of breath, and lightheadedness. She denies any diaphoresis. REVIEW OF SYSTEMS: All systems were reviewed and found to be negative except for the pertinent positives mentioned above. PAST MEDICAL HISTORY: Atrial fibrillation, hypertension, TIA, diabetes mellitus type 2, dyslipidemia, chronic back pain, arthritis, bursitis, hypothyroidism, seizures, abdominal hernia, congestive heart failure, and chronic kidney disease , stage 3, followed by Dr. Allison. PAST SURGICAL HISTORY: Cholecystectomy, appendectomy, hernia repair x5, tonsillectomy, tubal ligation, and cardiac ablation x2. PAST PSYCHIATRIC HISTORY: Anxiety and depression. SOCIAL HISTORY: The patient is an ex-smoker. She denies any alcohol use or recreational drug use. FAMILY HISTORY: Both parents and sibling around age 50 from myocardial infarction. ALLERGIES: AMLODIPINE, IBUPROFEN, NAPROXEN, AND NONSTEROIDAL ANTI-INFLAMMATORY DRUGS. CURRENT MEDICATIONS: Include, 1. Hydralazine 100 mg 3 times a day. 2. Levothyroxine 50 mcg daily. 3. Lovastatin 20 mg daily. 4. Quetiapine 100 mg daily. 5. Zolpidem 10 mg as needed. 6. [place] p.r.n. 7. Sotalol 40 mg 2 times a day. 8. Tizanidine 2 mg 2 times a day. 9. Aspirin 81 mg daily. 10. Glipizide 5 mg daily. 11. Nifedipine 30 mg daily. PHYSICAL EXAMINATION: GENERAL: On examination, Ms. Rowe is awake and alert, not in acute distress. VITAL SIGNS: Blood pressure is 166/68, pulse 62, respiratory rate 18, and oxygen saturation 98% on 2 L of oxygen. EYES: No scleral icterus, no conjunctival pallor. ENT: Moist mucosal membranes. No oropharyngeal erythema or exudates. NECK: Supple, nontender, trachea is midline. RESPIRATORY: Accessory muscles of breathing are not active. Chest wall movements are symmetric bilaterally. LUNGS: Clear to auscultation without wheeze, rhonchi, or crepitations. CARDIOVASCULAR: S1 and S2 are heard, regular. Peripheral pulses palpable. No pericardial rub. ABDOMEN: Soft, nontender, bowel sounds heard. NEUROLOGIC: Cranial nerves 2 through 12 are intact. MUSCULOSKELETAL: Power is 5/5 in all 4 extremities. SKIN: No rashes or subcutaneous nodules. LYMPHATIC: No cervical lymphadenopathy. PSYCHIATRIC: Normal mood, normal affect, patient is oriented to person, place, and time. LABORATORY DATA: Ms. Rowe's labs and investigations were reviewed. I reviewed her electrocardiogram, which shows normal sinus rhythm, no ST-changes to suggest an acute coronary syndrome. I also reviewed her chest x-ray, which does not show any pulmonary infiltrates. She has normal sodium, normal potassium, elevated blood urea nitrogen of 39, elevated creatinine of 1.94, last known creatinine was 1.21 on May 01, 2019, indeterminate troponin-I of 0.030, unremarkable LFTs, and elevated BNP of 466. White count and platelet count are normal. She has normocytic anemia with hemoglobin 9.1. Last known hemoglobin was 8.6 on May 01, 2019. ASSESSMENT AND PLAN: Ms. Rowe is a pleasant 59-year-old lady, who was seen at [facility] on December 15, 2019. Her problem list includes: 1. Chest pain: Ms. Rowe is presenting with chest pain. Given her significant cardiac risk factors, she will be admitted to the hospital for telemetry monitoring. I will obtain stress test to rule out acute coronary syndrome as the etiology for her presentation. We will recheck her troponins. 2. Acute on chronic stage 3 renal failure: She does not appear to be in volume overload or congestive heart failure exacerbation. At this point in time, I will provide gentle hydration and recheck her creatinine. 3. Diabetes mellitus type 2: We will start Accu-Cheks and insulin sliding scale. 4. Hypothyroidism: Continue Synthroid. 5. Dyslipidemia: Continue statin. 6. History of atrial fibrillation: Continue sotalol and nifedipine. Many thanks for allowing me to participate in your patient's care. Please feel free to contact me with any questions or concerns. LEVEL OF RISK: High. LEVEL OF COMPLEXITY: High. Job ID: [id number] MTDD
[2019-12-15 20:54] LABS: Troponin I 0.024 ng/mL (< 0.028)
[2019-12-15 21:09] VITALS: BMI 38.9
[2019-12-15] MEDS: Sodium Chloride 0.9% 1,000 ML IV SCH (22:05)
[2019-12-15] MEDS ORDERED: Zolpidem Tartrate 5 MG TAB PO SCH (22:15)
[2019-12-15] MEDS ORDERED: hydrALAZINE 25 MG TAB PO SCH (22:15)
[2019-12-15 23:14] LABS: Troponin I 0.026 ng/mL (< 0.028)
[2019-12-16] MEDS: Levothyroxine Sodium 50 MCG TAB PO SCH (03:21)
[2019-12-16 05:06] LABS: #Eosinphils 0.2 thou/uL (0.0-0.7); #Monocytes 0.3 thou/uL (0.11-0.59); #Neutrophils 2.3 thou/uL (1.40-6.50); %Basophils 0.6 % (0.0-1.0); %Monocytes 8.1 % (0.0-10.0); %Neutrophils 60.2 % (42.0-75.0); Hemoglobin 8.4 g/dL (12.0-16.0); Mean Corpuscular HGB CONC 33.5 g/dL (32.0-36.0); Mean Corpuscular Hemoglobin 30.8 pg (27.0-31.0); Mean Platelet Volume 8.8 fL (7.4-10.4); Platelet Count 166 thou/uL (130-400); RBC Distribution Width 13.8 % (11.5-14.5); Red Blood Cell (RBC) Count 2.72 mill/uL (4.20-5.40); White Blood Cell (WBC) Count 3.8 thou/uL (4.8-10.8)
[2019-12-16 05:27] LABS: Anion Gap 13 mmol/L (10-20); BUN (Urea Nitrogen) 34 mg/dL (9.8-20.1); Calc. Creatinine Clearance 47 mL/min (70-130); Calcium 8.8 mg/dL (7.8-10.44); Carbon Dioxide 21 mmol/L (23-31); Chloride 112 mmol/L (98-107); Estimated GFR-MDRD 31; Glucose 85 mg/dL (80-115); Potassium 4.3 mmol/L (3.5-5.1); Sodium 142 mmol/L (136-145)
[2019-12-16] MEDS: NIFEdipine XL 30 MG TAB PO SCH (08:21)
[2019-12-16] MEDS: hydrALAZINE 25 MG TAB PO SCH ×3 (08:21→20:54)
[2019-12-16] MEDS ORDERED: Morphine 4 MG/ML VIAL SLOW IVP SCH (09:45)
[2019-12-16] MEDS ORDERED: ADENOSINE 60 MG/20 ML VIAL ONE (15:55)
--- NOTE | 2019-12-16 17:39 | PDOC.HOSPP ---
- Subjective Encounter Date: 12/16/19 Encounter Time: 07:00 Subjective: Pt seen for followup re; chest pain. Feels better today. - Objective Vital Signs & Weight: Vital Signs (12 hours) Temp Pulse Resp BP Pulse Ox 12/16/19 15:41 98.3 F 71 18 135/62 92 L 12/16/19 14:46 75 12/16/19 10:47 97.5 F L 75 16 184/78 H 94 L 12/16/19 09:40 181/70 H 12/16/19 08:21 62 12/16/19 07:27 97.7 F 62 21 H 191/74 H 94 L Weight Weight 185 lb 14.4 oz I&O: 12/15/19 12/16/19 12/17/19 06:59 06:59 06:59 Intake Total 616 Output Total 400 Balance 216 Result Diagrams: 12/16/19 04:38 12/16/19 04:38 Additional Labs: Accuchecks 12/16/19 12/16/19 12/15/19 16:23 10:50 21:32 POC Glucose 135 H 114 H 94 Labs and MARs reviewed by me EKG Reviewed by me: Yes (Tele; NSR) Hospitalist ROS - Review of Systems Constitutional: denies: fever, chills, sweats, weakness, malaise Cardiovascular: reports: chest pain. denies: palpitations, orthopnea, paroxysmal noc. dyspnea, edema, light headedness Gastrointestinal: denies: nausea, vomiting, abdominal pain, diarrhea, constipation, melena, hematochezia Genitourinary: denies: dysuria, frequency, incontinence, hematuria, retention Skin: denies: rash, lesions, bats[place]va, bruising - Medication Medications: Active Medications Generic Name Dose Route Start Last Admin Trade Name Freq PRN Reason Stop Dose Admin Hydralazine HCl 100 mg 12/16/19 09:00 12/16/19 14:46 Apresoline PO 100 mg TID ESMER Administration Sodium Chloride 1,000 mls @ 50 mls/hr 12/15/19 19:30 12/15/19 22:05 Normal Saline 0.9% IV 1,000 mls .Q20H ESMER Administration Levothyroxine Sodium 50 mcg 12/16/19 06:00 12/16/19 03:21 Synthroid PO 50 mcg 0600 ESMER Administration Nifedipine 30 mg 12/16/19 09:00 12/16/19 08:21 Procardia Xl PO 30 mg DAILY ESMER Administration - Exam General - other findings: Obese Eye: anicteric sclera ENT: moist mucosa Neck: supple, symmetric, no thyromegaly, no lymphadenopathy Heart: RRR, no gallops, no rubs, normal peripheral pulses Respiratory: CTAB, no wheezes, no rales, no ronchi Gastrointestinal: soft, non-tender, non-distended, normal bowel sounds Psychiatric: normal affect, normal behavior, A&O x 3 Hosp A/P (1) Chest pain Code(s): R07.9 - CHEST PAIN, UNSPECIFIED Status: Acute (2) Dyslipidemia Code(s): E78.5 - HYPERLIPIDEMIA, UNSPECIFIED Status: Chronic (3) HTN (hypertension) Code(s): I10 - ESSENTIAL (PRIMARY) HYPERTENSION Status: Chronic (4) Hypothyroidism Code(s): E03.9 - HYPOTHYROIDISM, UNSPECIFIED Status: Chronic (5) Anxiety and depression Code(s): F41.8 - OTHER SPECIFIED ANXIETY DISORDERS Status: Chronic (6) Chronic kidney disease, stage 3 Code(s): N18.3 - CHRONIC KIDNEY DISEASE, STAGE 3 (MODERATE) Status: Chronic - Plan plan discussed w/ family Await stress test. Continue Lovastatin. Continue synthroid. Monitor vital signs, titrate antihypertensives as needed. Reasonable control of blood sugars.
--- NOTE | 2019-12-16 20:24 | CON ---
DATE OF CONSULTATION: 12/16/2019 INDICATION FOR CONSULTATION: This is a 59-year-old female with history of chest pain. HISTORY OF PRESENT ILLNESS: This is a very unfortunate 59-year-old female, who has had multiple hospital admissions. I have seen her on couple of occasions already. She has complained of chest pain. She has hypertension. She has also had episodes of atrial fibrillation in the past, has been maintained on antiarrhythmic medication. She was on anticoagulation at some point of time that this was stopped after she had some seizure-like episodes. Fortunately, she maintains her sinus rhythm. At this time, she has been complaining of chest discomfort. When I saw her, she was complaining of some right-sided chest pain which she said was sharp and then it became dull and heavy, and did improve after she took some [place], but she also has chronic back pain and this may have been radiation of the pain into her chest area. She denied any radiation of the pain up into the neck area or to the arms areas. She did have some shortness of breath, which is an ongoing problem. She had no diaphoresis. She also complains of some mild nausea. Her EKG did not show any significant changes that account for ischemia. She does have a sinus rhythm. Cardiac enzymes were indeterminate. There were slightly elevated, but then the next set has now come down and does not appear that she has had any significant increase in her cardiac enzymes. Her original troponin I was the highest, it was 0.03 and since that time has been within normal limits. BNP was 466. She does have chronic kidney disease and her creatinine is 1.94. BUN is 39. Her last stress test I believe was last year when she was in the hospital back in April of 2019, which showed no evidence of ischemia. At that time, her ejection fraction also was within normal limits. Ejection fraction was estimated by nuclear study at 79%. At this time, she has had no further chest discomfort. She does complain of some back pain. PAST MEDICAL HISTORY: Significant for chest discomfort, chronic back pain. She has had a history of atrial fibrillation. She has had history of diabetes. She has had TIA in the past. She has had history of seizures. She has dyslipidemia. She has arthritis. She has hypothyroidism, bursitis, chronic back pain. She has had abdominal hernia, which was repaired. She has also had congestive heart failure in the past, which was diagnosed but appears to be stable. She has chronic kidney disease as noted above. She had appendectomy, cholecystectomy. She has had several hernia repair. She has had tubal ligation and tonsillectomy. She had ablation of her atrial fibrillation on two different occasions. She does have a history of anxiety and depression. SOCIAL HISTORY: She smoked in the past. She no longer smokes. She has no alcohol use. She denied any illicit drug use. FAMILY HISTORY: Parents both in their 50s, I believe for coronary artery disease. ALLERGIES: SHE IS ALLERGIC TO NAPROSYN, IBUPROFEN, AMLODIPINE, AND ANY OTHER NONSTEROIDALS. MEDICATIONS: Include: 1. Hydralazine 100 mg 3 times a day. 2. Lovastatin 20 mg a day. 3. Levothyroxine 50 mcg daily. 4. Zolpidem 10 mg as needed. 5. Quetiapine 100 mg a day. 6. [place] p.r.n. 7. Sotalol 40 mg b.i.d. 8. Tizanidine 2 mg b.i.d. 9. Aspirin 81 mg a day. 10. Glipizide 5 mg a day. 11. Nifedipine 30 mg a day. REVIEW OF SYSTEMS: Mainly, the 12-point review of systems is unremarkable except as noted in the history of present illness. PHYSICAL EXAMINATION: GENERAL: Reveals a well-developed, well-nourished female. She is in no acute distress at this time. VITAL SIGNS: Remained stable. Her blood pressure is elevated however at 191/74 early this morning. She is afebrile. Heart rate is in the 60s and shows a sinus rhythm, respiratory rate is 21, O2 saturation is 94%. HEENT: Shows the head to be normocephalic and atraumatic. She has very soft bilateral carotid bruits noted. CHEST: Clear to auscultation. There were no rales, rhonchi, or wheezing noted. CARDIOVASCULAR: Reveals a regular rate and rhythm. She has normal S1 and S2. She has a very soft systolic murmur at the upper sternal border. She also has a very soft systolic murmur at the lower sternal border, most likely compatible with some mild aortic valve sclerosis and possibly tricuspid valve regurgitation. ABDOMEN: Shows well-healed surgical incisions and she has positive bowel sounds and did not elicit any significant masses. Femoral pulses are present. Pedal pulses are difficult to palpate, but were present. There is no significant lower extremity edema. NEUROLOGIC: The patient appears to be fully intact. There were no gross focal motor deficits noted. SKIN: Warm and dry. Her mood at this time, she is somewhat anxious, but otherwise appears to be normal. LABORATORY DATA: Noted. The enzymes have now trended downward. There is no indication that she has suffered any significant myocardial infarction, could be due just to blood pressure elevation that she has had a small troponin I leak. Her hemoglobin is 9.1. Her creatinine is 1.94, previous was 1.21 about 6 months ago. ASSESSMENT AND PLAN: 1. Elderly female, who has some risk factors for coronary artery disease, who complained again of chest discomfort. EKG was unremarkable. Due to her history of chronic kidney disease, I am somewhat hesitant to proceed with cardiac catheterization, without more definitive evidence that she may have underlying coronary artery disease such as further elevation of cardiac enzymes are more definitive type of chest discomfort as well as EKG changes, but I would suggest that she undergo a repeat nuclear stress test to rule out evidence of ischemia. If she has significant amount of ischemia noted, then we could consider proceeding with cardiac catheterization but would certainly be need to be aware of her renal insufficiency. She will need to be hydrated prior to the procedure. 2. History of chronic kidney disease. She has been followed by Dr. Allison in the past and I would suggest that he see her also while she is here and that she is to follow up with him. Since six months ago, the creatinine was 1.2 and now is 1.94. Also noted that there has been a CT angiogram scheduled for the patient. Again, I would be very hesitant to proceed with this unless I have strong suspicion that she may have a pulmonary embolus due to the risk of further damaging her kidneys. This certainly would if she did and if she has a nuclear study that is positive we would certainly have to wait until the kidneys were improved prior to proceeding with cardiac catheterization. 3. History of diabetes. This will be dealt with by the primary care service. 4. Hypercholesterolemia. She will continue on her present medications. She has a history of atrial fibrillation in the past and this remains stable. She is on sotalol on a twice a day basis and would continue this medication. We are more than happy to continue to follow the patient with you but at this time, she overall appears to be stable from a cardiac standpoint. Job ID: [id number] MTDZora
[2019-12-16] MEDS: Sodium Chloride 0.9% 1,000 ML IV SCH (20:56)
[2019-12-16] MEDS ORDERED: Zolpidem Tartrate 5 MG TAB PO SCH (21:00)
[2019-12-16] MEDS ORDERED: Aspirin 325 MG TAB PO SCH (21:00)
[2019-12-16] MEDS ORDERED: Lovastatin 20 MG TAB PO SCH (21:00)
[2019-12-17] MEDS: Levothyroxine Sodium 50 MCG TAB PO SCH (06:11)
[2019-12-17] MEDS: hydrALAZINE 25 MG TAB PO SCH ×2 (10:23→15:27)
[2019-12-17] MEDS: NIFEdipine XL 30 MG TAB PO SCH (10:23)
[2019-12-17 10:34] LABS: Iron 53 ug/dL (50-170); Iron Binding Capacity, Total 313 mcg/dL (265-497)
--- NOTE | 2019-12-17 10:42 | NM ---
EXAM: Nuclear medicine cardiac perfusion examination with ejection fraction HISTORY: Chest pain TECHNIQUE: Rest images: 32.1 mCi technetium 99m sestamibi Stress images: 33 mCi of technetium 9M sestamibi; Adenosine COMPARISON: 04/03/2019 FINDINGS: Tomographic images: No fixed or reversible perfusion defects. Gated images: Normal wall motion and ejection fraction of greater than 70%. EDV: 85 mL LHR: 0.3 TID: 0.9 IMPRESSION: No evidence of ischemia
[2019-12-17 11:38] VITALS: BP 141/60; TEMP 98.2
[2019-12-17] MEDS: Sodium Chloride 0.9% 1,000 ML IV SCH (15:28)
--- NOTE | 2019-12-17 15:36 | DIS ---
DATE OF ADMISSION: 12/15/2019 DATE OF DISCHARGE: 12/17/2019 Transfer of Care PRIMARY CARE PROVIDER: Salvatore Cisneros MD FINAL DIAGNOSES: 1. Noncardiac chest pain. 2. pernicious anemia 3. Hypertension. 4. Atrial fibrillation. 5. Chronic kidney disease type 3. 6. Hypothyroidism. 7. Dyslipidemia. DISCHARGE MEDICINES: Same as home medicines. 1. Sotalol 40 mg a day. 2. Mevacor 20 mg at bedtime. 3. Hydrocodone 10/325 one every 6 hours p.r.n. 4. Aspirin 325 mg a day. 5. Apresoline 100 mg three times a day. 6. Glipizide 5 mg a day. 7. Zolpidem 10 mg a day. 8. Seroquel 100 mg at bedtime. 9. Levothyroxine 50 mcg a day. 10. Nifedipine XL 30 once a day. 11. VIT B-12/intrinsic factor/folate ALLERGIES: IBUPROFEN, NAPROXEN, AMLODIPINE, AND OTHER NSAIDS. DIET: Heart healthy. CODE STATUS: Full. PENDING AT TIME OF DISCHARGE: Nothing. HOSPITAL COURSE: The patient was admitted. She had 4 days of left-sided pressure chest pain, worse with activity, improved at rest, also improved with her [place] for chest pain. She was noted on admission having modestly elevated troponin at 0.03, followup at 0.024 and 0.026. Creatinine was 1.94, followup at 1.66. Sodium and potassium were balanced. CBC was unremarkable except for hemoglobin of 9.1, white count was 5.4, platelet count 205. Because of this, laboratory studies were done. Her iron was 53, iron binding capacity was 313, folate was 18.6, B12 was low at 198. Nuclear medicine cardiac stress test was done, which revealed no ischemia. She was seen by Cardiology, who recommended no catheterization without positive stress test. She is being placed on vitamin B12 intrinsic factor folate 1 daily in addition to the medicines listed above. She has been asked to see her PCP in 3 days for followup. She will need serial CBCs to measure her response to the oral B12 intrinsic factor, etc. She was notewd to have elevated D-dimer, she had no sob, tachycardia hypoxia during hospital stay. in discussion, she was reluctant to have contrat study due to her chronic kidney disease. her risk appears small and she was discharged without any further workup. Job ID: [id number] MTDD
== END 2019-12-17 15:50 | disposition home or self-care (01) ==
LOC: ERS 16:52 → 2SW 19:18
PROVIDERS: ADMIT Internal Medicine; ATTEND Internal Medicine
DX: R07.89 Other chest pain (principal); D51.0 Vitamin B12 deficiency anemia due to intrinsic factor deficiency; I13.0 Hypertensive heart and chronic kidney disease with heart failure and stage 1 through stage 4 chronic kidney disease, or unspecified chronic kidney disease; E11.22 Type 2 diabetes mellitus with diabetic chronic kidney disease; I50.9 Heart failure, unspecified; N18.3 Chronic kidney disease, stage 3 (moderate); N17.9 Acute kidney failure, unspecified; E78.00 Pure hypercholesterolemia, unspecified; E78.5 Hyperlipidemia, unspecified; E03.9 Hypothyroidism, unspecified; I48.91 Unspecified atrial fibrillation; F41.9 Anxiety disorder, unspecified; F32.9 Major depressive disorder, single episode, unspecified; Z79.82 Long term (current) use of aspirin; Z79.84 Long term (current) use of oral hypoglycemic drugs; Z79.899 Other long term (current) drug therapy; Z87.891 Personal history of nicotine dependence; Z88.8 Allergy status to other drugs, medicaments and biological substances
CPT/HCPCS: 36415; 36416; 71046; 78452; 80048; 80053; 82553; 82607; 82746; 83540; 83550; 83880; 84484; 85025; 85379; 93005; 93017; 94760; 96361; 96374; A9500; G0378; J0153; J2270

== ENCOUNTER 2020-01-28 03:36 | Inpatient (IN) | payer OTHER, SELFPAY ==
[2020-01-28] MEDS ORDERED: Aspirin 325 MG TAB ONE (04:11)
[2020-01-28 04:48] LABS: #Eosinphils 0.1 thou/uL (0.0-0.7); #Lymphocytes 0.8 thou/uL (1.20-3.40); #Monocytes 0.2 thou/uL (0.11-0.59); #Neutrophils 2.4 thou/uL (1.40-6.50); %Basophils 0.2 % (0.0-1.0); %Eosinophils 3.7 % (0.0-10.0); %Lymphocytes 23.2 % (21.0-51.0); %Monocytes 4.7 % (0.0-10.0); %Neutrophils 68.3 % (42.0-75.0); Hemoglobin 8.8 g/dL (12.0-16.0); Mean Corpuscular HGB CONC 34.7 g/dL (32.0-36.0); Mean Corpuscular Hemoglobin 30.2 pg (27.0-31.0); Mean Corpuscular Volume 86.9 fL (78.0-98.0); Platelet Count 161 thou/uL (130-400); RBC Distribution Width 13.5 % (11.5-14.5); Red Blood Cell (RBC) Count 2.91 mill/uL (4.20-5.40); White Blood Cell (WBC) Count 3.5 thou/uL (4.8-10.8)
[2020-01-28 05:06] LABS: ALT (SGPT) 8 U/L (8-55); AST (SGOT) 16 U/L (5-34); Albumin 3.8 g/dL (3.4-4.8); Alkaline Phosphatase 83 U/L (40-110); Anion Gap 16 mmol/L (10-20); BUN (Urea Nitrogen) 35 mg/dL (9.8-20.1); Bilirubin, Total 0.5 mg/dL (0.2-1.2); Calc. Creatinine Clearance 0 mL/min (70-130); Calcium 9.2 mg/dL (7.8-10.44); Carbon Dioxide 20 mmol/L (23-31); Chloride 104 mmol/L (98-107); Estimated GFR-MDRD 21; Globulin 3.4 g/dL (2.4-3.5); Glucose 157 mg/dL (80-115); Protein, Total 7.2 g/dL (6.0-8.3); Sodium 136 mmol/L (136-145)
[2020-01-28 05:27] LABS: CKMB 1.5 ng/mL (0-6.6)
[2020-01-28 07:46] LABS: Troponin I 0.048 ng/mL (< 0.028)
[2020-01-28 08:13] VITALS: BMI 36.1
--- NOTE | 2020-01-28 08:40 | RAD ---
CHEST ONE VIEW: HISTORY: Bodyaches and cough. Left sided rib pain and shortness of breath. COMPARISON: 05/01/2019 FINDINGS: The cardiac silhouette is magnified by projection but is mildly enlarged. This is stable from the fred or exam. Pulmonary vasculature is within normal limits. Lungs remain clear. There has been no interva l change from the prior study. IMPRESSION: 1. Cardiomegaly. 2. No acute cardiopulmonary process. POS: OFF
[2020-01-28 11:07] LABS: Troponin I 0.042 ng/mL (< 0.028)
[2020-01-28] MEDS ORDERED: Dextrose 50% Abboject 50 ML SYRINGE SLOW IVP PRN (12:00)
[2020-01-28] MEDS ORDERED: Dextrose 5% in Water 1,000 ML IV PRN (12:00)
[2020-01-28] MEDS ORDERED: Insulin Regular 300 UNITS/3 ML VIAL SC PRN ×2 (12:00)
[2020-01-28] MEDS ORDERED: Nitroglycerin 0.4 MG TAB (25 Tab Bottle) PO PRN (12:01)
[2020-01-28] MEDS ORDERED: Calcium Carbonate 500 MG ChewTAB PO PRN (12:02)
[2020-01-28] MEDS ORDERED: Acetaminophen 325 MG TAB PO PRN (12:02)
[2020-01-28] MEDS ORDERED: Sotalol HCl 80 MG TAB PO SCH (12:15)
[2020-01-28] MEDS ORDERED: Sodium Chloride 0.9% 1,000 ML IV SCH (12:15)
--- NOTE | 2020-01-28 12:35 | HP ---
PRIMARY CARE: [facility]. CHIEF COMPLAINT: Chest discomfort. HISTORY OF PRESENT ILLNESS: The patient is a 59-year-old female with hypertension, CKD, and paroxysmal atrial fibrillation, presented to the emergency room with chest discomfort. The chest discomfort has been ongoing for last 2 to 3 days. It is constant over the left side of the chest, radiating to her back. She describes the pain as sharp with intermittent tightness. No nausea, vomiting, diaphoresis, or relieving or aggravating factor reported. She also states that over the last 2 weeks, there is reproducible chest wall tenderness that is unchanged. PAST MEDICAL HISTORY: 1. CKD, stage 3. 2. Paroxysmal atrial fibrillation. 3. Hypertension. 4. Hypothyroidism. 5. Dyslipidemia. 6. History of TIA. 7. Anxiety. PAST SURGICAL HISTORY: 1. Cholecystectomy. 2. Appendectomy. 3. Hernia repair. 4. Tonsillectomy. 5. Tubal ligation. 6. Cardiac ablation. ALLERGIES: THE PATIENT IS ALLERGIC TO NSAIDS. FAMILY HISTORY: Positive for premature coronary artery disease. SOCIAL HISTORY: The patient is ex-smoker. No alcohol or drug use. CURRENT HOME MEDICATIONS: 1. Aspirin 325 mg daily. 2. Glipizide 5 mg daily. 3. Hydralazine 100 mg 3 times a day. 4. Levothyroxine 50 mcg daily. 5. Lovastatin 20 mg at bedtime. 6. Seroquel 100 mg at bedtime. 7. Sotalol 40 mg daily. 8. Ambien 10 mg at bedtime. 9. Procardia XL 30 mg daily. 10. Vitamin B12 one tab daily. 11. [place] as needed. 12. Methocarbamol as needed. REVIEW OF SYSTEMS: All other review of systems was reviewed and were found negative. PHYSICAL EXAMINATION: VITAL SIGNS: Temperature 98.4, respirations of 20, pulse rate of 65, blood pressure of 154/55, and O2 saturation 93% on room air. GENERAL: A 59-year-old female, in no apparent distress. HEENT: Head, atraumatic and normocephalic. Sclerae anicteric. Moist mucous membranes. No oral lesion. NECK: Supple. No JVD appreciated. No carotid bruit. LUNGS: Clear to auscultation bilaterally. No wheezing, rales, or rhonchi. HEART: S1, S2 present. Regular rate and rhythm. Reproducible chest wall tenderness over left rib cage. No heaves or pulsation. ABDOMEN: Soft, nontender. Bowel sounds present. No rebound or guarding. No costovertebral angle tenderness. EXTREMITIES: No edema or calf tenderness. NEUROLOGIC: Grossly nonfocal. Moves all 4 extremities. PSYCHIATRY: Alert, awake, oriented x3. SKIN: Warm and dry. LYMPH NODES: No palpable lymph nodes in the neck. PERIPHERAL VASCULAR: Radial pulses palpable bilaterally. MUSCULOSKELETAL: No joint swelling or tenderness. LABORATORY FINDINGS: CBC showed WBC 3.5 with hemoglobin 8.8, hematocrit 25.3, platelet 161. Chemistry showed sodium 136, potassium 4, chloride 104, bicarb 20, BUN 25, creatinine 2.38. Her baseline creatinine last month was 1.6. BNP was 183. Maximum troponin was 0.048. LFTs in normal range. IMAGING STUDIES: Chest x-ray by my review was negative for infiltrate or edema. EKG by my review showed inferolateral ischemic changes. IMPRESSION: 1. Chest discomfort with abnormal EKG. 2. Elevated troponin. 3. Acute kidney injury on chronic kidney disease stage 3. 4. Metabolic acidosis, probably secondary to renal insufficiency. 5. Paroxysmal atrial fibrillation, in sinus rhythm. 6. Hypothyroidism. 7. Dyslipidemia. 8. Chronic pain syndrome. 9. Anxiety. 10. Pernicious anemia. 11. Obesity with a body mass index of 36.2. 12. Former smoker. 13. Family history of heart disease. 14. Diabetes mellitus type 2. PLAN: The patient will be monitored on the telemetry unit. Serial troponins will be obtained. Cardiology and Nephrology will be consulted. We will start her on gentle IV hydration. We will resume aspirin, beta blockers, and Procardia XL. We will avoid nephrotoxic medications. Insulin sliding scale. Recheck labs in a.m. Vital signs per protocol. The patient understands the above plan of care. Job ID: [id number]
[2020-01-28] MEDS ORDERED: Methocarbamol 500 MG TAB PO PRN (12:45)
[2020-01-28] MEDS: HYDROcodone/Acetaminophen 10/325 mg Tablet PO PRN ×2 (13:43→20:35)
[2020-01-28] MEDS: hydrALAZINE 25 MG TAB PO SCH ×2 (13:44→20:32)
[2020-01-28] MEDS: Heparin 5,000 UNITS/ML VIAL SC SCH (20:29)
[2020-01-28] MEDS: Simvastatin 5 MG TAB PO SCH (20:31)
[2020-01-28] MEDS: Famotidine 20 MG TAB PO SCH (20:32)
[2020-01-28] MEDS: Aspirin 325 MG TAB PO SCH (20:32)
[2020-01-28] MEDS: Zolpidem Tartrate 5 MG TAB PO PRN (21:46)
[2020-01-29 04:49] LABS: #Eosinphils 0.2 thou/uL (0.0-0.7); #Lymphocytes 0.9 thou/uL (1.20-3.40); #Monocytes 0.2 thou/uL (0.11-0.59); #Neutrophils 1.2 thou/uL (1.40-6.50); %Basophils 0.3 % (0.0-1.0); %Eosinophils 6.2 % (0.0-10.0); %Lymphocytes 37.6 % (21.0-51.0); %Monocytes 7.5 % (0.0-10.0); %Neutrophils 48.4 % (42.0-75.0); Hemoglobin 7.7 g/dL (12.0-16.0); Mean Corpuscular HGB CONC 33.6 g/dL (32.0-36.0); Mean Corpuscular Hemoglobin 29.4 pg (27.0-31.0); Mean Corpuscular Volume 87.7 fL (78.0-98.0); Mean Platelet Volume 9.8 fL (7.4-10.4); Platelet Count 128 thou/uL (130-400); RBC Distribution Width 13.5 % (11.5-14.5); White Blood Cell (WBC) Count 2.5 thou/uL (4.8-10.8)
[2020-01-29 05:00] LABS: Anion Gap 16 mmol/L (10-20); BUN (Urea Nitrogen) 35 mg/dL (9.8-20.1); Calc. Creatinine Clearance 37 mL/min (70-130); Calcium 8.7 mg/dL (7.8-10.44); Carbon Dioxide 17 mmol/L (23-31); Chloride 110 mmol/L (98-107); Estimated GFR-MDRD 25; Glucose 90 mg/dL (80-115); Potassium 3.9 mmol/L (3.5-5.1); Sodium 139 mmol/L (136-145)
[2020-01-29] MEDS: Levothyroxine Sodium 50 MCG TAB PO SCH (06:24)
[2020-01-29] MEDS ORDERED: glipiZIDE 5 MG TAB PO SCH (07:30)
[2020-01-29] MEDS ORDERED: Communication Order-Pharmacy FS SCH (09:00)
[2020-01-29] MEDS: NIFEdipine XL 30 MG TAB PO SCH (09:15)
[2020-01-29] MEDS: Famotidine 20 MG TAB PO SCH (09:15)
[2020-01-29] MEDS: Sotalol HCl 80 MG TAB PO SCH (09:15)
[2020-01-29] MEDS: hydrALAZINE 25 MG TAB PO SCH ×3 (09:16→21:16)
--- NOTE | 2020-01-29 10:03 | CON ---
DATE OF CONSULTATION: HISTORY: Ramila Rowe is a 59-year-old white female, admitted again with chest discomfort. She currently follows with Dr. Vazquez; however, in May 2007, underwent cardiac catheterization by Dr. Lay. This revealed an ejection fraction of 55 % with 10% to 15% LAD lesion and mild plaquing in the right coronary artery. In December 2017, she presented with acute cholecystitis and was found to be in atrial flutter. She underwent transesophageal echo followed by electrical cardioversion by Dr. Lay. She was maintained on very low-dose sotalol and was anticoagulated for a while, but apparently this was stopped due to some question of seizure problems. She has had multiple negative stress tests. The most recent one was in December 2019, when she was admitted with chest discomfort and adenosine Cardiolite revealed no evidence of ischemia. She now is again admitted with chest discomfort. She describes left-sided chest pressure radiating to her left axilla associated with mild shortness of breath, but no diaphoresis, or nausea. This discomfort lasted approximately 10 to 12 hours of continual pain, although it would wax and wane. She was admitted for further evaluation and EKG shows some subtle lateral ST-segment changes. PAST MEDICAL HISTORY: History of atrial fibrillation and atrial flutter, diabetes, history of TIA, history of seizures, hyperlipidemia, hypothyroidism, chronic back pain, chronic kidney disease, anxiety, and depression. PAST SURGICAL HISTORY: Operations; radiofrequency ablation x2, cholecystectomy, appendectomy, hernia repair, tonsillectomy, and tubal ligation. MEDICATIONS: 1. Sotalol 40 mg q.a.m. 2. Aspirin 325 daily. 3. Glipizide 5 mg a.c. daily. 4. Hydralazine 100 mg t.i.d. 5. Levothyroxine 50 mcg daily. 6. [place] 20 at bedtime. 7. Methocarbamol 750 mg q.p.m. 8. Nifedipine 30 q.a.m. 9. Seroquel 100 mg at bedtime. 10. Ambien 10 mg at bedtime. 11. B12 and folate. ALLERGIES: MOTRIN, NAPROXEN, AMLODIPINE, AND NSAIDS. SOCIAL HISTORY: She smoked in the past, but stopped in 1993. She does not drink. FAMILY HISTORY: Positive for coronary artery disease. REVIEW OF SYSTEMS: A 12-point review of systems otherwise is unremarkable. PHYSICAL EXAMINATION: VITAL SIGNS: Blood pressure 140/65, pulse of 74. HEENT: PERRL. NECK: Supple. CHEST: Clear. CARDIAC: S1 and S2 are normal without any S3, S4, or murmurs. Carotid upstrokes normal with faint right carotid artery bruit. Dorsalis pedis pulses and posterior tibial pulses are normal. ABDOMEN: Obese. Normal bowel sounds. No tenderness. EXTREMITIES: Revealed no clubbing, cyanosis, or edema. NEUROLOGIC: Grossly intact. SKIN: Warm and dry. LABORATORY DATA: EKG reveals normal sinus rhythm with right bundle-branch block , which is old. However, she has T-wave inversion in V2 and downsloping ST segments in V4 through V6, which is more significant than EKG from 1 month ago. Hemoglobin 7.7, hematocrit 22.8, white count 2500, platelets 128,000. Sodium 139, potassium 3.9, chloride 110, carbon dioxide 17, BUN 35, and creatinine 1.99. Creatinine on admission was 2.38. Troponin I 0.048. BNP 183.6. One month ago, iron and TIBC were normal, B12 was slightly low and folate was normal. IMPRESSION: 1. Multiple admissions with chest discomfort. She now has had 10 to 12 hours of continual chest pain without significant elevation in her cardiac enzymes. She also has had multiple normal Cardiolite test. However, EKG does show some possible ischemic changes in V2 and in V4 through V6. 2. Anemia, worsened after IV hydration. One month ago, she had normal iron, TIBC, folate, and only slightly abnormal B12 levels. She had a normal colonoscopy in December 2018. In looking at the computer, I do not see that she has ever seen Hematology. This certainly may be a result of her chronic kidney disease and may benefit from Procrit. 3. Hypertension. 4. Diabetes. 5. Hyperlipidemia. 6. Hypothyroidism. 7. Former smoker. 8. Positive family history. 9. Anxiety. 10.Obesity. 11.Chronic kidney disease. PLAN: With EKG changes, multiple admissions with chest discomfort, and coronary artery disease at catheterization in 2006, although it is very minimal, consideration should be given to cardiac catheterization. Her renal function and hemoglobin will be monitored closely and she certainly may need to undergo transfusion. We did discuss cardiac catheterization and the risks involved - , myocardial infarction, dye reaction, CVA, transfusion, limb loss, kidney damage, vascular injury with operative repair, etc. We discussed stent placement with , myocardial infarction, emergent CABG, restenosis, and stent thrombosis, etc. She will be gently hydrated overnight and hemoglobin and creatinine will be checked in the morning. She will be evaluated at that time by Dr. Vazquez, who is her usual edm operator. Also, her previous EKGs will be requested to be placed on the chart for better comparison. Job ID: [id number] MTDD
[2020-01-29] MEDS: Heparin 5,000 UNITS/ML VIAL SC SCH (11:51)
[2020-01-29] MEDS ORDERED: EPOETIN ALFA-EPBX (ESRD) 4,000 UNIT/ML VIAL SC SCH (12:00)
--- NOTE | 2020-01-29 12:13 | PDOC.HOSPP ---
- Subjective Encounter Date: 01/29/20 Encounter Time: 08:45 Subjective: Patient seen and examined for CP. No new episodes of CP. No SOB. No new complaints. No overnight events - Objective Vital Signs & Weight: Vital Signs (12 hours) Temp Pulse Resp BP Pulse Ox 01/29/20 12:00 98.2 F 64 18 125/59 L 94 L 01/29/20 07:33 98.2 F 74 18 140/65 94 L 01/29/20 03:10 97.9 F 64 16 136/63 92 L 01/29/20 02:43 94 L Weight Weight 175 lb 6.4 oz I&O: 01/28/20 01/29/20 01/30/20 06:59 06:59 06:59 Intake Total 1735 Output Total 750 Balance 985 Result Diagrams: 01/29/20 04:25 01/29/20 04:25 Additional Labs: Accuchecks 01/29/20 01/28/20 01/28/20 10:52 20:14 16:17 POC Glucose 199 H 150 H 207 H EKG Reviewed by me: Yes (Tele SR) Hospitalist ROS - Review of Systems Respiratory: denies: cough, dry, shortness of breath, hemoptysis, SOB with excertion, pleuritic pain, sputum, wheezing, other Cardiovascular: denies: chest pain, palpitations, orthopnea, paroxysmal noc. dyspnea, edema, light headedness, other Gastrointestinal: denies: nausea, vomiting, abdominal pain, diarrhea, constipation, melena, hematochezia, other - Medication Medications: Active Medications Generic Name Dose Route Start Last Admin Trade Name Freq PRN Reason Stop Dose Admin Hydrocodone Bitart/Acetaminophen 1 tab 01/28/20 12:04 01/28/20 20:35 [place] 10/325 PO 1 tab Q6H PRN Administration Moderate to Severe Pain (4-10) Aspirin 325 mg 01/28/20 21:00 01/28/20 20:32 Aspirin PO Not Given HS ESMER Epoetin Alirio-epbx 7,500 unit 01/29/20 12:00 01/29/20 11:59 Retacrit SC 7,500 unit Q7D ESMER Administration Glipizide 5 mg 01/29/20 07:30 01/29/20 09:19 Glucotrol PO 01/30/20 00:01 5 mg DAILY-AC ESMER Administration Heparin Sodium (Porcine) 5,000 units 01/28/20 21:00 01/29/20 11:51 Heparin SC Not Given BID [facility] Hydralazine HCl 100 mg 01/28/20 15:00 01/29/20 09:16 Apresoline PO 100 mg TID ESMER Administration Levothyroxine Sodium 50 mcg 01/29/20 06:00 01/29/20 06:24 Synthroid PO 50 mcg 0600 ESMER Administration Nifedipine 30 mg 01/29/20 09:00 01/29/20 09:15 Procardia Xl PO 30 mg DAILY E[facility]ER Administration Quetiapine Fumarate 100 mg 01/28/20 21:00 01/28/20 20:31 Seroquel PO 100 mg HS [facility] Administration Simvastatin 10 mg 01/28/20 21:00 01/28/20 20:31 Zocor PO 10 mg HS E[facility]ER Administration Sotalol HCl 40 mg 01/29/20 09:00 01/29/20 09:15 Betapace PO 40 mg DAILY ESM[facility] Administration Zolpidem Tartrate 5 mg 01/28/20 12:05 01/28/20 21:46 Ambien PO 5 mg HSPRN PRN Administration Insomnia - Exam General Appearance: NAD Neck: supple, no JVD Heart: RRR, no gallops Respiratory: no wheezes, no ronchi Gastrointestinal: non-tender, non-distended, normal bowel sounds Extremities: no cyanosis Neurological: no new deficit Hosp A/P - Plan DVT proph w/SCDs 1. Chest discomfort with abnormal EKG. 2. Elevated troponin. 3. Acute kidney injury on chronic kidney disease stage 3. 4. Metabolic acidosis, probably secondary to renal insufficiency. 5. Paroxysmal atrial fibrillation, in sinus rhythm. 6. Hypothyroidism. 7. Dyslipidemia. 8. Chronic pain syndrome. 9. Anxiety. 10. Aenmia due to CKD/Pernicious anemia. 11. Obesity with a body mass index of 36.2. 12. Former smoker. 13. Family history of heart disease. 14. Diabetes mellitus type 2. PLAN: Cardiology and Nephrology input appreciated Cont IVF Cont ASA Cont Sotatol Cont Procardia XL Cont sliding scale Cont levothyroxine AM labs Hold SQ Heparin due to Anemia
[2020-01-29] MEDS: Sodium Chloride 0.9% 1,000 ML IV SCH (13:39)
[2020-01-29] MEDS: Ferrous Sulfate 325 MG TAB PO SCH (16:32)
[2020-01-29] MEDS: HYDROcodone/Acetaminophen 10/325 mg Tablet PO PRN (17:24)
[2020-01-29] MEDS: Aspirin 325 MG TAB PO SCH (21:17)
[2020-01-29] MEDS: Simvastatin 5 MG TAB PO SCH (21:17)
[2020-01-29] MEDS: Senokot S 8.6-50 MG TAB PO SCH (21:20)
[2020-01-29] MEDS: Zolpidem Tartrate 5 MG TAB PO PRN (22:15)
[2020-01-30] MEDS: Sodium Chloride 0.9% 1,000 ML IV SCH ×2 (00:37→14:08)
[2020-01-30 04:56] LABS: #Eosinphils 0.1 thou/uL (0.0-0.7); #Lymphocytes 0.7 thou/uL (1.20-3.40); #Monocytes 0.2 thou/uL (0.11-0.59); #Neutrophils 1.4 thou/uL (1.40-6.50); %Eosinophils 4.2 % (0.0-10.0); %Lymphocytes 28.2 % (21.0-51.0); %Monocytes 6.6 % (0.0-10.0); Hemoglobin 7.7 g/dL (12.0-16.0); Mean Corpuscular HGB CONC 33.8 g/dL (32.0-36.0); Mean Corpuscular Hemoglobin 29.8 pg (27.0-31.0); Mean Corpuscular Volume 88.1 fL (78.0-98.0); Mean Platelet Volume 9.5 fL (7.4-10.4); Platelet Count 143 thou/uL (130-400); RBC Distribution Width 13.5 % (11.5-14.5); Red Blood Cell (RBC) Count 2.59 mill/uL (4.20-5.40); White Blood Cell (WBC) Count 2.3 thou/uL (4.8-10.8)
[2020-01-30 05:22] LABS: Anion Gap 18 mmol/L (10-20); BUN (Urea Nitrogen) 30 mg/dL (9.8-20.1); Calc. Creatinine Clearance 38 mL/min (70-130); Calcium 8.6 mg/dL (7.8-10.44); Carbon Dioxide 14 mmol/L (23-31); Chloride 112 mmol/L (98-107); Estimated GFR-MDRD 26; Glucose 98 mg/dL (80-115); Potassium 3.8 mmol/L (3.5-5.1); Sodium 140 mmol/L (136-145)
[2020-01-30] MEDS ORDERED: Sodium Chloride 0.9% 1,000 ML IV SCH (06:00)
[2020-01-30] MEDS: Sotalol HCl 80 MG TAB PO SCH (06:23)
[2020-01-30] MEDS: Famotidine 20 MG TAB PO SCH (06:25)
[2020-01-30] MEDS: hydrALAZINE 25 MG TAB PO SCH ×3 (06:25→20:56)
[2020-01-30] MEDS: NIFEdipine XL 30 MG TAB PO SCH (06:25)
[2020-01-30] MEDS: Levothyroxine Sodium 50 MCG TAB PO SCH (06:26)
[2020-01-30] MEDS: Senokot S 8.6-50 MG TAB PO SCH ×2 (06:27→20:56)
--- NOTE | 2020-01-30 07:19 | CON ---
DATE OF CONSULTATION: HISTORY OF PRESENT ILLNESS: Ms. Rowe is a 59-year-old white female with known history of chronic renal failure, admitted for chest pain. She has been evaluated by Cardiology. She is being ruled out for an PA. Please note, the patient was noted to have an elevated creatinine, which was higher than baseline. Empiric volume repletion is being given with improvement of the renal function. Creatinine has improved from initial value of 2.38 to most recent value of 1.99. She is tolerating the current IV fluids. The patient currently denies any chest pain or shortness of breath. REVIEW OF SYSTEMS: Chest pain, transient in nature. No shortness of breath. No nausea. No vomiting. No diarrhea. Denies any melena. No hematemesis. No abdominal pain. No syncopal episode. No productive cough. No fever or chills. Appetite and energy level are fair. No headache. No diplopia. No sore throat. No new skin rash. MEDICATIONS: Currently on, 1. Aspirin 325 mg daily. 2. Famotidine 20 mg p.o. b.i.d. 3. Glipizide 5 mg daily. 4. Heparin 5000 units subcu b.i.d. 5. Hydralazine 100 mg p.o. t.i.d. 6. She is on hydrocodone 10/325 q.6 p.r.n. 7. Levothyroxine 50 mcg daily. 8. Robaxin 750 mg at bedtime p.r.n. 9. Nifedipine 30 mg XL tablet daily. 10. Normal saline at 75 mL/h. 11. Sotalol 40 mg p.o. daily. PAST MEDICAL HISTORY: 1. Chronic renal failure. 2. Status post acute kidney injury. 3. Status post CHF. 4. History of chronic atrial fibrillation. 5. Hypothyroidism. 6. Status post TIA. 7. Hyperlipidemia. 8. Type 2 diabetes mellitus. PAST SURGICAL HISTORY: Status post upper and lower GI endoscopy, status post laparoscopic cholecystectomy, status post bilateral tubal ligation, status post abdominal hernia repair x5, status post tonsillectomy, status post cardiac ablation, status post bilateral tubal ligation. SOCIAL HISTORY: The patient is . Lives on her own. Two children. Smoked for 30 years, 1 pack a day. Alcohol, none. 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 Education, high school. No drug abuse. Active lifestyle. ALLERGIES: NSAIDS. TRAUMA: None. IMMUNIZATIONS: Up to date. HOSPITALIZATIONS: Please see past medical history. FAMILY HISTORY: No family history of ESRD. PHYSICAL EXAMINATION: VITAL SIGNS: Blood pressure is noted at 140/65, heart rate 74, respiratory rate 19, temperature 98.2, and pulse ox 94%. GENERAL: The patient is awake, alert, sitting comfortable, obese, not in distress. SKIN: Adequate turgor. HEENT: Pale conjunctivae. Anicteric sclerae. No neck mass. No carotid bruits. No JVD. CHEST: No deformities. LUNGS: Clear breath sounds. HEART: Irregular. No murmur. No gallops. No rubs. ABDOMEN: Globular, soft, nontender. No masses. EXTREMITIES: No edema. No deformities. LABORATORY DATA: On January 29, 2020; sodium 139, potassium 3.9, chloride 110, carbon dioxide 17, BUN 35, creatinine 1.99. GFR is 25 mL/minute. Calcium is 8.7. Hemoglobin 7.7, hematocrit 22.8. ASSESSMENT AND PLAN: 1. Chronic renal failure/acute kidney injury, superimposed prerenal azotemia. Improving renal function with IV hydration. Continue current management. Continue current IV hydration. No indication for any dialytic intervention. 2. Anemia. Start iron and Epogen. I did review the GFR and in the last year or so it has been less than 30 mL/minute. She may be a candidate for Epogen. Ferrous sulfate 325 mg p.o. b.i.d. was started. We will also start her on Epogen. 3. Chest pain, being ruled out for myocardial infarction. Cardiology is following. 4. Overall agree with current management. We will check also stools for occult blood. Job ID: [id number]
[2020-01-30] MEDS ORDERED: Diltiazem 125 MG in Sodium Chloride 0.9% 100 ML IVPB SCH ×2 (07:30→08:39)
[2020-01-30] MEDS: Ferrous Sulfate 325 MG TAB PO SCH ×2 (07:57→18:10)
[2020-01-30] MEDS: HYDROcodone/Acetaminophen 10/325 mg Tablet PO PRN ×2 (10:26→20:54)
[2020-01-30] MEDS ORDERED: Digoxin 0.5 MG/2 ML AMP SLOW IVP SCH (11:15)
--- NOTE | 2020-01-30 11:21 | PDOC.CPN ---
- Subjective Date: 01/30/20 Time: 08:00 Interval history: The pt seen and examined. No overnight events. No cardiac complaints - Objective Allergies/Adverse Reactions: Allergies Allergy/AdvReac Type Severity Reaction Status Date / Time ibuprofen [From Motrin] Allergy Intermediate Nausea Verified 01/24/20 01:16 naproxen Allergy Intermediate Nausea Verified 01/24/20 01:16 amlodipine [From Norvasc] Allergy Verified 01/24/20 01:16 NSAIDS (Non-Steroidal Allergy Verified 01/24/20 01:16 Anti-Inflamma Visit Medications: Current Medications Acetaminophen (Tylenol) 650 mg PO Q4H PRN PRN Reason: Headache/Fever/Mild Pain (1-3) Hydrocodone Bitart/Acetaminophen ([place] 10/325) 1 tab PO Q6H PRN PRN Reason: Moderate to Severe Pain (4-10) Last Admin: 01/30/20 10:26 Dose: 1 tab Aspirin (Aspirin) 325 mg PO [facility] Last Admin: 01/29/20 21:17 Dose: 325 mg Calcium Carbonate (Tums) 1,000 mg PO Q4H PRN PRN Reason: Heartburn or Indigestion Dextrose/Water (Dextrose 50%) 25 gm SLOW IVP PRN PRN PRN Reason: Hypoglycemia Digoxin (Lanoxin) 0.5 mg SLOW IVP NOW [facility] Stop: 01/30/20 13:15 Epoetin Alirio-epbx (Retacrit) 7,500 unit SC Q7D [facility] Last Admin: 01/29/20 11:59 Dose: 7,500 unit Famotidine (Pepcid) 20 mg PO DAILY [facility] Last Admin: 01/30/20 06:25 Dose: 20 mg Ferrous Sulfate (Feosol) 325 mg PO BID[facility] Last Admin: 01/30/20 07:57 Dose: Not Given Glucagon (Glucagon) 1 mg IM PRN PRN PRN Reason: Hypoglycemia Hydralazine HCl (Apresoline) 100 mg PO TID [facility] Last Admin: 01/30/20 06:25 Dose: 100 mg Dextrose/Water (D5w) 1,000 mls @ 0 mls/hr IV .Q0M PRN PRN Reason: Hypoglycemia Sodium Chloride (Normal Saline 0.9%) 1,000 mls @ 75 mls/hr IV .[id number] [facility] Last Admin: 01/30/20 00:37 Dose: 1,000 mls Diltiazem HCl 125 mg/ Sodium (Chloride) 125 mls @ 7.5 mls/hr IVPB INF [facility] Levothyroxine Sodium (Synthroid) 50 mcg PO 0600 [facility] Last Admin: 01/30/20 06:26 Dose: 50 mcg Methocarbamol (Robaxin) 750 mg PO HSPRN PRN PRN Reason: Muscle Spasm Miscellaneous Information (Communication Order-Pharmacy) 0 each FS ONE [facility] Stop: 01/30/20 12:00 Nifedipine (Procardia Xl) 30 mg PO DAILY [facility] Last Admin: 01/30/20 06:25 Dose: 30 mg Nitroglycerin (Nitrostat) 0.4 mg PO Q5MIN PRN PRN Reason: Chest Pain Quetiapine Fumarate (Seroquel) 100 mg PO [facility] Last Admin: 01/29/20 21:17 Dose: 100 mg Senna/Docusate Sodium (Senokot S) 2 tab PO BID [facility] Last Admin: 01/30/20 06:27 Dose: Not Given Simvastatin (Zocor) 10 mg PO [facility] Last Admin: 01/29/20 21:17 Dose: 10 mg Sodium Chloride (Flush - Normal Saline) 10 ml IVF PRN PRN PRN Reason: Saline Flush Sotalol HCl (Betapace) 40 mg PO DAILY [facility] Last Admin: 01/30/20 06:23 Dose: 40 mg Zolpidem Tartrate (Ambien) 5 mg PO HSPRN PRN PRN Reason: Insomnia Last Admin: 01/29/20 22:15 Dose: 5 mg Vital Signs & Weight: Vital Signs Temp Pulse Resp BP Pulse Ox 01/30/20 07:52 97.4 F L 148 H 24 H 120/58 L 99 01/30/20 06:25 70 01/30/20 06:23 70 01/30/20 03:55 97.8 F 70 16 131/60 95 Weight 176 lb 1.6 oz - Physical Exam General: alert & oriented x3 HEENT: mucus membranes moist Neck: supple neck Cardiac: irregularly regular Lungs: clear to auscultation, decreased breath sounds Neuro: cranial nerve 2-12 intact Extremities: no edema - Labs Result Diagrams: 01/30/20 04:38 01/30/20 04:38 Troponin/CKMB CK-MB (CK-2) 1.5 ng/mL (0-6.6) 01/28/20 04:36 Troponin I 0.042 ng/mL (< 0.028) H 01/28/20 10:35 - Telemetry Supraventricular conduction: atrial flutter - Assessment/Plan Assessment/Plan: 1. Chest discomfort - her pain is from under Lt axillary area to bilat shoulders , which worsen with palpitation to those sites (musuloskeletal pain); 2. New onset Aflutter with RVR - HR has been 110-120s with Diltiazem 10mg IV push and 10mg/h; EP consult; ASA 325mg qd only for now due to Anemia 3. Aenmia - ?due to CKD or iron deficiency; on Iron supplement;Epogen qwk by Dr Allison; waiting for occult stool 4. LA on CKD stage 3 - managed by Dr Allison. 5. Hx of Parox Afib 6. Hypothyroidism - will check TSH 7. Dyslipidemia - on Statin 8. DM type 2 9. Seizure 10. Hx of TIA 11. Hx of multiple falls 12. obese 13. Ex-smoker MAR reviewed * Stress test in 12/2019 with no ischemia Pt. seen and eval. by me. I agree with the A/P by the [employer]. Due to the renal insuffiency, I will stop the sotolol and start amiodarone in AM. If she has not converted to NSR then cardiovert in AM to decrease the risk of embolic phenomenon. She is a poor candidate for OAC. She has a long history of anemia and tells me that she has had more than 50 transfusions in her lifetime. She has not had any since becoming post menopausal. She was seen in the past by GI and has diverticulosis but I do not think any overt bleeding was found. The anemia may be due or worsened by her CKD. At this time she seems to have some degree of pancytopenia and may need a hematological workup. ? myelofibrosis or some such abnormality. Her pain is reproducible and seems to be musculoskeletal. I will hold off on her cardiac cath at this time. A stress test 1 month agao was negative for ischemia. Chest clear. Tachycardia. Regular rhythm. No edema. gjfany
--- NOTE | 2020-01-30 11:37 | PRG ---
DATE OF SERVICE: 01/30/2020 SUBJECTIVE: Ms. Rowe is a 59-year-old white female, who was admitted for rapid AFib and chest pain. She voices no complaints of chest pain, but is not feeling well with some myalgia. She is noted to be in rapid AFib. She is on Cardizem drip, which was recently increased. We will give her one time dose of digoxin 0.5 mg IV slow push. We are following her up for acute kidney injury, which is much improved with gentle volume repletion. No other complaints. OBJECTIVE: VITAL SIGNS: Blood pressure 120/58, heart rate 148, respiratory rate 24, temperature 97.4, and pulse ox 99%. GENERAL: Noted to be awake, alert, comfortable, not in overt distress. SKIN: Adequate turgor. HEENT: Pinkish conjunctivae. Anicteric sclerae. NECK: No neck mass. No carotid bruits. No JVD. CHEST: No deformities. LUNGS: Clear breath sounds. HEART: Tachycardic and irregular. ABDOMEN: Globular, soft, and nontender. EXTREMITIES: No edema. No deformities. MEDICATIONS: Medications of January 30, 2020, reviewed. LABORATORY DATA: January 30, 2020; white count 2.3, hemoglobin 7.7, sodium 140, potassium 3.8, creatinine 1.96, and calcium 8.6. ASSESSMENT/PLAN: 1. Metabolic acidosis. We will start sodium bicarbonate 650 mg one tablet t.i.d. 2. Acute kidney injury on top of chronic renal failure, much improved renal function with IV hydration. Creatinine now is noted to be 1.96. No indication for any dialytic intervention. 3. Anemia, currently on Epogen. 4. Rapid atrial fibrillation - digoxin 0.5 mg IV x1 dose was given. Cardiology is following. Recheck CBC and base met in a.m. Job ID: [id number] [facility]
--- NOTE | 2020-01-30 13:49 | PDOC.HOSPP ---
- Subjective Encounter Date: 01/30/20 Encounter Time: 08:30 Subjective: Patient seen and examined for CP. Developed Aflutter with RVR. On Cardizem drip. No new complaints. No overnight events - Objective Vital Signs & Weight: Vital Signs (12 hours) Temp Pulse Resp BP Pulse Ox 01/30/20 13:46 97.7 F 122 H 20 118/54 L 95 01/30/20 11:54 148 H 01/30/20 11:23 97.7 F 136 H 16 113/57 L 94 L 01/30/20 07:52 97.4 F L 148 H 24 H 120/58 L 99 01/30/20 06:25 70 01/30/20 06:23 70 01/30/20 03:55 97.8 F 70 16 131/60 95 Weight Weight 176 lb 1.6 oz I&O: 01/29/20 01/30/20 01/31/20 06:59 06:59 06:59 Intake Total 1735 2630 Output Total 750 1300 Balance 985 1330 Result Diagrams: 01/30/20 04:38 01/30/20 04:38 Additional Labs: Accuchecks 01/30/20 01/29/20 01/29/20 11:30 20:32 16:27 POC Glucose 191 H 113 H 146 H EKG Reviewed by me: Yes (Tele Aflutter with RVR) Hospitalist ROS - Review of Systems Respiratory: denies: cough, dry, shortness of breath, hemoptysis, SOB with excertion, pleuritic pain, sputum, wheezing, other Cardiovascular: reports: chest pain, palpitations. denies: orthopnea, paroxysmal noc. dyspnea, edema, light headedness, other Gastrointestinal: denies: nausea, vomiting, abdominal pain, diarrhea, constipation, melena, hematochezia, other - Medication Medications: Active Medications Generic Name Dose Route Start Last Admin Trade Name Freq PRN Reason Stop Dose Admin Hydrocodone Bitart/Acetaminophen 1 tab 01/28/20 12:04 01/30/20 10:26 [place] 10/325 PO 1 tab Q6H PRN Administration Moderate to Severe Pain (4-10) Aspirin 325 mg 01/28/20 21:00 01/29/20 21:17 Aspirin PO 325 mg HS ESMER Administration Epoetin Alirio-epbx 7,500 unit 01/29/20 12:00 01/29/20 11:59 Retacrit SC 7,500 unit Q7D ESMER Administration Famotidine 20 mg 01/30/20 09:00 01/30/20 06:25 Pepcid PO 20 mg DAILY ESM[facility] Administration Ferrous Sulfate 325 mg 01/29/20 17:00 01/30/20 07:57 Feosol PO Not Given BID-WM ESMRE Hydralazine HCl 100 mg 01/28/20 15:00 01/30/20 06:25 Apresoline PO 100 mg TID ESMER Administration Sodium Chloride 1,000 mls @ 75 mls/hr 01/29/20 12:15 01/30/20 00:37 Normal Saline 0.9% IV 1,000 mls .[id number] ESMER Administration Levothyroxine Sodium 50 mcg 01/29/20 06:00 01/30/20 06:26 Synthroid PO 50 mcg 0600 ESMER Administration Nifedipine 30 mg 01/29/20 09:00 01/30/20 06:25 Procardia Xl PO 30 mg DAILY [facility]SM[facility] Administration Quetiapine Fumarate 100 mg 01/28/20 21:00 01/29/20 21:17 Seroquel PO 100 mg HS ESMER Administration Senna/Docusate Sodium 2 tab 01/29/20 21:00 01/30/20 06:27 Senokot S PO Not Given BID [facility] Simvastatin 10 mg 01/28/20 21:00 01/29/20 21:17 Zocor PO 10 mg HS ESMER Administration Zolpidem Tartrate 5 mg 01/28/20 12:05 01/29/20 22:15 Ambien PO 5 mg HSPRN PRN Administration Insomnia - Exam General Appearance: ill appearing Neck: supple, no JVD Heart: no gallops, no rubs, irregular Heart - other findings: no heaves Respiratory: no wheezes, no rales, no ronchi, normal chest expansion Gastrointestinal: soft, non-tender, non-distended, normal bowel sounds Extremities: no cyanosis, no clubbing Neurological: no new deficit Psychiatric: normal affect, A&O x 3 Hosp A/P - Plan DVT proph w/SCDs 1. Chest discomfort/Abnormal EKG. 2. Aflutter with RVR - on Cardizem drip 3. Acute kidney injury on chronic kidney disease stage 3. 4. Metabolic acidosis, probably secondary to renal insufficiency. 5. h/o Paroxysmal atrial fibrillation, in sinus rhythm. Not a candidate for anticoag 6. Hypothyroidism. 7. Dyslipidemia. 8. Chronic pain syndrome. 9. Anxiety. 10. Aenmia due to CKD/Pernicious anemia. 11. Obesity with a body mass index of 36.2. 12. Former smoker. 13. Family history of heart disease. 14. Diabetes mellitus type 2. 15. h/o Vit B12 def 16. Elevated troponin. PLAN: Cont Cardizem drip with PO Amiodarone NPO past MN if patient stays in Aflutter Consult Hematology per Cardio recs Cont ASA Sotatol dced Cont Procardia XL and other meds as above Cont sliding scale AM labs Hold SQ Heparin due to Anemia
--- NOTE | 2020-01-30 15:35 | CON ---
DATE OF CONSULTATION: 01/30/2020 ADDITIONAL REFERRING PHYSICIAN: Jos Arango MD HISTORY OF PRESENT ILLNESS: I am seeing Ms. 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 Her problems are: 1. Recurrent atrial arrhythmias. a. Prior history of atrial fibrillation suppressed with cardioversions and low-dose sotalol. b. This morning, atrial fibrillation with rapid rates converting to atypical atrial flutter noted with rapid ventricular rate, currently on IV diltiazem and digoxin. 2. Right bundle-branch block. 3. History of minimally plaquing of the coronary artery in baseline left heart catheterization in 2006 and negative stress test in December 2019. 4. Atypical chest pain noted this admission. 5. Anemia with hemoglobin 7.7 this admission. 6. Gfcha-hf-zttxcih renal insufficiency with current BUN 30, creatinine 1.96. 7. History of hypertension, type 2 diabetes. 8. History of preserved LVEF at 55% to 60% for dilated left atrium, right atrial enlargement, [id number] MR, fvcchina-jp-imrghi TR, severely elevated pulmonary pressures on echo in August 2018. ALLERGIES: IBUPROFEN, NAPROXEN, AMLODIPINE, NONSTEROIDAL ANTI-INFLAMMATORY AGENTS. MEDICATIONS: At home included: 1. Seroquel. 2. Ambien. 3. Mevacor. 4. [place]. 5. Levothyroxine. 6. Aspirin. 7. Glipizide. 8. Hydralazine. 9. Nifedipine. 10. Sotalol 40 mg daily. 11. Vitamin B12. 12. Methocarbamol. SUBJECTIVE: Ms. Rowe was admitted with feeling fatigued and having atypical chest pain in the left precordial area. While monitoring, she developed atrial fibrillation and atrial flutter with rapid rates. She is currently on IV diltiazem and IV digoxin for rate control. She does clearly feel her palpitations and she denies palpitation in the recent past before her admission. She is feeling poorly this morning. She continues atypical chest pain, which started while she was in normal rhythm. She has history of some bradycardia and she was taking a lower dose of sotalol at 40 mg daily only. This may have been lower than originally prescribed for her and respiratory system otherwise unremarkable. Currently, she denies angina. No bloody stools. No fever, chills, or cough. No stroke-like symptoms. No neurological deficits. Rest of review of system unremarkable. PAST MEDICAL HISTORY: As above. Has been followed by Dr. Vazquez in the past. SOCIAL HISTORY: The patient denies smoking, EtOH, or drug abuse. FAMILY HISTORY: Significant for premature coronary artery disease running in the family. OBJECTIVE: VITAL SIGNS: Blood pressure 130/57, heart rate 136, respirations 16, and temperature 97.7 degrees Fahrenheit. GENERAL: Alert, oriented woman, in no apparent distress. NECK: Supple. Jugular veins not distended. CHEST: Coarse without crackles. HEART: Sounds are irregularly irregular. S1 is variable while holosystolic murmur is heard. ABDOMEN: Benign. Bowel sounds positive. EXTREMITIES: Lower extremities without edema, clubbing, or cyanosis. Pulses are adequate. NEUROLOGIC: Nonfocal. MUSCULOSKELETAL: Without joint swelling or deformity. SKIN: Without rash. DATABASE: EKG is reviewed initially, revealing sinus rhythm, rate of 61 beats per minute. Right bundle-branch block pattern. QTc is 471 msec. The subsequent EKGs revealing sinus rhythm, occasional sinus bradycardia, and clear development of atrial tachycardia runs followed by atrial flutter with 2:1 AV conduction. The flutter appears to be atypical and [id number] in morphology. LABORATORY DATA: White cell count is 2.3, this morning 3.5; hemoglobin 7.7; platelet count is 143. Sodium 140, potassium 3.8, BUN is 30, creatinine 1.96 this morning, but initial creatinine was 2.38. TSH 0.273. Chest x-ray shows no acute cardiopulmonary process. ASSESSMENT AND PLAN: Ms. Rowe is a 59-year-old woman with prior history of diabetes, chronic renal insufficiency, and anemia. It seems to have worsened this admission compared to prior numbers. She was admitted for atypical chest pains, but recently had negative ischemic workup with stress test in December. She also has known to have mild coronary artery disease in the past. While being monitored, she developed symptomatic atrial fibrillation then which organized into atrial flutter. The rates are relatively rapid. On occasion, atrial fibrillation brought back to sinus rhythm and with conversion, she has marked bradycardia in the 40s and 50s. Junctional rhythm is also noted. My assessment, the patient likely has paroxysmal atrial fibrillation/flutter somewhat suppressed with very low-dose sotalol. She also has tachybrady syndrome with some degree of sinus node disease likely will worsen with the AV sheridan blocking and negative chronotropic agents. Her treatment is difficult due to limited antibiotic choices. The significant anemia raises question about candidacy for anticoagulant status for her long-term. She also has poor kidney function, which makes continuation and increasing sotalol a difficult proposition. Her QT is already somewhat prolonged. A short duration of arrhythmia, a cardioversion could be contemplated due to likely low risk of thromboembolism in the next 24 to 48 hours, but rhythm maintenance is not assured without an additional antiarrythmic agent. Again, sotalol might not be the ideal choice as I will discuss with Dr. Vazquez and we are contemplating using amiodarone instead. Naturally, QT prolonging agents as well, but to avoid recurrent sustained arrhythmias, we will initiate amiodarone early tomorrow and we will stop sotalol today. QT will be monitored. Should she maintain significant bradycardia after cardioversion, she may need to be considered for a pacemaker placement as well. Long-term anticoagulation is difficult. The good rationale for low hemoglobin should be sought. GI bleed should be ruled out, although it is possible that she has anemia of chronic kidney disease, some degree of pancytopenia also is present. Her CHADS-VASc score is elevated with female gender, diabetes, hypertension, and cardiovascular disease at 4 and as bleeding issues occur, she could benefit from be discharged on oral anticoagulants. Complicate issues are her uninsured status, but long-term hopefully we could be able to bring her back in the future for pulmonary venous isolation after the COVID epidemic resolves. Job ID: [id number]
--- NOTE | 2020-01-30 16:56 | CON ---
DATE OF CONSULTATION: REASON FOR CONSULTATION: Leukopenia with anemia. HISTORY OF PRESENT ILLNESS: Ms. Rowe is a 59-year-old female, who came to the ER with complaints of chest pain. She was found to be in atrial fibrillation and is being worked up for her arrhythmia. On admission, her white count was 3.5, her hemoglobin was 8.8, and her platelet count was 161,000. She had been recently discharged from this facility in December, where she was diagnosed with B12 deficiency. Her B12 during that admission was 195. She had leukopenia and anemia during that admission with a hemoglobin of 9.1. The patient also has a history of chronic kidney disease 4. She was started on Epogen [address] Allison for her chronic anemia. Iron studies on last admission showed anemia of chronic disease. She states she has been taking oral B12 over the last 2 to 3 weeks. On this admission, her white count has trended down to 2.3, however, ANC remains normal at 1.4. She denies any bleeding. She had a normal colonoscopy in 2019. No bruising. Her chest pain has resolved. PAST MEDICAL HISTORY: 1. Chronic kidney disease 4. 2. B12 deficiency. 3. Atrial fibrillation. 4. Hypertension. 5. Hypothyroidism. 6. Dyslipidemia. PAST SURGICAL HISTORY: 1. Cholecystectomy. 2. Appendectomy. 3. Hernia repair. 4. Tonsillectomy. 5. Tubal ligation. 6. Cardiac ablation. ALLERGIES: TO NSAIDS AND AMLODIPINE. CURRENT MEDICATIONS: 1. [place]. 2. Cordarone. 3. Aspirin. 4. Tums. 5. Diltiazem. 6. Retacrit. 7. Pepcid. 8. Iron. 9. Apresoline. 10. Synthroid. 11. Robaxin. 12. Procardia XL. 13. Seroquel. 14. Senokot. 15. Zocor. 16. Ambien. FAMILY HISTORY: No history of cancer. SOCIAL HISTORY: Remote history of smoking. No alcohol or illicit drug use. REVIEW OF SYSTEMS: A 10-point review of systems is negative except for noted in HPI. PHYSICAL EXAMINATION: VITAL SIGNS: Temperature 97.6, pulse is 69, respiratory rate 18, BP is 132/58. She is 96% on room air. GENERAL: This is an obese female, in no acute distress. HEENT: Normocephalic and atraumatic. Pupils are equal and reactive to light. NECK: Supple. CV: Irregular rate and rhythm. LUNGS: Clear. ABDOMEN: Obese, nontender. Bowel sounds are positive. EXTREMITIES: No clubbing or cyanosis. SKIN: No rash. HEMATOLOGIC: No petechiae or purpura. NEUROLOGIC: Nonfocal. PERTINENT LABS AND X-RAYS: Current WBC is 2.3, hemoglobin 7.7, hematocrit 22.8 , MCV is 88, platelet count 143,000. She has 61% neutrophils, 28% lymphocytes, with an ANC of 1.4. Sodium is 140, potassium 3.8, chloride 112, CO2 is 14, BUN is 30, creatinine 1.96, GFR is 26, calcium 8.6, magnesium 1.7. Bilirubin is 0.5, AST 16, ALT is 8, alkaline phosphatase is 83. Troponin is 0.042. BNP is 183.6. Serum total protein 7.2, albumin 3.8, globulin 3.4. TSH is 0.2730. ASSESSMENT: 1. Leukopenia. 2. Anemia of chronic disease. 3. Recent diagnosis of B12 deficiency. DISCUSSION: The patient states she has been taking B12 for approximately 3 weeks. We will recheck her level at this time and if subtherapeutic, we will begin B12 injections. She has had a recent workup for GI bleed with a normal colonoscopy. She, I believe, needs a pacemaker. Unfortunately, due to COVID pandemic, there are no elective surgeries being done at this time. Hopefully, she will improve to her baseline hemoglobin of above 9 with B12 injections. We will follow along with her hospital course. Procrit in outpatient setting could be considered if approved for financial assistance. Thank you for the consult. Job ID: [id number] [facility]
[2020-01-30] MEDS ORDERED: Cyanocobalamin 1000 MCG/ML VIAL IM SCH (17:45)
[2020-01-30] MEDS: Aspirin 325 MG TAB PO SCH (20:56)
[2020-01-30] MEDS: Simvastatin 5 MG TAB PO SCH (20:56)
[2020-01-30] MEDS: Zolpidem Tartrate 5 MG TAB PO PRN (22:02)
[2020-01-31] MEDS: Sodium Chloride 0.9% 1,000 ML IV SCH (03:04)
[2020-01-31 05:39] LABS: #Lymphocytes 0.7 thou/uL (1.20-3.40); #Monocytes 0.1 thou/uL (0.11-0.59); #Neutrophils 1.2 thou/uL (1.40-6.50); %Basophils 0.4 % (0.0-1.0); %Eosinophils 2.4 % (0.0-10.0); %Lymphocytes 33.6 % (21.0-51.0); %Neutrophils 57.5 % (42.0-75.0); Hemoglobin 8.4 g/dL (12.0-16.0); Mean Corpuscular HGB CONC 34.9 g/dL (32.0-36.0); Mean Corpuscular Hemoglobin 30.3 pg (27.0-31.0); Mean Corpuscular Volume 86.9 fL (78.0-98.0); Mean Platelet Volume 9.4 fL (7.4-10.4); Platelet Count 145 thou/uL (130-400); RBC Distribution Width 13.8 % (11.5-14.5); Red Blood Cell (RBC) Count 2.75 mill/uL (4.20-5.40); White Blood Cell (WBC) Count 2.1 thou/uL (4.8-10.8)
[2020-01-31] MEDS: Levothyroxine Sodium 50 MCG TAB PO SCH (05:51)
[2020-01-31 06:07] LABS: Anion Gap 16 mmol/L (10-20); BUN (Urea Nitrogen) 24 mg/dL (9.8-20.1); Calc. Creatinine Clearance 42 mL/min (70-130); Calcium 8.6 mg/dL (7.8-10.44); Carbon Dioxide 17 mmol/L (23-31); Chloride 112 mmol/L (98-107); Estimated GFR-MDRD 28; Glucose 120 mg/dL (80-115); Potassium 3.7 mmol/L (3.5-5.1); Sodium 141 mmol/L (136-145)
[2020-01-31] MEDS: Famotidine 20 MG TAB PO SCH (07:50)
[2020-01-31] MEDS: Ferrous Sulfate 325 MG TAB PO SCH ×2 (07:50→16:01)
[2020-01-31] MEDS: Amiodarone 200 MG TAB PO SCH ×2 (07:50→19:30)
[2020-01-31] MEDS: Senokot S 8.6-50 MG TAB PO SCH ×2 (07:51→19:30)
[2020-01-31] MEDS ORDERED: PROPOFOL 20 ML ONE (07:55)
[2020-01-31] MEDS ORDERED: Atropine Sulfate 1 mg/10 ml Syringe ONE (08:35)
--- NOTE | 2020-01-31 09:02 | OP ---
DATE OF PROCEDURE: 01/31/2020 INDICATION FOR PROCEDURE: This is a 59-year-old female with a history of sick sinus syndrome with atrial fibrillation and atrial flutter. She was started on medications yesterday due to significant tachycardia with heart rate of 160. She was taken down to the recovery area, where she underwent short-acting propofol to try to convert her back to sinus rhythm. She has been on IV diltiazem that had been discontinued this morning, using one attempt to 200 joules as she was converted but to a junctional escape rhythm with heart rates in the 40s. She was given 0.5 mg of IV atropine, but continued to have junctional rhythm and it is decided that this lady will need to undergo permanent pacemaker insertion. We will schedule her for pacemaker insertion as soon as possible. There were no other complications or difficulties encountered during the procedure with using short-acting propofol. She was easily arousable. At the end of procedure, we did discuss the pacemaker. She seems to be alert and oriented. Now, the propofol has resolved. At this time, she still remains in a junctional rhythm with heart rate in the 40s. I did explain the procedure, the risks to her, to include, bleeding, infection, possibility of pneumothorax, hemothorax, or pericardial tamponade. She understands and agrees to proceed, and we will plan for urgent pacemaker insertion in this very pleasant 59-year-old female. Job ID: [id number]
[2020-01-31] MEDS ORDERED: Midazolam HCl 2 mg/2 ml Vial ONE (09:24)
[2020-01-31] MEDS ORDERED: Lidocaine 1% (PF) 30 ML VIAL ONE (09:30)
--- NOTE | 2020-01-31 10:15 | PDOC.EP ---
- Subjective Date: 01/31/20 Time: 08:30 Interval History: follow up for atrial arrhythmia management. Pending CV this morning with Dr Vazquez. Voices no new cardiac concerns or complaints - Review of Systems Constitutional: denies: chills, fever, malaise, sweats, weakness, other Respiratory: denies: hemoptysis, pleuritic pain, shortness of breath, sputum Cardiology: denies: chest pain, edema, heart racing, light headedness, passing out Gastrointestinal: denies: abdominal pain, constipation, diarrhea, vomitting - Objective Allergies/Adverse Reactions: Allergies Allergy/AdvReac Type Severity Reaction Status Date / Time ibuprofen [From Motrin] Allergy Intermediate Nausea Verified 01/24/20 01:16 naproxen Allergy Intermediate Nausea Verified 01/24/20 01:16 amlodipine [From Norvasc] Allergy Verified 01/24/20 01:16 NSAIDS (Non-Steroidal Allergy Verified 01/24/20 01:16 Anti-Inflamma Current Medications Acetaminophen (Tylenol) 650 mg PO Q4H PRN PRN Reason: Headache/Fever/Mild Pain (1-3) Hydrocodone Bitart/Acetaminophen ([place] 10/325) 1 tab PO Q6H PRN PRN Reason: Moderate to Severe Pain (4-10) Last Admin: 01/30/20 20:54 Dose: 1 tab Amiodarone HCl (Cordarone) 400 mg PO BID [facility] Last Admin: 01/31/20 07:50 Dose: 400 mg Aspirin (Aspirin) 325 mg PO HS [facility] Last Admin: 01/30/20 20:56 Dose: 325 mg Calcium Carbonate (Tums) 1,000 mg PO Q4H PRN PRN Reason: Heartburn or Indigestion Dextrose/Water (Dextrose 50%) 25 gm SLOW IVP PRN PRN PRN Reason: Hypoglycemia Epoetin Alirio-epbx (Retacrit) 7,500 unit SC Q7D [facility] Last Admin: 01/29/20 11:59 Dose: 7,500 unit Famotidine (Pepcid) 20 mg PO DAILY [facility] Last Admin: 01/31/20 07:50 Dose: 20 mg Ferrous Sulfate (Feosol) 325 mg [facility] Last Admin: 01/31/20 07:50 Dose: 325 mg Glucagon (Glucagon) 1 mg IM PRN PRN PRN Reason: Hypoglycemia Dextrose/Water (D5w) 1,000 mls @ 0 mls/hr IV .Q0M PRN PRN Reason: Hypoglycemia Sodium Chloride (Normal Saline 0.9%) 1,000 mls @ 75 mls/hr IV .[id number] [facility] Last Admin: 01/31/20 03:04 Dose: 1,000 mls Diltiazem HCl 125 mg/ Sodium (Chloride) 125 mls @ 15 mls/hr IVPB INF [facility] Last Admin: 01/31/20 03:04 Dose: 125 mls Levothyroxine Sodium (Synthroid) 50 mcg PO 0600 [facility] Last Admin: 01/31/20 05:51 Dose: 50 mcg Methocarbamol (Robaxin) 750 mg PO HSPRN PRN PRN Reason: Muscle Spasm Nifedipine (Procardia Xl) 30 mg PO DAILY [facility] Last Admin: 01/30/20 06:25 Dose: 30 mg Nitroglycerin (Nitrostat) 0.4 mg PO Q5MIN PRN PRN Reason: Chest Pain Quetiapine Fumarate (Seroquel) 100 mg PO [facility] Last Admin: 01/30/20 20:56 Dose: 100 mg Senna/Docusate Sodium (Senokot S) 2 tab PO BID [facility] Last Admin: 01/31/20 07:51 Dose: 2 tab Simvastatin (Zocor) 10 mg PO [facility] Last Admin: 01/30/20 20:56 Dose: 10 mg Sodium Chloride (Flush - Normal Saline) 10 ml IVF Q12HR [facility] Last Admin: 01/31/20 09:27 Dose: Not Given Sodium Chloride (Flush - Normal Saline) 10 ml IVF PRN PRN PRN Reason: Saline Flush Zolpidem Tartrate (Ambien) 5 mg PO HSPRN PRN PRN Reason: Insomnia Last Admin: 01/30/20 22:02 Dose: 5 mg Vital Signs & Weight: Vital Signs Temp Pulse Resp BP Pulse Ox 01/31/20 07:43 91 L 01/31/20 07:39 98.7 F 101 H 22 H 119/67 94 L 01/31/20 04:00 97.6 F 105 H 16 134/62 91 L 01/31/20 00:03 100 123/52 L Weight 180 lb 1.883 oz I/O: I/O 03/01/31/20 02/01/20 06:59 06:59 06:59 Intake Total 2630 5875 Output Total 1300 400 Balance 1330 2135 - Quality Measures Condition: Atrial Fibrillation/Flutter (hx or current) - Physical Exam General: alert & oriented x3, appears well, no apparent distress, speech clear, affect appropriate HEENT: mucus membranes moist, normocephaly Neck: supple neck, midline trachea, no JVD/HJR Cardiology: no murmur, PMI nondisplaced, irregularly irregular Lungs: clear to auscultation, normal breath sounds, no wheeze, rales, rhonchi Neurology: cranial nerve 2-12 intact, sensory function intact, no lateralizing findings - Chadsvasc Risk factors Hypertension: 1 Diabetes mellitus: 1 Female: 1 Risk Score: 3 - Labs Result Diagrams: 01/31/20 05:01 01/31/20 05:01 - EKG Interpretation EKG Method: Telemetry EKG shows: Atrial fibrillation - Assessment/Plan Assessment/Plan: 1. Persistent Atrial fibrillation/flutter -symptomatic, organized into flutter with the addition of low dose sotalol. Switched to amiodarone due to CKD 2. Chronic renal insufficiency 3. Anemia -unknown etiology, consider GI eval. - questionable candidate for anticoagulation therapy 4. Tachy stoney syndrome 5. QT prolongation -continue to monitor with amiodarone therapy - avoid bradycardia, potential need for PPM post DCCV 6. Pancytopenia Limited AAD options with kidney function, bradycardia, and QT prolongation. Plan to undergo DCCV with Dr Vazquez this AM but may require pacing post CV. 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
[2020-01-31] MEDS ORDERED: Acetaminophen/Codeine 30-300mg Tablet PO PRN (10:17)
[2020-01-31] MEDS ORDERED: Gentamicin 80 MG/2 ML VIAL ONE (10:23)
[2020-01-31] MEDS ORDERED: CEFAZOLIN 1 GM VIAL ONE (10:23)
[2020-01-31] MEDS: NIFEdipine XL 30 MG TAB PO SCH (11:33)
--- NOTE | 2020-01-31 12:20 | PRG ---
DATE OF SERVICE: 01/31/2020 SUBJECTIVE: Ms. Rowe is a 59-year-old white female, seen by the Renal Service for her acute kidney injury that was hemodynamically mediated on top of her chronic renal failure. She also had persistent atrial fibrillation. She was diagnosed with a history of sick sinus syndrome and with atrial fibrillation/flutter. She underwent cardioversion and pacemaker placement. She is doing stable after the said procedure. No new complaints. No chest pain or shortness of breath. OBJECTIVE: VITAL SIGNS: Blood pressure 141/61, heart rate 60, respiratory rate 18, temperature 98.9, pulse ox 95%. GENERAL: Awake, alert, comfortable, not in overt distress. SKIN: Adequate turgor. HEENT: She has a slightly pale conjunctivae. Anicteric sclerae. NECK: No neck mass. No carotid bruits. No JVD. CHEST: No deformities. LUNGS: Clear breath sounds. HEART: Normal sinus rhythm. No murmurs. No gallops. No rubs. ABDOMEN: Globular, soft, nontender. No masses. EXTREMITIES: No edema. No deformities. MEDICATIONS: Medications of January 31, 2020, was reviewed. LABORATORY DATA: Laboratories of 01/31/20 white count 2.1, hemoglobin 8.4. Sodium 141, potassium 3.7, chloride 112, carbon dioxide 17, BUN 24, creatinine 1.82, glucose 128, calcium 8.6. Laboratories of sodium 141, potassium 3.7, chloride 117, carbon dioxide 17, BUN 24, creatinine 1.82, glucose 120, calcium 8.6. ASSESSMENT AND PLAN: 1. Acute kidney injury-superimposed hemodynamically-mediated renal dysfunction, much improved. Creatinine is now noted at 1.82. 2. Atrial fibrillation-currently status post cardioversion with placement of a pacemaker. 3. Anemia, currently on iron supplementation and on Epogen. As per recommendation by Hematology, the patient has been started on cyanocobalamin at 1000 mcg IM. Overall agree with current management. We will recheck basic metabolic profile and CBC in a.m. Job ID: [id number] [facility]
--- NOTE | 2020-01-31 13:18 | RAD ---
CHEST 1 VIEW: Post cardiac device placement. COMPARISON: Radiograph of 01/28/2020. FINDINGS: Heart size is upper limits of normal. The pulmonary arteries are dilated. New dual-lead pacer lead projects in the right atrium and right ventricle. No pneumothorax. No acute osseous abnormality. IMPRESSION: Uncomplicated cardiac pacer placement. POS: HOME
--- NOTE | 2020-01-31 14:48 | PDOC.MOPN ---
Interval History: feels about the same. No chest pain. - Vital Signs Vital Signs: Vital Signs (12 hours) Temp Pulse Resp BP Pulse Ox 01/31/20 11:41 98.9 F 60 18 141/61 H 95 01/31/20 10:15 65 18 136/58 L 94 L 01/31/20 07:43 91 L 01/31/20 07:39 98.7 F 101 H 22 H 119/67 94 L 01/31/20 04:00 97.6 F 105 H 16 134/62 91 L Weight Weight 180 lb 1.883 oz - Physical Exam General: Alert, Oriented x3, No acute distress HEENT: Atraumatic, PERRLA, EOMI, Mucous membr. moist/pink Abdomen: Normal bowel sounds, Soft, No tenderness, No hepatospenomegaly, No masses Extremities: No clubbing, No cyanosis, No edema, Normal pulses, No tenderness/ swelling Skin: No rashes, No breakdown, No significant lesion Neurological: Normal speech - Labs Result Diagrams: 01/31/20 05:01 01/31/20 05:01 Lab results: Laboratory Results - last 24 hr 01/31/20 12:06: POC Glucose 130 H 01/31/20 05:27: POC Glucose 128 H 01/31/20 05:01: WBC 2.1 L, RBC 2.75 L, Hgb 8.4 L, Hct 23.9 L, MCV 86.9, MCH 30.3 , MCHC 34.9, RDW 13.8, Plt Count 145, MPV 9.4, Neutrophils % 57.5, Lymphocytes % 33.6, Monocytes % 6.0, Eosinophils % 2.4, Basophils % 0.4, Neutrophils # 1.2 L , Lymphocytes # 0.7 L, Monocytes # 0.1 L, Eosinophils # 0.0, Basophils # 0.0 01/31/20 05:01: Sodium 141, Potassium 3.7, Chloride 112 H, Carbon Dioxide 17 L, Anion Gap 16, BUN 24 H, Creatinine 1.82 H, Estimated GFR (MDRD) 28, Glucose 120 H, Calcium 8.6 01/30/20 21:27: POC Glucose 169 H 01/30/20 16:44: POC Glucose 190 H 01/30/20 15:30: Free T3 2.51 01/30/20 15:30: Free T4 1.10 01/30/20 15:30: Vitamin B12 287 01/30/20 15:30: Folate 35.70 H 01/30/20 14:35: Magnesium 1.7 Status: lab reviewed by me A/P - Problem (1) Anemia, pernicious Current Visit: No Code(s): D51.0 - VITAMIN B12 DEFIC ANEMIA DUE TO INTRINSIC FACTOR DEFICIENCY Status: Acute (2) Chronic kidney disease, stage 3 Current Visit: No Code(s): N18.3 - CHRONIC KIDNEY DISEASE, STAGE 3 (MODERATE) Status: Chronic (3) Diabetes type 2, controlled Current Visit: No Code(s): E11.9 - TYPE 2 DIABETES MELLITUS WITHOUT COMPLICATIONS Status: Chronic (4) Hypothyroidism Current Visit: No Code(s): E03.9 - HYPOTHYROIDISM, UNSPECIFIED Status: Chronic - Plan Plan: 1. B12 level improving but remains low. Given B12 injection today 2. Continue oral B12 daily senior care 3. monitor thyroid studies 4. Follow-up PCP
[2020-01-31] MEDS: HYDROcodone/Acetaminophen 10/325 mg Tablet PO PRN (15:50)
--- NOTE | 2020-01-31 16:41 | CCL ---
DATE OR PROCEDURE: 01/31/20 INDICATIONS: This is a 59-year-old female with tachy/stoney syndrome and significant bradycardia after she underwen t cardioversion for atrial fibrillation. She developed junctional rhythm with a heart rate in the 40s which did not respond to atropine. She was advised to undergo dual chamber pacemaker insertion. She was taken to the cardiac laboratory chemical assistant where this was performed today without difficulties or complica tions. She was implanted with a dual chamber pacemaker from [employer] an [place] XT dual chamber MRI co mpatible device with atrial therapies. She tolerated the procedure well without difficulties or compl ications. Two screw-in leads were placed. One in the atrium and one in the ventricle. The pacemaker w as set with the upper rate of 130 and lower rate set at 60. The full dictated note can be found in th e chart. There were no difficulties or complications encountered. For the procedure, she was given 1 mg of IV versed for conscious sedation and throughout the procedure was monitored by an independent o bserver present for heart rate, blood pressure, and O2 saturation and remained stable throughout the procedure.
--- NOTE | 2020-01-31 19:06 | PDOC.HOSPP ---
- Subjective Encounter Date: 01/31/20 Encounter Time: 10:30 Subjective: Patient seen and examined for CP/Afib with RVR. s/p DCCV with pacemaker placement due to junctional bradycardia post CV. No CP. No other complaints. No overnight events - Objective Vital Signs & Weight: Vital Signs (12 hours) Temp Pulse Resp BP BP BP Pulse Ox 01/31/20 15:53 135/64 01/31/20 15:41 97.8 F 69 18 153/67 H 95 01/31/20 11:41 98.9 F 60 18 141/61 H 95 01/31/20 10:15 65 18 136/58 L 94 L 01/31/20 07:43 91 L 01/31/20 07:39 98.7 F 101 H 22 H 119/67 94 L Weight Weight 180 lb 1.883 oz I&O: 01/30/20 01/31/20 02/01/20 06:59 06:59 06:59 Intake Total 2630 2535 480 Output Total 1300 400 100 Balance 1330 2135 380 Result Diagrams: 01/31/20 05:01 01/31/20 05:01 Additional Labs: Accuchecks 01/31/20 01/31/20 01/31/20 17:16 12:06 05:27 POC Glucose 160 H 130 H 128 H 01/30/20 21:27 POC Glucose 169 H EKG Reviewed by me: Yes (Tele SR) Hospitalist ROS - Review of Systems Respiratory: denies: cough, dry, shortness of breath, hemoptysis, SOB with excertion, pleuritic pain, sputum, wheezing, other Cardiovascular: denies: chest pain, palpitations, orthopnea, paroxysmal noc. dyspnea, edema, light headedness, other Gastrointestinal: denies: nausea, vomiting, abdominal pain, diarrhea, constipation, melena, hematochezia, other - Medication Medications: Active Medications Generic Name Dose Route Start Last Admin Trade Name Freq PRN Reason Stop Dose Admin Hydrocodone Bitart/Acetaminophen 1 tab 01/28/20 12:04 01/31/20 15:50 [place] 10/325 PO 1 tab Q6H PRN Administration Moderate to Severe Pain (4-10) Amiodarone HCl 400 mg 01/31/20 09:00 01/31/20 07:50 Cordarone PO 400 mg BID ESMER Administration Aspirin 325 mg 01/28/20 21:00 01/30/20 20:56 Aspirin PO 325 mg HS ESMER Administration Epoetin Alirio-epbx 7,500 unit 01/29/20 12:00 01/29/20 11:59 Retacrit SC 7,500 unit Q7D ESMER Administration Famotidine 20 mg 01/30/20 09:00 01/31/20 07:50 Pepcid PO 20 mg DAILY ESMER Administration Ferrous Sulfate 325 mg 01/29/20 17:00 01/31/20 16:01 Feosol PO 325 mg BID-WM ESMER Administration Levothyroxine Sodium 50 mcg 01/29/20 06:00 01/31/20 05:51 Synthroid PO 50 mcg 0600 ESMER Administration Nifedipine 30 mg 01/29/20 09:00 01/31/20 11:33 Procardia Xl PO Not Given DAILY ESMER Quetiapine Fumarate 100 mg 01/28/20 21:00 01/30/20 20:56 Seroquel PO 100 mg HS [facility] Administration Senna/Docusate Sodium 2 tab 01/29/20 21:00 01/31/20 07:51 Senokot S PO 2 tab BID ESMER Administration Simvastatin 10 mg 01/28/20 21:00 01/30/20 20:56 Zocor PO 10 mg HS [facility] Administration Sodium Chloride 10 ml 01/31/20 09:00 01/31/20 09:27 Flush - Normal Saline IVF Not Given Q12HR [facility] Zolpidem Tartrate 5 mg 01/28/20 12:05 01/30/20 22:02 Ambien PO 5 mg HSPRN PRN Administration Insomnia - Exam General Appearance: NAD Heart: no gallops, no rubs Respiratory: no wheezes, no rales Gastrointestinal: non-tender, non-distended, normal bowel sounds Extremities: no cyanosis Neurological: no focal deficits Psychiatric: normal affect, A&O x 3 Hosp A/P - Plan DVT proph w/SCDs 1. Chest discomfort/Abnormal EKG. 2. Aflutter with RVR - off Cardizem drip, s/p DCCV with PPM placement 3. Acute kidney injury on chronic kidney disease stage 3. 4. Metabolic acidosis, probably secondary to renal insufficiency. 5. h/o Paroxysmal atrial fibrillation, in sinus rhythm. Not a candidate for anticoag 6. Hypothyroidism. 7. Dyslipidemia. 8. Chronic pain syndrome. 9. Anxiety. 10. Aenmia due to CKD/Pernicious anemia. 11. Obesity with a body mass index of 36.2. 12. Former smoker. 13. Family history of heart disease. 14. Diabetes mellitus type 2. 15. h/o Vit B12 def 16. Elevated troponin. PLAN: Cont PO Amiodarone Metoprolol added Cont Vit B12 supp, 1 dose IM today Cont ASA Cont Procardia XL and other meds as above Cont sliding scale AM labs SQ Heparin on hold due to Anemia
[2020-01-31] MEDS: Simvastatin 5 MG TAB PO SCH (19:29)
[2020-01-31] MEDS: Metoprolol Tartrate 25 MG TAB PO SCH (19:30)
[2020-01-31] MEDS: Aspirin 325 MG TAB PO SCH (19:30)
[2020-01-31] MEDS ORDERED: Metoprolol Tartrate 25 MG TAB PO SCH (21:00)
[2020-01-31] MEDS: Zolpidem Tartrate 5 MG TAB PO PRN (23:03)
[2020-02-01] MEDS: Levothyroxine Sodium 50 MCG TAB PO SCH (05:07)
[2020-02-01 05:14] LABS: #Eosinphils 0.1 thou/uL (0.0-0.7); #Lymphocytes 0.9 thou/uL (1.20-3.40); #Monocytes 0.2 thou/uL (0.11-0.59); #Neutrophils 1.2 thou/uL (1.40-6.50); %Basophils 1.1 % (0.0-1.0); %Eosinophils 3.9 % (0.0-10.0); %Lymphocytes 39.1 % (21.0-51.0); %Monocytes 7.4 % (0.0-10.0); %Neutrophils 48.5 % (42.0-75.0); Hemoglobin 6.8 g/dL (12.0-16.0); Mean Corpuscular HGB CONC 33.8 g/dL (32.0-36.0); Mean Corpuscular Hemoglobin 29.6 pg (27.0-31.0); Mean Corpuscular Volume 87.5 fL (78.0-98.0); Mean Platelet Volume 9.6 fL (7.4-10.4); Platelet Count 129 thou/uL (130-400); RBC Distribution Width 13.8 % (11.5-14.5); White Blood Cell (WBC) Count 2.4 thou/uL (4.8-10.8)
[2020-02-01 05:24] LABS: Anion Gap 11 mmol/L (10-20); BUN (Urea Nitrogen) 23 mg/dL (9.8-20.1); Calc. Creatinine Clearance 40 mL/min (70-130); Calcium 8.6 mg/dL (7.8-10.44); Carbon Dioxide 22 mmol/L (23-31); Chloride 113 mmol/L (98-107); Estimated GFR-MDRD 27; Glucose 88 mg/dL (80-115); Potassium 3.7 mmol/L (3.5-5.1); Sodium 142 mmol/L (136-145)
[2020-02-01] MEDS: HYDROcodone/Acetaminophen 10/325 mg Tablet PO PRN ×2 (07:42→14:41)
[2020-02-01] MEDS: Ferrous Sulfate 325 MG TAB PO SCH ×2 (08:50→16:35)
[2020-02-01] MEDS: Famotidine 20 MG TAB PO SCH (08:51)
[2020-02-01] MEDS: NIFEdipine XL 30 MG TAB PO SCH (08:51)
[2020-02-01] MEDS: Amiodarone 200 MG TAB PO SCH ×2 (08:51→19:48)
[2020-02-01] MEDS: Senokot S 8.6-50 MG TAB PO SCH ×2 (08:51→19:48)
[2020-02-01] MEDS: Cyanocobalamin (Vitamin B-12) 1,000 MCG TAB PO SCH (08:51)
[2020-02-01] MEDS: Metoprolol Tartrate 25 MG TAB PO SCH ×2 (08:51→19:49)
--- NOTE | 2020-02-01 09:43 | PRG ---
DATE OF SERVICE: 02/01/2020 SUBJECTIVE: Ms. Rowe is a 59-year-old white female, seen by the Renal Service for acute kidney injury that was hemodynamically-mediated renal dysfunction on top of her chronic renal failure. Renal function has been doing stable. In addition, she had a pacemaker placed due to sick sinus. This morning, the patient voices no new complaints. OBJECTIVE: VITAL SIGNS: Blood pressure 144/65, heart rate 64, respiratory rate 18, temperature 98.9, pulse ox 92%. GENERAL: Awake, alert, comfortable, obese, not in distress. SKIN: Adequate turgor. HEENT: Pale conjunctivae. Anicteric sclerae. NECK: No neck mass. No carotid bruits. No JVD. CHEST: No deformities. LUNGS: Decreased breath sounds. HEART: Normal sinus rhythm. No murmurs. No gallops. No rubs. ABDOMEN: Globular, soft, nontender. No masses. EXTREMITIES: No edema. MEDICATIONS: Medications of February 01, 2020, was reviewed. LABORATORY DATA: Laboratories of February 01, 2020; white count 2.4, hemoglobin 6.8. Sodium 142, potassium 3.7, chloride 113, carbon dioxide 22, BUN 23, creatinine 1.91, glucose 88, and calcium 8.6. ASSESSMENT AND PLAN: 1. Anemia-p.r.n. blood transfusion for hemoglobin less than 7. Currently on Epogen, iron supplementation, and B12. 2. Acute kidney injury-superimposed hemodynamically-mediated dysfunction. Renal function is remaining steady. Continue current management. No indication for any dialytic intervention. 3. Sick sinus syndrome-patient is status post pacemaker placement. 4. Recheck CBC and basic met in a.m. Job ID: [id number]
--- NOTE | 2020-02-01 10:41 | PDOC.EP ---
- Subjective Date: 02/01/20 Time: 10:39 Interval History: follow up for atrial arrhythmia management. s/p CV and PPM on 01/30. Patient mildly anxious this AM. Eager to get home. - Review of Systems Constitutional: denies: chills, fever, malaise, sweats, weakness, other Respiratory: denies: cough, shortness of breath, sputum, wheezing Cardiology: denies: chest pain, edema, heart racing, light headedness, passing out Gastrointestinal: denies: abdominal pain, constipation, diarrhea - Objective Allergies/Adverse Reactions: Allergies Allergy/AdvReac Type Severity Reaction Status Date / Time ibuprofen [From Motrin] Allergy Intermediate Nausea Verified 01/24/20 01:16 naproxen Allergy Intermediate Nausea Verified 01/24/20 01:16 amlodipine [From Norvasc] Allergy Verified 01/24/20 01:16 NSAIDS (Non-Steroidal Allergy Verified 01/24/20 01:16 Anti-Inflamma Current Medications Acetaminophen (Tylenol) 650 mg PO Q4H PRN PRN Reason: Headache/Fever/Mild Pain (1-3) Acetaminophen/Codeine Phosphate (Tylenol #3) 1 tab PO Q4H PRN PRN Reason: Mild Pain (1-3) Hydrocodone Bitart/Acetaminophen ([place] 10/325) 1 tab PO Q6H PRN PRN Reason: Moderate to Severe Pain (4-10) Last Admin: 02/01/20 07:42 Dose: 1 tab Amiodarone HCl (Cordarone) 400 mg PO BID [facility] Last Admin: 02/01/20 08:51 Dose: 400 mg Aspirin (Aspirin) 325 mg PO HS [facility] Last Admin: 01/31/20 19:30 Dose: 325 mg Calcium Carbonate (Tums) 1,000 mg PO Q4H PRN PRN Reason: Heartburn or Indigestion Cyanocobalamin (Vitamin B-12) 1,000 mcg PO DAILY [facility] Last Admin: 02/01/20 08:51 Dose: 1,000 mcg Dextrose/Water (Dextrose 50%) 25 gm SLOW IVP PRN PRN PRN Reason: Hypoglycemia Epoetin Alirio-epbx (Retacrit) 7,500 unit SC Q7D [facility] Last Admin: 01/29/20 11:59 Dose: 7,500 unit Famotidine (Pepcid) 20 mg PO DAILY [facility] Last Admin: 02/01/20 08:51 Dose: 20 mg Ferrous Sulfate (Feosol) 325 mg PO BID-WM [facility] Last Admin: 02/01/20 08:50 Dose: 325 mg Glucagon (Glucagon) 1 mg IM PRN PRN PRN Reason: Hypoglycemia Dextrose/Water (D5w) 1,000 mls @ 0 mls/hr IV .Q0M PRN PRN Reason: Hypoglycemia Levothyroxine Sodium (Synthroid) 50 mcg PO 0600 [facility] Last Admin: 02/01/20 05:07 Dose: 50 mcg Methocarbamol (Robaxin) 750 mg PO HSPRN PRN PRN Reason: Muscle Spasm Metoprolol Tartrate (Lopressor) 25 mg PO BID [facility] Last Admin: 02/01/20 08:51 Dose: 25 mg Nifedipine (Procardia Xl) 30 mg PO DAILY [facility] Last Admin: 02/01/20 08:51 Dose: 30 mg Nitroglycerin (Nitrostat) 0.4 mg PO Q5MIN PRN PRN Reason: Chest Pain Quetiapine Fumarate (Seroquel) 100 mg PO [facility] Last Admin: 01/31/20 19:33 Dose: 100 mg Senna/Docusate Sodium (Senokot S) 2 tab PO BID [facility] Last Admin: 02/01/20 08:51 Dose: Not Given Simvastatin (Zocor) 10 mg PO [facility] Last Admin: 01/31/20 19:29 Dose: 10 mg Sodium Chloride (Flush - Normal Saline) 10 ml IVF Q12HR [facility] Last Admin: 02/01/20 08:51 Dose: 10 ml Sodium Chloride (Flush - Normal Saline) 10 ml IVF PRN PRN PRN Reason: Saline Flush Zolpidem Tartrate (Ambien) 5 mg PO HSPRN PRN PRN Reason: Insomnia Last Admin: 01/31/20 23:03 Dose: 5 mg Vital Signs & Weight: Vital Signs Temp Pulse Resp BP BP Pulse Ox 02/01/20 08:51 64 144/65 H 02/01/20 07:38 98.9 F 60 18 149/65 H 92 L 02/01/20 03:51 97.8 F 60 18 120/54 L 95 02/01/20 00:00 98.3 F 63 18 125/57 L 94 L Weight 180 lb 1.883 oz I/O: I/O 03/31/20 04/01/20 04/02/20 06:59 06:59 06:59 Intake Total 2535 960 Output Total 400 100 Balance 2135 860 - Quality Measures Condition: Atrial Fibrillation/Flutter (hx or current) - Physical Exam General: alert & oriented x3, appears well, no apparent distress, speech clear, affect appropriate HEENT: mucus membranes moist, normocephaly Neck: supple neck, midline trachea, no JVD/HJR, no lymphadenopathy Cardiology: regular rate and rhythm, no murmur, PMI nondisplaced Lungs: clear to auscultation, no wheeze, rales, rhonchi Neurology: cranial nerve 2-12 intact, sensory function intact Abdomen: unremarkable, active bowel sounds, no pulsations/bruits Extremities: dry, strong pulses, warm Skin: device site stable w/o swelling (new implant. mild swelling present), bruising, left sided device, swelling. negative: drainage, hematoma - Chadsvasc Risk factors Hypertension: 1 Diabetes mellitus: 1 Female: 1 Risk Score: 3 - Labs Result Diagrams: 02/01/20 04:46 02/01/20 04:46 - Assessment/Plan Assessment/Plan: 1. Persistent Atrial fibrillation/flutter -symptomatic, organized into flutter with the addition of low dose sotalol. Switched to amiodarone due to CKD 2. Chronic renal insufficiency 3. Anemia -unknown etiology, consider GI eval. - questionable candidate for anticoagulation therapy 4. Tachy stoney syndrome 5. QT prolongation -continue to monitor with amiodarone therapy 6. Pancytopenia 7. Dual chamber pacemaker, [employer] - implant 01/31/2020 Limited AAD options with kidney function, bradycardia, and QT prolongation. Had junctional bradycardia yesterday post CV, prompting dual chamber PPM implant. Today telemetry review is showing some inappropriate RV pacing, suggestive of RV lead sensing issues. Having device checked. 12 lead today shows stable QTc < 500msec with wide/paced QRS. Continue amiodarone. I recommend considering OAC if no concern for active bleeding.
--- NOTE | 2020-02-01 10:47 | PDOC.MOPN ---
Interval History: feels weak today. No bleeding. - Vital Signs Vital Signs: Vital Signs (12 hours) Temp Pulse Resp BP BP Pulse Ox 02/01/20 08:51 64 144/65 H 02/01/20 07:38 98.9 F 60 18 149/65 H 92 L 02/01/20 03:51 97.8 F 60 18 120/54 L 95 02/01/20 00:00 98.3 F 63 18 125/57 L 94 L Weight Weight 180 lb 1.883 oz - Physical Exam HEENT: Atraumatic, PERRLA, EOMI, Mucous membr. moist/pink Lungs: Clear to auscultation, Normal air movement Cardiovascular: Regular rate, Normal S1, Normal S2, No murmurs, Gallops, Rubs Abdomen: Normal bowel sounds, Soft, No tenderness, No hepatospenomegaly, No masses Neurological: Normal speech Psych/Mental Status: Mental status NL - Labs Result Diagrams: 02/01/20 04:46 02/01/20 04:46 Lab results: Laboratory Results - last 24 hr 02/01/20 04:46: WBC 2.4 L, RBC 2.30 L, Hgb 6.8 L, Hct 20.1 L, MCV 87.5, MCH 29.6 , MCHC 33.8, RDW 13.8, Plt Count 129 L, MPV 9.6, Neutrophils % 48.5, Lymphocytes % 39.1, Monocytes % 7.4, Eosinophils % 3.9, Basophils % 1.1 H, Neutrophils # 1.2 L, Lymphocytes # 0.9 L, Monocytes # 0.2, Eosinophils # 0.1, Basophils # 0.0 02/01/20 04:46: Sodium 142, Potassium 3.7, Chloride 113 H, Carbon Dioxide 22 L, Anion Gap 11, BUN 23 H, Creatinine 1.91 H, Estimated GFR (MDRD) 27, Glucose 88, Calcium 8.6 01/31/20 20:56: POC Glucose 146 H 01/31/20 17:16: POC Glucose 160 H 01/31/20 12:06: POC Glucose 130 H Status: lab reviewed by me A/P - Problem (1) Anemia, pernicious Current Visit: No Code(s): D51.0 - VITAMIN B12 DEFIC ANEMIA DUE TO INTRINSIC FACTOR DEFICIENCY Status: Acute (2) Chronic kidney disease, stage 3 Current Visit: No Code(s): N18.3 - CHRONIC KIDNEY DISEASE, STAGE 3 (MODERATE) Status: Chronic (3) Diabetes type 2, controlled Current Visit: No Code(s): E11.9 - TYPE 2 DIABETES MELLITUS WITHOUT COMPLICATIONS Status: Chronic (4) Hypothyroidism Current Visit: No Code(s): E03.9 - HYPOTHYROIDISM, UNSPECIFIED Status: Chronic - Plan Plan: 1. Hgb 6.8. May be partially dilusional. Will transfuse 1 unit prbc and recheck in am 2. Continue oral B12. Injection given yesterday 3. Ok to dc home tomorrow if hgb stable. Continue B12 and oral iron at home 4. Follow-up labs in 4-6 weeks.
--- NOTE | 2020-02-01 11:53 | PDOC.CPN ---
- Subjective Date: 02/01/20 Time: 08:00 Interval history: The pt seen and examined. No overnight events. No cardiac complaints. - Objective Allergies/Adverse Reactions: Allergies Allergy/AdvReac Type Severity Reaction Status Date / Time ibuprofen [From Motrin] Allergy Intermediate Nausea Verified 01/24/20 01:16 naproxen Allergy Intermediate Nausea Verified 01/24/20 01:16 amlodipine [From Norvasc] Allergy Verified 01/24/20 01:16 NSAIDS (Non-Steroidal Allergy Verified 01/24/20 01:16 Anti-Inflamma Visit Medications: Current Medications Acetaminophen (Tylenol) 650 mg PO Q4H PRN PRN Reason: Headache/Fever/Mild Pain (1-3) Acetaminophen/Codeine Phosphate (Tylenol #3) 1 tab PO Q4H PRN PRN Reason: Mild Pain (1-3) Hydrocodone Bitart/Acetaminophen ([place] 10/325) 1 tab PO Q6H PRN PRN Reason: Moderate to Severe Pain (4-10) Last Admin: 02/01/20 07:42 Dose: 1 tab Amiodarone HCl (Cordarone) 400 mg PO BID [facility] Last Admin: 02/01/20 08:51 Dose: 400 mg Aspirin (Aspirin) 325 mg PO [facility] Last Admin: 01/31/20 19:30 Dose: 325 mg Calcium Carbonate (Tums) 1,000 mg PO Q4H PRN PRN Reason: Heartburn or Indigestion Cyanocobalamin (Vitamin B-12) 1,000 mcg PO DAILY [facility] Last Admin: 02/01/20 08:51 Dose: 1,000 mcg Dextrose/Water (Dextrose 50%) 25 gm SLOW IVP PRN PRN PRN Reason: Hypoglycemia Epoetin Alirio-epbx (Retacrit) 7,500 unit SC Q7D [facility] Last Admin: 01/29/20 11:59 Dose: 7,500 unit Famotidine (Pepcid) 20 mg PO DAILY [facility] Last Admin: 02/01/20 08:51 Dose: 20 mg Ferrous Sulfate (Feosol) 325 mg PO BID[facility] Last Admin: 02/01/20 08:50 Dose: 325 mg Glucagon (Glucagon) 1 mg IM PRN PRN PRN Reason: Hypoglycemia Dextrose/Water (D5w) 1,000 mls @ 0 mls/hr IV .Q0M PRN PRN Reason: Hypoglycemia Levothyroxine Sodium (Synthroid) 50 mcg PO 0600 [facility] Last Admin: 02/01/20 05:07 Dose: 50 mcg Methocarbamol (Robaxin) 750 mg PO HSPRN PRN PRN Reason: Muscle Spasm Metoprolol Tartrate (Lopressor) 25 mg PO BID [facility] Last Admin: 02/01/20 08:51 Dose: 25 mg Nifedipine (Procardia Xl) 30 mg PO DAILY [facility] Last Admin: 02/01/20 08:51 Dose: 30 mg Nitroglycerin (Nitrostat) 0.4 mg PO Q5MIN PRN PRN Reason: Chest Pain Quetiapine Fumarate (Seroquel) 100 mg PO [facility] Last Admin: 01/31/20 19:33 Dose: 100 mg Senna/Docusate Sodium (Senokot S) 2 tab PO BID [facility] Last Admin: 02/01/20 08:51 Dose: Not Given Simvastatin (Zocor) 10 mg PO [facility] Last Admin: 01/31/20 19:29 Dose: 10 mg Sodium Chloride (Flush - Normal Saline) 10 ml IVF Q12HR [facility] Last Admin: 02/01/20 08:51 Dose: 10 ml Sodium Chloride (Flush - Normal Saline) 10 ml IVF PRN PRN PRN Reason: Saline Flush Zolpidem Tartrate (Ambien) 5 mg PO HSPRN PRN PRN Reason: Insomnia Last Admin: 01/31/20 23:03 Dose: 5 mg Vital Signs & Weight: Vital Signs Temp Pulse Pulse Pulse Pulse Resp BP 02/01/20 11:47 98.5 F 60 18 02/01/20 11:19 98.9 F 60 16 02/01/20 10:11 69 68 02/01/20 08:51 64 144/65 H 02/01/20 07:38 98.9 F 60 18 02/01/20 03:51 97.8 F 60 18 02/01/20 00:00 98.3 F 63 18 BP BP BP BP Pulse Ox 02/01/20 11:47 148/68 H 94 L 02/01/20 11:19 119/58 L 92 L 02/01/20 10:11 120/60 141/63 H 02/01/20 08:51 02/01/20 07:38 149/65 H 92 L 02/01/20 03:51 120/54 L 95 02/01/20 00:00 125/57 L 94 L Weight 180 lb 1.883 oz - Physical Exam General: alert & oriented x3 HEENT: mucus membranes moist Neck: supple neck Cardiac: regular rate and rhythm, S1/S2 Lungs: clear to auscultation Neuro: cranial nerve 2-12 intact Skin: other (PM site [employer] LO[employer] without drainage, erythema, or swelling) - Labs Result Diagrams: 02/01/20 04:46 02/01/20 04:46 Troponin/CKMB CK-MB (CK-2) 1.5 ng/mL (0-6.6) 01/28/20 04:36 Troponin I 0.042 ng/mL (< 0.028) H 01/28/20 10:35 - Telemetry Sinus rhythms and dysrhythmias: other (AV paced) - Assessment/Plan Assessment/Plan: 1. Persistent Afib/Aflutter with s/p Cardioversion and PPM on 01/30 - remains in SR with Amiodarone 400mg BID since 01/31/2020; ASA 325mg qd only for now due to hx of Anemia; Occult stool was negative; 2. Aenmia ?due to CKD or iron deficiency - S/p 1 unit PRBC tx today; on Iron supplement, Vitamin B12, and Epogen qwk by Dr Allison; Negative occult stool; consider GI consult (for hx of Diverticulosis) 3. LA on CKD stage 3 - managed by Dr Allison. 4. Hypothyroidism - 5. Dyslipidemia - on Statin 6. DM type 2 7. Seizure 8. Hx of TIA 80. Hx of multiple falls 11. obese 12. Ex-smoker 13. Tachy stoney syndrome with s/p PM placement on 01/31/2020 MAR reviewed * Stress test in 12/2019 with no ischemia Pt. seen and eval. by me. I agree with the A/P by the [employer]. Pacemaker reprogrammed today due to decreased ventricular sensing. Threshold was okay. nl. function now. Chest clear. RRR. CXR: good position of leads. Hopefully home tomorrow if Hgb. stable.
--- NOTE | 2020-02-01 13:45 | RAD ---
PORTABLE UPRIGHT FRONTAL CHEST: Date: 02/01/2020 COMPARISON: 01/31/2020. HISTORY: Evaluate pacemaker lead location. FINDINGS: There is a stable dual lead left-sided transvenous pacing device with stable leads overlying the andres on of the right atrium and right ventricle. Heart and mediastinal contours are stable. No pneumothora x, pleural fluid, focal consolidation, or alveolar edema. IMPRESSION: No acute findings. POS: [facility]
[2020-02-01] MEDS: Aspirin 325 MG TAB PO SCH (19:47)
[2020-02-01] MEDS: Simvastatin 5 MG TAB PO SCH (19:49)
[2020-02-01] MEDS: Zolpidem Tartrate 5 MG TAB PO PRN (22:36)
--- NOTE | 2020-02-01 23:16 | PDOC.HOSPP ---
- Subjective Encounter Date: 02/01/20 Encounter Time: 11:30 Subjective: Patient seen and examined for CP/Anemia/A flutter. Some discomfort over the pacemaker. No melena. No new complaints. No overnight events - Objective Vital Signs & Weight: Vital Signs (12 hours) Temp Pulse Pulse Resp BP BP Pulse Ox 02/01/20 23:06 97.5 F L 60 21 H 129/63 92 L 02/01/20 19:43 98.3 F 68 18 152/65 H 98 02/01/20 15:11 98.1 F 61 18 143/68 H 93 L 02/01/20 14:09 98.4 F 61 18 138/63 92 L 02/01/20 11:47 98.5 F 60 18 148/68 H 94 L 02/01/20 11:19 98.9 F 60 16 119/58 L 92 L Weight Weight 180 lb 1.883 oz I&O: 01/31/20 02/01/20 02/02/20 06:59 06:59 06:59 Intake Total 2535 960 1550 Output Total 400 100 Balance 2135 860 1550 Result Diagrams: 02/01/20 04:46 02/01/20 04:46 Additional Labs: Accuchecks 02/01/20 02/01/20 02/01/20 20:44 17:42 11:18 POC Glucose 214 H 132 H 180 H 02/01/20 05:58 POC Glucose 96 EKG Reviewed by me: Yes (Tele paced) Hospitalist ROS - Review of Systems Respiratory: denies: cough, dry, shortness of breath, hemoptysis, SOB with excertion, pleuritic pain, sputum, wheezing, other Cardiovascular: denies: chest pain, palpitations, orthopnea, paroxysmal noc. dyspnea, edema, light headedness, other - Medication Medications: Active Medications Generic Name Dose Route Start Last Admin Trade Name Freq PRN Reason Stop Dose Admin Hydrocodone Bitart/Acetaminophen 1 tab 01/28/20 12:04 02/01/20 14:41 [place] 10/325 PO 1 tab Q6H PRN Administration Moderate to Severe Pain (4-10) Amiodarone HCl 400 mg 01/31/20 09:00 02/01/20 19:48 Cordarone PO 400 mg BID ESMER Administration Aspirin 325 mg 01/28/20 21:00 02/01/20 19:47 Aspirin PO 325 mg HS ESMER Administration Cyanocobalamin 1,000 mcg 02/01/20 09:00 02/01/20 08:51 Vitamin B-12 PO 1,000 mcg DAILY ESMER Administration Epoetin Alirio-epbx 7,500 unit 01/29/20 12:00 01/29/20 11:59 Retacrit SC 7,500 unit Q7D ESMER Administration Famotidine 20 mg 01/30/20 09:00 02/01/20 08:51 Pepcid PO 20 mg DAILY ESMER Administration Ferrous Sulfate 325 mg 01/29/20 17:00 02/01/20 16:35 Feosol PO 325 mg BID-WM ESMER Administration Levothyroxine Sodium 50 mcg 01/29/20 06:00 02/01/20 05:07 Synthroid PO 50 mcg 0600 ESMER Administration Metoprolol Tartrate 25 mg 01/31/20 21:00 02/01/20 19:49 Lopressor PO 25 mg BID ESMER Administration Nifedipine 30 mg 01/29/20 09:00 02/01/20 08:51 Procardia Xl PO 30 mg DAILY ESMER Administration Quetiapine Fumarate 100 mg 01/28/20 21:00 02/01/20 19:48 Seroquel PO 100 mg HS ESMER Administration Senna/Docusate Sodium 2 tab 01/29/20 21:00 02/01/20 19:48 Senokot S PO 2 tab BID ESMER Administration Simvastatin 10 mg 01/28/20 21:00 02/01/20 19:49 Zocor PO 10 mg HS ESMER Administration Sodium Chloride 10 ml 01/31/20 09:00 02/01/20 19:50 Flush - Normal Saline IVF 10 ml Q12HR ESMER Administration Zolpidem Tartrate 5 mg 01/28/20 12:05 02/01/20 22:36 Ambien PO 5 mg HSPRN PRN Administration Insomnia - Exam General Appearance: NAD Neck: supple, no JVD Heart: no gallops, no rubs Respiratory: no wheezes, no rales, no ronchi Gastrointestinal: non-tender, non-distended, normal bowel sounds Extremities: no cyanosis, no clubbing Hosp A/P - Plan DVT proph w/SCDs 1. Chest discomfort/Abnormal EKG. 2. Aflutter with RVR - off Cardizem drip, s/p DCCV with PPM placement 3. Acute kidney injury on chronic kidney disease stage 3. 4. Metabolic acidosis, probably secondary to renal insufficiency. 5. h/o Paroxysmal atrial fibrillation, in sinus rhythm. Not a candidate for anticoag 6. Hypothyroidism. 7. Dyslipidemia. 8. Chronic pain syndrome. 9. Anxiety. 10. Aenmia due to CKD/Pernicious anemia. 11. Obesity with a body mass index of 36.2. 12. Former smoker. 13. Family history of heart disease. 14. Diabetes mellitus type 2. 15. h/o Vit B12 def 16. Elevated troponin. PLAN: Receiving 1 unit PRBC Cont PO Amiodarone Cont Metoprolol Cont Vit B12 supp Cont ASA Cont Procardia XL Cont other meds as above Cont sliding scale No SQ Heparin due to Anemia AM labs
[2020-02-02 04:38] LABS: #Eosinphils 0.2 thou/uL (0.0-0.7); #Lymphocytes 1.1 thou/uL (1.20-3.40); #Monocytes 0.3 thou/uL (0.11-0.59); #Neutrophils 2.1 thou/uL (1.40-6.50); %Basophils 0.6 % (0.0-1.0); %Eosinophils 5.5 % (0.0-10.0); %Lymphocytes 30.6 % (21.0-51.0); %Monocytes 6.9 % (0.0-10.0); %Neutrophils 56.5 % (42.0-75.0); Hemoglobin 8.1 g/dL (12.0-16.0); Mean Corpuscular HGB CONC 34.2 g/dL (32.0-36.0); Mean Corpuscular Hemoglobin 29.5 pg (27.0-31.0); Mean Corpuscular Volume 86.3 fL (78.0-98.0); Mean Platelet Volume 9.3 fL (7.4-10.4); Platelet Count 152 thou/uL (130-400); RBC Distribution Width 15.1 % (11.5-14.5); Red Blood Cell (RBC) Count 2.76 mill/uL (4.20-5.40); White Blood Cell (WBC) Count 3.7 thou/uL (4.8-10.8)
[2020-02-02 05:03] LABS: Anion Gap 14 mmol/L (10-20); BUN (Urea Nitrogen) 22 mg/dL (9.8-20.1); Calc. Creatinine Clearance 40 mL/min (70-130); Calcium 8.6 mg/dL (7.8-10.44); Carbon Dioxide 20 mmol/L (23-31); Chloride 111 mmol/L (98-107); Estimated GFR-MDRD 27; Glucose 85 mg/dL (80-115); Potassium 3.5 mmol/L (3.5-5.1); Sodium 141 mmol/L (136-145)
[2020-02-02] MEDS: Levothyroxine Sodium 50 MCG TAB PO SCH (05:07)
[2020-02-02] MEDS: HYDROcodone/Acetaminophen 10/325 mg Tablet PO PRN (06:33)
[2020-02-02] MEDS: Metoprolol Tartrate 25 MG TAB PO SCH (08:59)
[2020-02-02] MEDS: Ferrous Sulfate 325 MG TAB PO SCH (08:59)
[2020-02-02] MEDS: Famotidine 20 MG TAB PO SCH (08:59)
[2020-02-02] MEDS: Amiodarone 200 MG TAB PO SCH (08:59)
[2020-02-02] MEDS: Cyanocobalamin (Vitamin B-12) 1,000 MCG TAB PO SCH (08:59)
[2020-02-02] MEDS: NIFEdipine XL 30 MG TAB PO SCH (08:59)
[2020-02-02] MEDS: Senokot S 8.6-50 MG TAB PO SCH (09:00)
[2020-02-02] MEDS ORDERED: Metoprolol Tartrate 25 MG TAB PO SCH (10:36)
--- NOTE | 2020-02-02 10:42 | PRG ---
DATE OF SERVICE: 02/02/2020 SUBJECTIVE: Ms. Rowe is a 59-year-old white female, seen by the Renal Service for acute kidney injury on top of her chronic renal failure. She has superimposed hemodynamically mediated renal dysfunction. This is much improved with gentle volume repletion. In the interim, due to a symptomatic bradycardia, sick sinus syndrome, she underwent a pacemaker placement as well as cardioversion. She also have been noted to be in rapid atrial fibrillation. She is also being worked up by Hematology due to her pancytopenia. No other complaints today. No chest pain or shortness of breath. Please note, she received 1 unit packed RBC yesterday. The patient denies any chest pain or shortness of breath. OBJECTIVE: VITAL SIGNS: Blood pressure 152/67, heart rate 66, respiratory rate 18, temperature 98.4, and pulse ox 93%. GENERAL: Noted to be awake, sitting comfortable, not in distress. SKIN: Adequate turgor. HEENT: She has slightly pale conjunctivae. Anicteric sclerae. No neck mass. No carotid bruits. No JVD. CHEST: No deformities. LUNGS: Clear breath sounds. HEART: Normal sinus rhythm. No murmurs, gallops, or rubs. ABDOMEN: Globular, soft, nontender, no masses. EXTREMITIES: No edema. No deformities. MEDICATIONS: Medications of February 02, 2020, reviewed. LABORATORY DATA: Laboratories of February 02, 2020; white count 3.7, hemoglobin 8.1, retic count is 4.0-elevated, immature retic fraction 0.471, elevated. Sodium 141, potassium 3.5, chloride 111, carbon dioxide 20, BUN 22, creatinine 1.91, GFR 27 mL/minute, calcium 8.6. ASSESSMENT AND PLAN: 1. Acute kidney injury secondary to hemodynamically-mediated dysfunction, much improved with gentle volume repletion. Doing well overall. Renal function remained stable. She is currently at stage IV chronic renal failure. 2. Pancytopenia. Hematology following. 3. Atrial fibrillation/sick sinus syndrome-patient is status post cardioversion as well as status post pacemaker placement. 4. Agree with current management. Recheck basic metabolic panel and CBC in a.m. Job ID: [id number]
[2020-02-02 11:21] VITALS: TEMP 97.8
--- NOTE | 2020-02-02 11:46 | PDOC.MOPN ---
Interval History: feels better after transfusion - Vital Signs Vital Signs: Vital Signs (12 hours) Temp Pulse Resp BP BP Pulse Ox 02/02/20 11:18 97.8 F 60 18 135/64 92 L 02/02/20 08:59 69 152/67 H 02/02/20 07:10 93 L 02/02/20 07:07 98.4 F 66 18 143/85 H 93 L 02/02/20 04:00 97.8 F 62 18 147/67 H 93 L 02/02/20 00:31 92 L Weight Weight 180 lb 1.883 oz - Physical Exam General: Alert, Oriented x3, No acute distress HEENT: Atraumatic, PERRLA, EOMI, Mucous membr. moist/pink Lungs: Clear to auscultation, Normal air movement Cardiovascular: Regular rate, Normal S1, Normal S2, No murmurs, Gallops, Rubs Abdomen: Normal bowel sounds, Soft, No tenderness, No hepatospenomegaly, No masses Extremities: No clubbing, No cyanosis, No edema, Normal pulses, No tenderness/ swelling Skin: No rashes, No breakdown, No significant lesion Neurological: Normal gait, Normal speech, Strength at 5/5 X4 ext, Normal tone, Sensation intact, Cranial nerves 3-12 NL, Reflexes 2+ Psych/Mental Status: Mental status NL, Mood NL - Labs Result Diagrams: 02/02/20 04:17 02/02/20 04:17 Lab results: Laboratory Results - last 24 hr 02/02/20 10:43: POC Glucose 214 H 02/02/20 06:19: POC Glucose 103 02/02/20 04:17: Retic Count 4.0 H, Immature Retic Fraction 0.471 H 02/02/20 04:17: WBC 3.7 L, RBC 2.76 L, Hgb 8.1 L, Hct 23.8 L, MCV 86.3, MCH 29.5 , MCHC 34.2, RDW 15.1 H, Plt Count 152, MPV 9.3, Neutrophils % 56.5, Lymphocytes % 30.6, Monocytes % 6.9, Eosinophils % 5.5, Basophils % 0.6, Neutrophils # 2.1, Lymphocytes # 1.1 L, Monocytes # 0.3, Eosinophils # 0.2, Basophils # 0.0 02/02/20 04:17: Sodium 141, Potassium 3.5, Chloride 111 H, Carbon Dioxide 20 L, Anion Gap 14, BUN 22 H, Creatinine 1.91 H, Estimated GFR (MDRD) 27, Glucose 85, Calcium 8.6 02/01/20 20:44: POC Glucose 214 H 02/01/20 17:42: POC Glucose 132 H 01/29/20 14:30: Crossmatch See Detail Status: lab reviewed by me A/P - Problem (1) Anemia, pernicious Current Visit: No Code(s): D51.0 - VITAMIN B12 DEFIC ANEMIA DUE TO INTRINSIC FACTOR DEFICIENCY Status: Acute (2) Chronic kidney disease, stage 3 Current Visit: No Code(s): N18.3 - CHRONIC KIDNEY DISEASE, STAGE 3 (MODERATE) Status: Chronic (3) Diabetes type 2, controlled Current Visit: No Code(s): E11.9 - TYPE 2 DIABETES MELLITUS WITHOUT COMPLICATIONS Status: Chronic (4) Hypothyroidism Current Visit: No Code(s): E03.9 - HYPOTHYROIDISM, UNSPECIFIED Status: Chronic - Plan Plan: continue lifelong oral B12 continue once daily oral iron Follow-up with PCP in 4-6 weeks for CBC, B12 level
--- NOTE | 2020-02-02 12:28 | PDOC.CPN ---
- Subjective Date: 02/02/20 Time: 08:00 Interval history: The pt seen and examined. No overnight events. No cardiac complaints. She feels more energy today - Objective Allergies/Adverse Reactions: Allergies Allergy/AdvReac Type Severity Reaction Status Date / Time ibuprofen [From Motrin] Allergy Intermediate Nausea Verified 01/24/20 01:16 naproxen Allergy Intermediate Nausea Verified 01/24/20 01:16 amlodipine [From Norvasc] Allergy Verified 01/24/20 01:16 NSAIDS (Non-Steroidal Allergy Verified 01/24/20 01:16 Anti-Inflamma Visit Medications: Current Medications Acetaminophen (Tylenol) 650 mg PO Q4H PRN PRN Reason: Headache/Fever/Mild Pain (1-3) Acetaminophen/Codeine Phosphate (Tylenol #3) 1 tab PO Q4H PRN PRN Reason: Mild Pain (1-3) Hydrocodone Bitart/Acetaminophen ([place] 10/325) 1 tab PO Q6H PRN PRN Reason: Moderate to Severe Pain (4-10) Last Admin: 02/02/20 06:33 Dose: 1 tab Amiodarone HCl (Cordarone) 400 mg PO BID [facility] Last Admin: 02/02/20 08:59 Dose: 400 mg Aspirin (Aspirin) 325 mg PO HS [facility] Last Admin: 02/01/20 19:47 Dose: 325 mg Calcium Carbonate (Tums) 1,000 mg PO Q4H PRN PRN Reason: Heartburn or Indigestion Cyanocobalamin (Vitamin B-12) 1,000 mcg PO DAILY [facility] Last Admin: 02/02/20 08:59 Dose: 1,000 mcg Dextrose/Water (Dextrose 50%) 25 gm SLOW IVP PRN PRN PRN Reason: Hypoglycemia Epoetin Alirio-epbx (Retacrit) 7,500 unit SC Q7D [facility] Last Admin: 01/29/20 11:59 Dose: 7,500 unit Famotidine (Pepcid) 20 mg PO DAILY [facility] Last Admin: 02/02/20 08:59 Dose: 20 mg Ferrous Sulfate (Feosol) 325 mg PO BID[facility] Last Admin: 02/02/20 08:59 Dose: 325 mg Glucagon (Glucagon) 1 mg IM PRN PRN PRN Reason: Hypoglycemia Dextrose/Water (D5w) 1,000 mls @ 0 mls/hr IV .Q0M PRN PRN Reason: Hypoglycemia Levothyroxine Sodium (Synthroid) 50 mcg PO 0600 [facility] Last Admin: 02/02/20 05:07 Dose: 50 mcg Methocarbamol (Robaxin) 750 mg PO HSPRN PRN PRN Reason: Muscle Spasm Metoprolol Tartrate (Lopressor) 25 mg PO NOW [facility] Stop: 02/02/20 12:30 Last Admin: 02/02/20 11:21 Dose: 25 mg Metoprolol Tartrate (Lopressor) 50 mg PO BID [facility] Nifedipine (Procardia Xl) 30 mg PO DAILY [facility] Last Admin: 02/02/20 08:59 Dose: 30 mg Nitroglycerin (Nitrostat) 0.4 mg PO Q5MIN PRN PRN Reason: Chest Pain Quetiapine Fumarate (Seroquel) 100 mg PO [facility] Last Admin: 02/01/20 19:48 Dose: 100 mg Senna/Docusate Sodium (Senokot S) 2 tab PO BID [facility] Last Admin: 02/02/20 09:00 Dose: Not Given Simvastatin (Zocor) 10 mg PO [facility] Last Admin: 02/01/20 19:49 Dose: 10 mg Sodium Chloride (Flush - Normal Saline) 10 ml IVF Q12HR [facility] Last Admin: 02/02/20 09:00 Dose: 10 ml Sodium Chloride (Flush - Normal Saline) 10 ml IVF PRN PRN PRN Reason: Saline Flush Zolpidem Tartrate (Ambien) 5 mg PO HSPRN PRN PRN Reason: Insomnia Last Admin: 02/01/20 22:36 Dose: 5 mg Vital Signs & Weight: Vital Signs Temp Pulse Resp BP BP Pulse Ox 02/02/20 11:18 97.8 F 60 18 135/64 92 L 02/02/20 08:59 69 152/67 H 02/02/20 07:10 93 L 02/02/20 07:07 98.4 F 66 18 143/85 H 93 L 02/02/20 04:00 97.8 F 62 18 147/67 H 93 L 02/02/20 00:31 92 L Weight 180 lb 1.883 oz - Physical Exam General: alert & oriented x3 HEENT: mucus membranes moist Neck: supple neck Cardiac: regular rate and rhythm, S1/S2 Lungs: clear to auscultation, decreased breath sounds Neuro: cranial nerve 2-12 intact - Labs Result Diagrams: 02/02/20 04:17 02/02/20 04:17 Troponin/CKMB CK-MB (CK-2) 1.5 ng/mL (0-6.6) 01/28/20 04:36 Troponin I 0.042 ng/mL (< 0.028) H 01/28/20 10:35 - Telemetry Sinus rhythms and dysrhythmias: other (AV paced) - Assessment/Plan Assessment/Plan: 1. Persistent Afib/Aflutter with s/p Cardioversion and PPM on 01/30 - remains in SR with Amiodarone 400mg BID since 01/31/2020; ASA 325mg qd only for now due to hx of Anemia; Occult stool was negative; 2. Aenmia ?due to CKD or iron deficiency - S/p 1 unit PRBC tx today; on Iron supplement, Vitamin B12, and Epogen qwk by Dr Allison; Negative occult stool; consider GI consult (for hx of Diverticulosis) 3. LA on CKD stage 3 - managed by Dr Allison. 4. Hypothyroidism - 5. Dyslipidemia - on Statin 6. DM type 2 7. Seizure 8. Hx of TIA 80. Hx of multiple falls 11. obese 12. Ex-smoker 13. Tachy stoney syndrome with s/p PM placement on 01/31/2020 MAR reviewed * Stress test in 12/2019 with no ischemia * Amiodarone titration: Amiodarone 400mg BID for 10 more days; then change to 200mg BID until she send her Carelink to Dr Vazquez' office in 1 month. If she cont. in SR, then may change to 200mg qd. * Recommend to send the pic of her PM site to Dr Vazquez' office in 10 days ( [email or web address]) and send Carelink in 1 month. Pt. seen and eval. by me. I agree with the A/P by the [employer]. RRR, AP/VS. chest clear. gjm
[2020-02-02 13:46] VITALS: BP 149/67
--- NOTE | 2020-02-02 14:41 | DIS ---
DATE OF ADMISSION: 01/30/2020 DATE OF DISCHARGE: 02/02/2020 DISCHARGE DISPOSITION: Home. FOLLOWUP: 1. Follow up with primary care physician, Dr. Dayday Shaikh in 1 week. 2. Follow up with Gastroenterology, Dr. Wtaters is in 2 to 3 weeks. 3. Follow up with Cardiology, Dr. Vazquez. 4. Follow up with Oncology/Hematology as scheduled. DISCHARGE MEDICATIONS: Metoprolol 50 mg twice a day, amiodarone 400 mg twice daily for 10 days, then 200 mg twice daily until seen by Dr. Vazquez. Sotalol was discontinued. All other home medications were left unchanged. The patient was seen and examined on the day of discharge. Denies any new complaints. No fever, chills, chest pain reported. INPATIENT PROCEDURES: 01 Apr 2020, patient underwent cardioversion for atrial fibrillation. She then developed junctional rhythm with heart rate in 40s that did not respond to atropine. She subsequently underwent dual-chamber pacemaker placement. INPATIENT STORAGE SOLUTIONS ARCHITECT: 1. Nephrology Dr. Allison. 2. Hematology, Dr. Newman. 3. Electrophysiology, Dr. Da Silva. 4. Cardiology Dr. Vazquez. BRIEF HOSPITAL COURSE: The patient is a 59-year-old female with tachy-stoney syndrome with paroxysmal atrial fibrillation, presented to the emergency room with chest discomfort. Please refer to the history and physical for further details. The patient was admitted to the hospital with a diagnosis of chest discomfort, rule out acute coronary syndrome. Serial troponins were in the indeterminate range. The patient was evaluated by Cardiology. Cardiology recommended medical management. The patient developed new onset atrial flutter/fibrillation on December,. She was placed on Cardizem drip. Next day, she underwent DC cardioversion followed by pacemaker placement due to junctional rhythm not responding to a troponin. She was also evaluated by Electrophysiology. She is a poor candidate for oral anticoagulation. The patient was seen by Nephrology Dr. Allison for acute kidney injury on chronic kidney disease stage 3. Renal function gradually improved to creatinine of 1.91 at discharge from 2.38 on admission. The patient has a history of chronic anemia with a hemoglobin of 8.8 on admission. She dropped to 6.8, requiring 1 unit of PRBC. Her vitamin B12 this admission was 287 compared to 198 last month. She has been cleared by consultants for discharge. FINAL DIAGNOSIS: 1. Chest discomfort with abnormal EKG. 2. Elevated troponins probably secondary to #1. 3. Atrial flutter/fibrillation with rapid ventricular response requiring Cardizem drip with subsequent direct current cardioversion with pacemaker placement this admission. 4. Acute kidney injury on chronic kidney disease stage 3. 5. Tachy-stoney syndrome. 6. Metabolic acidosis. 7. History of paroxysmal atrial fibrillation, not a candidate for anticoagulation. 8. Hypothyroidism. 9. Dyslipidemia. 10. Anxiety. 11. Chronic pain syndrome. 12. Anemia secondary to chronic kidney disease/pernicious anemia, status post 1 unit packed red blood cells this admission. 13. Obesity with a body mass index of 36.2. 14. Former smoker. 15. Family history of heart disease. 16. Diabetes mellitus type 2. 17. History of vitamin B12 deficiency. 18. The patient understands the above plan of care. TIME SPENT WITH PATIENT: Time coordinating the discharge of this patient was 36 minutes. Job ID: [id number]
--- NOTE | 2020-02-02 16:01 | PDOC.EP ---
- Subjective Date: 02/02/20 Time: 09:00 Interval History: follow up for atrial fibrillation management. - Review of Systems Constitutional: denies: chills, fever, malaise, sweats, weakness, other Respiratory: denies: cough, shortness of breath, sputum, wheezing Cardiology: denies: chest pain, heart racing, light headedness, passing out Gastrointestinal: denies: abdominal pain, constipation, diarrhea - Objective Allergies/Adverse Reactions: Allergies Allergy/AdvReac Type Severity Reaction Status Date / Time ibuprofen [From Motrin] Allergy Intermediate Nausea Verified 01/24/20 01:16 naproxen Allergy Intermediate Nausea Verified 01/24/20 01:16 amlodipine [From Norvasc] Allergy Verified 01/24/20 01:16 NSAIDS (Non-Steroidal Allergy Verified 01/24/20 01:16 Anti-Inflamma Vital Signs & Weight: Vital Signs Temp Pulse Resp BP BP BP Pulse Ox 02/02/20 13:44 62 149/67 H 92 L 02/02/20 11:18 97.8 F 60 18 135/64 92 L 02/02/20 08:59 69 152/67 H 02/02/20 07:10 93 L 02/02/20 07:07 98.4 F 66 18 143/85 H 93 L 02/02/20 04:00 97.8 F 62 18 147/67 H 93 L Weight 180 lb 1.883 oz I/O: I/O 02/01/20 02/02/20 02/03/20 06:59 06:59 06:59 Intake Total 960 2275 Output Total 100 Balance 860 2275 - Quality Measures Condition: Atrial Fibrillation/Flutter (hx or current) - Physical Exam General: alert & oriented x3, appears well, no apparent distress, speech clear, affect appropriate HEENT: mucus membranes moist, normocephaly Neck: supple neck, no JVD/HJR, no lymphadenopathy Cardiology: regular rate and rhythm, no murmur, PMI nondisplaced Lungs: clear to auscultation, no wheeze, rales, rhonchi Neurology: cranial nerve 2-12 intact, sensory function intact, no lateralizing findings Abdomen: unremarkable, active bowel sounds, no pulsations/bruits Extremities: dry, strong pulses, warm Skin: device site stable w/o swelling, left sided device. negative: bruising, drainage, erosion, hematoma - Labs Result Diagrams: 02/02/20 04:17 02/02/20 04:17 - EKG Interpretation EKG Method: Telemetry EKG shows: Sinus rhythm - Device Device: dual, pacemaker Device Result: [employer] - Assessment/Plan Assessment/Plan: 1. Persistent Atrial fibrillation/flutter -symptomatic, organized into flutter with the addition of low dose sotalol. Switched to amiodarone due to CKD 2. Chronic renal insufficiency 3. Anemia -unknown etiology, consider GI eval. - questionable candidate for anticoagulation therapy 4. Tachy stoney syndrome 5. QT prolongation -continue to monitor with amiodarone therapy 6. Pancytopenia 7. Dual chamber pacemaker, [employer] - implant 01/31/2020 -01/31 Reprogrammed to correct sensing issues with RV lead Limited AAD options with kidney function, bradycardia, and QT prolongation. Had junctional bradycardia post CV, prompting dual chamber PPM implant. Continue amiodarone. I recommend considering OAC if no concern for active bleeding. No further pacing issues seen. OK for DC by EP.
[2020-02-02] MEDS ORDERED: Metoprolol Tartrate 50 MG TAB PO SCH (21:00)
== END 2020-02-02 14:20 | disposition home or self-care (01) | DRG 243 ==
LOC: ERS 03:36 → 2SW 05:24 → OBSVTOIN 01-30 10:12 → 2NO 01-30 14:18
PROVIDERS: ADMIT Internal Medicine; ATTEND Internal Medicine
PROC: 5A2204Z Restoration of Cardiac Rhythm, Single (ICD-10-PCS; 2020-01-31)
PROC: 0JH606Z Insertion of Pacemaker, Dual Chamber into Chest Subcutaneous Tissue and Fascia, Open Approach (ICD-10-PCS; principal; 2020-02-01)
PROC: 02HK3JZ Insertion of Pacemaker Lead into Right Ventricle, Percutaneous Approach (ICD-10-PCS; 2020-02-01)
PROC: 02H63JZ Insertion of Pacemaker Lead into Right Atrium, Percutaneous Approach (ICD-10-PCS; 2020-02-01)
PROC: 30233N1 Transfusion of Nonautologous Red Blood Cells into Peripheral Vein, Percutaneous Approach (ICD-10-PCS; 2020-02-01)
DX: I48.19 Other persistent atrial fibrillation (principal); N17.9 Acute kidney failure, unspecified; E87.2 Acidosis; D61.818 Other pancytopenia; N18.4 Chronic kidney disease, stage 4 (severe); I49.5 Sick sinus syndrome; I48.0 Paroxysmal atrial fibrillation; E03.9 Hypothyroidism, unspecified; E78.5 Hyperlipidemia, unspecified; F41.9 Anxiety disorder, unspecified; E66.9 Obesity, unspecified; E11.22 Type 2 diabetes mellitus with diabetic chronic kidney disease; G89.4 Chronic pain syndrome; D51.0 Vitamin B12 deficiency anemia due to intrinsic factor deficiency; D63.1 Anemia in chronic kidney disease; M54.5 Low back pain; G40.909 Epilepsy, unspecified, not intractable, without status epilepticus; R29.6 Repeated falls; I45.10 Unspecified right bundle-branch block; I45.81 Long QT syndrome; Z68.32 Body mass index [BMI] 32.0-32.9, adult; Z86.73 Personal history of transient ischemic attack (TIA), and cerebral infarction without residual deficits; Z90.49 Acquired absence of other specified parts of digestive tract; Z98.51 Tubal ligation status; Z87.891 Personal history of nicotine dependence; Z79.82 Long term (current) use of aspirin; Z79.84 Long term (current) use of oral hypoglycemic drugs; Z79.890 Hormone replacement therapy; Z79.899 Other long term (current) drug therapy; Z88.6 Allergy status to analgesic agent; I12.9 Hypertensive chronic kidney disease with stage 1 through stage 4 chronic kidney disease, or unspecified chronic kidney disease; I25.10 Atherosclerotic heart disease of native coronary artery without angina pectoris
CPT/HCPCS: 33208; 36415; 36416; 36430; 71045; 80048; 80053; 82274; 82553; 82607; 82746; 83735; 83880; 84439; 84443; 84481; 84484; 85025; 85046; 86850; 86870; 86900; 86901; 86922; 92960; 93005; 93010; 93798; 94760; 99152; 99153; C1785; C1898; J0461; J0690; J1160; J1580; J1644; J2001; J2250; J2704; J3420; J3490; P9016; Q5105

== ENCOUNTER 2020-02-07 18:11 | Observation (INO) | payer SELFPAY ==
[2020-02-07 18:58] LABS: #Eosinphils 0.2 thou/uL (0.0-0.7); #Lymphocytes 0.9 thou/uL (1.20-3.40); #Monocytes 0.4 thou/uL (0.11-0.59); #Neutrophils 3.6 thou/uL (1.40-6.50); %Basophils 0.4 % (0.0-1.0); %Eosinophils 4.7 % (0.0-10.0); %Lymphocytes 17.3 % (21.0-51.0); %Monocytes 7.1 % (0.0-10.0); %Neutrophils 70.5 % (42.0-75.0); Hemoglobin 9.4 g/dL (12.0-16.0); Mean Corpuscular HGB CONC 32.5 g/dL (32.0-36.0); Mean Corpuscular Hemoglobin 28.2 pg (27.0-31.0); Mean Corpuscular Volume 86.8 fL (78.0-98.0); Mean Platelet Volume 9.6 fL (7.4-10.4); Platelet Count 203 thou/uL (130-400); RBC Distribution Width 15.7 % (11.5-14.5); Red Blood Cell (RBC) Count 3.35 mill/uL (4.20-5.40); White Blood Cell (WBC) Count 5.1 thou/uL (4.8-10.8)
--- NOTE | 2020-02-07 19:21 | RAD ---
PORTABLE CHEST: 02/07/20 PROVIDED CLINICAL HISTORY: Chest pain. FINDINGS: Comparison 02/01/20. Cardiac silhouette remains enlarged. Left subclavian cardiac pacing device is redemonstrated with the tips in similar positions. No focal consolidation, pleural fluid or pneumothorax apparent. IMPRESSION: Cardiomegaly without evidence for an acute cardiopulmonary process. POS: MATTHEW
[2020-02-07 19:22] LABS: ALT (SGPT) 9 U/L (8-55); AST (SGOT) 24 U/L (5-34); Albumin 3.5 g/dL (3.4-4.8); Alkaline Phosphatase 104 U/L (40-110); Anion Gap 16 mmol/L (10-20); BUN (Urea Nitrogen) 22 mg/dL (9.8-20.1); Bilirubin, Total 0.7 mg/dL (0.2-1.2); CK (CPK) 43 U/L (29-168); Calc. Creatinine Clearance 0 mL/min (70-130); Carbon Dioxide 20 mmol/L (23-31); Chloride 108 mmol/L (98-107); Estimated GFR-MDRD 23; Globulin 4.2 g/dL (2.4-3.5); Glucose 98 mg/dL (80-115); Lipase 10 U/L (8-78); Potassium 4.4 mmol/L (3.5-5.1); Protein, Total 7.7 g/dL (6.0-8.3); Sodium 140 mmol/L (136-145)
[2020-02-07 19:47] LABS: CKMB 0.9 ng/mL (0-6.6)
[2020-02-07] MEDS ORDERED: Aspirin 325 MG TAB ONE (20:00)
[2020-02-07] MEDS ORDERED: Nitroglycerin 2% Ointment 1 INCH/1 GM Packet ONE (20:25)
[2020-02-07 20:35] LABS: Bilirubin Negative (Negative); Blood, Urine 2+ (Negative); Clarity Turbid (Clear); Glucose, Urine (Dipstick) Normal (Negative); Leukocyte 250 Leu/uL (Negative); Nitrite 2+ (Negative); Protein, Urine (Dipstick) 50 mg/dL (Neg-Trace); Squamous Epithelial 0-3 HPF (0-3); Urobilinogen Normal mg/dL (Less than 2)
[2020-02-07 20:39] LABS: Bacteria/HPF 4+ HPF (None Seen); Renal Epithelial 0-3 HPF (None Seen)
[2020-02-07] MEDS ORDERED: Acetaminophen 325 MG TAB PO PRN (20:56)
[2020-02-07] MEDS ORDERED: Ondansetron PF 4 MG/2 ML Vial IVP PRN (20:56)
[2020-02-07] MEDS ORDERED: Senokot S 8.6-50 MG TAB PO PRN (20:56)
--- NOTE | 2020-02-07 20:56 | PDOC.HHP ---
Hospitalist HPI - History of Present Illness Chest pain History of Present Illness: Patient with complex PMH including HTN, HLD, DM, CKD, AF tachy-stoney syndrome recent PPM and discharged from this facility back on 02/02/20 presents back to the ED for evaluation of chest pain. Patient tells me that pain seems worse after PPM placement. Pain is described as sharp in nature and localized to left chest wall area. On exam pain is quite reproducible to gentle palpation to chest wall. She tells me that she was prescribed NTG and oxycodone for pain from both oxycodone appears to be most effective. Does report mild shortness of breath which appears to be exacerbated by deep inspiration. Shortness of breath however appears to be driven by poor inspiratory effort due to pain. She denies any fever, chills, malaise. Initial ED evaluation did report mild hypoxia of 88% with exertion. Chest x-ray is negative for acute pathology. Initial troponin is marginally elevated at 0.031 but in setting of CKD. Hospitalist ROS - Review of Systems Constitutional: reports: malaise. denies: fever, chills, sweats, other Eyes: denies: pain, vision change, conjunctivae inflammation, eyelid inflammation, redness, other Respiratory: reports: shortness of breath, pleuritic pain Cardiovascular: reports: chest pain. denies: palpitations, orthopnea, paroxysmal noc. dyspnea, edema Gastrointestinal: denies: nausea, vomiting, abdominal pain, diarrhea, constipation, melena, hematochezia, other Genitourinary: denies: dysuria, frequency, incontinence, hematuria, retention, other Musculoskeletal: reports: other (Left sided chest wall pain) Neurological: denies: weakness, numbness, incoordination, change in speech, confusion, seizures, other All other systems reviewed; all pertinent +/- noted in HPI/Subj - Exam General Appearance: NAD, awake alert Eye: PERRL, anicteric sclera ENT: normocephalic atraumatic, no oropharyngeal lesions, moist mucosa Neck: supple, symmetric, no JVD, no thyromegaly, no lymphadenopathy, no carotid bruit Heart: RRR, no murmur, no gallops, no rubs, normal peripheral pulses Heart - other findings: Very obviously reproducible left sided chest wall pain Respiratory: CTAB, no wheezes, no rales, no ronchi, normal chest expansion, no tachypnea, normal percussion Respiratory - other findings: Decreased breath sounds/poor inspiratory effort Gastrointestinal: soft, non-tender, non-distended, normal bowel sounds, no palpable masses, no hepatomegaly, no splenomegaly, no bruit Extremities: negative: no cyanosis, no clubbing, no edema, 1+ LE edema, 2+ LE edema, clubbing Skin - other findings: Left sided chest with surgical incicion recent PPM, no cellulitic changes Neurological: cranial nerve grossly intact, normal sensation to touch, no weakness, no focal deficits, no new deficit Hospitalist Results - Labs Result Diagrams: 02/07/20 18:53 02/07/20 18:53 Lab results: WBC 5.1 thou/uL (4.8-10.8) 02/07/20 18:53 Hgb 9.4 g/dL (12.0-16.0) L 02/07/20 18:53 Hct 29.0 % (36.0-47.0) L 02/07/20 18:53 MCV 86.8 fL (78.0-98.0) 02/07/20 18:53 Plt Count 203 thou/uL (130-400) 02/07/20 18:53 Neutrophils % 70.5 % (42.0-75.0) 02/07/20 18:53 Sodium 140 mmol/L (136-145) 02/07/20 18:53 Potassium 4.4 mmol/L (3.5-5.1) 02/07/20 18:53 Chloride 108 mmol/L (98-107) H 02/07/20 18:53 Carbon Dioxide 20 mmol/L (23-31) L 02/07/20 18:53 BUN 22 mg/dL (9.8-20.1) H 02/07/20 18:53 Creatinine 2.14 mg/dL (0.6-1.1) H 02/07/20 18:53 Glucose 98 mg/dL (80-115) 02/07/20 18:53 Calcium 9.0 mg/dL (7.8-10.44) 02/07/20 18:53 Total Bilirubin 0.7 mg/dL (0.2-1.2) 02/07/20 18:53 AST 24 U/L (5-34) 02/07/20 18:53 ALT 9 U/L (8-55) 02/07/20 18:53 Alkaline Phosphatase 104 U/L (40-110) 02/07/20 18:53 Creatine Kinase 43 U/L (29-168) 02/07/20 18:53 CK-MB (CK-2) 0.9 ng/mL (0-6.6) 02/07/20 18:53 Troponin I 0.031 ng/mL (< 0.028) H 02/07/20 18:53 B-Natriuretic Peptide 594.5 pg/mL (0-100) H 02/07/20 18:53 Serum Total Protein 7.7 g/dL (6.0-8.3) 02/07/20 18:53 Albumin 3.5 g/dL (3.4-4.8) 02/07/20 18:53 Lipase 10 U/L (8-78) 02/07/20 18:53 Urine Ketones Negative mg/dL (Negative) 02/07/20 20:15 Urine Blood 2+ (Negative) A 02/07/20 20:15 Urine Nitrite 2+ (Negative) A 02/07/20 20:15 Ur Leukocyte Esterase 250 Daniela/uL (Negative) A 02/07/20 20:15 Urine RBC 11-20 HPF (0-3) A 02/07/20 20:15 Urine WBC 7-10 HPF (0-3) A 02/07/20 20:15 Ur Squamous Epith Cells 0-3 HPF (0-3) 02/07/20 20:15 Urine Bacteria 4+ HPF (None Seen) A 02/07/20 20:15 - Radiology Interpretation Chest x-ray Status: image reviewed by me (No acute pathology) Hospitalist H&P A/P - Problem (1) Chest pain Code(s): R07.9 - CHEST PAIN, UNSPECIFIED Status: Acute (2) Chronic kidney disease, stage 3 Code(s): N18.3 - CHRONIC KIDNEY DISEASE, STAGE 3 (MODERATE) Status: Chronic (3) Diabetes type 2, controlled Code(s): E11.9 - TYPE 2 DIABETES MELLITUS WITHOUT COMPLICATIONS Status: Chronic (4) HTN (hypertension) Code(s): I10 - ESSENTIAL (PRIMARY) HYPERTENSION Status: Chronic (5) Dyslipidemia Code(s): E78.5 - HYPERLIPIDEMIA, UNSPECIFIED Status: Chronic (6) Hypothyroidism Code(s): E03.9 - HYPOTHYROIDISM, UNSPECIFIED Status: Chronic (7) Anxiety and depression Code(s): F41.8 - OTHER SPECIFIED ANXIETY DISORDERS Status: Chronic - Plan Plan: Chest pain Patient with recent hx of PPM placement for AF with tachy-stoney syndrome Presents with reproducible chest pain to incision area for PPM Area does not appear infected but is quite tender Doubt cardiac ischemia as etiology for chest pain She does have a recent stress test negative for ischemia Initial troponin is marginal at 0.03 but in setting of known CKD Will monitor telemetry and trend cardiac enzymes Start IV morphine PRN for pain control Continue with home cardiac medications including ASA, beta denise, statin Cardiology service has been consulted for further advice Hypoxia Suspecting borderline hypoxia in setting of poor inspiratory effort driven by chest wall pain Low susp. for other etiologies such as PE She does have elevation of BNP and lower extremity edema On exam lungs only appear rather diminished Continue to optimized pain control Continue with home dose Lasix AF with tach-stoney syndrome now s/p PPM Patient was considered not good candidate for AC Continue with amiodarone, metoprolol, daily ASA Chronic kidney disease Monitor BMPs periodically Diabetes Hold oral hypoglycemics Start ISS Hypertension Continue with Metoprolol & nifedipine Hypothyroidism Continue with synthroid DVT PPX: HepSQ. FULL CODE
[2020-02-07] MEDS ORDERED: Heparin 5,000 UNITS/ML VIAL SC SCH (21:00)
[2020-02-07] MEDS ORDERED: Dextrose 50% Abboject 50 ML SYRINGE SLOW IVP PRN (21:55)
[2020-02-07] MEDS ORDERED: HumaLOG 300 UNITS/3 ML VIAL SC PRN (21:55)
[2020-02-07] MEDS ORDERED: Dextrose 5% in Water 1,000 ML IV PRN (21:55)
[2020-02-07 22:13] LABS: Troponin I 0.031 ng/mL (< 0.028)
[2020-02-07] MEDS: Morphine 2 MG/ML SYRINGE SLOW IVP PRN (23:24)
[2020-02-07] MEDS: Amiodarone 200 MG TAB PO SCH (23:24)
[2020-02-08] MEDS ORDERED: Methocarbamol 500 MG TAB PO PRN (02:48)
[2020-02-08] MEDS ORDERED: HumaLOG 300 UNITS/3 ML VIAL SC PRN (02:48)
[2020-02-08] MEDS: Morphine 2 MG/ML SYRINGE SLOW IVP PRN ×2 (03:13→07:56)
[2020-02-08 04:10] LABS: #Eosinphils 0.1 thou/uL (0.0-0.7); #Lymphocytes 0.8 thou/uL (1.20-3.40); #Monocytes 0.3 thou/uL (0.11-0.59); #Neutrophils 2.5 thou/uL (1.40-6.50); %Eosinophils 3.2 % (0.0-10.0); %Lymphocytes 21.5 % (21.0-51.0); %Monocytes 7.3 % (0.0-10.0); %Neutrophils 67.9 % (42.0-75.0); Hemoglobin 8.2 g/dL (12.0-16.0); Mean Corpuscular HGB CONC 33.9 g/dL (32.0-36.0); Mean Corpuscular Hemoglobin 29.7 pg (27.0-31.0); Mean Corpuscular Volume 87.6 fL (78.0-98.0); Mean Platelet Volume 9.4 fL (7.4-10.4); Platelet Count 203 thou/uL (130-400); RBC Distribution Width 15.6 % (11.5-14.5); Red Blood Cell (RBC) Count 2.77 mill/uL (4.20-5.40); White Blood Cell (WBC) Count 3.6 thou/uL (4.8-10.8)
[2020-02-08 04:32] LABS: Anion Gap 13 mmol/L (10-20); BUN (Urea Nitrogen) 22 mg/dL (9.8-20.1); Calc. Creatinine Clearance 38 mL/min (70-130); Calcium 8.8 mg/dL (7.8-10.44); Carbon Dioxide 22 mmol/L (23-31); Cardiac Risk 4.9 (Less than 4.5); Chloride 111 mmol/L (98-107); Cholesterol 127 mg/dl (< 200 Desired); Estimated GFR-MDRD 27; Glucose 66 mg/dL (80-115); HDL Cholesterol 26 mg/dL (>60 Neg Risk); LDL Cholesterol, Calculated 81 mg/dL; Sodium 142 mmol/L (136-145); Triglycerides 102 mg/dL (Less than 150)
[2020-02-08] MEDS: Levothyroxine Sodium 50 MCG TAB PO SCH (05:11)
[2020-02-08] MEDS: NIFEdipine XL 30 MG TAB PO SCH (07:57)
[2020-02-08] MEDS: Metoprolol Tartrate 50 MG TAB PO SCH ×2 (07:57→21:39)
[2020-02-08] MEDS: Furosemide 20 MG TAB PO SCH (08:01)
[2020-02-08] MEDS: Amiodarone 200 MG TAB PO SCH ×2 (08:03→21:39)
[2020-02-08 08:05] LABS: Troponin I 0.045 ng/mL (< 0.028)
[2020-02-08] MEDS ORDERED: Heparin 5,000 UNITS/ML VIAL SC SCH (09:00)
[2020-02-08] MEDS: traMADol HCl 50 MG TAB PO PRN ×3 (10:19→21:38)
[2020-02-08] MEDS ORDERED: HYDROcodone/Acetaminophen 10/325 mg Tablet PO PRN (10:32)
--- NOTE | 2020-02-08 11:53 | PDOC.CPN ---
- Subjective Date: 02/08/20 Time: 08:00 Interval history: The pt seen and examined. No overnight events. She complains of paint to Lt chest this AM which was Rt under breast yesterday. The pain is worsened with movement, deep breath and palpitation to the site. - Objective Allergies/Adverse Reactions: Allergies Allergy/AdvReac Type Severity Reaction Status Date / Time ibuprofen [From Motrin] Allergy Intermediate Nausea Verified 01/24/20 01:16 naproxen Allergy Intermediate Nausea Verified 01/24/20 01:16 amlodipine [From Norvasc] Allergy Verified 01/24/20 01:16 NSAIDS (Non-Steroidal Allergy Verified 01/24/20 01:16 Anti-Inflamma Visit Medications: Current Medications Acetaminophen (Tylenol) 650 mg PO Q4H PRN PRN Reason: Headache/Fever/Mild Pain (1-3) Last Admin: 02/08/20 10:19 Dose: 650 mg Acetaminophen (Tylenol) 650 mg PO TID [facility] Hydrocodone Bitart/Acetaminophen ([place] 10/325) 1 tab PO Q6H PRN PRN Reason: Severe Pain (7-10) Amiodarone HCl (Cordarone) 400 mg PO BID [facility] Last Admin: 02/08/20 08:03 Dose: 400 mg Aspirin (Aspirin) 325 mg PO HS [facility] Dextrose/Water (Dextrose 50%) 25 gm SLOW IVP PRN PRN PRN Reason: Hypoglycemia Furosemide (Lasix) 20 mg PO DAILY [facility] Last Admin: 02/08/20 08:01 Dose: Not Given Glucagon (Glucagon) 1 mg IM PRN PRN PRN Reason: Hypoglycemia Heparin Sodium (Porcine) (Heparin) 5,000 units SC BID [facility] Last Admin: 02/08/20 09:29 Dose: 5,000 units Dextrose/Water (D5w) 1,000 mls @ 0 mls/hr IV .Q0M PRN PRN Reason: Hypoglycemia Insulin Human Lispro (Humalog) 0 units SC .MILD SLIDING SCALE PRN PRN Reason: Mild Correctional Scale Insulin Human Lispro (Humalog) 0 units SC .BEDTIME SLIDING SC PRN PRN Reason: Bedtime Correctional Scale Levothyroxine Sodium (Synthroid) 50 mcg PO 0600 [facility] Last Admin: 02/08/20 05:11 Dose: 50 mcg Methocarbamol (Robaxin) 750 mg PO QPM PRN PRN Reason: Muscle Pain Metoprolol Tartrate (Lopressor) 50 mg PO BID [facility] Last Admin: 02/08/20 07:57 Dose: 50 mg Nifedipine (Procardia Xl) 30 mg PO DAILY [facility] Last Admin: 02/08/20 07:57 Dose: 30 mg Ondansetron HCl (Zofran) 4 mg IVP Q6H PRN PRN Reason: Nausea/Vomiting Quetiapine Fumarate (Seroquel) 100 mg PO HS [facility] Senna/Docusate Sodium (Senokot S) 2 tab PO BID PRN PRN Reason: Constipation Simvastatin (Zocor) 10 mg PO HS [facility] Sodium Chloride (Flush - Normal Saline) 10 ml IVF PRN PRN PRN Reason: Saline Flush Tramadol HCl (Ultram) 50 mg PO Q4H PRN PRN Reason: Moderate Pain (4-6) Last Admin: 02/08/20 10:19 Dose: 50 mg Vital Signs & Weight: Vital Signs Temp Pulse Resp BP BP Pulse Ox 02/08/20 11:13 98.9 F 61 17 137/63 93 L 02/08/20 10:47 93 L 02/08/20 10:46 86 L 02/08/20 07:43 95 02/08/20 07:18 98.2 F 75 14 166/70 H 96 02/08/20 03:11 99.1 F 76 18 160/58 H 93 L 02/08/20 02:20 95 02/08/20 00:25 95 02/08/20 00:22 95 Weight 172 lb 13.478 oz - Physical Exam General: alert & oriented x3 HEENT: mucus membranes moist Neck: supple neck Cardiac: regular rate and rhythm, S1/S2 Lungs: decreased breath sounds - Labs Result Diagrams: 02/08/20 03:32 02/08/20 03:32 Troponin/CKMB CK-MB (CK-2) 0.9 ng/mL (0-6.6) 02/07/20 18:53 Troponin I 0.045 ng/mL (< 0.028) H 02/08/20 03:30 - Telemetry Sinus rhythms and dysrhythmias: sinus rhythm - Assessment/Plan Assessment/Plan: 1. Atypical Chest pain - Yesterday, she had pain to Rt under breast. Today, she complains of pain to Lt chest, which worsen with deep breath and palpitation to the site; PM site is [employer], no swelling, erythema, or drainage; WBC is in normal range 2. SOB with elevated BNP - Echo next available. On BBlocker. 3. Persistent Afib/Alutter with s/p DCCV and PPM on 01/31/2020 - remains in SR; Cont. ASA for now due to hx of Anemia; Amiodarone 400mg BID since 01/31/2020 to 02/14/2020 then change to 200mg BID for 2 wks, then 200mg qd. 4. Anemia - Per the pt, she has been on Vitamin B12 and iron supplement 5. LA on CKD on stage 3 6. SSS with s/p PM placement on 01/31/2020 7. hypothyroidism 8. HLD 9. DM type 2 10. Seizure 11. Hx of multiple fallx 12. Ex-smoker 13. UTI - on ABX IV MAR reviewed pt. seen and eval. by me. The chest pain seems noncardiac. Reproducible musculoskeletal. I agree with the A/P by the DIALYSIS RN. Chest : few scattered rales. RRR. Normal pacemaker function. No arrythmias. Continue amiodarone. I will review the echo when available. jose
[2020-02-08] MEDS ORDERED: cefTRIAXone\\ROCEPHIN 1 GM in Sodium Chloride 0.9% 100 ML IVPB SCH (12:00)
--- NOTE | 2020-02-08 13:26 | EKG ---
Test Reason : CP Blood Pressure : / mmHG Vent. Rate : 074 BPM Atrial Rate : 074 BPM P-R Int : 158 ms QRS Dur : 128 ms QT Int : 412 ms P-R-T Axes : 067 047 -36 degrees QTc Int : 457 ms Normal sinus rhythm Right bundle branch block T wave abnormality, consider inferolateral ischemia Abnormal ECG Confirmed by JENNIFER CHAPMAN, SARA Polk ([id number]), supervising film or videotape editor LEVI IBANEZ ([id number]) on 02/08/2020 1:26:16 PM Referred By: Confirmed By:SARA RODRIGUEZ MD
[2020-02-08] MEDS ORDERED: Cefdinir 300 MG CAP PO SCH (14:00)
--- NOTE | 2020-02-08 14:06 | PDOC.HOSPP ---
- Subjective Encounter Date: 02/08/20 Encounter Time: 14:06 Subjective: Patient seen and examined to . No new complaints. No overnight events - Objective Vital Signs & Weight: Vital Signs (12 hours) Temp Pulse Resp BP BP Pulse Ox 02/08/20 11:13 98.9 F 61 17 137/63 93 L 02/08/20 10:47 93 L 02/08/20 10:46 86 L 02/08/20 07:43 95 02/08/20 07:18 98.2 F 75 14 166/70 H 96 02/08/20 03:11 99.1 F 76 18 160/58 H 93 L 02/08/20 02:20 95 Weight Weight 172 lb 13.478 oz I&O: 02/07/20 02/08/20 02/09/20 06:59 06:59 06:59 Output Total 300 Balance -300 Result Diagrams: 02/08/20 03:32 02/08/20 03:32 Additional Labs: Accuchecks 02/08/20 02/08/20 10:21 05:45 POC Glucose 122 H 82 EKG Reviewed by me: Yes (Tele SR) Hospitalist ROS - Review of Systems Respiratory: denies: cough, dry, shortness of breath, hemoptysis, SOB with excertion, pleuritic pain, sputum, wheezing, other Cardiovascular: denies: chest pain, palpitations, orthopnea, paroxysmal noc. dyspnea, edema, light headedness, other - Medication Medications: Active Medications Generic Name Dose Route Start Last Admin Trade Name Freq PRN Reason Stop Dose Admin Acetaminophen 650 mg 02/07/20 20:56 02/08/20 10:19 Tylenol PO 650 mg Q4H PRN Administration Headache/Fever/Mild Pain (1-3) Amiodarone HCl 400 mg 02/08/20 09:00 02/08/20 08:03 Cordarone PO 400 mg BID [facility] Administration Furosemide 20 mg 02/08/20 09:00 02/08/20 08:01 Lasix PO Not Given DAILY [facility] Heparin Sodium (Porcine) 5,000 units 02/08/20 09:00 02/08/20 09:29 Heparin SC 5,000 units BID [facility] Administration Levothyroxine Sodium 50 mcg 02/08/20 06:00 02/08/20 05:11 Synthroid PO 50 mcg 0600 [facility] Administration Metoprolol Tartrate 50 mg 02/08/20 09:00 02/08/20 07:57 Lopressor PO 50 mg BID [facility] Administration Nifedipine 30 mg 02/08/20 09:00 02/08/20 07:57 Procardia Xl PO 30 mg DAILY [facility] Administration Tramadol HCl 50 mg 02/08/20 09:59 02/08/20 10:19 Ultram PO 50 mg Q4H PRN Administration Moderate Pain (4-6) - Exam General Appearance: NAD Heart: RRR, no rubs Respiratory: no wheezes, no ronchi Gastrointestinal: non-tender, normal bowel sounds Extremities: no cyanosis Neurological: no new deficit Hosp A/P - Plan DVT proph w/SCDs 1. Chest discomfort/Abnormal EKG/Acute hypoxic resp failure 2. h/o recent Aflutter with RVR requiring Cardizem drip, s/p DCCV with PPM placement 3. UTI 4. Chronic diastolic HF 5. h/o Paroxysmal atrial fibrillation, in sinus rhythm. Not a candidate for anticoag 6. Hypothyroidism. 7. Dyslipidemia. 8. Chronic pain syndrome. 9. Anxiety. 10. Aenmia due to CKD/Pernicious anemia. 11. Obesity with a body mass index of 36.2. 12. Former smoker. 13. Family history of heart disease. 14. Diabetes mellitus type 2. 15. h/o Vit B12 def 16. Chronically elevated troponin. 17. CKD 3 PLAN: [facility] Echo Will need home O2 due to persistent hypoxia Cardio input appreciated Cont PO Amiodarone/Metoprolol/Procardia XL Add Omnicef for UTI Cont other meds as above
[2020-02-08] MEDS: Acetaminophen 325 MG TAB PO SCH ×2 (14:42→21:37)
[2020-02-08] MEDS ORDERED: Potassium Chloride 20 MEQ TAB PO SCH (15:00)
[2020-02-08] MEDS ORDERED: Furosemide 40 MG/4 ML VIAL SLOW IVP SCH (15:00)
[2020-02-08] MEDS ORDERED: Simvastatin 5 MG TAB PO SCH (21:00)
[2020-02-08] MEDS ORDERED: Aspirin 325 MG TAB PO SCH (21:00)
[2020-02-08] MEDS: Cefdinir 300 MG CAP PO SCH (21:39)
[2020-02-09] MEDS: Levothyroxine Sodium 50 MCG TAB PO SCH (05:35)
[2020-02-09] MEDS: traMADol HCl 50 MG TAB PO PRN (05:40)
[2020-02-09 05:55] VITALS: BMI 36.3
[2020-02-09] MEDS: Amiodarone 200 MG TAB PO SCH (08:26)
[2020-02-09] MEDS: Acetaminophen 325 MG TAB PO SCH ×2 (08:27→15:46)
[2020-02-09] MEDS: Furosemide 20 MG TAB PO SCH (08:27)
[2020-02-09] MEDS: Cefdinir 300 MG CAP PO SCH (08:27)
[2020-02-09] MEDS: NIFEdipine XL 30 MG TAB PO SCH (08:36)
[2020-02-09] MEDS: Metoprolol Tartrate 50 MG TAB PO SCH (09:00)
[2020-02-09 11:41] VITALS: TEMP 97.5
--- NOTE | 2020-02-09 12:47 | PDOC.CPN ---
- Subjective Date: 02/09/20 Time: 12:59 Interval history: The pt seen and examined. No overnight events. No cardiac complaints. - Objective Allergies/Adverse Reactions: Allergies Allergy/AdvReac Type Severity Reaction Status Date / Time ibuprofen [From Motrin] Allergy Intermediate Nausea Verified 01/24/20 01:16 naproxen Allergy Intermediate Nausea Verified 01/24/20 01:16 amlodipine [From Norvasc] Allergy Verified 01/24/20 01:16 NSAIDS (Non-Steroidal Allergy Verified 01/24/20 01:16 Anti-Inflamma Visit Medications: Current Medications Acetaminophen (Tylenol) 650 mg PO Q4H PRN PRN Reason: Headache/Fever/Mild Pain (1-3) Last Admin: 02/08/20 10:19 Dose: 650 mg Acetaminophen (Tylenol) 650 mg PO TID [facility] Last Admin: 02/09/20 08:27 Dose: 650 mg Hydrocodone Bitart/Acetaminophen ([place] 10/325) 1 tab PO Q6H PRN PRN Reason: Severe Pain (7-10) Amiodarone HCl (Cordarone) 400 mg PO BID [facility] Last Admin: 02/09/20 08:26 Dose: 400 mg Aspirin (Aspirin) 325 mg PO HS [facility] Last Admin: 02/08/20 21:39 Dose: 325 mg Cefdinir (Omnicef) 300 mg PO BID [facility] Last Admin: 02/09/20 08:27 Dose: 300 mg Dextrose/Water (Dextrose 50%) 25 gm SLOW IVP PRN PRN PRN Reason: Hypoglycemia Furosemide (Lasix) 20 mg PO DAILY [facility] Last Admin: 02/09/20 08:27 Dose: Not Given Glucagon (Glucagon) 1 mg IM PRN PRN PRN Reason: Hypoglycemia Dextrose/Water (D5w) 1,000 mls @ 0 mls/hr IV .Q0M PRN PRN Reason: Hypoglycemia Insulin Human Lispro (Humalog) 0 units SC .MILD SLIDING SCALE PRN PRN Reason: Mild Correctional Scale Last Admin: 02/09/20 11:24 Dose: 3 unit Insulin Human Lispro (Humalog) 0 units SC .BEDTIME SLIDING SC PRN PRN Reason: Bedtime Correctional Scale Levothyroxine Sodium (Synthroid) 50 mcg PO 0600 [facility] Last Admin: 02/09/20 05:35 Dose: 50 mcg Methocarbamol (Robaxin) 750 mg PO QPM PRN PRN Reason: Muscle Pain Metoprolol Tartrate (Lopressor) 50 mg PO BID [facility] Last Admin: 02/09/20 09:00 Dose: 50 mg Nifedipine (Procardia Xl) 30 mg PO DAILY [facility] Last Admin: 02/09/20 08:36 Dose: Not Given Ondansetron HCl (Zofran) 4 mg IVP Q6H PRN PRN Reason: Nausea/Vomiting Quetiapine Fumarate (Seroquel) 100 mg PO [facility] Last Admin: 02/08/20 21:39 Dose: 100 mg Senna/Docusate Sodium (Senokot S) 2 tab PO BID PRN PRN Reason: Constipation Simvastatin (Zocor) 10 mg PO [facility] Last Admin: 02/08/20 21:39 Dose: 10 mg Sodium Chloride (Flush - Normal Saline) 10 ml IVF PRN PRN PRN Reason: Saline Flush Tramadol HCl (Ultram) 50 mg PO Q4H PRN PRN Reason: Moderate Pain (4-6) Last Admin: 02/09/20 05:40 Dose: 50 mg Vital Signs & Weight: Vital Signs Temp Pulse Resp BP Pulse Ox 02/09/20 11:15 97.5 F L 61 18 111/56 L 91 L 02/09/20 08:36 60 02/09/20 07:25 97.8 F 60 17 100/55 L 97 02/09/20 03:06 97.8 F 61 17 116/59 L 95 Weight 173 lb 1.006 oz - Physical Exam General: alert & oriented x3 HEENT: mucus membranes moist Neck: supple neck Cardiac: regular rate and rhythm, S1/S2 Lungs: clear to auscultation Neuro: cranial nerve 2-12 intact - Labs Result Diagrams: 02/08/20 03:32 02/08/20 03:32 Troponin/CKMB CK-MB (CK-2) 0.9 ng/mL (0-6.6) 02/07/20 18:53 Troponin I 0.045 ng/mL (< 0.028) H 02/08/20 03:30 - Telemetry Sinus rhythms and dysrhythmias: other (SR with A paced) - Assessment/Plan Assessment/Plan: 1. Atypical Chest pain - stable; 2. Acute on chronig Diastolic HF with grade III dd on 02/08/2020 - stable; on Lasix and BBlocker, which will be changed to Coreg 6.25mg BID for Afib, HTN, and CHF management. Not on NORTH/ARB due to hx of CKD 3. Persistent Afib/Alutter with s/p DCCV and PPM on 01/31/2020 - remains in SR; Cont. ASA for now due to hx of Anemia; Amiodarone 400mg BID since 01/31/2020 change to 200mg BID for 2 wks, then 200mg qd. 4. Anemia - Per the pt, she has been on Vitamin B12 and iron supplement 5. LA on CKD on stage 3 6. SSS with s/p PM placement on 01/31/2020 7. hypothyroidism 8. HLD 9. DM type 2 10. Seizure 11. Hx of multiple falls 12. Ex-smoker 13. UTI - on ABX IV MAR reviewed * Pt. seen and eval. by me. I agree with the A/P by the BNP. She ambulates very little and has refused to walk with PT. The o2 sats are in the mid-upper 80's on room air. She does not have finances to afford home O2.The cardiac function appears stable. There are some scattered rales in the bases. She is remaining in NSR. I will further decrease the amiodarone in light of the decreased O2 sat. She can begin 200mg bid. I will be happy to see her back in the office or telemedicine visit in 2 weeks. jose
[2020-02-09] MEDS ORDERED: Furosemide 40 MG TAB PO SCH (13:00)
[2020-02-09 15:45] VITALS: BP 139/60
[2020-02-09] MEDS ORDERED: Carvedilol 6.25 MG TAB PO SCH (17:00)
--- NOTE | 2020-02-10 08:12 | DIS ---
DATE OF ADMISSION: 02/07/2020 DATE OF DISCHARGE: 02/09/2020 DISCHARGE DISPOSITION: Home. FOLLOWUP: 1. Follow up with primary care physician, Dr. Dayday Shaikh in 1 week. 2. Follow up with Cardiology, Dr. Vazquez and Nephrology, Dr. Allison in 1 week. Basic metabolic profile after 1 week is recommended. Primary care physician advised to follow. Patient was seen and examined on the day of discharge. Denies any new complaints. No chest pain, shortness of breath, or palpitations reported. Vital signs on the day of discharge showed temperature 97.5 with pulse rate of 64, respirations of 18 with O2 saturation of 92% to 94% on room air. BRIEF HOSPITAL COURSE: Patient is a 59-year-old female with recent hospitalization for atrial fibrillation, presented to the emergency room with chest discomfort. Her chest discomfort was in the upper chest without any aggravating or relieving factor. At times, the pain was reproducible. Please refer to the history and physical for further details. The patient was admitted to the hospital with a diagnosis of chest discomfort rule out acute coronary syndrome. She was found to have indeterminate troponins. Please note that patient has history of chronically elevated troponins in the indeterminate range due to CKD. She was evaluated by Cardiology, Dr. Vazquez. Repeat echocardiogram was obtained that showed ejection fraction of 60% to 65% with left ventricular hypertrophy. There was no pericardial effusion. Amiodarone has been reduced to 200 mg b.i.d. Metoprolol has been transitioned to carvedilol. She was also found to have urinary tract infection with urinalysis showing 7 to 10 wbc's with 4+ bacteria. She will complete a short course of antibiotic for this. I also discussed with Dr. Allison, who recommended resuming Lasix. She appears stable for discharge. FINAL DIAGNOSES: 1. Atypical chest pain. 2. Acute on chronic diastolic heart failure, restarted on Lasix this admission. Metoprolol was transitioned to Coreg per Cardiology recommendation. 3. Persistent atrial fibrillation/flutter, status post recent cardioversion with pacemaker placement. 4. Chronic anemia. 5. Chronic kidney disease, stage 3. 6. Sick sinus syndrome, status post pacemaker. 7. Hyperlipidemia. 8. Hypothyroidism. 9. Diabetes mellitus, type 2. 10. Seizure disorder. 11. Former smoker. 12. Urinary tract infection. 13. History of vitamin B12 deficiency. 14. Family history of heart disease. 15. Obesity with a BMI of 36.2. 16. Chronically elevated troponins due to chronic kidney disease, stage 3. 17. Chronic pain syndrome. Patient understands the above plan of care. Job ID: [id number]
== END 2020-02-09 17:00 | disposition home or self-care (01) ==
LOC: ERS 18:11 → 2NO 20:54
PROVIDERS: ADMIT Internal Medicine; ATTEND Internal Medicine
DX: R07.89 Other chest pain (principal); I13.0 Hypertensive heart and chronic kidney disease with heart failure and stage 1 through stage 4 chronic kidney disease, or unspecified chronic kidney disease; E11.22 Type 2 diabetes mellitus with diabetic chronic kidney disease; N18.3 Chronic kidney disease, stage 3 (moderate); I50.33 Acute on chronic diastolic (congestive) heart failure; D63.1 Anemia in chronic kidney disease; N17.9 Acute kidney failure, unspecified; I48.19 Other persistent atrial fibrillation; I49.5 Sick sinus syndrome; E03.9 Hypothyroidism, unspecified; E66.9 Obesity, unspecified; E78.5 Hyperlipidemia, unspecified; F41.9 Anxiety disorder, unspecified; F32.9 Major depressive disorder, single episode, unspecified; G40.909 Epilepsy, unspecified, not intractable, without status epilepticus; G89.4 Chronic pain syndrome; N39.0 Urinary tract infection, site not specified; Z68.36 Body mass index [BMI] 36.0-36.9, adult; Z79.82 Long term (current) use of aspirin; Z79.84 Long term (current) use of oral hypoglycemic drugs; Z79.899 Other long term (current) drug therapy; Z86.73 Personal history of transient ischemic attack (TIA), and cerebral infarction without residual deficits; Z87.891 Personal history of nicotine dependence; Z88.6 Allergy status to analgesic agent; Z88.8 Allergy status to other drugs, medicaments and biological substances; Z91.81 History of falling; Z95.0 Presence of cardiac pacemaker
CPT/HCPCS: 36415; 36416; 51701; 71045; 80048; 80053; 80061; 81003; 81015; 82550; 82553; 83690; 83735; 83880; 84484; 85025; 93005; 93306; 94760; 96372; 96374; 96376; A4353; G0378; J1644; J2270

== ENCOUNTER 2020-07-21 22:34 | Observation (INO) | payer OTHER, SELFPAY ==
--- NOTE | 2020-07-21 23:07 | RAD ---
XR Chest 1 View Portable History: Tachycardia Comparison: Radiograph February 07, 2020 Findings: Heart size mildly enlarged. Pulmonary arteries are enlarged. Dual-lead pacer electrodes pro ject over the right atrium and right ventricle. No pneumothorax. No acute osseous abnormality. Dense calcifications transverse aorta. Impression: Chronic findings. No acute intrathoracic abnormality.
[2020-07-21 23:38] LABS: #Basophils 0.1 thou/uL (0.0-0.2); #Eosinphils 0.2 thou/uL (0.0-0.7); #Lymphocytes 2.1 thou/uL (1.20-3.40); #Monocytes 0.6 thou/uL (0.11-0.59); #Neutrophils 8.2 thou/uL (1.40-6.50); %Basophils 0.6 % (0.0-1.0); %Eosinophils 2.1 % (0.0-10.0); %Lymphocytes 18.6 % (21.0-51.0); %Neutrophils 73.7 % (42.0-75.0); Hemoglobin 13.2 g/dL (12.0-16.0); Mean Corpuscular HGB CONC 33.3 g/dL (32.0-36.0); Mean Corpuscular Volume 93.2 fL (78.0-98.0); Mean Platelet Volume 9.3 fL (7.4-10.4); Platelet Count 258 thou/uL (130-400); RBC Distribution Width 12.1 % (11.5-14.5); Red Blood Cell (RBC) Count 4.25 mill/uL (4.20-5.40); White Blood Cell (WBC) Count 11.1 thou/uL (4.8-10.8)
[2020-07-21] MEDS ORDERED: Amiodarone 450 MG, Admixture Fee 1 EACH in Dextrose 5% in Water 250 ML IVPB SCH (23:45)
[2020-07-21] MEDS ORDERED: Amiodarone 150 MG, Admixture Fee 1 EACH in Dextrose 5% in Water 100 ML IVPB SCH (23:45)
[2020-07-22 00:08] LABS: ALT (SGPT) 13 U/L (8-55); AST (SGOT) 15 U/L (5-34); Albumin 4.5 g/dL (3.4-4.8); Alkaline Phosphatase 102 U/L (40-110); Anion Gap 21 mmol/L (10-20); BUN (Urea Nitrogen) 40 mg/dL (9.8-20.1); Bilirubin, Total 0.3 mg/dL (0.2-1.2); CK (CPK) 50 U/L (29-168); Calc. Creatinine Clearance 0 mL/min (70-130); Calcium 9.6 mg/dL (7.8-10.44); Carbon Dioxide 21 mmol/L (23-31); Chloride 102 mmol/L (98-107); Estimated GFR-MDRD 20; Globulin 3.8 g/dL (2.4-3.5); Glucose 177 mg/dL (80-115); Lipase 16 U/L (8-78); Potassium 4.5 mmol/L (3.5-5.1); Protein, Total 8.3 g/dL (6.0-8.3); Sodium 139 mmol/L (136-145)
[2020-07-22 00:34] LABS: CKMB 0.8 ng/mL (0-6.6)
--- NOTE | 2020-07-22 02:08 | PDOC.HHP ---
Hospitalist HPI - History of Present Illness Tachycardia History of Present Illness: Ms. Rowe is a 60-year-old female with a past medical history of hypertension hyperlipidemia, CAD, CHF, hypothyroidism, TIA, seizures, CKD, A. 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 Patient reports that she regularly monitors her heart rate and blood pressure at home, and noticed that her readings the past 2 days have been significantly elevated with heart rates in the 150s. During these episodes she was asymptomatic. Patient states that yesterday while reaching overhead she felt a lump move in her left upper chest, which she was concerned was movement of her pacemaker. Patient also reports that yesterday she felt very fatigued and tired but denies chest pain, shortness of breath, palpitations. Denies any recent illness, nausea/vomiting/diarrhea. Denies dysuria, hemamateria, melena, hematochezia. Patient recently admitted in January 2020 for a PPM placement by Dr. Vazquez. In the emergency room EKG showed SVT, with a ventricular rate of 137, QRS 134, QTc 513, as well as a right bundle branch block. Initial troponin 0 0.033, TSH 1.24, lipase 16, CK 50, sodium 139, potassium 4.5. BUN/CR 40/2.41 WBC of 11.1, H/H 13.2/39.6. Chest x-ray showed dual-lead pacer electrodes projecting over the right atrium and right ventricle, as well as a mildly enlarged heart, but no acute abnormalities. Patient received on 150 mg bolus of amiodarone, and was started on amnio drip. Her heart rate improved to 60s. Hospitalist ROS - Review of Systems Constitutional: reports: malaise. denies: fever, chills, sweats, weakness, other Eyes: denies: pain, vision change, conjunctivae inflammation, eyelid inflammation, redness, other ENT: denies: ear pain, ear discharge, nose pain, nose discharge, nose congestion, mouth pain, mouth swelling, throat pain, throat swelling, other Respiratory: denies: cough, dry, shortness of breath, hemoptysis, SOB with excertion, pleuritic pain, sputum, wheezing, other Cardiovascular: denies: chest pain, palpitations, orthopnea, paroxysmal noc. dyspnea, edema, light headedness, other Gastrointestinal: denies: nausea, vomiting, abdominal pain, diarrhea, constipation, melena, hematochezia, other Genitourinary: denies: dysuria, frequency, incontinence, hematuria, retention, other Musculoskeletal: denies: neck pain, shoulder pain, arm pain, back pain, hand pain, leg pain, foot pain, other Skin: denies: rash, lesions, bats[place], bruising, other Neurological: denies: weakness, numbness, incoordination, change in speech, confusion, seizures, other - Medication Medications: Home medications include: 1. Ambien 2. Vitamin B12/IF/Folate 3. Ferrous Sulfate 4. ASA 5. Glipizide 6. Tizanidine &. Levothyroxine 8. Nifedipine 9. Calcitriol 10. Lasix 11. Amiodarone 12. Carvedilol 13. [place] 14. Nitrostat 15. Lovastatin Allergies: NSAIDs, amlodipine - Exam General Appearance: NAD, awake alert Eye: PERRL, anicteric sclera ENT: normocephalic atraumatic, no oropharyngeal lesions, moist mucosa Neck: supple, symmetric, no JVD, no thyromegaly, no lymphadenopathy, no carotid bruit Heart: RRR, no murmur, no gallops, no rubs, normal peripheral pulses Respiratory: CTAB, no wheezes, no rales, no ronchi, normal chest expansion, no tachypnea, normal percussion Gastrointestinal: soft, non-tender, non-distended, normal bowel sounds, no palpable masses, no hepatomegaly, no splenomegaly, no bruit Extremities: no cyanosis, no clubbing, no edema Skin: normal turgor, no lesions, no rashes Neurological: cranial nerve grossly intact, normal sensation to touch, no weakness, no focal deficits, no new deficit Musculoskeletal: normal tone, normal strength, no muscle wasting Psychiatric: normal affect, normal behavior, A&O x 3 Hospitalist Results - Labs Result Diagrams: 07/21/20 23:23 07/21/20 23:23 Lab results: WBC 11.1 thou/uL (4.8-10.8) H 07/21/20 23:23 Hgb 13.2 g/dL (12.0-16.0) 07/21/20 23:23 Hct 39.6 % (36.0-47.0) 07/21/20 23:23 MCV 93.2 fL (78.0-98.0) 07/21/20 23:23 Plt Count 258 thou/uL (130-400) 07/21/20 23:23 Neutrophils % 73.7 % (42.0-75.0) 07/21/20 23:23 Sodium 139 mmol/L (136-145) 07/21/20 23:23 Potassium 4.5 mmol/L (3.5-5.1) 07/21/20 23:23 Chloride 102 mmol/L (98-107) 07/21/20 23:23 Carbon Dioxide 21 mmol/L (23-31) L 07/21/20 23:23 BUN 40 mg/dL (9.8-20.1) H 07/21/20 23:23 Creatinine 2.41 mg/dL (0.6-1.1) H 07/21/20 23:23 Glucose 177 mg/dL (80-115) H 07/21/20 23:23 Calcium 9.6 mg/dL (7.8-10.44) 07/21/20 23:23 Total Bilirubin 0.3 mg/dL (0.2-1.2) 07/21/20 23:23 AST 15 U/L (5-34) 07/21/20 23:23 ALT 13 U/L (8-55) 07/21/20 23:23 Alkaline Phosphatase 102 U/L (40-110) 07/21/20 23:23 Creatine Kinase 50 U/L (29-168) 07/21/20 23:23 CK-MB (CK-2) 0.8 ng/mL (0-6.6) 07/21/20 23:23 Troponin I 0.033 ng/mL (< 0.028) H 07/21/20 23:23 Serum Total Protein 8.3 g/dL (6.0-8.3) 07/21/20 23:23 Albumin 4.5 g/dL (3.4-4.8) 07/21/20 23:23 Lipase 16 U/L (8-78) 07/21/20 23:23 Hospitalist H&P A/P - Problem (1) Supraventricular tachycardia Code(s): I47.1 - SUPRAVENTRICULAR TACHYCARDIA Status: Acute (2) Elevated troponin Code(s): R79.89 - OTHER SPECIFIED ABNORMAL FINDINGS OF BLOOD CHEMISTRY Status: Acute (3) Diabetes type 2, controlled Code(s): E11.9 - TYPE 2 DIABETES MELLITUS WITHOUT COMPLICATIONS Status: Chronic (4) Dyslipidemia Code(s): E78.5 - HYPERLIPIDEMIA, UNSPECIFIED Status: Chronic (5) HTN (hypertension) Code(s): I10 - ESSENTIAL (PRIMARY) HYPERTENSION Status: Chronic (6) Hypothyroidism Code(s): E03.9 - HYPOTHYROIDISM, UNSPECIFIED Status: Chronic (7) LA (acute kidney injury) Code(s): N17.9 - ACUTE KIDNEY FAILURE, UNSPECIFIED Status: Acute (8) Diastolic heart failure Code(s): I50.30 - UNSPECIFIED DIASTOLIC (CONGESTIVE) HEART FAILURE Status: Acute (9) Anemia, pernicious Code(s): D51.0 - VITAMIN B12 DEFIC ANEMIA DUE TO INTRINSIC FACTOR DEFICIENCY Status: Acute - Plan Plan: Supraventricular tachycardia: 60-year-old female with history of persistent A. fib, tachy-stoney syndrome status post PPM who presents with tachycardia based on home readings, found to h ave SVT on EKG. Initially treated with amiodarone bolus, and drip in ED with improvement in tachycardia with heart rate now in the 60s NSR. On EKG, pacemaker did not appear to be pacing. Chest x-ray with no acute findings, initial troponin 0 0.033. TSH 1.24 WBC mildly elevated at 11.1. Patient is afebrile with no other signs of infection. UA and COVID pending. Hemod ynamically stable. Plan: -Telemetry -Continue amnio drip -Cardiology consult with Dr. Vazquez -Trend troponin -R/O infection -Pacemaker interrogation Elevated troponin: Mild elevation in troponin at 0.033. Likely secondary to patient's CKD. Baseline creatinine ~2. BUN/CR 40/2.41. Plan: -Trend troponin Acute kidney injury superimposed on chronic kidney disease: History of CKD with baseline creatinine approximately 2. BUN/CR on admission 40/2.41. Plan: -IVF -Trend kidney function -Avoid nephrotoxic agents when possible -Continue home Calcitriol Type 2 diabetes mellitus: On home glipizide. Will hold during admission. Plan: -ISS -ACHS glucose checks Diastolic heart failure: Continue home, coreg, nifedipine 30 mg, ASA 81 mg. Hold home lasix 2/2 LA Hyperlipidemia: Continue home lovastatin 20 mg Hypothyroidism: Continue home levothyroxine 50 mcg Pernicious Anemia: Hx of pernicious anemia requiring transfusions. H/H on admission 13.2/39.6. Nl MCV, MCHC. Will continue home vitamin B12/IF/folate, and iron. DVT prophylaxis: SQ heparin Full code Case discussed with attending physician, Dr. Gregorio
[2020-07-22 02:18] VITALS: BMI 38.8
[2020-07-22 02:26] LABS: Lactic Acid 0.8 mmol/L (0.5-2.2)
[2020-07-22] MEDS ORDERED: Sodium Chloride 0.9% 1,000 ML IV SCH (03:00)
[2020-07-22 03:10] LABS: Troponin I 0.033 ng/mL (< 0.028)
[2020-07-22] MEDS ORDERED: HumaLOG 300 UNITS/3 ML VIAL SC PRN (04:47)
[2020-07-22] MEDS ORDERED: Dextrose 5% in Water 1,000 ML IV PRN (04:47)
[2020-07-22] MEDS ORDERED: Dextrose 50% Abboject 50 ML SYRINGE SLOW IVP PRN (04:47)
[2020-07-22] MEDS ORDERED: Levothyroxine Sodium 50 MCG TAB PO SCH (06:00)
[2020-07-22 06:02] LABS: Troponin I 0.056 ng/mL (< 0.028)
[2020-07-22 06:10] LABS: Chloride 105 mmol/L (98-107); Potassium 4.1 mmol/L (3.5-5.1); Sodium 140 mmol/L (136-145)
[2020-07-22 06:11] LABS: Glucose 85 mg/dL (80-115)
[2020-07-22 06:13] LABS: Carbon Dioxide 20 mmol/L (23-31)
[2020-07-22 06:14] LABS: Calc. Creatinine Clearance 34 mL/min (70-130); Estimated GFR-MDRD 22
[2020-07-22 06:15] LABS: BUN (Urea Nitrogen) 38 mg/dL (9.8-20.1)
[2020-07-22 06:35] LABS: Anion Gap 19 mmol/L (10-20)
[2020-07-22 07:00] LABS: #Eosinphils 0.2 thou/uL (0.0-0.7); #Lymphocytes 2.3 thou/uL (1.20-3.40); #Monocytes 0.6 thou/uL (0.11-0.59); #Neutrophils 5.2 thou/uL (1.40-6.50); %Basophils 0.4 % (0.0-1.0); %Eosinophils 2.5 % (0.0-10.0); %Lymphocytes 27.7 % (21.0-51.0); %Neutrophils 62.4 % (42.0-75.0); Hemoglobin 12.5 g/dL (12.0-16.0); Mean Corpuscular Hemoglobin 31.1 pg (27.0-31.0); Mean Corpuscular Volume 94.3 fL (78.0-98.0); Platelet Count 208 thou/uL (130-400); RBC Distribution Width 11.9 % (11.5-14.5); Red Blood Cell (RBC) Count 4.03 mill/uL (4.20-5.40); White Blood Cell (WBC) Count 8.4 thou/uL (4.8-10.8)
[2020-07-22] MEDS ORDERED: Ferrous Sulfate 325 MG TAB PO SCH (08:00)
[2020-07-22] MEDS ORDERED: Non-Formulary Item 1 EACH (Zolpidem Tartrate [Ambien] 10 MG Tablet) PO PRN (08:36)
[2020-07-22] MEDS ORDERED: Zolpidem Tartrate 5 MG TAB PO PRN (08:42)
[2020-07-22] MEDS ORDERED: Amiodarone 200 MG TAB PO SCH ×3 (09:00→21:00)
[2020-07-22] MEDS ORDERED: Aspirin 325 MG TAB PO SCH (09:00)
[2020-07-22] MEDS ORDERED: Stress 600 With Zinc 1 TAB PO SCH (09:00)
[2020-07-22] MEDS ORDERED: Carvedilol 6.25 MG TAB PO SCH (09:00)
[2020-07-22] MEDS ORDERED: Heparin 5,000 UNITS/ML VIAL SC SCH (09:00)
[2020-07-22] MEDS ORDERED: NIFEdipine XL 30 MG TAB PO SCH (09:00)
[2020-07-22] MEDS ORDERED: Calcitriol 0.25 MCG CAP PO SCH (09:00)
[2020-07-22 10:46] LABS: Bilirubin Negative (Negative); Blood, Urine Negative (Negative); Clarity Clear (Clear); Glucose, Urine (Dipstick) Normal (Negative); Ketone, Urine Negative (Negative); Leukocyte 250 Leu/uL (Negative); Nitrite Negative (Negative); Protein, Urine (Dipstick) Negative (Neg-Trace); RBC/HPF 0-3 HPF (0-3); Specific Gravity, Urine 1.013 (1.002-1.036); Squamous Epithelial 0-3 HPF (0-3); Urobilinogen Normal mg/dL (Less than 2)
[2020-07-22 11:01] LABS: Bacteria/HPF Rare-Few HPF (None Seen)
[2020-07-22 11:13] VITALS: BP 130/63; TEMP 98
[2020-07-22 12:27] LABS: SARS-CoV-2 MS2 Positive; SARS-CoV-2 N Gene Negative; SARS-CoV-2 S Gene Negative; SARS-CoV-2 by NAA Not Detected (NotDetected); SARS-CoV-2 orf1ab Negative
--- NOTE | 2020-07-22 19:01 | CON ---
DATE OF CONSULTATION: HISTORY OF PRESENT ILLNESS: Ramila Rowe is a 60-year-old white female patient of Dr. Vazquez. She did undergo cardiac catheterization in 2006, which revealed 10% to 15% proximal LAD plaquing and some mild plaque in the right coronary artery. Her main problem at the present time is tachycardia-bradycardia syndrome with paroxysmal atrial fibrillation. She also had a pacemaker placed by Dr. Vazquez in January 2020. She has been doing relatively well on amiodarone with suppression of her atrial arrhythmias from looking at her pacemaker. Then in acid maker hours of July 21, she began to have atrial fibrillation. She is asymptomatic whenever she has this except for possible lightheadedness. She does not have any palpitations, chest discomfort, shortness of breath. She only notices that something was wrong when she tried multiple times to take her blood pressure and her blood pressure cuff would not register, although other family members tried and it worked fine. She then got a pulse oximeter and was found to have heart rate in the 140s, so she came to the emergency room. In the emergency room, she was placed on intravenous amiodarone. However, she states that even before she was given any medications, her heart rate went down to 60 per minute. PAST MEDICAL HISTORY: Diabetes, hypertension, hypothyroidism, hyperlipidemia, paroxysmal atrial fibrillation, history of two electrical cardioversions, and history of TIA. MEDICATIONS: 1. Amiodarone 200 daily. 2. Aspirin 325 daily. 3. Carvedilol 6.25 b.i.d. 4. Ferrous sulfate 325 b.i.d. 5. Furosemide 20 daily. 6. Glipizide 5 mg daily. 7. Levothyroxine 50 mcg daily. 8. Zocor 20 at bedtime. 9. Procardia 30 daily. 10. Vitamin B12/folic acid daily. 11. Ambien p.r.n. 12. Nitroglycerin p.r.n. ALLERGIES: IBUPROFEN, NAPROXEN, AMLODIPINE, AND NSAIDS. PHYSICAL EXAMINATION: VITAL SIGNS: Blood pressure 130/63, pulse 62. HEENT: PERRL. NECK: Supple. CHEST: Clear. CARDIAC: S1 and S2 normal without any S3, S4, or murmurs. ABDOMEN: Normal bowel sounds without tenderness. EXTREMITIES: Revealed no clubbing, cyanosis, or edema. NEUROLOGICAL: Grossly intact. SKIN: Warm and dry. LABORATORY DATA: EKG reveals atrial pacing with right bundle-branch block. Initial EKG revealed atrial fibrillation with right bundle-branch block. Hemoglobin 12.5, hematocrit 38.0, white count 8400, and platelets 208,000. Sodium 140, potassium 4.1, chloride 105, carbon dioxide 20, BUN 38, and creatinine 2.27. Troponin I 0.056. TSH is normal. IMPRESSION: 1. Paroxysmal atrial fibrillation with breakthrough episode on amiodarone. 2. Tachycardia-bradycardia syndrome with placement of dual-chamber pacemaker in January 2020. 3. Hypertension. 4. Diabetes. 5. Hypercholesterolemia. 6. Hypothyroidism. PLAN: Currently, the patient is on IV amiodarone and I feel that may be discontinued since she has recurrent atrial pacing. A prescription was written for amiodarone 200 mg b.i.d. for 1 month and then she can return to 200 mg daily. Also, I am somewhat concerned with her multiple embolic risk factors and now having this prolonged episode. I would have her reduce the Aspirin to 81 mg qd and start Eliquis 5 mg b.i.d. Samples will be provided. I feel she should follow with Dr. Vazquez in the next 4 or 5 days and further recommendations and arrangements can be made for help with getting the Eliquis. Job ID: [id number] MTDD
[2020-07-22] MEDS ORDERED: Simvastatin 10 MG TAB PO SCH (21:00)
[2020-07-22] MEDS ORDERED: Apixaban 5 MG TAB PO SCH (21:00)
--- NOTE | 2020-07-22 21:42 | DIS ---
DATE OF ADMISSION: 07/22/2020 DATE OF DISCHARGE: 07/22/2020 DISCHARGE DIAGNOSES: 1. Supraventricular tachycardia. 2. Atrial fibrillation with tachy-stoney syndrome. 3. Transient ischemic attack. 4. Hypothyroidism. HOSPITAL COURSE: The patient is a very pleasant 60-year-old female who initially presented to the hospital with tachycardia. The patient's EKG indicated supraventricular tachycardia. At this time, she was given a bolus of amiodarone and was started on amiodarone drip. She also had her thyroid checked and her thyroid appeared to be normal. She had some mildly elevated troponins. She was seen by Cardiology and recommended Eliquis. The patient will be discharged home with Eliquis and amiodarone. Her amiodarone dose will be increased. HOME MEDICATIONS: 1. Amiodarone 200 mg b.i.d. 2. Eliquis 5 mg b.i.d. 3. Lovastatin 20 mg at bedtime. 4. Coreg 6.25 b.i.d. 5. Lasix 20 mg daily. 6. Procardia 30 mg daily. 7. Levothyroxine 50 mcg daily. 8. Glipizide 5 mg daily. 9. Vitamin B12 1 p.o. daily. PHYSICAL EXAMINATION: VITAL SIGNS: On discharge, temperature 98.0, 62, 16, 98% on room air . GENERAL: She is awake, alert, and oriented x3. Does not appear in distress. CARDIOVASCULAR: S1 and S2 present. No murmurs, rubs, or gallops. Again, she will be discharged home. She will follow up with Cardiology. Job ID: [id number]
[2020-07-23] MEDS ORDERED: Aspirin 81 mg Enteric Coated Tablet PO SCH (09:00)
== END 2020-07-22 15:34 | disposition home or self-care (01) ==
LOC: ERS 22:34 → 2SW 07-22 00:54
PROVIDERS: ADMIT Internal Medicine; ATTEND Internal Medicine
DX: I47.1 Supraventricular tachycardia (principal); G45.9 Transient cerebral ischemic attack, unspecified; I48.91 Unspecified atrial fibrillation; E03.9 Hypothyroidism, unspecified; I13.0 Hypertensive heart and chronic kidney disease with heart failure and stage 1 through stage 4 chronic kidney disease, or unspecified chronic kidney disease; N18.9 Chronic kidney disease, unspecified; I50.30 Unspecified diastolic (congestive) heart failure; I45.10 Unspecified right bundle-branch block; I25.10 Atherosclerotic heart disease of native coronary artery without angina pectoris; E78.5 Hyperlipidemia, unspecified; N17.9 Acute kidney failure, unspecified; D51.0 Vitamin B12 deficiency anemia due to intrinsic factor deficiency; Z79.01 Long term (current) use of anticoagulants; Z79.84 Long term (current) use of oral hypoglycemic drugs; Z79.899 Other long term (current) drug therapy; Z86.73 Personal history of transient ischemic attack (TIA), and cerebral infarction without residual deficits; Z87.891 Personal history of nicotine dependence; Z88.6 Allergy status to analgesic agent; Z88.8 Allergy status to other drugs, medicaments and biological substances; Z20.828 Contact with and (suspected) exposure to other viral communicable diseases
CPT/HCPCS: 36415; 36416; 71045; 80048; 80053; 81001; 82550; 82553; 83605; 83690; 83735; 84443; 84484; 85025; 87635; 93005; 94760; 96365; 96366; G0378; J0282; J1644; J7070; U0003

== ENCOUNTER 2021-12-20 01:08 | Observation (INO) | payer SELFPAY ==
[2021-12-20 02:19] LABS: Hemoglobin 14.1 g/dL (12.0-16.0); Mean Corpuscular HGB CONC 33.2 g/dL (32.0-36.0); Mean Corpuscular Volume 93.4 fL (78.0-98.0); Mean Platelet Volume 8.9 fL (7.4-10.4); Platelet Count 117 thou/uL (130-400); RBC Distribution Width 12.5 % (11.5-14.5); Red Blood Cell (RBC) Count 4.55 mill/uL (4.20-5.40); White Blood Cell (WBC) Count 10.4 thou/uL (4.8-10.8)
[2021-12-20 02:28] LABS: INR-International Normal Ratio 1.1; PTT 27.9 sec (22.9-36.1); Prothrombin Time 14.7 sec (12.0-14.7)
[2021-12-20 02:49] LABS: Band 4 % (5-11); Eosinophils 2 % (0-10); Lymphocytes 34 % (21-51); MDiff Complete? YES; Monocytes 17 % (0-10); Neutrophil 43 % (42-75); Platelet Morphology Comment Appears Decreased; RBC Morphology Normal
[2021-12-20 03:21] LABS: ALT (SGPT) 11 U/L (8-55); AST (SGOT) 19 U/L (5-34); Albumin 4.5 g/dL (3.4-4.8); Alkaline Phosphatase 111 U/L (40-110); BUN (Urea Nitrogen) 29 mg/dL (9.8-20.1); Bilirubin, Total 0.5 mg/dL (0.2-1.2); Calc. Creatinine Clearance 0 mL/min (70-130); Calcium 9.8 mg/dL (7.8-10.44); Carbon Dioxide 15 mmol/L (23-31); Chloride 104 mmol/L (98-107); Globulin 4.1 g/dL (2.4-3.5); Glucose 210 mg/dL (80-115); Protein, Total 8.6 g/dL (5.8-8.1); Sodium 142 mmol/L (136-145)
[2021-12-20 03:24] LABS: Anion Gap 28 mmol/L (10-20)
[2021-12-20 04:22] LABS: Anion Gap 20 mmol/L (10-20); BUN (Urea Nitrogen) 28 mg/dL (9.8-20.1); Calc. Creatinine Clearance 0 mL/min (70-130); Calcium 9.9 mg/dL (7.8-10.44); Carbon Dioxide 20 mmol/L (23-31); Chloride 106 mmol/L (98-107); Glucose 177 mg/dL (80-115); Potassium 4.2 mmol/L (3.5-5.1); Sodium 142 mmol/L (136-145)
[2021-12-20 05:01] LABS: Bacteria/HPF 4+ HPF (None Seen); Bilirubin Negative (Negative); Blood, Urine Trace (Negative); Clarity Turbid (Clear); Glucose, Urine (Dipstick) Normal (Negative); Ketone, Urine Negative (Negative); Leukocyte 250 Leu/uL (Negative); Nitrite 2+ (Negative); Protein, Urine (Dipstick) 20 mg/dL (Neg-Trace); RBC/HPF 0-3 HPF (0-3); Specific Gravity, Urine 1.024 (1.002-1.036); Squamous Epithelial 0-3 HPF (0-3); Urobilinogen Normal mg/dL (Less than 2); WBC/HPF 21-50 HPF (0-3); pH, Urine 5.5 (5.0-9.0)
[2021-12-20] MEDS ORDERED: cefTRIAXone\\ROCEPHIN 2 GM VIAL ONE (05:21)
[2021-12-20] MEDS ORDERED: Ondansetron PF 4 MG/2 ML Vial IVP PRN (07:00)
[2021-12-20] MEDS ORDERED: Ondansetron ODT 4 MG TAB SL PRN (07:00)
[2021-12-20 07:29] VITALS: BMI 41.3
[2021-12-20] MEDS ORDERED: Bisacodyl 5 MG TAB PO PRN (09:13)
[2021-12-20] MEDS ORDERED: Acetaminophen 650 MG Suppository PR PRN (09:13)
[2021-12-20] MEDS ORDERED: Acetaminophen 325 MG TAB PO PRN (09:13)
[2021-12-20] MEDS ORDERED: Senokot S 8.6-50 MG TAB PO PRN (09:13)
[2021-12-20] MEDS ORDERED: Aspirin 325 MG TAB PO SCH (09:15)
[2021-12-20] MEDS: Sodium Chloride 0.9% 1,000 ML IV SCH ×2 (09:46→23:58)
[2021-12-20] MEDS ORDERED: cefTRIAXone\\ROCEPHIN 1 GM in Sodium Chloride 0.9% 100 ML IVPB SCH (12:00)
[2021-12-20 18:26] LABS: SARS-CoV-2 PCR by NAA Not Detected (NotDetected)
[2021-12-20] MEDS: Apixaban 5 MG TAB PO SCH (20:49)
[2021-12-20] MEDS: Carvedilol 6.25 MG TAB PO SCH (20:50)
[2021-12-20] MEDS ORDERED: Simvastatin 10 MG TAB PO SCH (21:00)
[2021-12-20] MEDS ORDERED: Dextrose 50% Abboject 50 ML SYRINGE SLOW IVP PRN (23:39)
[2021-12-20] MEDS ORDERED: Dextrose 5% in Water 1,000 ML IV PRN (23:39)
[2021-12-20] MEDS ORDERED: HumaLOG 300 UNITS/3 ML VIAL SC PRN ×2 (23:39)
[2021-12-20] MEDS ORDERED: Melatonin 3 MG TAB PO PRN (23:40)
[2021-12-21 05:09] LABS: #Basophils 0.1 thou/uL (0.0-0.2); #Eosinphils 0.2 thou/uL (0.0-0.7); #Lymphocytes 2.2 thou/uL (1.20-3.40); #Monocytes 0.6 thou/uL (0.11-0.59); #Neutrophils 4.2 thou/uL (1.40-6.50); %Basophils 0.8 % (0.0-1.0); %Eosinophils 2.8 % (0.0-10.0); %Lymphocytes 30.6 % (21.0-51.0); %Monocytes 8.1 % (0.0-10.0); %Neutrophils 57.8 % (42.0-75.0); Hemoglobin 11.6 g/dL (12.0-16.0); Mean Corpuscular HGB CONC 32.3 g/dL (32.0-36.0); Mean Corpuscular Hemoglobin 30.5 pg (27.0-31.0); Mean Corpuscular Volume 94.2 fL (78.0-98.0); Mean Platelet Volume 9.2 fL (7.4-10.4); Platelet Count 184 thou/uL (130-400); RBC Distribution Width 12.6 % (11.5-14.5); Red Blood Cell (RBC) Count 3.82 mill/uL (4.20-5.40); White Blood Cell (WBC) Count 7.2 thou/uL (4.8-10.8)
[2021-12-21 05:37] LABS: Anion Gap 14 mmol/L (10-20); BUN (Urea Nitrogen) 22 mg/dL (9.8-20.1); Calc. Creatinine Clearance 40 mL/min (70-130); Calcium 8.9 mg/dL (7.8-10.44); Carbon Dioxide 21 mmol/L (23-31); Cardiac Risk 4.5 (Less than 4.5); Chloride 110 mmol/L (98-107); Cholesterol 208 mg/dl (< 200 Desired); Glucose 100 mg/dL (80-115); HDL Cholesterol 46 mg/dL (>60 Neg Risk); LDL Cholesterol, Calculated 127 mg/dL; Sodium 141 mmol/L (136-145); Triglycerides 175 mg/dL (Less than 150)
[2021-12-21] MEDS ORDERED: Levothyroxine Sodium 50 MCG TAB PO SCH (06:00)
[2021-12-21] MEDS ORDERED: Amiodarone 200 MG TAB PO SCH (09:00)
[2021-12-21] MEDS ORDERED: Cefdinir 300 MG CAP PO SCH (09:00)
[2021-12-21] MEDS: Apixaban 5 MG TAB PO SCH (10:28)
[2021-12-21] MEDS: Carvedilol 6.25 MG TAB PO SCH (10:28)
[2021-12-21] MEDS: Aspirin Chewable 81 MG TAB PO SCH ×2 (10:29→10:30)
[2021-12-21 12:10] VITALS: TEMP 97.8
[2021-12-21 16:25] VITALS: BP 150/66
== END 2021-12-21 15:30 | disposition home or self-care (01) ==
LOC: ERS 01:08 → NEURO 04:19
PROVIDERS: ADMIT Student in an Organized Health Care Education/Training Program; ATTEND Internal Medicine
DX: N30.00 Acute cystitis without hematuria (principal); E78.5 Hyperlipidemia, unspecified; I13.0 Hypertensive heart and chronic kidney disease with heart failure and stage 1 through stage 4 chronic kidney disease, or unspecified chronic kidney disease; E11.22 Type 2 diabetes mellitus with diabetic chronic kidney disease; N18.4 Chronic kidney disease, stage 4 (severe); I50.30 Unspecified diastolic (congestive) heart failure; D63.1 Anemia in chronic kidney disease; N17.9 Acute kidney failure, unspecified; I48.0 Paroxysmal atrial fibrillation; I25.10 Atherosclerotic heart disease of native coronary artery without angina pectoris; E03.9 Hypothyroidism, unspecified; I49.5 Sick sinus syndrome; R29.6 Repeated falls; I07.1 Rheumatic tricuspid insufficiency; M25.78 Osteophyte, vertebrae; M48.02 Spinal stenosis, cervical region; E66.3 Overweight; Z68.41 Body mass index [BMI] 40.0-44.9, adult; Z86.73 Personal history of transient ischemic attack (TIA), and cerebral infarction without residual deficits; Z87.891 Personal history of nicotine dependence; Z79.01 Long term (current) use of anticoagulants; Z79.82 Long term (current) use of aspirin; Z79.84 Long term (current) use of oral hypoglycemic drugs; Z79.899 Other long term (current) drug therapy; Z88.6 Allergy status to analgesic agent; Z88.8 Allergy status to other drugs, medicaments and biological substances; Z95.0 Presence of cardiac pacemaker; Z20.822 Contact with and (suspected) exposure to COVID-19; W18.30XA Fall on same level, unspecified, initial encounter
CPT/HCPCS: 36415; 36416; 51701; 70450; 71045; 72125; 80048; 80053; 80061; 81003; 81015; 82550; 83880; 84439; 84443; 84484; 85025; 85610; 85730; 87077; 87086; 87186; 93005; 93306; 96374; G0378; J0696; J3490; J7050; U0003; U0005